=== PATIENT | female | born 1960 | race Caucasian/White ===

== ENCOUNTER → 2017-10-30 14:03 | Outpatient (CLI) | payer OTHER, SELFPAY | DX: K43.9 Ventral hernia without obstruction or gangrene (principal); K76.0 Fatty (change of) liver, not elsewhere classified | CPT/HCPCS: 74177; Q9967 ==

== ENCOUNTER → 2017-11-07 08:02 | Outpatient (CLI) | payer OTHER, SELFPAY | DX: Z12.31 Encounter for screening mammogram for malignant neoplasm of breast (principal) | CPT/HCPCS: 77063; 77067 ==

== ENCOUNTER → 2017-11-13 08:45 | Outpatient (CLI) | payer OTHER, SELFPAY | PROVIDERS: Visit Provider Orthopaedic Surgery | DX: M79.642 Pain in left hand (principal) | CPT/HCPCS: 73130 ==

== ENCOUNTER → 2017-12-12 10:09 | Outpatient (CLI) | payer OTHER, SELFPAY ==
[2017-12-13 13:10] LABS: HSV 2 IgG < 0.91 index (0.00-0.90)
[2017-12-17 13:16] LABS: HPV APTIMA, High Risk Negative (Negative)
== END ==
PROVIDERS: Referring Provider Nurse Practitioner Women's Health; Visit Provider Nurse Practitioner Women's Health
DX: Z86.19 Personal history of other infectious and parasitic diseases (principal); Z12.4 Encounter for screening for malignant neoplasm of cervix
CPT/HCPCS: 36415; 86695; 86696; 88175; G0145

== ENCOUNTER 2018-07-23 08:28 | Day surgery (SDC) | payer OTHER, SELFPAY ==
[2018-06-26 15:31] VITALS: BMI 25.5
--- NOTE | 2018-07-01 06:31 | HP_ITS ---
Intake Vital Signs 06/27/18 Body Mass Index (BMI) 25.5 06/27/18 Height 5 ft 1 in 06/27/18 Weight: 140 lb 06/27/18 Body Mass Index (BMI) 26.4 06/27/18 Blood Pressure 103/63 06/27/18 Blood Pressure Location Rt brachial 06/27/18 Blood Pressure Position Sitting 06/27/18 Respiratory Rate 14 06/27/18 Pulse Rate 67 06/27/18 Pulse Source Monitor 06/27/18 Temperature 98.3 F 06/27/18 Temperature Source Oral 06/27/18 Pulse Ox 97 06/27/18 Oxygen Delivery Method room air Intake Visit Reasons: DISCUSS HERNIA SURGERY LAST OV 11/19/17 Chief Complaint: NEW annual Non Destructive Testing Supervisor Required: No Is patient in pain?: No Allergies codeine Allergy (Verified 06/27/18 14:38) nausea Medications atorvastatin 20 mg tablet 20 mg PO DAILY 11/13/17 [History Confirmed 06/27/18] cholecalciferol (vitamin D3) 1,000 unit capsule 1,000 unit PO DAILY 11/13/17 [History Confirmed 06/27/18] sertraline 100 mg tablet 100 mg PO DAILY 11/13/17 [History Confirmed 06/27/18] estradiol 0.01% (0.1 mg/gram) vaginal cream See Rx Instructions VAGINAL .COMPLEX #42.5 g 12/12/17 [Rx Confirmed 06/27/18] PFSH Medical History Depression (Acute) High cholesterol (Acute) Surgical History History of D&C (Acute) History of tonsillectomy (Acute) right breast lump removed (Acute) Family History Mother Heart disease Hypertension Kidney disease Thyroid disorder Social History Smoking Status: Former smoker quit date: 03/12/87 pack-years: 6 second hand exposure: No alcohol intake: current alcohol intake frequency: a few times a month substance use type: does not use caffeine: Yes what type of physical activity do you participate in: walking frequency: 3-4 times per week seatbelt use: always do you feel safe at home: Yes 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 Patient has noticed a bulge above her umbilicus for many years. It really has not changed it has been persistent and goes away when she lies down. She has never sought out a surgical opinion on this. She has had no change in her bowel or bladder habits. A CAT scan of the abdomen and pelvis was completed it was [facility] [place], [place]. This did show a small ventral hernia above her umbilicus. It appeared to have some preperitoneal fat in it but no bowel. ROS General General: No weight change, appetite, fatigue, colon cancer, breast cancer or weakness HEENT HEENT: No difficulty swallowing, eye injury, eye surgery, swollen glands or hoarseness Endo Endocrine: No thyroid disease, diabetes mellitus, thyroid cancer, Hair loss, heat intolerance or cold intolerance Skin Skin: No rash or changing moles Musc Musculoskeletal: Yes back problems; no arthritis, rheumatoid arthritis, gout or joint pain Cardio Cardiovascular: No murmur, pacemaker, heart disease, atrial fibrillation, high blood pressure, heart attack, heart stent, palpitations, shortness of breat with exertion or chest pain Psych Psychiatric: Yes depression; no anxiety or hearing voices Resp Respiratory: No shortness of breath, No sleep apnea, No cough, No COPD, No asthma, No emphysema, No wheezing Gastro Gastrointestinal: No abdominal pain, No nausea or vomiting, No diarrhea, No constipation, No blood in stool, No acid reflux, Yes hemorrhoids, No ulcers, No gallbladder problem, No black,tarry stools Xiang Hematologic: No blood thinners, No blood disorders, No bleeding, No anemia, No blood clots Neuro Neurologic: No weakness Exam Const General: no acute distress, well developed, well hydrated Orientation: oriented to person, oriented to place, oriented to time [facility] Head: normocephalic, atraumatic Ears: external ears normal Mouth: moist mucous membranes Eyes Sclera: sclerae normal Pupils: normal by confrontation Neck Neck: no lymphadenopathy noted Neck mass: No Thyroid: thyroid normal, symmetrical Chest Chest palpation & inspection: normal inspection of the chest Resp Effort & Inspection: normal respiratory effort Auscultation: clear to auscultation bilaterally Percussion: percussion normal Cardio Rate: regular rate Rhythm: regular rhythm Heart Sounds: no murmurs GI Palpation: soft, no hepatosplenomegaly, no masses, tender Rectal Exam: other Other: A small reducible ventral hernias palpated just above the umbilicus and slightly to the right. It protrudes when she is standing and reduces quite easily when she is lying down. Rectal exam deferred. Extrem General: normal to inspection, no clubbing, cyanosis or edema Assessment & Plan Problems 1. Ventral hernia without obstruction or gangrene K43.9 Plan My plan is to perform an ventral hernia repair with mesh. The planned surgical procedure was discussed extensively with the patient. The risks, benefits, anticipated outcomes and possible complication were mentioned. The patient understands that all hernia repair surgery has a chance of recurrence and/or chronic post-operative pain. My staff has also explained the procedure in understandable terms and the patient was given the option to take printed material concerning the planned procedure. The patient had the opportunity to ask questions concerning the planned procedure. The patient freely consents to the planned procedure. Coding Level of Care Code Off vis,est,level 3 Diagnoses Ventral hernia without obstruction or gangrene K43.9
--- NOTE | 2018-07-23 08:36 | EKG12_ITS ---
Test Reason : AC Blood Pressure : / mmHG Vent. Rate : 065 BPM Atrial Rate : 065 BPM P-R Int : 162 ms QRS Dur : 090 ms QT Int : 412 ms P-R-T Axes : 053 021 014 degrees QTc Int : 428 ms Normal sinus rhythm Normal ECG Confirmed by JERI SHERIFF, RICO ([id number]), editorial cartoonist SOHEILA CADENA ([id number]) on 07/24/2018 2:16:46 PM Referred By: Naveen Panda Confirmed By:RICO WILCOX MD
[2018-07-23 09:30] VITALS: BP 119/72; PULSE 62; RESP 16; TEMP 36.8; O2SAT 92; BMI 25.7
[2018-07-23] MEDS: Cefazolin 2 GM in 0.9% Normal Saline 100 ML IV (10:30)
--- NOTE | 2018-07-23 10:39 | PCM.HP.BLA ---
History and Physical Date of Admission: 07/23/18 [facility] Medical Records Department [address] [place] [address] History and Physical 07/02/18 0631 MR#: [id number] Acct: [id number] Name: CELI FARMER Rep #: [id number] : 1960 58 From: Naveen Panda MD PCP: OUT OF TOWN DOCTOR Status: PRE SDC Location: SDC Intake Vital Signs 06/27/18 Body Mass Index (BMI) 25.5 06/27/18 Height 5 ft 1 in 06/27/18 Weight: 140 lb 06/27/18 Body Mass Index (BMI) 26.4 06/27/18 Blood Pressure 103/63 06/27/18 Blood Pressure Location Rt brachial 06/27/18 Blood Pressure Position Sitting 06/27/18 Respiratory Rate 14 06/27/18 Pulse Rate 67 06/27/18 Pulse Source Monitor 06/27/18 Temperature 98.3 F 06/27/18 Temperature Source Oral 06/27/18 Pulse Ox 97 06/27/18 Oxygen Delivery Method room air Intake Visit Reasons: DISCUSS HERNIA SURGERY LAST OV 11/19/17 Chief Complaint: NEW annual Contemporary Or Modern Dancer Required: No Is patient in pain?: No Allergies codeine Allergy (Verified 06/27/18 14:38) nausea Medications atorvastatin 20 mg tablet 20 mg PO DAILY 11/13/17 [History Confirmed 06/27/18] cholecalciferol (vitamin D3) 1,000 unit capsule 1,000 unit PO DAILY 11/13/17 [History Confirmed 06/27/18] sertraline 100 mg tablet 100 mg PO DAILY 11/13/17 [History Confirmed 06/27/18] estradiol 0.01% (0.1 mg/gram) vaginal cream See Rx Instructions VAGINAL .COMPLEX #42.5 g 12/12/17 [Rx Confirmed 06/27/18] [facility] Medical History Depression (Acute) High cholesterol (Acute) Surgical History History of D&C (Acute) History of tonsillectomy (Acute) right breast lump removed (Acute) Family History Mother Heart disease Hypertension Kidney disease Thyroid disorder Social History Smoking Status: Former smoker quit date: 03/12/87 pack-years: 6 second hand exposure: No alcohol intake: current alcohol intake frequency: a few times a month substance use type: does not use caffeine: Yes what type of physical activity do you participate in: walking frequency: 3-4 times per week seatbelt use: always do you feel safe at home: Yes 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 Patient has noticed a bulge above her umbilicus for many years. It really has not changed it has been persistent and goes away when she lies down. She has never sought out a surgical opinion on this. She has had no change in her bowel or bladder habits. A CAT scan of the abdomen and pelvis was completed it was [facility]. This did show a small ventral hernia above her umbilicus. It appeared to have some preperitoneal fat in it but no bowel. ROS General General: No weight change, appetite, fatigue, colon cancer, breast cancer or weakness HEENT HEENT: No difficulty swallowing, eye injury, eye surgery, swollen glands or hoarseness Endo Endocrine: No thyroid disease, diabetes mellitus, thyroid cancer, Hair loss, heat intolerance or cold intolerance Skin Skin: No rash or changing moles Musc Musculoskeletal: Yes back problems; no arthritis, rheumatoid arthritis, gout or joint pain Cardio Cardiovascular: No murmur, pacemaker, heart disease, atrial fibrillation, high blood pressure, heart attack, heart stent, palpitations, shortness of breat with exertion or chest pain Psych Psychiatric: Yes depression; no anxiety or hearing voices Resp Respiratory: No shortness of breath, No sleep apnea, No cough, No COPD, No asthma, No emphysema, No wheezing Gastro Gastrointestinal: No abdominal pain, No nausea or vomiting, No diarrhea, No constipation, No blood in stool, No acid reflux, Yes hemorrhoids, No ulcers, No gallbladder problem, No black,tarry stools Xiang Hematologic: No blood thinners, No blood disorders, No bleeding, No anemia, No blood clots Neuro Neurologic: No weakness Exam Const General: no acute distress, well developed, well hydrated Orientation: oriented to person, oriented to place, oriented to time [facility] Head: normocephalic, atraumatic Ears: external ears normal Mouth: moist mucous membranes Eyes Sclera: sclerae normal Pupils: normal by confrontation Neck Neck: no lymphadenopathy noted Neck mass: No Thyroid: thyroid normal, symmetrical Chest Chest palpation & inspection: normal inspection of the chest Resp Effort & Inspection: normal respiratory effort Auscultation: clear to auscultation bilaterally Percussion: percussion normal Cardio Rate: regular rate Rhythm: regular rhythm Heart Sounds: no murmurs GI Palpation: soft, no hepatosplenomegaly, no masses, tender Rectal Exam: other Other: A small reducible ventral hernias palpated just above the umbilicus and slightly to the right. It protrudes when she is standing and reduces quite easily when she is lying down. Rectal exam deferred. Extrem General: normal to inspection, no clubbing, cyanosis or edema Assessment & Plan Problems 1. Ventral hernia without obstruction or gangrene K43.9 Plan My plan is to perform an ventral hernia repair with mesh. The planned surgical procedure was discussed extensively with the patient. The risks, benefits, anticipated outcomes and possible complication were mentioned. The patient understands that all hernia repair surgery has a chance of recurrence and/or chronic post-operative pain. My staff has also explained the procedure in understandable terms and the patient was given the option to take printed material concerning the planned procedure. The patient had the opportunity to ask questions concerning the planned procedure. The patient freely consents to the planned procedure. Coding Level of Care Code Off vis,est,level 3 Diagnoses Ventral hernia without obstruction or gangrene K43.9 07/03/18 0801 <Electronically signed by Naveen Panda MD> Date: Time: Naveen Panda MD CC: Naveen Panda MD; TREY BERNAL; OUT OF TOWN DOCTOR ~ Date Dictated: 07/02/18 0631 Date Transcribed: 07/02/18 1353 Search Engine Optimization Strategist: Signed ____ I have re-examined the patient. There are no clinical changes since date of exam. ____ See Progress Notes for Changes ____ Dictated on Admission Date: Time: Signature: I have re-examined the patient. There are no clinical changes since date of exam.
--- NOTE | 2018-07-23 11:01 | PCM.OPRPT ---
Problem List (1) Ventral hernia without obstruction or gangrene Status: Acute Report of Operation Date of Procedure: 07/23/18 Pre-Operative Diagnosis: Ventral hernia without obstruction or gangrene Post-Operative Diagnosis: Same Surgery/Procedure Performed:: ventral hernia repair with mesh Type of Anesthesia:: General Anesthesiologist: Fazal Caballero Estimated Blood Loss (mL): < 25 cc Fluids Replaced: 700 cc lr Description of Procedure: Patient was brought into the operating room. Placed in the supine position. Under excellent general anesthesia the abdomen was sterilely prepped and draped in the usual fashion. Local was injected. A transverse incision was made directly over the hernia. I dissected down identified the hernia was able to place it back into its preperitoneal space it was roughly the size of a nickel. I created a preperitoneal space so that I was going to be able to place my ventral X hernia patch. I injected Exparel rel all into the subcutaneous tissues as well as into the musculature. I placed a medium sized ventral hernia patch into the preperitoneal space I sutured it circumferentially around the fascia with #1 Nurolon's. Had excellent hemostasis. I injected more local. Subcu was brought together with 2-0 Vicryl deep dermals with 3-0 Vicryl in a running 4-0 Monocryl on the skin. Steri-Strips were applied sterile dressings were applied and the patient tolerated the procedure well. - Admit VTE Documentation VTE Present on Admission: No VTE Mechan Device Prophylaxis: SCD's VTE Pharm Prophylaxis ordered?: No Reason prophylaxis not ordered:: Treatment Not Indicated
[2018-07-23] MEDS: BUPIVACAINE LIPOSOME/PF 20 ML VIAL OPERA.SITE (11:06)
[2018-07-23 11:19] VITALS: BP 119/72; BP 94/51; PULSE 64; RESP 14; TEMP 36.4; O2SAT 96
[2018-07-23 11:30] VITALS: BP 119/72; BP 93/59; PULSE 64; RESP 16; O2SAT 94
[2018-07-23 11:45] VITALS: BP 103/60; BP 119/72; RESP 14; O2SAT 93
--- NOTE | 2018-07-23 11:58 | DCINST_ITS ---
Discharge Diet: Light diet - advance as tolerated Discharge Activity: Return to Normal Activity, May Drive - when you are no longer taking narcotic pain medications., May Shower - with the bandage in place 1-2 days after surgery. Lifting Restrictions: 20 pounds for 8 weeks. Additional Activity Instructions:: Climbing stairs is fine, walking is encouraged. Sitting in bed may be uncomfortable. Sitting up using your lateral muscles (sitting up sideways) is usually more comfortable. Do not drive, work heavy equipment of sign legal documents for 24 hours. If your hernia repair was an ingunial repair, you may have scrotal swelling, an ice pack and/or athletic support can provide more comfort. Pain medications may cause nausea, you should typically eat light foods as you take your pain medications. Pain medications may also cause constipation. If you have difficulty with this, discuss with your doctor. Call your doctor if your incision/area has: Continuous Slow Oozing, Sudden Increased Bleeding, Increased Pain/ Swelling, Increased Redness, Foul Smelling Discharge Call your doctor if you observe: Fever of 101 or Higher Suture Line Care: Avoid Pulling/Pushing, Avoid Pinching/Bending Additional Dressing/Incision Instructions:: Leave the operative bandage on for 2-3 days. When you remove the bandage, leave the steri-strips on place until your follow up appointment or they fall off. Allergies/Adverse Reactions: Allergies codeine Allergy (Verified 06/27/18 14:38) nausea Medications to take at Discharge atorvastatin 20 mg tablet 20 mg PO DAILY 11/13/17 cholecalciferol (vitamin D3) 1,000 unit capsule 1,000 unit PO DAILY 11/13/17 sertraline 100 mg tablet 100 mg PO DAILY 11/13/17 Oxycodone HCl/Acetaminophen [Percocet 5/325] 1 - 2 tab PO Q4H PRN PRN 6 Days #30 tab 07/23/18 The following prescriptions were given: Oxycodone HCl/Acetaminophen [Percocet 5/325] 1 - 2 tab PO Q4H PRN PRN 6 Days #30 tab PRN Reason: Pain Primary Care Physician: [facility] Doctor,Out of [Primary Care Provider] - Test Results: Test results from this visit will be discussed in further detail at your follow- up appointment, if applicable. Please Follow Up With: Naveen Panda MD - [phone] When: Plan to have a follow up appointment in 7 days. Call to schedule.
[2018-07-23 12:00] VITALS: BP 101/64; BP 119/72; PULSE 63; RESP 16; TEMP 36.1; O2SAT 95
[2018-07-23 13:42] VITALS: BP 119/65; BP 119/72; PULSE 64; RESP 18; TEMP 36.5; O2SAT 96
== END 2018-07-23 13:44 | disposition home or self-care (01) ==
LOC: SDC 08:29 → AC 08:30
PROVIDERS: Referring Provider Surgery; Visit Provider Surgery
PROC: (CPT 49560; principal; 2018-07-23 10:15)
DX: K43.9 Ventral hernia without obstruction or gangrene (principal); E78.00 Pure hypercholesterolemia, unspecified; F32.9 Major depressive disorder, single episode, unspecified; Z87.891 Personal history of nicotine dependence; Z79.899 Other long term (current) drug therapy
CPT/HCPCS: 49560; 49568; 93005; C1781; J7120; J2405

== ENCOUNTER → 2019-02-13 08:26 | Outpatient (CLI) | payer OTHER, SELFPAY ==
--- NOTE | 2019-02-13 08:32 | BI_ITS ---
MAMMOGRAPHY - BILATERAL SCREENING REASON FOR EXAM: Female, 58 years old. Routine annual screening examination. PERTINENT HISTORY: Grandmother with breast cancer. Remote right excisional breast biopsy. TECHNIQUE: Digital bilateral breast bailey (3D mammographic acquisition) in the CC and MLO projections. 2-D mediolateral oblique (MLO) and craniocaudad (CC) views of both breasts were obtained. CAD: Full Field Digital Mammography with Computer Added Detection was performed. COMPARISON: Comparison is made with prior examination dated November 07, 2017 and August 25, 2016. FINDINGS: Breast Composition: The breasts are heterogeneously dense, which may obscure small masses. There are no dominant masses or suspicious calcifications. Stable benign-appearing small bilateral axillary lymph nodes. No other significant abnormalities are identified. There has been no significant change since the prior study. BI/SCREEN MAMM (CAD) W/BAILEY BILAT IMPRESSION: Stable bilateral screening mammogram. Yearly follow-up mammogram recommended. (A) ASSESSMENT CATEGORY: BIRADS Category 2: Benign. A letter regarding these results will be sent to the patient by the facility within 30 days. Approximately 10% of breast cancers are not detected by mammography. A normal mammogram should not delay biopsy of a clinically suspicious abnormality. [id number] Electronically Signed: Rashel Rosario, at 9:57 EST , Service support ,
== END ==
DX: Z12.31 Encounter for screening mammogram for malignant neoplasm of breast (principal)
CPT/HCPCS: 77063; 77067

== ENCOUNTER → 2019-12-25 10:57 | Outpatient (CLI) | payer OTHER, SELFPAY ==
[2019-10-30 10:30] VITALS: BMI 25.7
[2019-12-22 14:02] VITALS: BMI 25.7
--- NOTE | 2019-12-25 11:01 | BD_ITS ---
STUDY: DUAL ENERGY X-RAY ABSORPTIOMETRY / DXA REASON FOR EXAM: Female, 59 years old. Age of peter 48. Pat is 137.33 and 61 and quot; a loss of .5 and quot; per pat. Past hx of smoking for 10 yrs. Does a little exercising. TECHNIQUE: Bone Mineral Density (BMD) measurements of lumbar spine and bilateral hips were obtained. COMPARISON: Comparison is made with prior examination dated 11/15/2016. FINDINGS: Lumbar Spine (L1-L4): g/cm2 (1.020) / T-score (-1.2) / Z-score (0.1) Findings are suggestive of osteopenia with a low fracture risk. Left Femur Total: g/cm2 (0.856) / T-score (-1.2) / Z-score (-0.2) Left Femoral Neck: g/cm2 (0.808) / T-score (-1.7) / Z-score (0.3) Right Femur Total: g/cm2 (0.828) / T-score (-1.4) / Z-score (0.4) Right Femoral Neck: g/cm2 (0.768) / T-score (-1.9) / Z-score (-0.6) The T-Scores on the most recent prior examination were: Lumbar Spine (L1-L4): There has been improvement of bone density since the previous examination. Left Femur Total: which represents a worsening of 0.6%. Right Femur Total: which represents a worsening of 1.8%. BD/Dexa Bone Density Study IMPRESSION: The patient is considered osteopenic as outlined below according to World Sanjiv Organization (WHO) criteria with a moderate fracture risk. There has been worsening of bone density since the previous examination. Reference Information: The T-score is the number of standard deviations above or below the standard which is normal for young adults at their peak bone mineral density. The World Health Organization (WHO) interprets the T-scores as follows: Above -1 Normal bone density Between -1 and -2.5 Osteopenia Equal to / or below -2.5 Osteoporosis As a practical clinical guideline, osteopenia may be graded as follows: Mild -1 through -1.5 Moderate -1.6 through -2.0 Severe -2.1 through -2.4 The Z-score is the number of standard deviations above or below age-matched controls. A Z-score of less than -1.5 would be considered abnormal. References: 1. NIH Osteoporosis and Related Bone Diseases www osteo.org 2. International Society for Clinical Densitometry www iscd.org 3. National Osteoporosis Foundation www nof.org Electronically Signed: Rashel Rosario, at 12:29 EDT , Service support ,
== END ==
PROVIDERS: PCP Family Medicine; Referring Provider Family Medicine; Visit Provider Family Medicine
DX: M81.0 Age-related osteoporosis without current pathological fracture (principal)
CPT/HCPCS: 77080

== ENCOUNTER 2019-12-30 05:37 | Day surgery (SDC) | payer OTHER, SELFPAY ==
[2019-04-03 08:13] VITALS: BMI 25.7
[2019-12-22 14:02] VITALS: BMI 25.7
[2019-12-23 10:06] LABS: Magnesium 2.2 mg/dL (1.6-2.6)
--- NOTE | 2019-12-27 17:59 | HP.PCM_ITS ---
- Problem List (1) Incomplete uterovaginal prolapse Status: Acute Comment: grade III uterine prolapse. plan combo case TVHBSO with Brandin. Sukhi. History and Physical Date of Admission: 12/30/19 ADDENDUM Addendum entered and electronically signed by Laura Hernandez MD 12/25/19 09:01: grade III uterine prolapse. Assessment & Plan Problems 1. Incomplete uterovaginal prolapse N81.2 grade III uterine prolapse. plan combo case TVHBSO with Brandin. Sukhi. Plan - Dr. Laura Hernandez MD After discussing the patient's diagnosis and treatment plan options, patient wishes to proceed with surgical management. I have discussed with the patient the risks, benefits, and alternatives of the procedure which include but are not limited to risks of anesthesia, bleeding, infection, possible damage to bowel, bladder, or surrounding vasculature which could lead to additional surgery to evaluate any complications. Patient agrees to procedure and wishes to proceed. ACOG/uptodate references given for additional information regarding procedure. 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 Is patient in pain?: No Allergies codeine Allergy (Verified 12/22/19 14:01) nausea Medications atorvastatin 20 mg tablet 20 mg PO DAILY 11/13/17 [History Confirmed 12/22/19] cholecalciferol (vitamin D3) 25 mcg (1,000 unit) capsule 5,000 unit PO DAILY 11/13/17 [History Confirmed 12/22/19] sertraline 100 mg tablet 100 mg PO DAILY 11/13/17 [History Confirmed 12/22/19] estradiol 1 g VAGINAL 2XW 10/30/19 [History Confirmed 12/22/19] Is last menstrual period known: No Post menopausal: Yes Patient : No : No PFSH Medical History Depression (Acute) High cholesterol (Acute) Surgical History H/O ventral hernia repair (Acute) History of D&C (Acute) History of tonsillectomy (Acute) right breast lump removed (Acute) Family History Mother Heart disease Hypertension Kidney disease Thyroid disorder Dementia Social History (Updated 12/22/19 @ 14:[address] 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 Date Name GA/Weeks Outcome Route Bth Weight Infant Gen Labor Lgth Anesthesia Del [facility] Provider FOLayla Unknown 1988 Silas Unknown [address] [facility] Const Constitutional: Denies fatigue, fever(s), headache(s), increased appetite, poor appetite, weight gain or weight loss Cardio Card: Denies chest pain Resp Resp: Denies cough or dyspnea GI GI: Reports as per HPI; denies abdominal pain, constipation, nausea or vomiting : Reports as per HPI; denies difficulty urinating, painful urination, nipple discharge, urinary frequency, urinary incontinence, urinary hesitancy, urinary urgency, vaginal discharge, vaginal dryness, vaginal odor or vaginal itching Skin Skin/Breast: Denies nipple discharge Exam Const General: cooperative, healthy appearing, comfortable, no acute distress, well developed Nutritional Appearance: average body habitus Orientation: alert HENMT Head: normal to inspection, normocephalic Neck Neck: normal visual inspection, trachea midline Thyroid: thyroid normal Resp Effort & Inspection: normal respiratory effort GI Inspection: normal to inspection, non-distended Palpation: soft, no hepatosplenomegaly General: bladder normal to palpation External Female Exam: normal external appearance, normal appearance of the urethra Urethra: normal appearance of the urethra Speculum Exam - Vagina: normal appearance of the vagina, normal vaginal discharge Speculum Exam - Cervix: normal appearance of the cervix, nontender Bimanual Exam- Vagina & Uterus: bladder normal to palpation, No cervical tenderness Bimanual Exam- Adnexa, other: normal adnexae, adnexae mobile, no adnexal masses, rectocele, cystocele, vaginal apex descent Pelvic Support: cystocele, rectocele, vaginal apex descent Skin General: no rashes or lesions noted Assessment & Plan Problems 1. Incomplete uterovaginal prolapse N81.2 plan combo case TVHBSO with Brandin. Sukhi. Plan After discussing the patient's diagnosis and treatment plan options, patient wishes to proceed with surgical management. I have discussed with the patient the risks, benefits, and alternatives of the procedure which include but are not limited to risks of anesthesia, bleeding, infection, possible damage to bowel, bladder, or surrounding vasculature which could lead to additional surgery to evaluate any complications. Patient agrees to procedure and wishes to proceed. ACOG/uptodate references given for additional information regarding procedure. Coding Level of Care Code No Charge Diagnoses Incomplete uterovaginal prolapse N81.2
[2019-12-30] VITALS (14 sets, daily range): BP systolic 88–143; BP diastolic 47–70; PULSE 52–76; RESP 16; TEMP 36.2–37; O2SAT 94–100; BMI 26.6
[2019-12-30] MEDS: Gabapentin 600 MG Tablet PO (06:17)
[2019-12-30] MEDS: Celecoxib 200 MG Capsule 400 MG PO (06:18)
[2019-12-30] MEDS: Phenazopyridine 95 MG Tablet 190 MG PO (06:18)
[2019-12-30] MEDS: Acetaminophen 500 MG Tablet 1000 MG PO ×3 (06:18→18:12)
[2019-12-30] MEDS: Scopolamine 1mg/72hr Patch 1 PATCH TRANSDERM. (06:19)
[2019-12-30] MEDS: Enoxaparin 40 MG/0.4 ML Syringe SC (06:20)
[2019-12-30] MEDS: Lactated Ringers 1,000 ML 40 ML IV (06:20)
[2019-12-30] MEDS: dexAMETHasone 10 MG/ML Vial 8 MG IV (06:20)
[2019-12-30 06:51] LABS: Bedside Glucose 72 mg/dL (70-110)
[2019-12-30] MEDS: Cefazolin 2 GM in 0.9% Normal Saline 100 ML IV (07:26)
[2019-12-30] MEDS: Vasopressin 20 UNITS/ML Vial ×2 (07:29→08:10)
--- NOTE | 2019-12-30 07:30 | HYST_PTH ---
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 Kristel Ghotra MD : [id number] BED: DIS: 12/31/2019 SPEC #: [id number] RECD: 12/30/19 11:35 STATUS: GUEVARA REVicki #: [id number] ALBIN: 12/30/19 07:[address]: Kristel Ghotra DEPT: SURGICAL PATHOLOGY RECD BY: Aneesh De Paz ENTERED: 12/30/19 13:24 SP TYPE: HYSTERECT OTHR DR: DO Dr. Laura Hernandez MD Tissues: Uterus, NOS Procedures: Surgery Specimen Level V HEADER OPERATION: Vaginal hysterectomy, BSO PRE-OP DIAGNOSIS: Incomplete uterovaginal prolapse TISSUE SUBMITTED: Uterus, bilateral fallopian tubes and ovaries MICROSCOPIC DIAGNOSIS Uterus, hysterectomy: Cervix - nabothian cysts, squamous metaplasia and mild chronic inflammation. Endometrium - weakly proliferative and inactive endometrium. Myometrium - focal superficial adenomyosis. Right and left ovaries - corpora albicantia. Right and left fallopian tubes - no pathologic change. AM:dane 12/31/19 MICROSCOPIC DESCRIPTION Slides are reviewed. GROSS DESCRIPTION Received in fixative is one container labeled with the patient's name and designated uterus, bilateral fallopian tubes and ovaries. The specimen consists of a hysterectomy specimen consisting of uterus with cervix and detached bilateral fallopian tubes and ovaries. The uterus with cervix weighs 50 gm and measures 8 x 4 x 3 cm. The serosal surface is russ, glistening. The ectocervical mucosa is unremarkable. The external os is oval in contour. The endocervical canal measures 2.5 cm in length and the endocervical mucosa is russ, glistening and unremarkable. The triangular endometrial cavity measures 4?cm in length and up to 2 cm in width. The endometrium is russ, glistening without any mass lesion and measures 0.1 cm in thickness. Sections of the uterine wall do not reveal any mass lesion and measures 1.5 cm in thickness. The fallopian tubes and ovaries are not identified as right or left. One of the fallopian tubes measures 3 cm in length and 0.5 cm in diameter. The fimbrial end identified. Sections reveal unremarkable cut surfaces. The adjacent ovary measures 2 x 1 x 0.7 cm. Sections reveal unremarkable cut surfaces. The second fallopian tube is similar to first one and measures 2.5 cm in length and 0.5 cm in diameter. The second adjacent ovary measures 2 x 1.5 x 1 cm. Sections reveal unremarkable cut surfaces. Scrap Charger sections are submitted in eight cassettes as follows: 1 - anterior cervix, 2??posterior cervix, 3 & 4 - anterior uterine wall, 5 & 6 - posterior uterine wall, 7 & 8 - bilateral fallopian tubes and ovaries, each cassette containing one fallopian tube and adjacent ovary. / LUCY:dane 12/30/19 TC:5 CPT: 50423
--- NOTE | 2019-12-30 08:53 | OP.PCM_ITS ---
Problem List (1) Incomplete uterovaginal prolapse Status: Acute Comment: grade III uterine prolapse. plan combo case TVHBSO with Brandin. Sukhi. 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 Preoperative antibiotics and SCDs and Rodriguez catheter was placed inside the bladder. Weighted speculum was placed in the vagina and the anterior and posterior lip of the cervix was grasped with 2 Mayte clamps and circumferentially injected with dilute vasopressin. A circumferential incision was made with a scalpel and the posterior cul-de-sac was entered into sharply and a longneck speculum was placed. The anterior cul-de-sac was also dissected down and entered into sharply and the uterosacral ligaments were clamped cut and suture ligated bilaterally followed by the cardinal ligaments which were Clamped cut and suture ligated bilaterally with 0 Monocryl. The uterus serially descended and progressive bites were taken bilaterally up to the level of the utero-ovarian ligament bilaterally which was clamped transected and double ligated with 0 Monocryl suture and 0 Vicryl free tie. Bilateral fallopian tubes and ovaries were well visualized and noted be within normal limits and the b ilateral fallopian tubes and ovaries were then clamped, transected across the base of the IP ligament with a Queenie clamp and removed and double ligated with 0 monocryl suture and an 0 vicryl free tie. Excellent hemostasis was noted. Posterior peritoneum and the vagina were closed with [id number] 0 Vicryl pop offs including the posterior and anterior peritoneum in the reapproximation. Excellent hemostasis was noted. All instruments removed from the vagina clear urine was noted at the end of the procedure and counts were correct. next dr olmos proceeded with her portion of the procedure. Grafts/Implants Used: see brandin's note - Complications none - Admit VTE Documentation VTE Present on Admission: No Multi Select Codes - Urinary/Genital Urinary/Genital CPT Codes: 81703 TVH+BS/O <250gr uterus
--- NOTE | 2019-12-30 08:56 | PCM.DC.VHY ---
<Laura Hernandez - Last Filed: 12/30/19 08:56> Discharge Diet: No Restrictions Discharge Activity: Return to Normal Activity, May Not Drive, May Shower May resume sexual activity in: 6-8 weeks Call your doctor if your incision/area has: Continuous Slow Oozing, Sudden Increased Bleeding, Increased Pain/ Swelling, Increased Redness, Foul Smelling Discharge Call your doctor if you observe: Fever of 101 or Higher, Inability to urinate, Inability to have a bowel movement, Using more than one pad per hour Allergies/Adverse Reactions: Allergies codeine Allergy (Verified 12/30/19 06:10) nausea Medications to take at Discharge atorvastatin 20 mg tablet 20 mg PO DAILY 11/13/17 cholecalciferol (vitamin D3) 25 mcg (1,000 unit) capsule 5,000 unit PO DAILY 11/13/17 sertraline 100 mg tablet 100 mg PO DAILY 11/13/17 estradiol 1 g VAGINAL 2XW 10/30/19 Naproxen [Naprosyn] 250 - 500 mg PO Q8H PRN PRN #30 tab 12/30/19 Oxycodone HCl/Acetaminophen [Percocet 5-325] 1 - 2 tab PO Q6H PRN PRN 7 Days #15 tab 12/30/19 The following prescriptions were given: Naproxen [Naprosyn] 250 - 500 mg PO Q8H PRN PRN #30 tab PRN Reason: MILD PAIN Transmission Status: Received by [facility] Oxycodone HCl/Acetaminophen [Percocet 5-325] 1 - 2 tab PO Q6H PRN PRN 7 Days #15 tab PRN Reason: Pain Transmission Status: Received by [facility] Primary Care Physician: Coleen Baptiste DO [Primary Care Provider] - Test Results: Test results from this visit will be discussed in further detail at your follow-up appointment, if applicable. Please Follow Up With: Laura Hernandez MD - [phone] <Monua Flores NP - Last Filed: 12/31/19 07:10> Test Results: Test results from this visit will be discussed in further detail at your follow-up appointment, if applicable.
[2019-12-30] MEDS: Ondansetron 4 MG/2 ML Vial IV (09:36)
[2019-12-30] MEDS: Estrogens,Conj. 1 Tube 1 DOSE (09:38)
--- NOTE | 2019-12-30 09:46 | OP.PCM_ITS ---
Problem List (1) JIMMY (stress urinary incontinence, female) Status: Acute (2) Incomplete uterovaginal prolapse Status: Acute Comment: grade III uterine prolapse. plan combo case TVHBSO with Brandin. Sukhi. Report of Operation Date of Procedure: 12/30/19 Pre-Operative Diagnosis: Incomplete uterovaginal prolapse, stress urinary incontinence Post-Operative Diagnosis: Same Surgery/Procedure Performed:: Posterior repair with bilateral sacrospinous ligament fixation with dermis, anterior repair, mid urethral sling, cystoscopy with bilateral ureteral catheterization Type of Anesthesia:: General Estimated Blood Loss (mL): 25 cc Description of Procedure: The patient is a 59-year-old female with pelvic organ prolapse. She underwent evaluation with cystoscopy and urodynamics in the office. Informed consent was obtained and she now presents for definitive surgical intervention. The patient was taken to the operating room and placed on the operating room table. Anesthesia monitor the head, neck, airway, IV access and vital signs throughout the case. Once anesthesia was apparently administered the patient was placed into exaggerated dorsal lithotomy in Trendelenburg position. A 16 Citizen [place] Troncoso catheter was inserted under direct visualization. At this time Dr. Hernandez performed her portion of the procedure and closed the vaginal cuff. On examination, it was determined that the posterior vault had greater length, and I decided to proceed with sacrospinous ligament fixation posteriorly. The submucosa posteriorly was injected with vasopressin for hydrostatic dissection and hemostatic control. An incision full-thickness into the vaginal mucosa was then made. Sharp and blunt dissection was performed until the sacrospinous ligaments were identified and freed from surrounding tissues bilaterally. Dissection continued in a cephalad position until the apex of the vault was determined freed from peritoneum. Using the Capio device, Monodek sutures were passed through the sacrospinous ligament on either side. The sutures were then brought through the trimmed dermis and through the vaginal vault in full- thickness fashion. A full-thickness suture was taken in the midline with 2-0 Vicryl. The mesh was then attached using interrupted sutures to the white line bilaterally and just above the perineal body distally. The mucosa was then closed using running interlocking 2-0 Vicryl suture. The Monodek sutures were tied into position and the prolapse was reduced. Anteriorly, the submucosa was once again injected with vasopressin and a midline incision was made. Sharp and blunt dissection was performed bilaterally into the pubocervical fascia was identified. It was brought together in 2 layer closure with interrupted 2-0 Vicryl suture. The mucosa was then closed over using running interlocking 2-0 Vicryl. The mid urethra was injected with vasopressin and a midline vertical incision was made and sharp and blunt dissection was performed on either side of the urethra with care being taken to wait entrance into the urethra or the vaginal mucosa. The Altis urethral sling was then inserted using the trochars into the obturator complexes bilaterally without difficulty. The sling was flat against the urethra without tension. The tensioning suture was cut. The midline incision was closed using running interlocking 2-0 Vicryl. At this time the Troncoso catheter was removed. The cystoscope was inserted through the urethra under direct visualization into the urinary bladder. There were no foreign objects within the urinary bladder. There were no areas of break in the mucosa and no bleeding. Bilateral ureteral orifices were observed. There was a good ureteral jet from the patient's left side. A 5 Citizen [place] whistle-tip catheter was easily inserted and each ureteral orifice and passed to 20 cm without difficult y. There is no blood and no evidence of obstruction identified. At this time the cystoscope was removed and the Troncoso catheter was replaced. Patient's vagina was packed with estrogen cream and vaginal packing. The patient was then awakened and taken to the recovery room in good condition. There were no complications during this procedure. Grafts/Implants Used: Dermis, Altis mid urethral sling - Complications None - Admit VTE Documentation VTE Present on Admission: Yes VTE Mechan Device Prophylaxis: SCD's VTE Pharm Prophylaxis ordered?: Yes
--- NOTE | 2019-12-30 09:54 | DCINST_ITS ---
Discharge Diet: No Restrictions Discharge Activity: Return to Normal Activity, May Not Drive, May Shower, - - no tub bathing, no hot tubs, no swimming. No intercourse, nothing per vagina except estrogen cream which is to be continued. No exercise, no lifting over 5 pounds. No strenuous activity May resume sexual activity in: 8 weeks Call your doctor if your incision/area has: Continuous Slow Oozing, Sudden Increased Bleeding, Increased Pain/ Swelling, Increased Redness, Foul Smelling Discharge Call your doctor if you observe: Fever of 101 or Higher, Inability to urinate, Inability to have a bowel movement, Using more than one pad per hour Allergies/Adverse Reactions: Allergies codeine Allergy (Verified 12/30/19 06:10) nausea Medications to take at Discharge atorvastatin 20 mg tablet 20 mg PO DAILY 11/13/17 cholecalciferol (vitamin D3) 25 mcg (1,000 unit) capsule 5,000 unit PO DAILY 11/13/17 sertraline 100 mg tablet 100 mg PO DAILY 11/13/17 estradiol 1 g VAGINAL 2XW 10/30/19 Naproxen [Naprosyn] 250 - 500 mg PO Q8H PRN PRN #30 tab 12/30/19 Oxycodone HCl/Acetaminophen [Percocet 5-325] 1 - 2 tab PO Q6H PRN PRN 7 Days #15 tab 12/30/19 The following prescriptions were given: Naproxen [Naprosyn] 250 - 500 mg PO Q8H PRN PRN #30 tab PRN Reason: MILD PAIN Transmission Status: Received by [facility] Oxycodone HCl/Acetaminophen [Percocet 5-325] 1 - 2 tab PO Q6H PRN PRN 7 Days #15 tab PRN Reason: Pain Transmission Status: Received by [facility] Primary Care Physician: Coleen Baptiste DO [Primary Care Provider] - Test Results: Test results from this visit will be discussed in further detail at your follow- up appointment, if applicable. Please Follow Up With: Kristel Ghotra MD When: call office for appt
[2019-12-30] MEDS: Lactated Ringers 1,000 ML 70 ML IV ×4 (10:00→22:32)
[2019-12-30] MEDS: 0.9% Saline Lock 10 ML Syringe IV ×2 (12:44→18:12)
[2019-12-30] MEDS: Cephalexin 500 MG Capsule PO ×2 (12:45→20:24)
[2019-12-30] MEDS: Ketorolac 30 MG/ML Syringe IV ×2 (12:45→18:11)
[2019-12-30] MEDS: Atorvastatin Calcium 20 MG Tablet PO (20:23)
[2019-12-30] MEDS: Docusate Sodium 100 MG Capsule PO (20:24)
[2019-12-31 00:09] VITALS: BP 122/55; PULSE 72; RESP 18; TEMP 36.9; O2SAT 94
[2019-12-31 05:43] LABS: Hematocrit 36.2 % (37-47); Hemoglobin 11.7 g/dL (12.0-15.0); Mean Corp Hgb Conc 32.3 g/dL (32-36); Mean Corpuscular Hgb 30.2 pg (27.0-32.0); Mean Corpuscular Volume 93.5 fL (81-99); Mean Platelet Vol. 9.7 fl (6.2-12.0); Platelet Count 244 K/mm3 (150-450); RBC Distribution Width CV 13.3 % (11.6-14.6); RBC Distribution Width SD 45.5 fl (35.1-43.9); Red Blood Count 3.87 M/mm3 (4.2-5.4); White Blood Count 14.8 K/mm3 (4.4-11.0)
[2019-12-31] MEDS: Ketorolac 30 MG/ML Syringe IV ×3 (05:58→12:09)
[2019-12-31 07:33] VITALS: O2SAT 94
[2019-12-31] MEDS: Sertraline 100 MG Tablet PO (07:58)
[2019-12-31] MEDS: Cephalexin 500 MG Capsule PO (07:58)
[2019-12-31] MEDS: Docusate Sodium 100 MG Capsule PO (07:59)
[2019-12-31] MEDS: Enoxaparin 40 MG/0.4 ML Syringe SC (07:59)
--- NOTE | 2019-12-31 08:07 | PCM.PN.OB ---
Patient Problems: Active and Suspected Problems (Last Reviewed 12/22/19 @ 14:02 by Carisa Jordan) JIMMY (stress urinary incontinence, female) (Acute) Incomplete uterovaginal prolapse (Acute) grade III uterine prolapse. plan combo case TVHBSO with Brandin. Sukhi. Subjective: Pain controlled, denies CP, SOB. Taking po well. Up to bedside. Denies concerns. - Physical Exam Vitals/I&O's: Vital Signs Temp Pulse Resp BP Pulse Ox 98.5 F 72 18 122/55 H 94 12/31/19 00:09 12/31/19 00:09 12/31/19 00:09 12/31/19 00:09 12/31/19 07:33 Oxygen Flow Rate (L/min) 6 Oxygen Delivery Method Room Air Weight: 141 lb 5.061 oz Body Mass Index (BMI) 26.6 Intake and Output for Last 24 Hours 12/29/19 12/30/19 12/31/19 23:59 23:59 23:59 Intake Total 3019.67 / 3619.67 600 / 600 Output Total 1785 / 3185 2150 / 2150 Balance 1234.67 / 434.67 -1550 / -1550 General: Alert, Oriented x3 Abdomen: Soft, Non-Distended, - - appropriately tender Laboratory Results 12/31/19 05:18: WBC 14.8 H, RBC 3.87 L, Hgb 11.7 L, Hct 36.2 L, MCV 93.5, MCH 30.2, MCHC 32.3, RDW Std Deviation 45.5 H, RDW Coeff of Wendy 13.3, Plt Count 244, MPV 9.7 Current Medications Acetaminophen (Acetaminophen 500 Mg Tablet) 1,000 mg PO Q6 [facility] Last Admin: 12/31/19 06:00 Dose: Not Given Documented by: Atorvastatin Calcium (Atorvastatin Calcium 20 Mg Tablet) 20 mg PO QHS [facility] Last Admin: 12/30/19 20:23 Dose: 20 mg Documented by: Cephalexin (Cephalexin 500 Mg Capsule) 500 mg PO Q12 [facility] Last Admin: 12/31/19 07:58 Dose: 500 mg Documented by: Docusate Sodium (Docusate Sodium 100 Mg Capsule) 100 mg PO BID [facility] Last Admin: 12/31/19 07:59 Dose: 100 mg Documented by: Enoxaparin Sodium (Enoxaparin 40 Mg/0.4 Ml Syringe) 40 mg SC DAILY [facility] Last Admin: 12/31/19 07:59 Dose: 40 mg Documented by: Estradiol (Estradiol 42.5 Gm Cream.Appl) 1 gm VAGINAL TuFr [facility] Last Admin: 12/30/19 12:38 Dose: Not Given Documented by: Lactated Ringer's () 1,000 mls @ 70 mls/hr IV .[id number] [facility] Stop: 12/31/19 12:05 Last Admin: 12/30/19 22:32 Dose: 70 mls/hr Documented by: Sodium Chloride () 250 mls @ 15 mls/hr IV .[id number] PRN PRN Reason: Saline Flush Sodium Chloride () 250 mls @ 15 mls/hr IV .[id number] PRN PRN Reason: Additional IVPB Infusion Ketorolac Tromethamine (Ketorolac 30 Mg/Ml Syringe) 30 mg IV Q6 [facility] Stop: 12/31/19 18:01 Last Admin: 12/31/19 05:58 Dose: 30 mg Documented by: Magnesium Chloride (Magnesium Chloride 64 Mg Delay Rel.Tablet) 128 mg PO DAILY PRN PRN PRN Reason: Constipation Nutritional Formula (Lactose Free) (Ensure Enlive 120 Ml Liquid) 120 ml PO TIDCM [facility] Last Admin: 12/31/19 08:01 Dose: 120 ml Documented by: Ondansetron HCl (Ondansetron Odt 4 Mg Tablet) 4 mg PO Q6H PRN PRN PRN Reason: NAUSEA Oxycodone HCl (Oxycodone 5 Mg Tablet) 5 - 10 mg PO Q4H PRN PRN PRN Reason: Pain Score 4-10 Sertraline HCl (Sertraline 100 Mg Tablet) 100 mg PO DAILY [facility] Last Admin: 12/31/19 07:58 Dose: 100 mg Documented by: Sodium Chloride (0.9% Saline Lock 10 Ml Syringe) 10 - 40 ml IV UD PRN PRN Reason: SALINE FLUSH Last Admin: 12/30/19 18:12 Dose: 10 ml Documented by: Medical Necessity - Tobacco Use Smoking Status: Never smoker Tobacco Use: Non-smoker Assessment/Plan All Active Problems (Last Reviewed 12/22/19 @ 14:02 by Carisa M Jordan) JIMMY (stress urinary incontinence, female) (Acute) Incomplete uterovaginal prolapse (Acute) Acute sinusitis, unspecified (Resolved) URI (upper respiratory infection) (Resolved) Ventral hernia without obstruction or gangrene (Resolved) TVH BSO postop day #1: routine care, reg diet. See Dr Ghotra note for further care and discharge.
[2019-12-31 08:11] VITALS: BP 132/45; PULSE 70; RESP 16; TEMP 37.1; O2SAT 96
[2019-12-31] MEDS: Acetaminophen 500 MG Tablet 1000 MG PO ×2 (12:08)
[2019-12-31] MEDS: 0.9% Saline Lock 10 ML Syringe IV (12:11)
--- NOTE | 2019-12-31 12:23 | PCM.PROGNOTE ---
Patient Problems: Active and Suspected Problems (Last Reviewed 12/22/19 @ 14:02 by Carisa Jordan) JIMMY (stress urinary incontinence, female) (Acute) Incomplete uterovaginal prolapse (Acute) grade III uterine prolapse. plan combo case [id number] with Brandin. Sukhi. Subjective: Sitting up in bed. Eating. Sore but pain controlled. No issues overnight. Is voiding without the catheter in. Ready to go home. - Physical Exam Vitals/I&O's: Vital Signs Temp Pulse Resp BP Pulse Ox 98.7 F 70 16 132/45 H 96 12/31/19 08:11 12/31/19 08:11 12/31/19 08:11 12/31/19 08:11 12/31/19 08:11 Oxygen Flow Rate (L/min) 6 Oxygen Delivery Method Room Air Weight: 64.1 kg Body Mass Index (BMI) 26.6 Intake and Output for Last 24 Hours 12/29/19 12/30/19 12/31/19 23:59 23:59 23:59 Intake Total 3019.67 / 3619.67 1649.5 / 1649.5 Output Total 1785 / 3185 3250 / 3250 Balance 1234.67 / 434.67 -1600.5 / -1600.5 General: Alert, Oriented x3, Cooperative, No apparent distress HEENT: Normocephalic Oral: Moist Mucosa Neck: Supple Lungs: Normal air movement Cardiovascular: Regular rate Abdomen: Soft Musculoskeletal: No Muscle Wasting Neurological: Cranial nerves II-XII grossly intact Psych/Mental Status: Normal Affect Laboratory Results 12/31/19 05:18: WBC 14.8 H, RBC 3.87 L, Hgb 11.7 L, Hct 36.2 L, MCV 93.5, MCH 30.2, MCHC 32.3, RDW Std Deviation 45.5 H, RDW Coeff of Wendy 13.3, Plt Count 244, MPV 9.7 Current Medications Acetaminophen (Acetaminophen 500 Mg Tablet) 1,000 mg PO Q6 [facility] Last Admin: 12/31/19 12:08 Dose: 1,000 mg Documented by: Atorvastatin Calcium (Atorvastatin Calcium 20 Mg Tablet) 20 mg PO QHS [facility] Last Admin: 12/30/19 20:23 Dose: 20 mg Documented by: Cephalexin (Cephalexin 500 Mg Capsule) 500 mg PO Q12 [facility] Last Admin: 12/31/19 07:58 Dose: 500 mg Documented by: Docusate Sodium (Docusate Sodium 100 Mg Capsule) 100 mg PO BID [facility] Last Admin: 12/31/19 07:59 Dose: 100 mg Documented by: Enoxaparin Sodium (Enoxaparin 40 Mg/0.4 Ml Syringe) 40 mg SC DAILY [facility] Last Admin: 12/31/19 07:59 Dose: 40 mg Documented by: Estradiol (Estradiol 42.5 Gm Cream.Appl) 1 gm VAGINAL TuFr [facility] Last Admin: 12/30/19 12:38 Dose: Not Given Documented by: Sodium Chloride () 250 mls @ 15 mls/hr IV .[id number] PRN PRN Reason: Saline Flush Sodium Chloride () 250 mls @ 15 mls/hr IV .[id number] PRN PRN Reason: Additional IVPB Infusion Ketorolac Tromethamine (Ketorolac 30 Mg/Ml Syringe) 30 mg IV Q6 [facility] Stop: 12/31/19 18:01 Last Admin: 12/31/19 12:09 Dose: 30 mg Documented by: Magnesium Chloride (Magnesium Chloride 64 Mg Delay Rel.Tablet) 128 mg PO DAILY PRN PRN PRN Reason: Constipation Nutritional Formula (Lactose Free) (Ensure Enlive 120 Ml Liquid) 120 ml PO TIDCM [facility] Last Admin: 12/31/19 12:07 Dose: 120 ml Documented by: Ondansetron HCl (Ondansetron Odt 4 Mg Tablet) 4 mg PO Q6H PRN PRN PRN Reason: NAUSEA Oxycodone HCl (Oxycodone 5 Mg Tablet) 5 - 10 mg PO Q4H PRN PRN PRN Reason: Pain Score 4-10 Sertraline HCl (Sertraline 100 Mg Tablet) 100 mg PO DAILY [facility] Last Admin: 12/31/19 07:58 Dose: 100 mg Documented by: Sodium Chloride (0.9% Saline Lock 10 Ml Syringe) 10 - 40 ml IV UD PRN PRN Reason: SALINE FLUSH Last Admin: 12/31/19 12:11 Dose: 10 ml Documented by: Medical Necessity - Tobacco Use Smoking Status: Never smoker Tobacco Use: Non-smoker Assessment/Plan All Active Problems (Last Reviewed 12/22/19 @ 14:02 by Carisa M Jordan) JIMMY (stress urinary incontinence, female) (Acute) Incomplete uterovaginal prolapse (Acute) Acute sinusitis, unspecified (Resolved) URI (upper respiratory infection) (Resolved) Ventral hernia without obstruction or gangrene (Resolved) PVR is good Home today All up in the office in 2 weeks Continue restrictions per instructions
[2019-12-31 12:39] VITALS: BP 123/55; PULSE 66; RESP 16; TEMP 37.1; O2SAT 96
== END 2019-12-31 13:30 | disposition home or self-care (01) ==
LOC: SDC 05:37 → AC 05:37 → MS3 09:26
PROVIDERS: Anesthesiology; Obstetrics & Gynecology; PCP Family Medicine; Referring Provider Urology; Visit Provider Urology
PROC: (CPT 58260; principal; 2019-12-30 07:10)
PROC: (CPT 57260; 2019-12-30 07:10)
DX: N81.2 Incomplete uterovaginal prolapse (principal); Z20.828 Contact with and (suspected) exposure to other viral communicable diseases; F41.9 Anxiety disorder, unspecified; E78.00 Pure hypercholesterolemia, unspecified; Z79.899 Other long term (current) drug therapy; F32.9 Major depressive disorder, single episode, unspecified; Z87.891 Personal history of nicotine dependence
CPT/HCPCS: 00940; 57260; 57288; 58262; 36415; 82962; 83735; 85027; 86850; 86900; 86901; 87635; 88307; 99251; J7120; A4216; C1758; G0463; J2405; J3475; U0003

== ENCOUNTER → 2020-03-03 15:57 | Outpatient (CLI) | payer OTHER, SELFPAY ==
[2019-10-30 10:30] VITALS: BMI 25.7
[2020-02-03 15:55] VITALS: BMI 26.0
--- NOTE | 2020-03-03 15:59 | BI_ITS ---
MAMMOGRAPHY - BILATERAL SCREENING REASON FOR EXAM: Female, 59 years old. Routine annual screening examination. PERTINENT HISTORY: Grandmother with breast cancer. Remote right excisional breast biopsy. TECHNIQUE: Digital bilateral breast bailey (3D mammographic acquisition) in the CC and MLO projections. 2-D mediolateral oblique (MLO) and craniocaudad (CC) views of both breasts were obtained. CAD: Full Field Digital Mammography with Computer Added Detection was performed. COMPARISON: Comparison is made with prior study dated 02/13/2019 and 11/07/2017. FINDINGS: Breast Composition: The breasts are heterogeneously dense, which may obscure small masses. There are no dominant masses or suspicious calcifications. Stable benign-appearing bilateral axillary lymph nodes. No other significant abnormalities are identified. There has been no significant change since the prior study. BI/SCREEN MAMM (CAD) W/BAILEY BILAT IMPRESSION: Stable bilateral screening mammogram. Yearly follow-up mammogram recommended. (A) ASSESSMENT CATEGORY: BIRADS Category 2: Benign. A letter regarding these results will be sent to the patient by the facility within 30 days. Approximately 10% of breast cancers are not detected by mammography. A normal mammogram should not delay biopsy of a clinically suspicious abnormality. [id number] Electronically Signed: Rashel Rosario, at 8:17 EST , Service support ,
== END ==
PROVIDERS: PCP Family Medicine; Referring Provider Family Medicine; Visit Provider Family Medicine
DX: Z12.31 Encounter for screening mammogram for malignant neoplasm of breast (principal)
CPT/HCPCS: 77063; 77067

== ENCOUNTER → 2020-11-12 10:16 | Outpatient (CLI) | payer OTHER, SELFPAY ==
[2020-11-12 11:20] LABS: Color, Urine Yellow (Yellow); Glucose, Dipstick Normal (Normal); Ketone-Dipstick Negative (Negative); Leukocyte Esterase-Dipstick Negative /ul (Negative); Nitrite-Dipstick Negative (Negative); Occult Blood-Urine Negative /ul (Negative); Protein-Dipstick Negative (Negative); Urine Bilirubin Dipstick Negative (Negative); Urine Clarity Sl. Cloudy (Clear); Urine Urobilinogen Normal (Normal)
[2020-11-12 11:27] LABS: Absolute Lymphocyte Count 1.51 X10^3/uL (0.83-4.51); Absolute Neutrophil Count 3.4 X10^3/uL (2.0-7.7); Basophil# 0.03 X10^3/uL; Basophil% 0.5 % (0-1); Eosinophil# 0.11 X10^3/uL; Hematocrit 42.3 % (37-47); Hemoglobin 14.1 g/dL (12.0-15.0); Lymphocyte # 1.51 X10^3/ul (0.83-4.51); Lymphocyte % 27.1 % (19-41); Mean Corp Hgb Conc 33.3 g/dL (32-36); Mean Corpuscular Hgb 30.5 pg (27.0-32.0); Mean Corpuscular Volume 91.4 fL (81-99); Mean Platelet Vol. 9.5 fl (6.2-12.0); Monocyte# 0.51 X10^3/uL; Monocyte% 9.1 % (0-10); NRBC Flagged by Analyzer 0 % (0-5); Neutrophil # 3.38 X10^3/uL (2.7-7.7); Neutrophil % 60.6 % (47-70); Platelet Count 285 K/mm3 (150-450); RBC Distribution Width CV 13.5 % (11.6-14.6); RBC Distribution Width SD 45.4 fl (35.1-43.9); Red Blood Count 4.63 M/mm3 (4.2-5.4); White Blood Count 5.6 K/mm3 (4.4-11.0)
[2020-11-12 12:04] LABS: AST(SGOT) 19 U/L (15-37); Alanine Aminotransfer ALT/SGPT 33 U/L (13-56); Albumin, Serum 3.8 g/dL (3.2-5.0); Alkaline Phosphatase 51 U/L (45-117); Anion Gap 5 (5-15); BUN 18 mg/dL (7-18); BUN/Creat Ratio 24.7 RATIO (10-20); Bilirubin, Direct 0.14 mg/dL (0.00-0.30); Calcium,Total 8.9 mg/dL (8.5-10.1); Chloride 105 mmol/L (98-107); Cholesterol 216 mg/dL (200); Creatinine, Serum 0.73 mg/dL (0.55-1.02); EST Glomerular Filtration Rate 86 mL/min (>60); Est Glom Filt Rate - Afr Amer 104 mL/min (>60); Globulin 3.4 g/dL (2.2-4.2); Glucose 89 mg/dL (74-106); High Density Lipoprotein 80 mg/dL; Potassium 4.3 mmol/L (3.5-5.1); Protein, Total 7.2 g/dL (6.4-8.2); Sodium Level 137 mmol/L (136-145); Thyroid Stim Hormone (TSH) 1.02 uIU/mL (0.358-3.74); Triglycerides 94 mg/dL; Very Low Density Lipoprotein 19 mg/dL (5-40)
== END ==
PROVIDERS: PCP Family Medicine; Visit Provider Family Medicine
DX: Z00.01 Encounter for general adult medical examination with abnormal findings (principal); E78.5 Hyperlipidemia, unspecified; E55.9 Vitamin D deficiency, unspecified
CPT/HCPCS: 36415; 80048; 80061; 80076; 81002; 82652; 84443; 85025

== ENCOUNTER 2020-11-18 09:00 | Outpatient (RCR) | payer OTHER, SELFPAY ==
[2020-02-03 15:55] VITALS: BMI 26.0
--- NOTE | 2020-10-05 10:58 | HP.PTEVAL_ITS ---
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 Coleen Baptiste DO with a diagnosis of Cervical radiculitis. Date of Evaluation: 09/28/20 Physical Therapist: Evelio Saini DPT - Visit Plan Frequency: 1x/Week Duration: 4 Weeks Plan: Start with SNAGs into ext, progress rotation if tolerating. Add in supine retraction with extension progression. Initial add in manual cervical distraction then progress to stability exercises. - Subjective Pt. is here today for her initial evaluation with diagnosis of cervical radiculitis. Pt. has been having B hand numbness that has been worsening for the past two months. Pt. is also having some pain in BUEs, but not radiating to hands. Pt. has been dropping some objects, but is also having trigger finger like symptoms which she thinks is contributing. Increases pain: looking up, cervical retraction, neck rotation, driving. Decreases symptoms: nothing really.' Pt. has trouble sleeping as well. She has not tried chiro, but has done some light retraction at home. Pt. is also having difficulty with lifting objects, especially heavier, ie gallon of milk. Pt. is hopeful to reduce symptoms in order to get back to all work and all recreational activities without limitations. - Pain neck Pain Intensity (Out of 10): 2 Pain Intensity Range: 1, 6 BUes Pain Intensity (Out of 10): 2 Pain Intensity Range: 2, 6 Comment: mostly tingling in both arms - Objective POSTURE: Pt. has general flexed posture, increased CT junction curve noted. PALPATION: Pt. has increased tenderness at C/T junction and with spring testing to C3-T1. Tenderness also noted at bilateral UT region. NEURO: Pt. has normal sensation and normal DTR of BUEs. ROM: CERVICAL SPINE: flexion min loss increase NW, ext mod loss increase NW, retraction min loss increase NW, protraction nil loss NE, SB min loss NE, rotation mod loss bilat increase NW. Stiffness noted with thoracic extension as well. Normal shoulder ROM bilat NE. MMT: Pt. has no myotomal weakness noted in BUEs, Pt. has 4+/5 strength throughout BUEs. - Special Tests C/S Radiculapathy - Left Spurlings: Negative C/S Radiculapathy - Right Spurlings: Negative C/S Radiculapathy - Left Cervical distraction: Negative C/S Radiculapathy - Right Cervical distraction: Negative C/S Radiculapathy - Left Relief test: Negative C/S Radiculapathy - Right Relief test: Negative Cervical Sitting: Protrusion - Mechanical Response: No effect Cervical Sitting: Protrusion - Symptoms During Testing: No effect Cervical Sitting: Protrusion - Symptoms After Testing: No effect Cervical Sitting: Retraction - Symptoms During Testing: Decreases Cervical Sitting: Retraction - Symptoms After Testing: No better Cervical Sitting: Retraction-Extension - Mechanical Response: No effect Cerv Sitting: Retraction-Extension - Symptoms During Testing: Decreases Cerv Sitting: Retraction-Extension - Symptoms After Testing: No better Cervical Sitting: Sidebend Right - Mechanical Response: No effect Cervical Sitting: Sidebend Right - Symptoms During Testing: No effect Cervical Sitting: Sidebend Right - Symptoms After Testing: No effect Cervical Sitting: Sidebend Left - Mechanical Response: No effect Cervical Sitting: Sidebend Left - Symptoms During Testing: No effect Cervical Sitting: Sidebend Left - Symptoms After Testing: No effect Cervical Sitting: Rotation Right - Mechanical Response: No effect Cervical Sitting: Rotation Right - Symptoms During Testing: No effect Cervical Sitting: Rotation Left - Mechanical Response: No effect Cervical Sitting: Rotation Left - Symptoms During Testing: No effect Cervical Sitting: Rotation Left - Symptoms After Testing: No effect Cervical Sitting: Flexion - Mechanical Response: No effect Cervical Sitting: Flexion - Symptoms During Testing: No effect Cervical Sitting: Flexion - Symptoms After Testing: No effect - Balance/Special Test Scores Oswestry Neck Score: 20 - Goals Goal 1:: LTG: Pt. to be I with HEP. Goal Time Frame: 4-6 Weeks Goal 2:: STG: Pt. to have increased cervical ROM by 25% in all direction with 0- 2/10 pain. Goal Time Frame: 2 Weeks Goal 3:: STG: Pt. to sleep throughout the night with 0-2/10 pain. 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 Goal Time Frame: 2-4 Weeks Goal 5:: LTG: pt. to demonstrate improved posture throughout therapy session indicating increased stability and postural awareness. Goal Time Frame: 2-4 Weeks - Rehabilitation Potential Physical Therapy Diagnosis: Pt. has signs and symptoms consistent with radiating cervical spine symptoms. Pt. did have some exacerbation of symptoms with cervical retraction and extension, but negative spurlings testing. Pt. would benefit from PT to increase her cervical and thoracic ROM and increase scapular and cervical stability. Rehabilitation Potential: Good - Anticipated Interventions Patient/Client Instruction: Educate patient on: Condition, Plan of Care, Risk Factors, Benefits of Fitness Program For the Purpose of:: To improve decision making, To facilitate caregiver kn owledge, To improve self management, To prevent re-injury, To improve ability to perform tasks related to life management Therapeutic Exercise to Include: Strength training, Power training, Body mechanics, Postural training, Flexibilty training, Passive ROM, Active ROM, Shoaib Exercises, Scapular Strength/Stabilization For the Purpose of:: To decrease pain, To decrease swelling/inflammation, To increase ROM, To improve nutrient delivery to tissue, To increase oxygenation perfusion, To improve muscle performance and motor function, To improve ability to perform ADL's, To increase tolerance to activity/condition/position, To improve health of tissue, To decrease soft tissue restriction Manual Therapy Techniques to Include: Mobilization, Passive ROM, Soft tissue mobilization For the Purpose of:: To decrease pain, To decrease swelling/inflammation, To increase ROM, To improve nutrient delivery to tissue, To increase oxygenation perfusion Ultrasound (thermal/non thermal): Yes For the Purpose of:: To decrease pain, To decrease swelling/inflammation, To increase ROM Thank you for the opportunity to evaluate your patient. For Medicare and Medicare HMO plans, please review the plan of care and approve it. It will need to be FAXED BACK to us at [phone] for Medicare purposes. For Medicare only, by signing this I certify the plan of care. Please let me know if there are questions or concerns regarding this plan of care. Physician Signature: Date:
--- NOTE | 2021-02-08 14:34 | HP.PTDCSUM ---
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 Coleen Baptiste DO, with the diagnosis of Cervical radiculitis for a total of 15 visit(s). Discharge Date: 11/18/20 Please see the following information for a summary of their discharge status. Subjective: Pt. reports overall doing well. She is still having some tingling in her fingers. Pt. reports being 80% better overall. She reports being HEP compliant. neck Pain Intensity (Out of 10): 0 BUes Pain Intensity (Out of 10): 0 fingers Pain Intensity (Out of 10): 0 R sided scapular region Pain Intensity (Out of 10): 1 % Improvement: 85 Objective/Function: pt. has close to full cervical ROM. Pt. has no increase in tingling in her fingers with cervical ROM. Pt. has good strength and normal DTR of BUEs. Pt. has a good HEP. Pt. has 5/5 strength throughout cervical musculature and B shoulders. Pt. seems to have plateaued a bit with radicular symptoms reduction. She is to continue with her exercises for end range of cervical motion and scapular strengthening. Pt. consents to this plan. Goal 1:: LTG: Pt. to be I with HEP. Goal Progress: Goal Met Goal 2:: STG: Pt. to have increased cervical ROM by 25% in all direction with 0-2/10 pain. Goal Progress: Goal Met Goal 3:: STG: Pt. to sleep throughout the night with 0-2/10 pain. 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 Goal Progress: Goal Met Goal 5:: LTG: pt. to demonstrate improved posture throughout therapy session indicating increased stability and postural awareness. Goal Progress: Goal Met Plan: Pt. to be DC to HEP with scapular strengthening and end range stretching of cervical spine. Pt. consents. Discharge Comments: Pt. is overall doing well. She was seen for her cervical radiculopathy. She was treated with cervical ROM, and extension progress. He progressed to scapular strengthening. She is independent with her HEP and will be DC to HEP at this point in time. If there are questions or concerns regarding this patient's physical therapy, please feel free to call me at [phone]. Thank you for the referral of this patient. Sincerely, Evelio Saini, ELISAT Balance/Gait/Functional tests - Balance/Special Test Scores Oswestry Neck Score: 5
== END 2020-11-18 19:00 | disposition home or self-care (01) ==
LOC: PT 09:00
PROVIDERS: PCP Family Medicine; Referring Provider Family Medicine; Visit Provider Family Medicine
DX: M54.12 Radiculopathy, cervical region (principal)
CPT/HCPCS: 97110; 97140; 97161; 97164

== ENCOUNTER 2020-12-17 09:15 | Outpatient (RCR) | payer OTHER, SELFPAY ==
[2020-02-03 15:55] VITALS: BMI 26.0
--- NOTE | 2020-10-13 14:57 | MASS.EVAL_ITS ---
Massage Therapy Evaluation: Initial Evaluation Date: 10/13/2020 SUBJECTIVE: Nataliya is a 60 year old female who was referred to the [facility] facility for a massotherapy evaluation by Dr. Baptiste with the diagnosis of cervical radiculitis. She presents today with the symptoms of pain, stiffness and tension in the neck, head, arms and trigger finger bilaterally. Nataliya reports having a problems with this pain for years but continues to get worse. She reports having minimal improvement with exercise and stretching over the last few months. She has started physical therapy this week for the same conditions. OBJECTIVE: Upon observation Nataliya has poor posture with her head and shoulders forward from the neutral position in sitting and standing. After examination and palpation, I found Nataliya to have high muscle tension with tenderness and myofascial restrictions in her sub occipitals, levator scapulae, trapezius, rhomboids, scalenes, and thoracic paraspinals. Patient has a large knot within her right rhomboid muscle that would spasm while palpating and treating. The first treatment consisted of a one hour massage to her upper body with myofascial release, muscle stripping, trigger point compression techniques, and cervical manual traction. ASSESSMENT: I feel that Nataliya is a good candidate for massotherapy at this time. She had a favorable response to the first treatment with reduction in her muscle aches, pain, and tension. She also had improvement in her cervical flexibility and low back flexibility. PLAN: The plan of care was reviewed with the patient. The patient is to be seen on an as needed basis for a total of ten sessions with the recommendation of once every month for a one hour treatment.
--- NOTE | 2021-02-22 13:19 | DS.PCM_ITS ---
Massage Therapy Discharge Summary: Discharge 02/22/21 Nataliya was seen for a massotherapy evaluation on 10/13/20 with the diagnosis of cervical radiculitis. She was treated with two session of massage therapy. The patient was unable to schedule more visits for the year of 2020. At this time I am discharging the patient from out care at [facility] facility.
== END 2020-12-17 19:00 | disposition home or self-care (01) ==
LOC: MASS 09:15
PROVIDERS: PCP Family Medicine; Referring Provider Family Medicine; Visit Provider Family Medicine
DX: M54.12 Radiculopathy, cervical region (principal)
CPT/HCPCS: 97124

== ENCOUNTER → 2021-03-08 07:58 | Outpatient (CLI) | payer OTHER, SELFPAY ==
--- NOTE | 2021-03-08 08:00 | BI_ITS ---
MAMMOGRAPHY - BILATERAL SCREENING 3-D TOMOSYNTHESIS REASON FOR EXAM: Female, 60 years old. SCREENING PERTINENT HISTORY: No significant family history. TECHNIQUE: 2-D mammograms and 3-D Tomosynthesis of the breast (s) were performed. CAD was performed. COMPARISON: 03/03/2020 FINDINGS: The breast composition is heterogeneously dense that can obscure small breast masses. Scattered benign calcifications are seen. No dense spiculated masses or suspicious microcalcifications are identified. No architectural distortion is identified. There is no skin thickening or retraction. There has been no significant change since the prior study. BI/SCRN MAMM (CAD)W/BAILEY BILAT IMPRESSION: No mammographic signs of malignancy. Routine yearly mammograms recommended. ASSESSMENT CATEGORY: BIRADS Category 1: Negative. A letter regarding these results will be sent to the patient by the facility within 30 days. FOLLOW UP RECOMMENDATION: Yearly follow up mammogram recommended. (A) Approximately 10% of breast cancers are not detected by mammography. A normal mammogram should not delay biopsy of a clinically suspicious abnormality. Electronically Signed: Dylan Rios MD at 9:16 EST Tel , Service support ,
== END ==
PROVIDERS: PCP Family Medicine; Visit Provider Family Medicine
DX: Z12.31 Encounter for screening mammogram for malignant neoplasm of breast (principal)
CPT/HCPCS: 77063; 77067

== ENCOUNTER 2021-06-09 09:28 | Outpatient (CLI) | payer OTHER, SELFPAY ==
[2021-06-09 11:28] LABS: AST(SGOT) 21 U/L (15-37); Alanine Aminotransfer ALT/SGPT 34 U/L (13-56); Albumin, Serum 3.8 g/dL (3.2-5.0); Alkaline Phosphatase 54 U/L (45-117); Bilirubin, Direct 0.14 mg/dL (0.00-0.30); Cholesterol 204 mg/dL (200); Globulin 3.8 g/dL (2.2-4.2); High Density Lipoprotein 83 mg/dL; Protein, Total 7.6 g/dL (6.4-8.2); Thyroid Stim Hormone (TSH) 0.96 uIU/mL (0.358-3.74); Triglycerides 83 mg/dL; Very Low Density Lipoprotein 17 mg/dL (5-40)
== END 2021-06-09 23:59 | disposition home or self-care (01) ==
LOC: LAB 09:30
PROVIDERS: PCP Family Medicine; Referring Provider Family Medicine; Visit Provider Family Medicine
DX: E78.5 Hyperlipidemia, unspecified (principal)
CPT/HCPCS: 36415; 80061; 80076; 84443

== ENCOUNTER → 2021-12-20 | Outpatient (CLI) | payer OTHER, SELFPAY ==
[2021-12-20 10:15] LABS: Absolute Lymphocyte Count 1.25 X10^3/uL (0.83-4.51); Absolute Neutrophil Count 3.9 X10^3/uL (2.0-7.7); Basophil# 0.04 X10^3/uL; Basophil% 0.7 % (0-1); Eosinophil# 0.14 X10^3/uL; Eosinophils% 2.3 % (0-5); Hematocrit 43.5 % (37-47); Hemoglobin 14.8 g/dL (12.0-15.0); Lymphocyte # 1.25 X10^3/ul (0.83-4.51); Lymphocyte % 20.7 % (19-41); Mean Corpuscular Hgb 31.5 pg (27.0-32.0); Mean Corpuscular Volume 92.6 fL (81-99); Mean Platelet Vol. 9.6 fl (6.2-12.0); Monocyte# 0.67 X10^3/uL; Monocyte% 11.1 % (0-10); NRBC Flagged by Analyzer 0 % (0-5); Neutrophil % 64.7 % (47-70); Platelet Count 271 K/mm3 (150-450); RBC Distribution Width CV 13.1 % (11.6-14.6); RBC Distribution Width SD 44.9 fl (35.1-43.9)
[2021-12-20 10:16] LABS: Color, Urine Yellow (Yellow); Glucose, Dipstick Normal (Normal); Ketone-Dipstick Negative (Negative); Leukocyte Esterase-Dipstick 25 /ul (Negative); Nitrite-Dipstick Negative (Negative); Occult Blood-Urine 10 /ul (Negative); Protein-Dipstick Negative (Negative); Urine Bilirubin Dipstick Negative (Negative); Urine Clarity Clear (Clear); Urine Urobilinogen Normal (Normal)
[2021-12-20 11:14] LABS: AST(SGOT) 18 U/L (15-37); Alanine Aminotransfer ALT/SGPT 32 U/L (13-56); Albumin, Serum 3.6 g/dL (3.2-5.0); Alkaline Phosphatase 48 U/L (45-117); Anion Gap 6 (5-15); BUN 21 mg/dL (7-18); BUN/Creat Ratio 27.3 RATIO (10-20); Bilirubin, Direct 0.12 mg/dL (0.00-0.30); Calcium,Total 9.1 mg/dL (8.5-10.1); Chloride 108 mmol/L (98-107); Cholesterol 218 mg/dL (200); Creatinine, Serum 0.77 mg/dL (0.55-1.02); EST Glomerular Filtration Rate 81 mL/min (>60); Est Glom Filt Rate - Afr Amer 97 mL/min (>60); Globulin 3.5 g/dL (2.2-4.2); Glucose 93 mg/dL (74-106); High Density Lipoprotein 79 mg/dL; Potassium 4.1 mmol/L (3.5-5.1); Protein, Total 7.1 g/dL (6.4-8.2); Sodium Level 141 mmol/L (136-145); Thyroid Stim Hormone (TSH) 1.23 uIU/mL (0.358-3.74); Triglycerides 96 mg/dL; Very Low Density Lipoprotein 19 mg/dL (5-40)
[2021-12-22 17:32] LABS: Vitamin D 1,25-Dihydroxy 59.3 pg/mL (24.8-81.5)
== END | disposition home or self-care (01) ==
PROVIDERS: PCP Family Medicine; Referring Provider Family Medicine; Visit Provider Family Medicine
DX: E78.5 Hyperlipidemia, unspecified (principal); M81.0 Age-related osteoporosis without current pathological fracture; F32.9 Major depressive disorder, single episode, unspecified; E55.9 Vitamin D deficiency, unspecified
CPT/HCPCS: 36415; 80048; 80061; 80076; 81002; 82652; 84443; 85025

== ENCOUNTER → 2022-03-09 | Outpatient (CLI) | payer OTHER, SELFPAY ==
--- NOTE | 2022-03-09 14:10 | BI_ITS ---
MAMMOGRAPHY - BILATERAL SCREENING REASON FOR EXAM: Female, 61 years old. Routine annual screening examination. PERTINENT HISTORY: Grandmother with breast cancer. TECHNIQUE: Digital bilateral breast bailey (3D mammographic acquisition) in the CC and MLO projections. 2-D mediolateral oblique (MLO) and craniocaudad (CC) views of both breasts were obtained. CAD: Full Field Digital Mammography with Computer Added Detection was performed. COMPARISON: 03/08/2021, 03/03/2020. FINDINGS: Breast Composition: The breasts are heterogeneously dense, which may obscure small masses. There are no dominant masses or suspicious calcifications. No other significant abnormalities are identified. There has been no significant change since the prior study. BI/SCRN MAMM (CAD)W/BAILEY BILAT IMPRESSION: Stable bilateral screening mammogram. Yearly follow-up mammogram recommended. (A) ASSESSMENT CATEGORY: BIRADS Category 1: Negative. A letter regarding these results will be sent to the patient by the facility within 30 days. Approximately 10% of breast cancers are not detected by mammography. A normal mammogram should not delay biopsy of a clinically suspicious abnormality. Electronically Signed: Kevin Fortune, at 10:47 EST ,
== END | disposition home or self-care (01) ==
LOC: OPBI 14:06
PROVIDERS: PCP Family Medicine; Visit Provider Family Medicine
DX: Z12.31 Encounter for screening mammogram for malignant neoplasm of breast (principal); Z80.3 Family history of malignant neoplasm of breast
CPT/HCPCS: 77063; 77067

== ENCOUNTER → 2022-06-20 | Outpatient (CLI) | payer MEDICARE, SELFPAY ==
[2022-06-20 09:48] LABS: Absolute Lymphocyte Count 0.92 X10^3/uL (0.83-4.51); Absolute Neutrophil Count 3.6 X10^3/uL (2.0-7.7); Basophil# 0.03 X10^3/uL; Basophil% 0.6 % (0-1); Eosinophils% 1.9 % (0-5); Hematocrit 42.3 % (37-47); Hemoglobin 14.4 g/dL (12.0-15.0); Lymphocyte # 0.92 X10^3/ul (0.83-4.51); Lymphocyte % 17.3 % (19-41); Mean Corpuscular Hgb 31.2 pg (27.0-32.0); Mean Corpuscular Volume 91.6 fL (81-99); Mean Platelet Vol. 9.4 fl (6.2-12.0); Monocyte# 0.61 X10^3/uL; Monocyte% 11.5 % (0-10); NRBC Flagged by Analyzer 0 % (0-5); Neutrophil # 3.59 X10^3/uL (2.7-7.7); Neutrophil % 67.6 % (47-70); Platelet Count 268 K/mm3 (150-450); RBC Distribution Width CV 13.5 % (11.6-14.6); RBC Distribution Width SD 45.2 fl (35.1-43.9); Red Blood Count 4.62 M/mm3 (4.2-5.4); White Blood Count 5.3 K/mm3 (4.4-11.0)
[2022-06-20 10:17] LABS: AST(SGOT) 22 U/L (15-37); Alanine Aminotransfer ALT/SGPT 34 U/L (13-56); Albumin, Serum 3.7 g/dL (3.2-5.0); Alkaline Phosphatase 53 U/L (45-117); Anion Gap 7 (5-15); BUN 14 mg/dL (7-18); BUN/Creat Ratio 16.8 RATIO (10-20); Bilirubin, Direct 0.14 mg/dL (0.00-0.30); Calcium,Total 9.1 mg/dL (8.5-10.1); Chloride 107 mmol/L (98-107); Cholesterol 191 mg/dL (200); Creatinine, Serum 0.83 mg/dL (0.55-1.02); EST Glomerular Filtration Rate 73 mL/min (>60); Est Glom Filt Rate - Afr Amer 89 mL/min (>60); Globulin 3.4 g/dL (2.2-4.2); Glucose 100 mg/dL (74-106); High Density Lipoprotein 70 mg/dL; Potassium 4.1 mmol/L (3.5-5.1); Protein, Total 7.1 g/dL (6.4-8.2); Sodium Level 139 mmol/L (136-145); Thyroid Stim Hormone (TSH) 0.99 uIU/mL (0.358-3.74); Triglycerides 90 mg/dL; Very Low Density Lipoprotein 18 mg/dL (5-40)
[2022-06-22 18:54] LABS: Vitamin D 1,25-Dihydroxy 47.2 pg/mL (24.8-81.5)
== END | disposition home or self-care (01) ==
LOC: LAB 09:06
PROVIDERS: PCP Family Medicine; Referring Provider Family Medicine; Visit Provider Family Medicine
DX: E78.5 Hyperlipidemia, unspecified (principal); E55.9 Vitamin D deficiency, unspecified
CPT/HCPCS: 36415; 80048; 80061; 80076; 82652; 84443; 85025

== ENCOUNTER → 2022-12-21 | Outpatient (CLI) | payer MEDICARE, SELFPAY ==
[2022-12-21 09:24] LABS: Mucous, Urine 0 SEEN /hpf (<or=2+); Red Blood Cells-Urine 0 SEEN /hpf (0-5); White Blood Cells 0 SEEN /hpf (0-5)
[2022-12-21 09:56] LABS: Color, Urine Yellow (Yellow); Glucose, Dipstick Normal (Normal); Ketone-Dipstick Negative (Negative); Leukocyte Esterase-Dipstick Negative /ul (Negative); Nitrite-Dipstick Negative (Negative); Occult Blood-Urine Negative /ul (Negative); Protein-Dipstick Negative (Negative); Urine Bilirubin Dipstick Negative (Negative); Urine Clarity Clear (Clear); Urine Urobilinogen Normal (Normal)
[2022-12-21 10:00] LABS: Absolute Lymphocyte Count 0.83 X10^3/uL (0.83-4.51); Absolute Neutrophil Count 3.7 X10^3/uL (2.0-7.7); Basophil# 0.03 X10^3/uL; Basophil% 0.6 % (0-1); Eosinophil# 0.12 X10^3/uL; Eosinophils% 2.3 % (0-5); Hematocrit 44.8 % (37-47); Lymphocyte # 0.83 X10^3/ul (0.83-4.51); Lymphocyte % 15.9 % (19-41); Mean Corp Hgb Conc 33.5 g/dL (32-36); Mean Corpuscular Hgb 30.9 pg (27.0-32.0); Mean Corpuscular Volume 92.4 fL (81-99); Mean Platelet Vol. 9.4 fl (6.2-12.0); Monocyte# 0.55 X10^3/uL; Monocyte% 10.5 % (0-10); NRBC Flagged by Analyzer 0 % (0-5); Neutrophil # 3.67 X10^3/uL (2.7-7.7); Neutrophil % 70.1 % (47-70); Platelet Count 282 K/mm3 (150-450); RBC Distribution Width CV 13.5 % (11.6-14.6); RBC Distribution Width SD 46.2 fl (35.1-43.9); Red Blood Count 4.85 M/mm3 (4.2-5.4); White Blood Count 5.2 K/mm3 (4.4-11.0)
[2022-12-21 10:16] LABS: Vitamin D,25 Hydroxy 59.4 ng/mL
[2022-12-21 10:32] LABS: Bacteria 1+ /hpf (None Seen); Squamous Epithelial Cells - UA 10-25 SEEN /hpf (5-10)
[2022-12-21 10:37] LABS: AST(SGOT) 19 U/L (15-37); Alanine Aminotransfer ALT/SGPT 33 U/L (13-56); Albumin, Serum 3.7 g/dL (3.2-5.0); Alkaline Phosphatase 52 U/L (45-117); Anion Gap 4 (5-15); BUN 18 mg/dL (7-18); BUN/Creat Ratio 20.4 RATIO (10-20); Bilirubin, Direct 0.16 mg/dL (0.00-0.30); Calcium,Total 9.2 mg/dL (8.5-10.1); Chloride 107 mmol/L (98-107); Cholesterol 210 mg/dL (200); Creatinine, Serum 0.88 mg/dL (0.55-1.02); EST Glomerular Filtration Rate 68 mL/min (>60); Est Glom Filt Rate - Afr Amer 83 mL/min (>60); Globulin 3.8 g/dL (2.2-4.2); Glucose 99 mg/dL (74-106); High Density Lipoprotein 78 mg/dL; Potassium 4.2 mmol/L (3.5-5.1); Protein, Total 7.5 g/dL (6.4-8.2); Sodium Level 139 mmol/L (136-145); Thyroid Stim Hormone (TSH) 1.02 uIU/mL (0.358-3.74); Triglycerides 154 mg/dL; Very Low Density Lipoprotein 31 mg/dL (5-40)
== END | disposition home or self-care (01) ==
LOC: LAB 09:20
PROVIDERS: PCP Family Medicine; Referring Provider Family Medicine; Visit Provider Family Medicine
DX: E78.5 Hyperlipidemia, unspecified (principal); E55.9 Vitamin D deficiency, unspecified; M81.0 Age-related osteoporosis without current pathological fracture
CPT/HCPCS: 36415; 80048; 80061; 80076; 81001; 82306; 84443; 85025

== ENCOUNTER 2023-02-12 10:00 | Outpatient (RCR) | payer MEDICARE, SELFPAY ==
--- NOTE | 2023-01-17 10:14 | HP.PTEVAL ---
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 Date of Evaluation: 01/17/23 Physical Therapist: Fazal Jaimes, DPT, OCS, CSCS Visit Plan Frequency: 2x /Week Duration: 4-6 Weeks Plan: 2x/week for 4 weeks for 1. ROM to R knee to full, acctivity modification to avoid aggravating activities 2. strength R LE to HEP 3. Progress to general home strength as pain improves to HEP Consider ice and TENS if painful at rest Subjective Subjective: Alesha* R anterior knee hard to straighten and some pain for last 6 months. Insidious onset of not being able to straighten knee. Was on vacation hiking 2 months ago and walked up incline and hurt on the back fit model knee and hurt for 3 weeks. Got x ray at [facility] and showed degeneration lateral meniscus tear and calcinosis. Sent for PT, gave cortisone shot a week ago which helped almost 100%. Took a walk two days ago and it started hurting again posterior R knee and anterior. Not improving since then and now limping again. Comfortable at rest, worse walking and standing. Sleep is not interrupted. retired. Spends day gardening and yard work adn leaves on riding mower. Putz around at home. Avoids walking for fitness when desired. No regular exercises, does some stretching on occasions. Feels weak on r but not locking or giving out, just unstable Pain R knee: Pain Intensity (Out of 10): 4 Pain Intensity Range: 0 and 8 Objective Objective: R antalgia in gait with heel strike trying to avoid full extension slightly. trasnfers I chair and bed. steps recirpocally but pain R posterior knee. Tender to touch medial and lateral joint line r knee, not in patella. B patella slightly limited in motion. AROM R knee 0-130 with pain at end ranges, L knee is 0-140, no pain. + R bounce home and disco, - anterior drawer and post sag, - pivot shift. reflexes 2/3 patella and achilles B Sensation WNL to gross light touch B LE. strength in ankles is 4/5 and knee ext R 4- with pain and 4/5 L, HS 4- R and 4 L, hip is 4- abd and ext and flexion, no pain B. Balance/Special Test Scores Lower Extremity Functional Score: 39 Goals Goal 1:: Full aROM R knee without pain Goal Time Frame: 2-4 Weeks Goal 2:: Walks and step without antalgia or pain Goal Time Frame: 2-4 Weeks Goal 3:: Pt feel 100% back to normal activity Goal Time Frame: 2-4 Weeks Goal 4:: LEFS score 60 Goal Time Frame: 2-4 Weeks Rehabilitation Potential Physical Therapy Diagnosis: lack of motion and strength due to pain R knee limiting function and comfort Rehabilitation Potential: Fair Anticipated Interventions Patient/Client Instruction: Educate patient on: Condition and Plan of Care For the Purpose of:: To decrease pain, To increase ROM, To improve nutrient delivery to tissue, To improve muscle performance and motor function, To increase tolerance to activity/condition/position, To improve ability of physical actions for home/community/work/leisure and To improve gait and locomotor functions Therapeutic Exercise to Include: Strength training, Flexibilty training, Passive ROM and Active ROM For the Purpose of:: To decrease pain, To increase ROM, To improve nutrient delivery to tissue, To improve muscle performance and motor function, To increase tolerance to activity/condition/position, To improve ability of physical actions for home/community/work/leisure and To improve gait and locomotor functions TENS: Yes Cryotherapy (ice pack, ice massage): Yes For the Purpose of:: To decrease pain, To increase tolerance to activity/condition/position, To improve ability of physical actions for home/community/work/leisure and To improve gait and locomotor functions Text: Thank you for the opportunity to evaluate your patient. For Medicare and Medicare HMO plans, please review the plan of care and approve it. It will need to be FAXED BACK to us at [phone] for Medicare purposes. For Medicare only, by signing this I certify the plan of care. Please let me know if there are questions or concerns regarding this plan of care. Physician Signature: Date:
--- NOTE | 2023-02-12 11:57 | HP.PTDCSUM ---
Discharge Summary D/C summary: It has been my pleasure to treat CELI FARMER referred by ALEE MICHAEL, with the diagnosis of lateral meniscus degenerative tear. for a total of 8 visit(s). Discharge Date: 02/12/23 Please see the following information for a summary of their discharge status. Subjective Subjective: Better then when she hurt it. Most pain is posterior and u to 6/10 with possibly exccessive being on feet. Other pain is constant 2/10. Better than a month ago. Doing ex at home. No f/u with doctor at [facility]. Still avoids walking outside up to a mile. Basic aDLs are getting done. Retired. Avoids running and squatting . Getting up off floor exercises Pain R knee: Pain Intensity (Out of 10): 2 Overall Improvement % Improvement: 88 Objective Objective/Function: 0-120 R AROM with pain end ranges. 0-130 L. Wallks without antalgia and steps slowly but reciprocally without rail Overall feeling better but still activity avidance and constant pain and limtied ROM. Goals Goal 1:: Full aROM R knee without pain Goal Progress: Not Progressing Goal 2:: Walks and step without antalgia or pain Goal Progress: Progressing Goal 3:: Pt feel 100% back to normal activity Goal Progress: 88% Goal 4:: LEFS score 60 Goal Progress: Not Progressing Plan Plan: back to doctor for next medical step(MRI?) d/c D/C Information Discharge Comments: Pt to continue with HEP and contact doctor regarding next medical step. d/c sentence: If there are questions or concerns regarding this patient's physical therapy, please feel free to call me at [phone]. Thank you for the referral of this patient. Sincerely, Fazal Jaimes, DPT, OCS, CSCS Balance/Gait/Functional tests Balance/Special Test Scores Lower Extremity Functional Score: 37 Improvement % Improvement: 88
== END 2023-02-12 19:00 | disposition home or self-care (01) ==
LOC: PT 10:00
PROVIDERS: PCP Family Medicine
DX: M11.261 Other chondrocalcinosis, right knee (principal); M23.300 Other meniscus derangements, unspecified lateral meniscus, right knee
CPT/HCPCS: 97110; 97161; 97164

== ENCOUNTER → 2023-03-13 | Outpatient (CLI) | payer MEDICARE, SELFPAY ==
--- NOTE | 2023-03-13 09:38 | BI_ITS ---
MAMMOGRAPHY - BILATERAL SCREENING 3-D TOMOSYNTHESIS REASON FOR EXAM: Female, 62 years old. Annual routine screening mammogram. PERTINENT HISTORY: Grandmother with breast cancer, age not identified. TECHNIQUE: 2-D mammograms and 3-D Tomosynthesis of the breast (s) were performed. CAD was performed. COMPARISON: January 07, 2022, March 08, 2021 FINDINGS: The breast composition is heterogeneously dense that can obscure small breast masses. Stable normal lymph nodes and scattered benign calcifications. No dominant masses, suspicious microcalcifications, asymmetries, skin thickening or nipple retraction. BI/SCRN MAMM (CAD)W/BAILEY BILAT IMPRESSION: No interval change and no mammographic signs of malignancy. Routine yearly mammogram recommended. ASSESSMENT CATEGORY: BIRADS Category 2: Benign. A letter regarding these results will be sent to the patient by the facility within 30 days. FOLLOW UP RECOMMENDATION: Yearly follow up mammogram recommended. (A) Approximately 10% of breast cancers are not detected by mammography. A normal mammogram should not delay biopsy of a clinically suspicious abnormality. Electronically Signed: Rustam Mendez MD at 10:53 EST ,
== END | disposition home or self-care (01) ==
PROVIDERS: PCP Family Medicine
DX: Z12.31 Encounter for screening mammogram for malignant neoplasm of breast (principal)
CPT/HCPCS: 77063; 77067

== ENCOUNTER → 2023-07-09 | Outpatient (CLI) | payer MEDICARE, SELFPAY ==
[2023-07-09 10:57] LABS: AST(SGOT) 25 U/L (15-37); Alanine Aminotransfer ALT/SGPT 34 U/L (13-56); Alkaline Phosphatase 60 U/L (45-117); Bilirubin, Direct 0.19 mg/dL (0.00-0.30); Cholesterol 199 mg/dL (200); Globulin 3.5 g/dL (2.2-4.2); High Density Lipoprotein 77 mg/dL; Protein, Total 7.5 g/dL (6.4-8.2); Triglycerides 90 mg/dL; Very Low Density Lipoprotein 18 mg/dL (5-40)
== END | disposition home or self-care (01) ==
LOC: LAB 08:33
PROVIDERS: PCP Family Medicine; Referring Provider Family Medicine; Visit Provider Family Medicine
DX: E78.5 Hyperlipidemia, unspecified (principal)
CPT/HCPCS: 36415; 80061; 80076

== ENCOUNTER → 2023-12-21 | Outpatient (CLI) | payer MEDICARE, SELFPAY ==
[2023-12-21 09:33] LABS: Absolute Lymphocyte Count 0.94 X10^3/uL (0.83-4.51); Absolute Neutrophil Count 4.3 X10^3/uL (2.0-7.7); Basophil# 0.04 X10^3/uL; Basophil% 0.7 % (0-1); Color, Urine Yellow (Yellow); Eosinophil# 0.13 X10^3/uL; Eosinophils% 2.2 % (0-5); Glucose, Dipstick Normal (Normal); Hematocrit 45.4 % (37-47); Hemoglobin 15.2 g/dL (12.0-15.0); Ketone-Dipstick Negative (Negative); Leukocyte Esterase-Dipstick Negative /ul (Negative); Lymphocyte # 0.94 X10^3/ul (0.83-4.51); Lymphocyte % 15.7 % (19-41); Mean Corp Hgb Conc 33.5 g/dL (32-36); Mean Corpuscular Hgb 30.2 pg (27.0-32.0); Mean Corpuscular Volume 90.1 fL (81-99); Mean Platelet Vol. 9.5 fl (6.2-12.0); Monocyte# 0.54 X10^3/uL; NRBC Flagged by Analyzer 0 % (0-5); Neutrophil # 4.31 X10^3/uL (2.7-7.7); Neutrophil % 72.1 % (47-70); Nitrite-Dipstick Negative (Negative); Occult Blood-Urine Negative /ul (Negative); Platelet Count 306 K/mm3 (150-450); Protein-Dipstick Negative (Negative); RBC Distribution Width CV 13.4 % (11.6-14.6); RBC Distribution Width SD 44.2 fl (35.1-43.9); Red Blood Count 5.04 M/mm3 (4.2-5.4); Urine Bilirubin Dipstick Negative (Negative); Urine Clarity Sl. Cloudy (Clear); Urine Urobilinogen Normal (Normal)
[2023-12-21 10:06] LABS: Vitamin D,25 Hydroxy 77.4 ng/mL
[2023-12-21 10:12] LABS: AST(SGOT) 20 U/L (15-37); Alanine Aminotransfer ALT/SGPT 32 U/L (13-56); Albumin, Serum 3.9 g/dL (3.2-5.0); Alkaline Phosphatase 61 U/L (45-117); Anion Gap 7 (5-15); BUN 16 mg/dL (7-18); BUN/Creat Ratio 17.3 RATIO (10-20); Bilirubin, Direct 0.14 mg/dL (0.00-0.30); Calcium,Total 9.7 mg/dL (8.5-10.1); Chloride 108 mmol/L (98-107); Cholesterol 218 mg/dL (200); Creatinine, Serum 0.92 mg/dL (0.55-1.02); EST Glomerular Filtration Rate 65 mL/min (>60); Est Glom Filt Rate - Afr Amer 78 mL/min (>60); Globulin 3.8 g/dL (2.2-4.2); Glucose 99 mg/dL (74-106); High Density Lipoprotein 96 mg/dL; Protein, Total 7.7 g/dL (6.4-8.2); Sodium Level 139 mmol/L (136-145); Triglycerides 110 mg/dL; Very Low Density Lipoprotein 22 mg/dL (5-40)
== END | disposition home or self-care (01) ==
PROVIDERS: PCP Family Medicine; Referring Provider Family Medicine; Visit Provider Family Medicine
DX: E78.5 Hyperlipidemia, unspecified (principal); E55.9 Vitamin D deficiency, unspecified
CPT/HCPCS: 36415; 80048; 80061; 80076; 81002; 82306; 84443; 85025

== ENCOUNTER → 2024-03-14 | Outpatient (CLI) | payer MEDICARE, SELFPAY ==
--- NOTE | 2024-03-14 13:40 | BI_ITS ---
MAMMOGRAPHY - BILATERAL SCREENING 3-D TOMOSYNTHESIS REASON FOR EXAM: Female, 63 years old. Routine screening PERTINENT HISTORY: Grandmother with breast cancer.. TECHNIQUE: 2-D mammograms and 3-D Tomosynthesis of the breast (s) were performed. CAD was performed. COMPARISON: 03/09/2022 FINDINGS: The breast composition is heterogeneously dense that can obscure small breast masses. Stable scattered benign vascular calcifications are seen. No dense spiculated masses or suspicious microcalcifications are identified. No architectural distortion is identified. There is no skin thickening or retraction. There has been no significant change since the prior study. BI/SCRN MAMM (CAD)W/BAILEY BILAT IMPRESSION: No mammographic signs of malignancy. Routine yearly mammograms recommended. ASSESSMENT CATEGORY: BIRADS Category 2: Benign. A letter regarding these results will be sent to the patient by the facility within 30 days. FOLLOW UP RECOMMENDATION: Yearly follow up mammogram recommended. (A) Approximately 10% of breast cancers are not detected by mammography. A normal mammogram should not delay biopsy of a clinically suspicious abnormality. Electronically Signed: Celso Le MD at 14:53 EST ,
== END | disposition home or self-care (01) ==
LOC: OPBI 13:38
PROVIDERS: PCP Family Medicine; Referring Provider Family Medicine; Visit Provider Family Medicine
DX: Z12.31 Encounter for screening mammogram for malignant neoplasm of breast (principal)
CPT/HCPCS: 77063; 77067

== ENCOUNTER → 2024-07-07 | Outpatient (CLI) | payer MEDICARE, OTHER, SELFPAY ==
[2024-07-07 10:13] LABS: AST(SGOT) 28 U/L (<=31); Alanine Aminotransfer ALT/SGPT 22 U/L (<=34); Albumin, Serum 4.1 g/dL (3.4-4.8); Alkaline Phosphatase 66 U/L (35-104); Bilirubin, Direct 0.16 mg/dL (0.00-0.30); Cholesterol 179 mg/dL (<=200); Globulin 3.2 g/dL (2.2-4.2); High Density Lipoprotein 59 mg/dL; Low Density Lipoprotein Calc. 103 mg/dL; Protein, Total 7.3 g/dL (5.9-8.4); Total Bilirubin 0.36 mg/dL (0.00-1.30); Triglycerides 85 mg/dL; Very Low Density Lipoprotein 17 mg/dL (5-40); Vitamin D,25 Hydroxy 51.8 ng/mL (30-100); cholesterol:hdl ratio screen 3.05
== END | disposition home or self-care (01) ==
PROVIDERS: PCP Family Medicine; Referring Provider Family Medicine; Visit Provider Family Medicine
DX: E78.5 Hyperlipidemia, unspecified (principal); E55.9 Vitamin D deficiency, unspecified
CPT/HCPCS: 36415; 80061; 80076; 82306

== ENCOUNTER → 2024-12-31 | Outpatient (CLI) | payer MEDICARE, OTHER, SELFPAY ==
--- OUTSIDE RECORDS SUMMARY | 2024-12-31 11:06 | XMS RPT_ITS | CCD ---
Author Organization [facility] Care Team Providers Care Route Supervisor Name Role Phone Trey Bernal DO Primary Care Provider 1( [phone] TREY BERNAL Referring Unavailable TREY BERNAL Attending Unavailable TREY BERNAL Primary Care Unavailable Unavailable Primary Care Provider Unavailabl e Coleen Bernal Attending Unavailable Emile, Coleen Elam Referring Unavailable Emile, Coleen Moravian Primary Care Unavailable Emile, Coleen Elam Attending Unavailable Coleen Bernal Referring Unavailable Coleen Bernal Moravian Primary Care Unavailable Coleen Bernal Attending Unavailable Coleen Bernal Moravian Referring Unavailable Coleen Bernal Moravian Primary Care Unavailable Trey Benral MD Primary Care Provider Josefa Garza MD Unavailable JOSEFA GARZA Attending Unavailable JOSEFA GARZA Referring Unavailable EMILE, TREY SHEPPARDIAN Primary Care Unavailable JOSEFA GARZA Referring Unavailable EMILE, TREY ELAM Primary Care Unavailable JOSEFA GARZA Referring Unavailable EMILE, TREY TENRIISM Primary Care Unavailable CHAPARRITA GARZAZABETH Admitting Unavailable JOSEFA GARZA Attending Unavailable JOSEFA GARZA Referring Unavailable EMILE, TREY TENRIISM Primary Care Unavailable JOSEFA GARZA Attending Unavailable COOK, TREY TENRIISM Primary Care Unavailable JOSEFA GARZA Attending Unavailable TREY BERNAL TENRIISM Primary Care Unavailable JOSEFA GARZA Attending Unavailable EMILE, TREY TENRIISM Primary Care Unavailable Allergies Allergy Classification Reported Allergen(s) Allergy Type Date of Onset Reaction(s) Facility (20 sources) Codeine; Translations: [CODEINE] Drug Allergy 02-03-2020 GI Upset [facility] (1 source) Codeine Drug Allergy 02-03-2020 [facility] Repository Medications Current Medications Medication Drug Class(es) Dates Sig (Normalized) Sig (Original) atorvastatin 20 mg oral tablet (19 sources) HMG-CoA Reductase Inhibitor Start: 09-04-2 018 take 20 mg by mouth once daily Atorvastatin Active 20 MG PO DAILY November 13, 2017 12:00am cholecalciferol 0.025 mg oral capsule (6 sources) Vitamin D Start: take 5000 [IU] by mouth once daily Cholecalciferol (Vitamin D3) Active 5000 UNIT PO DAILY November 13, 2017 12:00am cholecalciferol, vitamin D3, (VITAMIN D3 ORAL) (13 sources) cholecalciferol, vitamin D3, (VITAMIN D3 ORAL) Take by mouth. 5000 IU Active estradiol 0.1 mg/ml vaginal cream (6 sources) Estrogen Start: Estradiol Active 1 GM VAGINAL TWICE A WEEK October 30, 2019 12:00am Estradiol / Estriol (13 sources) Estrogen estradiol 0.01% estriol 0.01% cream (CPD) For vaginal, surrounding external vaginal tissue, and topical use only. Active Magnesium glycinate (5 sources) MAGNESIUM GLYCIN ATE PO Take by mouth. Active methylsulfonylmethane 1000 mg oral tablet (5 sources) Methylsulfonylme silverio (MSM) 1,000 mg tab Take by mouth. Active metroNIDAZOLE 500 mg oral tablet (7 sources) Nitroimidazole Antimicrobial Start: take 2 tablets by mouth once daily metroNIDAZOLE (FLAGYL) 500 mg tablet Indications: Diverticulitis of large intestine with perforation and abscess without bleeding Take two tabs by mouth at 1pm, 3pm, and 11pm the day prior to surgery. 6 tablet 08/14/2024 Active neomycin sulfate 500 mg oral tablet (7 sources) Aminoglycoside Antibacterial Start: take 2 tablets by mouth once daily neomycin 500 mg tablet Indications: Diverticulitis of large intestine with perforation and abscess without bleeding Take two tabs by mouth at 1pm, 3pm, and 11pm the day prior to the surgery. 6 tablet 08/14/2024 Active promethazine hydrochloride 25 mg oral tablet (17 sources) Phenothiazine Start: take 1 tablet by mouth every four hours as needed for nausea promethazine (PHENERGAN) 25 mg tablet Take 1 tab by mouth every 4 hours as needed for nausea. 5 tablet 10/01/2024 Active Start: 08-14-2024 End: 08-14-2024 take 1 tablet by mouth every four hours as needed for nausea promethazine (PHENERGAN) 25 mg tablet Take 1 tab by mouth every 4 hours as needed for nausea. 5 tablet 10/01/2024 Active sertraline 100 mg oral tablet (19 sources) Serotonin Reuptake Inhibitor Start: 11-13-2017 take 1 tablet by mouth once daily Sertraline (Zoloft) 100 mg tablet Active 100 MG PO DAILY November 13, 2017 12:00am traMADol hydrochloride 50 mg oral tablet (1 source) Opioid Agonist Start: 10-10-2024 End: 10-13-2024 take 1 tablet by mouth every six hours as needed for pain traMADol (ULTRAM) 50 mg tablet Indications: Diverticulitis Take 1 tablet by mouth every 6 hours as needed for pain for up to 3 days. 8 tablet 10/10/2024 12:07 PM EDT 10/10/2024 10/13/2024 Active Completed/Discontinued Medications Medication Drug Class(es) Dates Sig (Normalized) Sig (Original) acetaminophen 325 mg / oxyCODONE hydrochloride 5 mg oral tablet (12 sources) Opioid Agonist Start: 12-30-2019 End: 01-06-2020 take 1 tablet by mouth every six hours as needed Oxycodone-Acetamino phen Discontinued 1 - 2 TABLET PO EVERY 6 HOURS NEEDED 15 December 30, 2019 January 06, 2020 12:03am Start: 07-23-2018 End: 07-29-2018 take 1 tablet by mouth every four hours as needed Oxycodone-Acetaminophen Discontinued 1 - 2 TABLET PO EVERY 4 HOURS NEEDED 30 July 23, 2018 12:00am July 29, 2018 12:08am amoxicillin 500 mg oral capsule (6 sources) Penicillin-class Antibacterial Start: 04-03-2019 End: 04-13-2019 take 1000 mg by mouth twice daily Amoxicillin Discontinued 1000 MG PO TWICE A DAY 40 April 03, 2019 1:00am April 13, 2019 1:08am methylPREDNISolone acetate 40 mg/ml injectable suspension (3 sources) Corticosteroid Start: 04-02-2020 End: 04-02-2020 Depo-Medrol (methylprednisol one acetate) 40 mg/mL suspension for injection Discontinued 40 MG INTRAARTIC ONCE April 02, 2020 10:10am April 02, 2020 10:26am Start: 12-17-2019 End: 12-17-2019 Depo-Medrol (methylprednisol one acetate) 40 mg/mL suspension for injection Discontinued 20 MG INTRAARTIC ONCE 0.5 December 17, 2019 9:43am December 17, 2019 10:25am Start: 06-26-2018 End: 06-26-2018 Depo-Medrol (methylprednisol one acetate) 40 mg/mL suspension for injection Discontinued 20 MG TENDON ONCE 0.5 June 26, 2018 3:13pm June 26, 2018 3:54pm naproxen 250 mg oral tablet (6 sources) Nonsteroidal Anti-inflammatory Drug Start: 12-30-2019 End: 02-03-2020 take 250-500 mg by mouth every eight hours as needed Naproxen Discontinued 250 - 500 MG PO EVERY 8 HOURS NEEDED December 30, 2019 12:00am February 03, 2020 4:56pm triamcinolone acetonide 40 mg/ml injectable suspension (1 source) Corticosteroid Start: 11-13-2017 End: 11-13-2017 Kenalog (triamcinolone acetonide) 10 mg/mL suspension for injection Discontinued 20 MG TENDON ONCE 2 November 13, 2017 8:16am November 13, 2017 9:05am Problems Active Problems Problem Classification Problem Date Documented Date Episodic/Chronic Abdominal hernia (6 sources) Hernia of anterior abdominal wall; Translations: [Ventral hernia without obstruction or gangrene] 12-27-2019 Episodic Acute bronchitis (5 sources) Acute infective bronchitis; Translations: [Acute bronchitis due to other specified organisms] Onset: 09-10-2023 09-10-2023 Episodic Administrative/social admission (2 sources) Patient encounter status; Translations: [Other specified counseling] Onset: 10-01-2024 10-01-2024 Episodic Disorders of lipid metabolism (10 sources) Hyperlipidemia, unspecified; Translations: [Hyperlipidemia] Onset: 07-10-2024 09-30-2024 Chronic Diverticulosis and diverticulitis (18 sources) Diverticulitis of large intestine; Translations: [Diverticulitis of large intestine with perforation and abscess without bleeding] Onset: 08-01-2024 07-10-2024 Chronic Genitourinary symptoms and ill-defined conditions (6 sources) Female stress incontinence; Translations: [Stress incontinence (female) (male)] 12-30-2019 Chronic Other upper respiratory infections (12 sources) Acute sinusitis; Translations: [Acute sinusitis, unspecified] 12-27-2019 Episodic Prolapse of female genital organs (6 sources) Incomplete uterovaginal prolapse; Translations: [Incomplete uterovaginal prolapse] 02-03-2020 Chronic Past or Other Problems Problem Classification Problem Date Documented Da te Episodic/Chronic Other screening for suspected conditions (not mental disorders or infectious disease) (1 source) Encounter for screening mammogram for malignant neoplasm of breast; Translations: [Encounter for screening mammogram for malignant neoplasm of breast] Onset: 04-07-2024 Episodic Unclassified (5 sources) bilateral sacrospinous ligament fixation 09-30-2021 Unclassified (5 sources) mid urethral sling 09-30-2021 Results Test Name Value Interpretation Reference Range Facility [facility] 11-03-2024 CNPN Telephone ([facility]) -------- CELI FARMER ([id number]) 1960 F Date Time Provider Department 11/03/24 LISBET CARRIZALES During your visit today, we recorded the following information about you: Lisbet Carrizales RN 11/03/2024 2:45 PM Signed RUST VIDEO GAME SCRIPT WRITER ONE MONTH FOLLOW UP PHONE CALL PHONE CALL DATE: 11/03/2024 PHONE CALL TIME: 2:44 PM DATE OF SURGERY: 10/08/2024 PROCEDURE: Lap robotic LAR FOLLOW UP QUESTIONS: Is your appetite gradually improving? Yes Is your incision healing well? Yes Are you having regular bowel movements? Yes Did you have a good experience with your recent hospital stay? Yes Have you completed your follow up visit with your surgeon? Yes Patient states she's feeling well. She has no concerns at this time. Encouraged to call MD for questions/concerns. 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 - Methylsulfonylmethane (MSM) 1,000 mg tab Take by mouth. - MAGNESIUM GLYCINATE PO Take by mouth. - promethazine (PHENERGAN) 25 mg tablet Take 1 tab by mouth every 4 hours as needed for nausea. - atorvastatin (LIPITOR) 20 mg tablet 1 tab(s) orally once a day (at bedtime) for 90 days - sertraline (ZOLOFT) 100 mg tablet 1 tab(s) orally once a day for 90 days - cholecalciferol, vitamin D3, (VITAMIN D3 ORAL) Take by mouth. 5000 IU - estradiol 0.01% estriol 0.01% cream (CPD) For vaginal, surrounding external vaginal tissue, and topical use only. Problem List As Of Date 11/03/2024 Noted Resolved Pre-op examination [Z01.818] 09/30/2024 Diverticulitis [K57.92] 09/30/2024 HLD (hyperlipidemia) [E78.5] 09/30/2024 Encounter Status:Closed by LISBET CARRIZALES on 11/03/24 [facility] CNOVon 10-24-2024 CNOV Office Visit ([facility] 3) -------- CELI FARMER ([id number]) 1960 F Date Time Provider Department 10/24/24 11:00 AM JOSEFA GARZA3 During your visit today, we recorded the following information about you: Pulse Blood pressure 60/minute 137/75 Josefa Garza MD 10/24/2024 11:10 AM Signed Josefa Garza M.D. Colon AND Rectal Surgery [address] [facility], [address] [place] [phone] CC: Postop, status post low anterior resection HPI: Celi Farmer is a 64 year old White female who has a history of complicated diverticulitis. She was previously admitted to a hospital in [place] with a pelvic abscess secondary to diverticulitis. She underwent percutaneous drainage with resolution. She then underwent a robot-assisted low anterior resection on 10/08/2024. She did well postop. Final pathology returned with diverticulitis. She presents today for her first follow-up. She is doing well. Denies any significant pain. She states that overall her bowel movements have been regular however over the last 2 days she does report some increased constipation. She is started taking Colace and prunes. She has good appetite and denies any nausea or vomiting. No fevers or chills. Review of Systems: For pertinent positives and negatives, please see HPI PAST MEDICAL HISTORY Diagnosis Date Depression Diverticulitis HLD (hyperlipidemia) PAST SURGICAL HISTORY Procedure Laterality Date COLONOSCOPY SCREENING 2018 COLONOSCOPY SCREENING 08/01/2024 PAST SURGICAL HISTORY OF rectecile repair PAST SURGICAL HISTORY OF Right miniscus repair REPAIR EPIGASTRIC HERNIA,REDUC SLING OPER STRES INCONTINENCE 12/2019 VAGINAL HYSTERECTOMY 2019 SOCIAL HISTORY[1] FAMILY HISTORY Problem Relation Age of Onset Heart disease Mother Dementia Mother COPD Father Breast Cancer Paternal Grandmother The ROS, medical, surgical, family, and social history were reviewed by Josefa Garza MD ALLERGIES Allergen Reactions Codeine GI Upset Current Outpatient Medications Medication Sig promethazine (PHENERGAN) 25 mg tablet Take 1 tab by mouth every 4 hours as needed for nausea. Methylsulfonylmethane (MSM) 1,000 mg tab Take by mouth. MAGNESIUM GLYCINATE PO Take by mouth. promethazine (PHENERGAN) 25 mg tablet Take 1 tab by mouth every 4 hours as needed for nausea. atorvastatin (LIPITOR) 20 mg tablet 1 tab(s) orally once a day (at bedtime) for 90 days sertraline (ZOLOFT) 100 mg tablet 1 tab(s) orally once a day for 90 days cholecalciferol, vitamin D3, (VITAMIN D3 ORAL) Take by mouth. 5000 IU estradiol 0.01% estriol 0.01% cream (CPD) For vaginal, surrounding external vaginal tissue, and topical use only. No current facility-administered medications for this visit. Vitals: There were no vitals taken for this visit. No weight on file for this encounter. Physical Exam Constitutional: General: She is not in acute distress. Appearance: Normal appearance. She is not ill-appearing. Cardiovascular: Rate and Rhythm: Normal rate and regular rhythm. Heart sounds: Normal heart sounds. No murmur heard. No friction rub. No gallop. Pulmonary: Effort: Pulmonary effort is normal. No respiratory distress. Breath sounds: Normal breath sounds. No wheezing or rales. Abdominal: General: There is no distension. Palpations: Abdomen is soft. There is no mass. Tenderness: There is no abdominal tenderness. There is no guarding or rebound. Comments: Well-healed surgical incisions across her abdomen without evidence of incisional hernia Musculoskeletal: General: No deformity. Normal range of motion. Cervical back: Normal range of motion and neck supple. Lymphadenopathy: Cervical: No cervical adenopathy. Skin: General: Skin is warm and dry. Findings: No rash. Neurological: Mental Status: She is alert and oriented to person, place, and time. Gait: Gait is intact. Psychiatric: Mood and Affect: Mood and affect normal. Judgment: Judgment normal. Labs: Hemoglobin (g/dL) Date Value 10/10/2024 12.9 Hematocrit (%) Date Value 10/10/2024 40.9 WBC (k/uL) Date Value 10/10/2024 7.17 Platelet Count (k/uL) Date Value 10/10/2024 221 Creatinine Date Value Ref Range Status 10/10/2024 0.81 0.58 - 0.96 mg/dL Final No results found for: AST No results found for: ALT WBC (k/uL) Date Value 10/10/2024 7.17 RBC (m/uL) Date Value 10/10/2024 4.37 %DIG,%DBS Pathology: 10/08/24 FINAL DIAGNOSIS A. Sigmoid colon, robotic laparoscopic sigmoid colectomy: -- Diverticular disease with small focus of active serosal inflammation. -- One benign lymph node. -- No evidence of malignancy. Assessment/Plan: 1. Diverticulitis of large intestine with perforation and abscess without bleeding (Primary) Status post robot-assisted low anterior resection for compli (more content not included)... Normal [id number] -------- CELI FARMER ([id number]) 1960 F Date Time Provider Department 10/16/24 LISBET CARRIZALES3 During your visit today, we recorded the following information about you: Allergies As of Date: 10/16/2024 Noted Allergy Reaction CODEINE 07/10/2024 8 - GI Upset Date Reviewed: 10/08/2024 Reviewed by: Yazmin Brandt RN - Fully Assessed Reason for Visit: Hospital Follow Up [177] Prescriptions as of 10/16/2024 - promethazine (PHENERGAN) 25 mg tablet Take 1 tab by mouth every 4 hours as needed for nausea. - Methylsulfonylmethane (MSM) 1,000 mg tab Take by mouth. - MAGNESIUM GLYCINATE PO Take by mouth. - promethazine (PHENERGAN) 25 mg tablet Take 1 tab by mouth every 4 hours as needed for nausea. - atorvastatin (LIPITOR) 20 mg tablet 1 tab(s) orally once a day (at bedtime) for 90 days - sertraline (ZOLOFT) 100 mg tablet 1 tab(s) orally once a day for 90 days - cholecalciferol, vitamin D3, (VITAMIN D3 ORAL) Take by mouth. 5000 IU - estradiol 0.01% estriol 0.01% cream (CPD) For vaginal, surrounding external vaginal tissue, and topical use only. Problem List As Of Date 10/16/2024 Noted Resolved Pre-op examination [Z01.818] 09/30/2024 Diverticulitis [K57.92] 09/30/2024 HLD (hyperlipidemia) [E78.5] 09/30/2024 Encounter Status:Closed by LISBET CARRIZALES on 10/16/24 [facility] 10-13-2024 CNPN Telephone ([id number]) -------- CELI FARMER ([id number]) 1960 F Date Time Provider Department 10/13/24 LISBET CARRIZALES AGGENS3 During your visit today, we recorded the following information about you: Lisbet Carrizales RN 10/13/2024 2:07 PM Signed GENERAL SURGERY/ERAS VIDEO GAME SCRIPT WRITER DISCHARGE FOLLOW UP PHONE CALL Phone Call Date: 10/13/2024 Phone Call Time: 2:06 PM Date of Surgery: 10/08/2024 Procedure: Lap robotic LAR FOLLOW-UP QUESTIONS: Did you receive adequate written instructions upon discharge? Yes Do you have your follow-up appointment scheduled? YES Is your pain controlled with current medication regimen? YES Current Pain level out of 10: 2 Are you tolerating your diet? YES Nausea/vomiting? NO Are you experiencing fever or chills? NO Are you having any redness at your incision site? No Are you having bowel function? YES Patient states she's feeling well. She has no concerns at this time. Encouraged to call MD for questions/concerns. SIGNATURE: Lisbet Carrizales RN PATIENT NAME: Celi Farmer DATE: October 13, 2024 TIME: 2:06 PM PAGER/CONTACT #: [phone] Allergies As of Date: 10/13/2024 Noted Allergy Reaction CODEINE 07/10/2024 8 - GI Upset Date Reviewed: 10/08/2024 Reviewed by: Yazmin Brandt RN - Fully Assessed Reason for Visit: Hospital Follow Up [177] Prescriptions as of 10/13/2024 - traMADol (ULTRAM) 50 mg tablet Take 1 tablet by mouth every 6 hours as needed for pain for up to 3 days. - promethazine (PHENERGAN) 25 mg tablet Take 1 tab by mouth every 4 hours as needed for nausea. - Methylsulfonylmethane (MSM) 1,000 mg tab Take by mouth. - MAGNESIUM GLYCINATE PO Take by mouth. - promethazine (PHENERGAN) 25 mg tablet Take 1 tab by mouth every 4 hours as needed for nausea. - atorvastatin (LIPITOR) 20 mg tablet 1 tab(s) orally once a day (at bedtime) for 90 days - sertraline (ZOLOFT) 100 mg tablet 1 tab(s) orally once a day for 90 days - cholecalciferol, vitamin D3, (VITAMIN D3 ORAL) Take by mouth. 5000 IU - estradiol 0.01% estriol 0.01% cream (CPD) For vaginal, surrounding external vaginal tissue, and topical use only. Problem List As Of Date 10/13/2024 Noted Resolved Pre-op examination [Z01.818] 09/30/2024 Diverticulitis [K57.92] 09/30/2024 HLD (hyperlipidemia) [E78.5] 09/30/2024 Encounter Status:Closed by LISBET CARRIZALES on 10/13/24 [facility] ALLIED HEALTHon 10-10-2024 ALLIED [facility]ALTH HNO ID: [id number] Author: LISBET CARRIZALES RN Service: General Surgery Author Type: Registered Nurse Type: Allied Health Filed: 10/10/2024 08:19 Note Text: GENERAL SURGERY/ERAS VIDEO GAME SCRIPT WRITER NOTE SERVICE DATE: 10/10/2024 SERVICE TIME: 8:16 AM ERAS discharge instructions given to patient with good understanding. Written instructions given to patient. Encouraged to call MD for questions/concerns. DISCHARGE PLAN: Home - Alone DISCHARGE NEEDS: No Services Indicated EDUCATION: Postoperative diet, Activity restrictions, Incision care, Pain medication regimen, and Signs/symptoms to report to physician OUTPATIENT APPOINTMENTS: Scheduled with Dr. Garza SIGNATURE: Lisbet Carrizales RN PATIENT NAME: Celi Farmer DATE: October 10, 2024 TIME: 8:16 AM PAGER/CONTACT #: [phone] Normal [facility] Basic metabolic 2000 panelon 10-10-2024 Anion gap [Moles/Vol] 9 mmol/L Normal 8-15 [facility] Comment on above: Order Comment: Speci men Type: BLOOD SPECIMENOrdering Facility: [facility] Address: [address] [place] [address] Performed By: #### 2 4321-2 ####[facility] LABORATORYCLIA [id number] [place] [address] [place] Calcium [Mass/Vol] 8.7 mg/dL Normal 8.5-10.2 [facility] Comment on above: Order Comment: Speci men Type: BLOOD SPECIMENOrdering Facility: [facility] Address: [address] [place] [address] Performed By: #### 2 4321-2 ####[facility] LABORATORYCLIA [id number] [place] [address] [place] Chloride [Moles/Vol] 106 mmol/L Normal 98-107 [facility] Comment on above: Order Comment: Speci men Type: BLOOD SPECIMENOrdering Facility: [facility] Address: [address] [place] [address] Performed By: #### 2 4321-2 ####[facility] LABORATORYCLIA [id number] [place] [address] [place] CO2 [Moles/Vol] 26 mmol/L Normal 22-30 [facility] Comment on above: Order Comment: Speci men Type: BLOOD SPECIMENOrdering Facility: [facility] Address: [address] [place] [address] Performed By: #### 2 4321-2 ####[facility] LABORATORYCLIA [id number] [place] [address] [place] Creatinine [Mass/Vol] 0.81 mg/dL Normal 0.58-0.96 [facility] Comment on above: Order Comment: Speci men Type: BLOOD SPECIMENOrdering Facility: [facility] Address: [address] [place] [address] Performed By: #### 2 4321-2 ####[facility] LABORATORYCLIA [id number] [place] [address] [place] eGFRcr SerPlBld CKD-EPI 2020 80 mL/min/1.73m??? Normal >=60 [facility] Comment on above: Order Comment: Speci men Type: BLOOD SPECIMENOrdering Facility: [facility] Address: [address] [place] [address] Result Comment: Molly mated Glomerular Filtration Rate (eGFR) is calculated using the 2020 CKD-EPI creatinine equation. This equation utilizes serum creatinine, sex, and age as parameters. The creatinine assay has traceable calibration to isotope dilution-mass spectrometry. Refer to KDIGO guidelines for clinical interpretation. In patients with unstable renal function, e.g. those with acute kidney injury, the eGFR may not accurately reflect actual GFR. Performed By: #### 2 4321-2 ####[facility] LABORATORYCLIA [id number] [place] [address] [place] Glucose [Mass/Vol] 93 mg/dL Normal 74-99 [facility] Comment on above: Order Comment: Speci men Type: BLOOD SPECIMENOrdering Facility: [facility] Address: [address] [place] [address] Result Comment: The [place] [employer] (ADA) provides guidance for cutoff values for fasting glucose and random glucose. The ADA defines fasting as no caloric intake for at least 8 hours. Fasting plasma glucose results between 100 to 125 mg/dL indicate increased risk for diabetes (prediabetes). Fasting plasma glucose results greater than or equal to 126 mg/dL meet the criteria for diagnosis of diabetes. In the absence of unequivocal hyperglycemia, results should be confirmed by repeat testing. In a patient with classic symptoms of hyperglycemia or hyperglycemic crisis, random plasma glucose results greater than or equal to 200 mg/dL meet the criteria for diagnosis of diabetes. Reference: Standards of Medical Care in Diabetes 2016, [place] [employer] Association. Diabetes Care. 2016.39(Suppl 1). Performed By: #### 2 4321-2 ####[facility] LABORATORYCLIA [id number] [place] [address] [place] Potassium [Moles/Vol] 4.3 mmol/L Normal 3.7-5.1 [facility] Comment on above: Order Comment: Speci men Type: BLOOD SPECIMENOrdering Facility: [facility] Address: [address] [id number] Performed By: #### 2 4321-2 ####[facility] LABORATORYCLIA [id number] [place] [id number] [place] Sodium [Moles/Vol] 141 mmol/L Normal 136-144 [facility] Comment on above: Order Comment: Speci men Type: BLOOD SPECIMENOrdering Facility: [facility] Address: [address] [place] [address] Performed By: #### 2 4321-2 ####[facility] LABORATORYCLIA [id number] [address] Urea nitrogen [Mass/Vol] 9 mg/dL Normal 7-21 [facility] Comment on above: Order Comment: Speci men Type: BLOOD SPECIMENOrdering Facility: [facility] Address: [address] [place] [address] Performed By: #### 2 4321-2 ####[facility] LABORATORYCLIA [id number] [address] CBC panel Auto (Bld)on 10-10 Erythrocyte distribution width (RBC) [Ratio] 13.9 % Normal 11.5-15.0 [facility] Comment on above: Order Comment: Speci men Type: BLOOD SPECIMENOrdering Facility: [facility] Address: [address] [place] [address] Performed By: #### 5 8410-2 ####[facility] LABORATORYCLIA [id number] [address] Hematocrit (Bld) [Volume fraction] 40.9 % Normal 36.0-46.0 [facility] Comment on above: Order Comment: Speci men Type: BLOOD SPECIMENOrdering Facility: [facility] Address: [address] [place] [address] Performed By: #### 5 8410-2 ####[facility] LABORATORYCLIA [id number] [address] Hemoglobin (Bld) [Mass/Vol] 12.9 g/dL Normal 11.5-15.5 [facility] Comment on above: Order Comment: Speci men Type: BLOOD SPECIMENOrdering Facility: [facility] Address: [address] [place] [address] Performed By: #### 5 8410-2 ####[facility] LABORATORYCLIA [id number] [address] MCH (RBC) [Entitic mass] 29.5 pg Normal 26.0-34.0 [facility] Comment on above: Order Comment: Speci men Type: BLOOD SPECIMENOrdering Facility: [facility] Address: [address] [place] [address] Performed By: #### 5 8410-2 ####[facility] LABORATORYCLIA [id number] [address] [place] MCHC (RBC) [Mass/Vol] 31.5 g/dL Normal 30.5-36.0 [facility] Comment on above: Order Comment: Speci men Type: BLOOD SPECIMENOrdering Facility: [facility] Address: [address] [place] [address] Performed By: #### 5 8410-2 ####[facility] LABORATORYCLIA [id number] [address] MCV (RBC) [Entitic vol] 93.6 fL Normal 80.0-100.0 [facility] Comment on above: Order Comment: Speci men Type: BLOOD SPECIMENOrdering Facility: [facility] Address: [address] [place] [address] Performed By: #### 5 8410-2 ####[facility] LABORATORYCLIA [id number] [address] Nucleated RBC (Bld) [#/Vol] 10*3/uL Normal <0.01 [facility] Comment on above: Order Comment: Speci men Type: BLOOD SPECIMENOrdering Facility: [facility] Address: [address] [place] [address] Performed By: #### 5 8410-2 ####[facility] LABORATORYCLIA [id number] [address] Platelet mean volume (Bld) [Entitic vol] 9.5 fL Normal 9.0-12.7 [facility] Comment on above: Order Comment: Speci men Type: BLOOD SPECIMENOrdering Facility: [facility] Address: [address] [place] [address] Performed By: #### 5 8410-2 ####[facility] LABORATORYCLIA [id number] [address] Platelets (Bld) [#/Vol] 221 10*3/uL Normal 150-400 [facility] Comment on above: Order Comment: Speci men Type: BLOOD SPECIMENOrdering Facility: [facility] Address: [address] [place] [address] Performed By: #### 5 8410-2 ####[facility] LABORATORYCLIA [id number] [address] RBC (Bld) [#/Vol] 4.37 10*6/uL Normal 3.90-5.20 [facility] Comment on above: Order Comment: Speci men Type: BLOOD SPECIMENOrdering Facility: [facility] Address: [address] [place] [address] Performed By: #### 5 8410-2 ####[facility] LABORATORYCLIA [id number] [address] WBC (Bld) [#/Vol] 7.17 10*3/uL Normal 3.70-11.00 [facility] Comment on above: Order Comment: Speci men Type: BLOOD SPECIMENOrdering Facility: [facility] Address: [address] [place] [address] Performed By: #### 5 8410-2 ####[facility] LABORATORYCLIA [id number] [address] CNDSon 10-10-2024 CNDS HNO ID: [id number] Author: JOSEFA GARZA MD Service: General Surgery Author Type: Resident Type: Discharge Summary Filed: 10/10/2024 13:58 Note Text: -------- Attestation signed by Josefa Garza MD at 10/10/2024 1:58 PM Attending Note I evaluated the patient and personally participated in the higgins components. I agree with the resident's findings and plan as documented and have discussed the case and management of the patient's care with the resident. Stable for d/c home, will arrange outpatient follow up. Signature: Josefa Gazra MD Date: 10/10/2024 Time: 1:58 PM -------- DISCHARGE SUMMARY PATIENT NAME: Celi Farmer ADMISSION DATE: 10/08/2024 DISCHARGE DATE: 10/10/2024 ATTENDING PHYSICIAN: Josefa Garza MD Code Status: Not on file Highest Readmission Risk Score: 10 The 30 day readmissions risk score is derived from an internally validated risk model which evaluates patient level characteristics, utilization history, medication orders and lab results up until the day of discharge. Patients with a score of 39 or above are considered highest risk for readmission. Specific patient level drivers will be listed at the bottom of the summary. CONSULTING TEAMS DURING HOSPITALIZATION: None Treatment Team: Attending Provider: Josefa Garza MD REASON FOR HOSPITALIZATION: elective robotic LAR FINAL DIAGNOSIS: Active Hospital Problems Diagnosis POA Diverticulitis Yes Resolved Hospital Problems No resolved problems to display. OPERATIONS DURING HOSPITALIZATION: robotic LAR PROCEDURES DURING HOSPITALIZATION: No procedures performed HOSPITAL COURSE: Patient underwent a robotic low anterior resection with Dr. Garza on 10/08. Patient was placed on the ERAS pathway and had no immediate post operative complications. Patient is tolerating her G soft diet, ambulating with minimal pain, and feels comfortable going home. Patient is stable and can be discharged. Patient will follow up in clinic in 2 weeks. Transitions of Care Critical Issues: GIS diet, path pending from surgery LABS AND PROCEDURES PENDING AT DISCHARGE: Test Results Not Yet Available from This Hospitalization: Please Review at Your Follow Up Appointment Order Current Status SURGICAL PATHOLOGY In process PATIENT CONDITION AT DISCHARGE: Stable DISCHARGE DISPOSITION: Home with Self Care INFORMATION PROVIDED TO PATIENT: WOUND/SURGICAL SITE CARE: Wound/Surgical Site Care Keep your dressing clean and dry Wash your hands frequently, especially before touching your incision, after using restroom and before eating DIET: Soft Foods ACTIVITY: Lifting is restricted to: no > 15 lbs x 2 weeks ALLERGIES Allergen Reactions Codeine GI Upset DISCHARGE MEDICATION: Medication List START taking these medications traMADol 50 mg tablet Commonly known as: ULTRAM Take 1 tablet by mouth every 6 hours as needed for pain for up to 3 days. CONTINUE taking these medications atorvastatin 20 mg tablet Commonly known as: LIPITOR estradiol 0.01% estriol 0.01% cream (CPD) MAGNESIUM GLYCINATE PO MSM 1,000 mg Tab Generic drug: Methylsulfonylmethane * promethazine 25 mg tablet Commonly known as: PHENERGAN Take 1 tab by mouth every 4 hours as needed for nausea. * promethazine 25 mg tablet Commonly known as: PHENERGAN Take 1 tab by mouth every 4 hours as needed for nausea. sertraline 100 mg tablet Commonly known as: ZOLOFT VITAMIN D3 PO * This list has 2 medication(s) that are the same as other medications prescribed for you. Read the directions carefully, and ask your doctor or other care provider to review them with you. STOP taking these medications metroNIDAZOLE 500 mg tablet Commonly known as: FlagyL neomycin 500 mg tablet Where to Get Your Medications These medications were sent to [facility] [address] [place] [address] Hours: Sunday-Sunday, 8am-7pm, Sunday 9am-1pm traMADol 50 mg tablet FUTURE APPOINTMENTS: Follow Up with PCP: Trey Bernal DO, MD The patient's risk for 30-day readmission is determined using the following contributing factors: Predictive Model Details 8% (Low) Factor Value Calculated 10/10/2024 05:20 -24% diagnosis count 3 [facility] READMISSION RISK Model 8% Admission Provider Speciality GENERAL SURGERY -8% Charline Willingham 4 -8% ED visits (365d) 0 -6% Admissions (365d) 1 -5% Sodium (Avg) 139 -5% Length of Stay (d) 2 -5% ED Encounter 0 -5% procedure count 2 -5% Observations (365d) 0 Plan of care discussed with Provider, RN, Patient SIGNATURE: Roshni Mcrae DO DATE: October 10, 2024 TIME: 7:35 AM Normal [facility] Basic metabolic 2000 panelon 10-09-2024 Anion gap [Moles/Vol] 8 mmol/L Normal 8-15 [facility] Comment on above: Order Comment: Speci men Type: BLOOD SPECIMENOrdering Facility: [facility] Address: [address] [place] [address] Performed By: #### 2 4321-2 ####[facility] LABORATORYCLIA [id number] [place] [address] [place] Calcium [Mass/Vol] 8.8 mg/dL Normal 8.5-10.2 [facility] Comment on above: Order Comment: Speci men Type: BLOOD SPECIMENOrdering Facility: [facility] Address: [address] [place] [address] Performed By: #### 2 4321-2 ####[facility] LABORATORYCLIA [id number] [place] [address] [place] Chloride [Moles/Vol] 105 mmol/L Normal 98-107 [facility] Comment on above: Order Comment: Speci men Type: BLOOD SPECIMENOrdering Facility: [facility] Address: [address] [place] [address] Performed By: #### 2 4321-2 ####[facility] LABORATORYCLIA [id number] [place] [address] [place] CO2 [Moles/Vol] 24 mmol/L Normal 22-30 [facility] Comment on above: Order Comment: Speci men Type: BLOOD SPECIMENOrdering Facility: [facility] Address: [address] [place] [address] Performed By: #### 2 4321-2 ####[facility] LABORATORYCLIA [id number] [place] [address] [place] Creatinine [Mass/Vol] 0.78 mg/dL Normal 0.58-0.96 [facility] Comment on above: Order Comment: Speci men Type: BLOOD SPECIMENOrdering Facility: [facility] Address: [address] [place] [address] Performed By: #### 2 4321-2 ####[facility] H[facility]PITALCLIA [id number] [address] [place] [id number] [facility] eGFRcr SerPlBld CKD-EPI 2020 84 mL/min/1.73m??? Normal >=60 [facility] Comment on above: Order Comment: Min jacob Type: BLOOD SPECIMENOrdering Facility: [facility] Address: [address] [place] [address] Result Comment: Molly mated Glomerular Filtration Rate (eGFR) is calculated using the 2020 CKD-EPI creatinine equation. This equation utilizes serum creatinine, sex, and age as parameters. The creatinine assay has traceable calibration to isotope dilution-mass spectrometry. Refer to KDIGO guidelines for clinical interpretation. In patients with unstable renal function, e.g. those with acute kidney injury, the eGFR may not accurately reflect actual GFR. Performed By: #### 2 4321-2 ####[facility] HEALTH SERVICESIA [id number] [address] [place] Glucose [Mass/Vol] 126 mg/dL High 74-99 [facility] Comment on above: Order Comment: Min jacob Type: BLOOD SPECIMENOrdering Facility: [facility] Address: [address] [place] [address] Result Comment: The [place] Diabetes Association (ADA) provides guidance for cutoff values for fasting glucose and random glucose. The ADA defines fasting as no caloric intake for at least 8 hours. Fasting plasma glucose results between 100 to 125 mg/dL indicate increased risk for diabetes (prediabetes). Fasting plasma glucose results greater than or equal to 126 mg/dL meet the criteria for diagnosis of diabetes. In the absence of unequivocal hyperglycemia, results should be confirmed by repeat testing. In a patient with classic symptoms of hyperglycemia or hyperglycemic crisis, random plasma glucose results greater than or equal to 200 mg/dL meet the criteria for diagnosis of diabetes. Reference: Standards of Medical Care in Diabetes 2016, [place] [employer] Association. Diabetes Care. 2016.39(Suppl 1). Performed By: #### 2 4321-2 ####[facility] HEALTH SERVICESIA [id number] [address] [place] [id number] [place] Potassium [Moles/Vol] 4.6 mmol/L Normal 3.7-5.1 [facility] Comment on above: Order Comment: Speci men Type: BLOOD SPECIMENOrdering Facility: [facility] Address: [address] [place] [address] Performed By: #### 2 4321-2 ####[facility] LABORATORYCLIA [id number] [address] [place] Sodium [Moles/Vol] 137 mmol/L Normal 136-144 [facility] Comment on above: Order Comment: Speci men Type: BLOOD SPECIMENOrdering Facility: [facility] Address: [address] [place] [address] Performed By: #### 2 4321-2 ####[facility] LABORATORYCLIA [id number] [address] STATES [facility] Urea nitrogen [Mass/Vol] 10 mg/dL Normal 7-21 [facility] Comment on above: Order Comment: Speci men Type: BLOOD SPECIMENOrdering Facility: [facility] Address: [address] [place] [address] Performed By: #### 2 4321-2 ####[facility] LABORATORYCLIA [id number] [address] CBC panel Auto (Bld)on 10-09 Erythrocyte distribution width (RBC) [Ratio] 14.2 % Normal 11.5-15.0 [facility] Comment on above: Order Comment: Speci men Type: BLOOD SPECIMENOrdering Facility: [facility] Address: [address] [place] [address] Performed By: #### 5 8410-2 ####[facility] LABORATORYCLIA [id number] [address] Hematocrit (Bld) [Volume fraction] 41.8 % Normal 36.0-46.0 [facility] Comment on above: Order Comment: Speci men Type: BLOOD SPECIMENOrdering Facility: [facility] Address: [address] [place] [address] Performed By: #### 5 8410-2 ####[facility] LABORATORYCLIA [id number] [address] OF [facility] Hemoglobin (Bld) [Mass/Vol] 14.0 g/dL Normal 11.5-15.5 [facility] Comment on above: Order Comment: Speci men Type: BLOOD SPECIMENOrdering Facility: [facility] Address: [address] [place] [address] Performed By: #### 5 8410-2 ####[facility] LABORATORYCLIA [id number] [address] MCH (RBC) [Entitic mass] 30.4 pg Normal 26.0-34.0 [facility] Comment on above: Order Comment: Speci men Type: BLOOD SPECIMENOrdering Facility: [facility] Address: [address] [place] [address] Performed By: #### 5 8410-2 ####[facility] LABORATORYCLIA [id number] [address] MCHC (RBC) [Mass/Vol] 33.5 g/dL Normal 30.5-36.0 [facility] Comment on above: Order Comment: Speci men Type: BLOOD SPECIMENOrdering Facility: [facility] Address: [address] [place] [address] Performed By: #### 5 8410-2 ####[facility] LABORATORYCLIA [id number] [address] MCV (RBC) [Entitic vol] 90.9 fL Normal 80.0-100.0 [facility] Comment on above: Order Comment: Speci men Type: BLOOD SPECIMENOrdering Facility: [facility] Address: [address] [place] [address] Performed By: #### 5 8410-2 ####[facility] LABORATORYCLIA [id number] [address] Nucleated RBC (Bld) [#/Vol] 10*3/uL Normal <0.01 [facility] Comment on above: Order Comment: Speci men Type: BLOOD SPECIMENOrdering Facility: [facility] Address: [address] [place] [address] Performed By: #### 5 8410-2 ####[facility] LABORATORYCLIA [id number] [address] [place] Platelet mean volume (Bld) [Entitic vol] 9.4 fL Normal 9.0-12.7 [facility] Comment on above: Order Comment: Speci men Type: BLOOD SPECIMENOrdering Facility: [facility] Address: [address] [place] [address] Performed By: #### 5 8410-2 ####[facility] LABORATORYCLIA [id number] [address] [place] Platelets (Bld) [#/Vol] 232 10*3/uL Normal 150-400 [facility] Comment on above: Order Comment: Speci men Type: BLOOD SPECIMENOrdering Facility: [facility] Address: [address] [place] [address] Performed By: #### 5 8410-2 ####[facility] LABORATORYCLIA [id number] [place] [address] [place] RBC (Bld) [#/Vol] 4.60 10*6/uL Normal 3.90-5.20 [facility] Comment on above: Order Comment: Speci men Type: BLOOD SPECIMENOrdering Facility: [facility] Address: [address] [place] [address] Performed By: #### 5 8410-2 ####[facility] LABORATORYCLIA [id number] [address] [place] WBC (Bld) [#/Vol] 12.47 10*3/uL High 3.70-11.00 [facility] Comment on above: Order Comment: Speci men Type: BLOOD SPECIMENOrdering Facility: [facility] Address: [address] [place] [address] Performed By: #### 5 8410-2 ####[facility] LABORATORYCLIA [id number] [place] [address] [place] ANES POSTPROC EVALon 025 ANES POSTPROC EVAL HNO ID: [id number] Author: SILAS HENDERSON DO Service: Anesthesiology Author Type: Anesthesiologist Type: Anesthesia Postprocedure Evaluation Filed: 10/08/2024 20:15 Note Text: POST ANESTHESIA EVALUATION NOTE : 1960 Procedure Summary Date: 10/08/24 [place] / [place] Anesthesia Start: 1434 Anesthesia Stop: 183 Procedure: ROBOTIC LAPAROSCOPIC SIGMOID COLECTOMY WITH COLOSTOMY/ BLOCK/ ERAS / PREP/ ANTIBIOTICS/ STOMA (Abdomen) Diagnosis: Diverticulitis (Diverticulitis [K57.92]) Surgeons: Josefa Garza MD Responsible Provider: Silas Henderson DO Anesthesia Type: general ASA Status: 3 Anesthesia Type: general Airway Type: ETT Last Vitals Vitals Value Taken Time BP 144/74 10/08/241999 Temp 36.1 ?C (97 ?F) 10/08/24 1930 Pulse 77 10/08/242014 Resp 14 10/08/242014 SpO2 94 % 10/08/242014 Vitals shown include unfiled device data. Post Anesthesia Patient Status Patient Evaluation: bedside. Anticipated Disposition: inpatient floor planned admission. Neurological Status: aware and responsive. Pulmonary Status: breathing comfortably on room air Airway Control: returned to baseline unsupported. Cardiovascular Status: stable. Pain Management: clinically adequate Postoperative Hydration: acceptable. Intraoperative Events: no significant anesthesia events Post Operative Nausea/Vomiting Status: no significant post operative nausea or vomiting Recommendation: further care per PACU/ICU/floor team. Anesthesia Observations No Documentation SIGNATURE: Silas Henderson DO PATIENT NAME: Celi Farmer DATE: October 08, 2024 TIME: 8:15 PM CSN: [id number] Normal [facility] ANES PRE-OPon 10-08-2024 ANES PRE-OP HNO ID: [id number] Author: PHILIP HAND MD Service: Anesthesiology Author Type: Physician Type: Anesthesia Preprocedure Evaluation Filed: 10/08/2024 13:27 Note Text: ANESTHESIOLOGY DAY OF SURGERY NOTE : 1960 Procedure Information Date/Time: 10/08/24 1245 Procedure: ROBOTIC LAPAROSCOPIC SIGMOID COLECTOMY WITH COLOSTOMY/ BLOCK/ ERAS / PREP/ ANTIBIOTICS/ STOMA (Abdomen) [place]: [place] 03 [place] Surgeons: Josefa Garza MD Estimated body mass index is 25.32 kg/m? as calculated from the following: Height as of 10/01/24: 154.9 cm (5' 1). Weight as of 10/01/24: 60.8 kg (134 lb). Most recent hematocrit and potassium results: No results found for this basename: HCT,HEMATOCRIT,K,POTASSI UM Relevant Problems No relevant active problems I - PHYSICAL EVALUATION AIRWAY Patient intubated: No. Tracheostomy tube not present Mallampati: II. TM distance: >3 FB. Neck ROM: full ROM without neurological symptoms. Mouth opening: adequate. Short neck: no. Thick neck: no Additional exam findings: no II - ANESTHESIA PLAN ASA Score: 3 Anesthetic Plan: general Airway type: ETT NPO Status: adequate Beta Fam Monitoring Plan Monitoring plan: standard ASA. Post Procedure Analgesic Plan Postoperative analgesic plan: parenteral or oral opioids, multimodal analgesia and peripheral nerve block. Informed Consent Anesthetic risks, benefits, alternatives, personnel and consent discussed: yes. Patient / Responsible Republican agrees to proceed: yes Patient / Surrogate agrees to blood products: Yes Significant changes in the patient condition since the History and Physical, not otherwise documented in primary service progress note: no. Vitals Value Taken Time BP 134/76 10/08/24 1158 Pulse Resp Temp SpO2 97 % 10/08/24 1158 Vitals shown include unfiled device data. Facility-Administered Medications as of 10/08/2024 Medication Dose Route Frequency lidocaine (PF) 10 mg/mL (1 %) 1-2 mg injection (XYLOCAINE) 0.1-0.2 mL INTRADERMAL PRN lactated ringers iv infusion 5-30 mL/hr INTRAVENOUS CONTINUOUS NaCl 0.9% iv flush bag 20 mL INTRAVENOUS PRN cefTRIAXone iv piggyback 2 g in dextrose (iso-osmotic) 50 mL (ROCEPHIN) 2 g INTRAVENOUS Pre-Op Once metroNIDAZOLE iv piggyback 500 mg in NaCl (iso-osmotic) 100 mL (FLAGYL) 500 mg INTRAVENOUS Pre-Op Once [COMPLETED] alvimopan 12 mg cap(s) (ENTEREG) 12 mg ORAL Pre-Op Once [COMPLETED] celecoxib 200 mg cap(s) (CeleBREX) 200 mg ORAL Pre-Op Once [COMPLETED] gabapentin 300 mg cap(s) (NEURONTIN) 300 mg ORAL Pre-Op Once [COMPLETED] acetaminophen 975 mg tab(s) (TYLENOL) 975 mg ORAL Pre-Op Once Outpatient Medications as of 10/08/2024 Medication Sig metroNIDAZOLE (FLAGYL) 500 mg tablet Take two tabs by mouth at 1pm, 3pm, and 11pm the day prior to surgery. neomycin 500 mg tablet Take two tabs by mouth at 1pm, 3pm, and 11pm the day prior to the surgery. promethazine (PHENERGAN) 25 mg tablet Take 1 tab by mouth every 4 hours as needed for nausea. atorvastatin (LIPITOR) 20 mg tablet 1 tab(s) orally once a day (at bedtime) for 90 days sertraline (ZOLOFT) 100 mg tablet 1 tab(s) orally once a day for 90 days cholecalciferol, vitamin D3, (VITAMIN D3 ORAL) Take by mouth. 5000 IU estradiol 0.01% estriol 0.01% cream (CPD) For vaginal, surrounding external vaginal tissue, and topical use only. I have interviewed and examined the patient. I have reviewed the medical record and/or the pre-anesthesia evaluation, pertinent labs, and test results. This contains updated information obtained within 48 hours of Surgery/Procedure. SIGNATURE: Philip Hand MD PATIENT NAME: Celi Farmer DATE: October 08, 2024 TIME: 12:08 PM CSN: [id number] [facility] BRIEF OP NOTon 10-08-2024 BRIEF OP NOT HNO ID: [id number] Author: JOSEFA GARZA MD Service: General Surgery Author Type: Resident Type: Brief Op Note Filed: 10/09/2024 09:40 Note Text: -------- Attestation signed by Josefa Garza MD at 10/09/2024 9:40 AM Attending Note I evaluated the patient and personally participated in the higgins components. I agree with the resident's findings and plan as documented and have discussed the case and management of the patient's care with the resident. Signature: Josefa Garza MD Date: 10/09/2024 Time: 9:40 AM -------- BRIEF OPERATIVE / PROCEDURE NOTE LOG ID: [id number] SURGERY/PROCEDURE DATE: 10/08/2024 INCISION/PROCEDURE START TIME: 3:19 PM INCISION CLOSE/PROCEDURE END TIME: 6:16 PM SURGEON(S)/PROCEDURALIST (S) AND PROPERTY INSURANCE AGENT(S): Surgeons and Role: * Josefa Garza MD - Primary * Roshni Mcrae DO - Resident - Assisting Pattern Grader Supervisor: Rm Bah SA Pattern Grader Supervisor (Relief): Fransisca Mar SA SURGERY/PROCEDURE(S): laparoscopic robotic low anterior resection ANESTHESIA: General FINDINGS: Robotic LAR with EEA anastomosis ESTIMATED BLOOD LOSS: 100 mls SPECIMENS: ID Type Source Tests Collected by Time Destination A : Sigmoid colon Tissue Colon, Sigmoid, Resection SURGICAL PATHOLOGY Josefa Garza MD 10/08/2024 5:38 PM COMPLICATIONS: None CLOSURE TECHNIQUE: Primary PRE-OP/PRE-PROCEDURE DIAGNOSIS: diverticulitis POST-OP/POST-PROCEDURE DIAGNOSIS: Same as Preop Patient was accompanied to the next level of care by a licensed practitioner from the surgical team pending completion of this brief op note (or operative note) SIGNATURE: Roshni Mcrae DO PATIENT NAME: Celi Farmer DATE: October 09, 2024 TIME: 6:10 AM [facility] OPERATIVE NOon 10-08-2024 OPERATIVE NO HNO ID: [id number] Author: JOSEFA GARZA MD Service: General Surgery Author Type: Physician Type: Operative Report Filed: 10/09/2024 10:14 Note Text: OPERATIVE REPORT Log ID: [id number] Surgery Date: 10/08/2024 Incision/Procedure Start Time: 3:19 PM Incision Close/Procedure End Time: 6:16 PM Surgeon(s) and Log Sorting Supervisor(s): Surgeons and Role: * Josefa Garza MD - Primary * Roshni Mcrae DO - Resident - Assisting Preoperative Diagnosis: Diverticulitis [K57.92] Postoperative Diagnosis: Complicated diverticulitis PROCEDURE AND ANESTHESIA TYPE: Robot-assisted low anterior resection, flexible sigmoidoscopy OPERATIVE INDICATIONS: This is a 64-year-old female who was previously admitted with a pelvic abscess due to complicated diverticulitis. She underwent percutaneous drainage with resolution of her abscess. She presents today for a robot-assisted low anterior resection for complicated diverticulitis. She had a colonoscopy in July which was unremarkable except for diverticulosis as well as acute angulation in her rectosigmoid OPERATIVE FINDINGS: Acutely angulated rectosigmoid, a significant amount of adhesions in the pelvis from patient's previous hysterectomy as well as from diverticular abscess, 29 EEA colorectal anastomosis at 7 cm from the anal verge, no leak noted on flexible sigmoidoscopy EBL: 20 cc SPECIMENS: Sigmoid colon and partial rectum CONDITION: Stable DISPOSITION: PACU DESCRIPTION OF PROCEDURE: After informed consent was obtained a preoperative huddle was performed, the patient was brought to the operating room and placed in the supine position. General anesthesia was induced. A Rodriguez catheter was placed. The patient was then repositioned in modified lithotomy with all pressure points appropriately padded. The abdomen and perineum were prepped and draped in the usual sterile fashion. A timeout was performed. The appropriate preoperative antibiotics were administered. Entry into the abdomen was obtained using a 5 mm Optiview trocar in the left upper quadrant. Upon insufflation, there were minimal omental adhesions to the anterior abdominal wall from the patient's previous epigastric hernia repair. Additional robotic ports were placed across the patient's abdomen that would allow us to perform a sigmoid resection with possible low anterior resection. A 12 mm robotic port was placed in the right lower quadrant. I initially placed a 5 mm port was upsized to an 8 mm trocar. A 5 mm assist port was placed in the right upper quadrant. The omental adhesions were taken down using laparoscopic scissors. The patient was then placed in steep Trendelenburg. There is a significant amount of small bowel that was tethered down into the pelvis. There were flimsy adhesions that were taken down using a combination of sharp and blunt dissection. The small bowel was then swept out of the pelvis revealing a redundant sigmoid colon. The patient was tilted slightly to the right. The robot was then docked. The peritoneum over the sacral promontory was incised and the mesentery of the sigmoid colon was mobilized in a medial to lateral fashion. The patient had a very redundant sigmoid colon had a long mesentery. The sigmoid was tethered to the lateral pelvic sidewall. The patient had a previous transvaginal hysterectomy and there were moderate adhesions between the rectosigmoid and the vaginal cuff. These were taken down using electrocautery. It appeared that the patient's rectosigmoid was tethered to the anterior pelvis creating acute angulation. There was thickening within the mesentery in this area which correlated to the patient's previous abscess. Returning to mobilization of the's colon mesentery, we entered the mesorectal plane posteriorly and carried this down to healthy rectum below the area of colonic thickening. An EEA sizer was placed within the rectum to ensure that we were off of the posterior vagina anteriorly. We then medialized the sigmoid colon and took down the attachments from the lateral pelvic sidewall. We quickly reached our medial dissection plane. The left ureter was identified and kept within the retroperitoneum. Once the rectum was circumferentially dissected, the mesorectum was divided using the vessel sealer. We then turned our attention to selecting our proximal transection site. The descending colon was mobilized off of the lateral wall using cautery to ensure that we would have adequate length for tension-free anastomosis. The CHRISTIAN pedicle was identified and the superior hemorrhoidal artery was divided at its takeoff. We then continued to divide the mesentery up toward our chosen transection site of the distal descending colon. Indocyanine green was injected to confirm perfusion of the rectal stump as well as our proximal colon. The rectum was then divided using a blue load of the sure form 60 stapler. The staple line was grasped using a (more content not included)... Normal [facility] Pathology biopsy report Maksim (Tiss)on 10-08-2024 AP DISCLAIMER Normal [facility] Comment on above: Order Comment: Speci men Type: TISSUE SPECIMENOrdering Facility: [facility] Address: [address] [place] [address] Result Comment: Carl العراقي Test (LDT) Disclaimer: Performance characteristics of immunohistochemical, immunofluorescent, and chromogenic in-situ hybridization tests have been determined by the performing laboratory within [facility] Pathology and Laboratory Medicine Department ([facility], [facility], [facility], [facility], [facility], [facility], or [facility]) in a manner consistent with CLIA requirements. One or more of these tests may not have been cleared or approved by the FDA. [facility] is regulated under CLIA as qualified to perform high-complexity testing. These tests are used for clinical purposes. These should not be regarded as investigational or for research. Positive and negative controls stain appropriately. Performed By: #### 6 6121-5 ####[facility] HE[facility] SERVICESIA [id number] [address] CASE REPORT Normal [facility] Comment on above: Order Comment: Specjones jacob Type: TISSUE SPECIMENOrdering Facility: [facility] Address: [address] [place] [address] Result Comment: Surg [facility] Pathology Report Case: [id number] Authorizing Provider: Josefa Garza MD Collected: 10/08/2024 05:38 PM Ordering Location: [facility] Received: 10/09/2024 08:25 AM Pathologist: Sushma Irby MD Specimen: Colon, Sigmoid, Resection, Sigmoid colon Performed By: #### 6 6121-5 ####[facility] LABORATORYCLIA [id number] [address] OF [place] CLINICAL HISTORY Normal [facility] Comment on above: Order Comment: Speci cecil Type: TISSUE SPECIMENOrdering Facility: [facility] Address: [address] [place] [address] Result Comment: Pre- op diagnosis: Diverticulitis [K57.92] Performed By: #### 6 6121-5 ####[facility] LABORATORYCLIA [id number] [address] FINAL DIAGNOSIS Normal [facility] Comment on above: Order Comment: Speci men Type: TISSUE SPECIMENOrdering Facility: [facility] Address: [address] [place] [address] Result Comment: A. S igmoid colon, robotic laparoscopic sigmoid colectomy: -- Diverticular disease with small focus of active serosal inflammation. -- One benign lymph node. -- No evidence of malignancy. at 1533 EDT Performed By: #### 6 6121-5 ####[facility] LABORATORYCLIA [id number] [address] FINAL PERFORMING LAB Normal [facility] Comment on above: Order Comment: Speci men Type: TISSUE SPECIMENOrdering Facility: [facility] Address: [address] [place] [address] Result Comment: Diag nostic interpretation performed at: [facility], [address] [place] [address] CLIA# [id number] Marketing Analytics Specialist: Fazal Olivarez MD Performed By: #### 6 6121-5 ####[facility] LABORATORYCLIA [id number] [address] GROSS DESCRIPTION Normal [facility] Comment on above: Order Comment: Min jacob Type: TISSUE SPECIMENOrdering Facility: [facility] Address: [address] [place] [address] Result Comment: Jason castañeda, Sigmoid, Resection Received in formalin labeled sigmoid colon is a unoriented segment of sigmoid colon measuring 10 cm in length and 5 cm in internal circumference. The serosal surface is pink smooth and glistening. A moderate amount of adipose tissue is attached. The mucosal ends are arbitrarily inked blue and orange. Upon opening, the mucosal surface demonstrates usual colonic folds with diffuse diverticula. The diverticula are devoid of contents. Upon sectioning. No possible perforations or abscess cavities are grossly appreciated. 2 possible lymph nodes identified ranging in size from 0.6 to 0.8 cm. Copy Cutter sections are submitted as follows: A1: Both mucosal margins, perpendicular A2-A3: Diverticula A4: 2 possible lymph nodes, intact Gross examination performed at [facility], [address] [place] [address] CLIA#[id number] OLS October 09, 2024 12:23 PM Performed By: #### 6 6121-5 ####[facility] LABORATORYCLIA [id number] [place] [id number] [facility] CNOVon 10-01-2024 CNOV Office Visit (AKWO) -------- CELI FARMER ([id number]) 1960 F Date Time Provider Department 10/01/24 10:45 AM OSTOMY NURSE NUZHAT During your visit today, we recorded the following information about you: Kristyn Jackson RN 10/01/2024 11:25 AM Signed OSTOMY CARE CONSULT NOTE SERVICE DATE: 10/01/2024 SERVICE TIME: 10:40 AM REASON FOR CONSULT: Stoma marking. TIME SPENT (minutes): 30 Pre-Op Education Patient can state a basic understanding of the disease and plan of surgery resulting in an ostomy. Ostomy type: possible ileostomy, possible colostomy A description and explanation of the following was provided to the patient: Stoma apperance and function Purpose of the pouching system Postoperative ostomy care per ET/WO Nurse Postoperative self ostomy care instruction The following post operative concerns were addressed: Clothing Adjustment Printed Literature specific to ostomy type was provided to the patient: yes The patient or accompanying person can verbalize understanding of the information given in the preoperative instructions: yes Stoma Marking The stoma marking purpose and procedure was explained: yes. The patient verbalized understanding and agrees to the marking: yes. Rectus Muscle borders are located: yes. Abdominal contour evaluation was performed in the sitting position and standing position. The stoma marking was made in the RUQ and the LUQ avoiding creases, scars, and midline. Patient is able to see site in the following positions: sitting position and standing position Felix was made with surgical marker and covered with tegaderm. Patient given extra tegaderm to reinforce as needed. Comments: Only able to felix patient right and left upper quadrants, she has a short waist and if marked lower quadrants would not be able to see stoma/appliance and appliance would not hang well on the abdomen. Thank you for including me in the care of this patient. Ostomy care to follow after surgery when consulted. SIGNATURE: ENE Bermeo,RN,CWON PATIENT NAME: Celi Farmer DATE: October 01, 2024 TIME: 11:20 AM CONTACT#: [id number] Referring Provider: JOSEFA GARZA [[id number]] Allergies As of Date: 10/01/2024 Noted Allergy Reaction CODEINE 07/10/2024 8 - GI Upset Date Reviewed: 08/14/2024 Reviewed by: Stella Cunningham MA - Fully Assessed Reason for Visit: Stoma Markings [377] Primary Visit Diagnosis:Other specified counseling [Z71.89] Prescriptions as of 10/01/2024 - promethazine (PHENERGAN) 25 mg tablet Take 1 tab by mouth every 4 hours as needed for nausea. - metroNIDAZOLE (FLAGYL) 500 mg tablet Take two tabs by mouth at 1pm, 3pm, and 11pm the day prior to surgery. - neomycin 500 mg tablet Take two tabs by mouth at 1pm, 3pm, and 11pm the day prior to the surgery. - promethazine (PHENERGAN) 25 mg tablet Take 1 tab by mouth every 4 hours as needed for nausea. - atorvastatin (LIPITOR) 20 mg tablet 1 tab(s) orally once a day (at bedtime) for 90 days - sertraline (ZOLOFT) 100 mg tablet 1 tab(s) orally once a day for 90 days - cholecalciferol, vitamin D3, (VITAMIN D3 ORAL) Take by mouth. 5000 IU - estradiol 0.01% estriol 0.01% cream (CPD) For vaginal, surrounding external vaginal tissue, and topical use only. Problem List As Of Date 10/01/2024 Noted Resolved Pre-op examination [Z01.818] 09/30/2024 Diverticulitis [K57.92] 09/30/2024 HLD (hyperlipidemia) [E78.5] 09/30/2024 Letter Text Encounter Status:Closed by KRISTYN JACKSON on 10/01/24 Normal [facility] HISTORY PHYSICALon HISTORY PHYSICAL HNO ID: [id number] Author: MAYKEL GORDON APRN.CNP Service: ? Author Type: Nurse Practitioner Type: H&P Filed: 10/01/2024 11:57 Note Text: [facility] HISTORY AND PHYSICAL EXAMINATION SERVICE DATE: 10/01/2024 SERVICE TIME: 11:20 AM PRIMARY CARE PHYSICIAN: Trey Bernal DO, MD Assessment Patient has the following medical conditions which may affect naomie-operative course: Pre-op examination Medical conditions which may affect the perioperative course were address in today's visit. Diverticulitis Surgery scheduled 10/08/24 HLD (hyperlipidemia) Stable on statin - take asprescribed ANESTHESIA FINDINGS: Intubation History: No history of difficult intubation. No abnormal airway history Significant Anesthesia Considerations: none Airway History: No history of difficult airway No abnormal airway history [place]rington Activity Status Index: METS: Participate in strenuous sport, such as swimming, singles tennis, football, basketball, or skiing (7.50 METs) DASI Score: 7.5 Patient denies any chest pain or undue shortness of breath with the above physical activity. Clinical Frailty Scale: 3. Well, with treated comorbid disease ARISCAT Score: Age: 51-80 Preoperative SpO2: >=96% Respiratory infection in the last month: No Preoperative anemia: No Surgical incision: peripheral Duration of surgery: >3 hrs Emergency procedure: No ARISCAT Score: 26 I - PHYSICAL EVALUATION AIRWAY Patient intubated: No. DENTAL Dental findings: teeth intact. II - ANESTHESIA PLAN Anesthetic Plan: general Beta Fam Monitoring Plan Post Procedure Analgesic Plan Prepared for Surgery: CONSULTS: Patient does not require consults for optimization at this time Planned Anesthetic: general The Following Tests/Procedures Have Been Initiated: Orders Placed This Encounter Methylsulfonylmethane (MSM) 1,000 mg tab Sig: Take by mouth. MAGNESIUM GLYCINATE PO Sig: Take by mouth. REASON FOR VISIT: Celi Farmer is a 64 year old female who is scheduled for Procedure(s): ROBOTIC LAPAROSCOPIC SIGMOID COLECTOMY WITH COLOSTOMY/ BLOCK/ ERAS / PREP/ ANTIBIOTICS/ STOMA (N/A) at the request of Dr. Josefa Garza for routine HANDP. My final recommendation will be communicated back to the requesting physician by way of shared medical record or letter. Subjective The patient has the following: COVID-19 Immunization Status This patient has no relevant Health Maintenance data. CHIEF COMPLAINT: The reason for this visit is to perform a comprehensive review of the patient's past medical history, assess their current health status and obtain any additional testing required based on anesthesia guidelines. We will also identify any potential anesthesia problems or contraindications to the planned procedure. HPI: Celi Farmer is a 64 year old female who presents to [facility] for the above procedure. Patient reports abdominal pain 06/2024 with hospital admission in [place]. A CT scan demonstrated - sigmoid diverticulitis with a contained abscess. Colonoscopy on 08/01/24 with diverticulosis, acute angulation in rectosigmoid. Patient denies pain today. After discussing with surgeon, patient agrees to surgical intervention. Risk and benefits discussed by surgeon. Patient denies any other problems or concerns at this time. REVIEW OF SYSTEMS: General: Negative for: fever. Neurological: Negative for: delirium, dementia, seizures, TIA and strokes. Respiratory: Negative for: asthma, COPD, pneumonia within 6 weeks, URI < 2 weeks and obstructive sleep apnea. Cardiovascular: Positive for: hyperlipidemia Negative for: atrial fibrillation, CAD, chest pain, DVT/PE and recent CA. GI: Positive for: diverticulitis Negative for: abdominal pain, dysphagia, hepatitis, nausea, vomiting and ETOH >2 drinks/day. : Negative for: dysuria, hematuria, urinary incontinence and renal failure. CUSTOMER ACCOUNT TECHNICIAN: Negative for abnormal vaginal bleeding, abnormal vaginal discharge. Endocrine: No history of diabetes. Has not taken steroids within the past 30 days. No history of endocrinological symptoms or problems. Negative for: diabetes mellitus and hypothyroidism. Hematology: Negative for: anemia, factor V Leiden, hemophilia and von Willebrand disease. Oncology: No history of CA metastasis, chemo within 30 days, or radiotherapy within 90 days. No history of oncological symptoms or problems. Psych: Positive for: depression. Musculoskeletal: Negative for joint pain or swelling, back pain or muscle pain. Skin: Negative for lesions, rash and itching. Implanted Devices: Has implanted device Implants: abdominal mesh. PAST MEDICAL HISTORY Diagnosis Date Depression Diverticulitis HLD (hyperlipidemia) PAST SURGICAL HISTORY Procedure Laterality Date COLONOSCOPY SCREENING 2018 COLONOSCOPY SCREENING 08/01/2024 PAST SURGICAL HISTORY O (more content not included)... [facility] CNPNon 08-19-2024 CNPN Telephone (AGGENS3) -------- CELI FARMER ([id number]) 1960 F Date Time Provider Department 08/19/24 JOSEFA GARZA3 During your visit today, we recorded the following information about you: Allergies As of Date: 08/19/2024 Noted Allergy Reaction CODEINE 07/10/2024 8 - GI Upset Date Reviewed: 08/14/2024 Reviewed by: Stella Cunningham MA - Fully Assessed Reason for Visit: Patient Update [1234] Patient Question [6347] Prescriptions as of 08/19/2024 - metroNIDAZOLE (FLAGYL) 500 mg tablet Take two tabs by mouth at 1pm, 3pm, and 11pm the day prior to surgery. - neomycin 500 mg tablet Take two tabs by mouth at 1pm, 3pm, and 11pm the day prior to the surgery. - promethazine (PHENERGAN) 25 mg tablet Take 1 tab by mouth every 4 hours as needed for nausea. - atorvastatin (LIPITOR) 20 mg tablet 1 tab(s) orally once a day (at bedtime) for 90 days - sertraline (ZOLOFT) 100 mg tablet 1 tab(s) orally once a day for 90 days - cholecalciferol, vitamin D3, (VITAMIN D3 ORAL) Take by mouth. 5000 IU - estradiol 0.01% estriol 0.01% cream (CPD) For vaginal, surrounding external vaginal tissue, and topical use only. Problem List As Of Date: 08/19/2024 (None) Encounter Status:Closed by STELLA CUNNINGHAM on 08/19/24 [facility] CNOVon 08-14-2024 CNOV Office Visit (AGGENS U) -------- CELI FARMER ([id number]) 1960 F Date Time Provider Department 08/14/24 10:30 AM JOSEFA GARZA During your visit today, we recorded the following information about you: Pulse Blood pressure Weight 62/minute 125/74 59.4 kg Josefa Garza MD 08/14/2024 11:33 AM Signed Josefa Garza M.D. Colon AND Rectal Surgery [address] [facility], [address] [place] [address] CC: complicated diverticulitis HPI: Celi Farmer is a 64 year old White female who was initially admitted to an outside hospital in [place] from June 08 to June 11, 2024, for abdominal pain. A CT scan during this admission demonstrated sigmoid diverticulitis with a contained abscess. She was started on IV antibiotics and underwent percutaneous drainage, which produced purulent output. She reports that the drain was removed on July 04, 2024 when an abscessogram reportedly showed no evidence of a fistula. Patient states that she was having passage of air into her drain at the time. Since the removal of the drain, patient reports feeling well and denies any significant discomfort. She notes normal bowel movements, occurring a couple of times a day, with formed stools and no diarrhea. She does report an increase in gas and occasional sharp pains that are brief and not associated with bowel movements. She denies any pain during defecation. Patient has been following a low-residue diet with minimal fiber intake since her hospitalization and has unintentionally lost approximately 10 pounds due to reduced food intake. Colonoscopy on 08/01/24 with diverticulosis, acute angulation in rectosigmoid but was able to complete scope. No polyps seen. She also has a significant surgical history, including a bladder sling, hysterectomy in 2020, and open ventral hernia repair. Review of Systems: For pertinent positives and negatives, please see HPI History reviewed. No pertinent past medical history. PAST SURGICAL HISTORY Procedure Laterality Date COLONOSCOPY SCREENING 2018 SLING OPER STRES INCONTINENCE 12/2019 VAGINAL HYSTERECTOMY 2019 Social History Tobacco Use Smoking status: Former Types: Cigarettes Start date: 1988 Quit date: 1979 Years since quittin.4 Passive exposure: Past Smokeless tobacco: Never Substance Use Topics Alcohol use: Yes Comment: occ Drug use: Never History reviewed. No pertinent family history. The ROS, medical, surgical, family, and social history were reviewed by Josefa Garza MD ALLERGIES Allergen Reactions Codeine GI Upset Current Outpatient Medications Medication Sig atorvastatin (LIPITOR) 20 mg tablet 1 tab(s) orally once a day (at bedtime) for 90 days sertraline (ZOLOFT) 100 mg tablet 1 tab(s) orally once a day for 90 days cholecalciferol, vitamin D3, (VITAMIN D3 ORAL) Take by mouth. 5000 IU estradiol 0.01% estriol 0.01% cream (CPD) For vaginal, surrounding external vaginal tissue, and topical use only. No current facility-administered medications for this visit. Vitals: BP 125/74 (BP Site: Right Arm, BP Position: Sitting, BP Cuff Size: Regular Adult) Pulse 62 Wt 59.4 kg (131 lb) BMI 24.75 kg/m? BMI 24.75 kg/(m2) Physical Exam Constitutional: General: She is not in acute distress. Appearance: Normal appearance. She is not ill-appearing. Cardiovascular: Rate and Rhythm: Normal rate and regular rhythm. Heart sounds: Normal heart sounds. No murmur heard. No friction rub. No gallop. Pulmonary: Effort: Pulmonary effort is normal. No respiratory distress. Breath sounds: Normal breath sounds. No wheezing or rales. Abdominal: General: There is no distension. Palpations: Abdomen is soft. There is no mass. Tenderness: There is no abdominal tenderness. There is no guarding or rebound. Musculoskeletal: General: No deformity. Normal range of motion. Cervical back: Normal range of motion and neck supple. Lymphadenopathy: Cervical: No cervical adenopathy. Skin: General: Skin is warm and dry. Findings: No rash. Neurological: Mental Status: She is alert and oriented to person, place, and time. Gait: Gait is intact. Psychiatric: Mood and Affect: Mood and affect normal. Judgment: Judgment normal. Labs: No results found for: HB, HCT, WBC, PLT No results found for: CREAT No results found for: AST No results found for: ALT No results found for: BLSP, BLCUL, TBILI, CBILI, ABORHD, ABSCREEN, WBC, RBC, BILIT%DIG,%DBS Imaging: Personally reviewed imaging from outside hospital from 06/08/2024 and 06/26/2024. Multiloculated large pelvic abscess associated with rectosigmoid on initial imaging. Patient underwent percutaneous drainage and on most recent CT, abscess was resolved. The abscess appeared to be abutting the anterior peritoneal reflection. Assess (more content not included)... Normal [facility] ANES POSTPROC EVALon 025 ANES POSTPROC EVAL HNO ID: [id number] Author: PHILIP HAND MD Service: Anesthesiology Author Type: Physician Type: Anesthesia Postprocedure Evaluation Filed: 08/01/2024 14:31 Note Text: POST ANESTHESIA EVALUATION NOTE : 1960 Procedure Summary Date: 08/01/24 Room / Location: [facility] Anesthesia Start: 1343 Anesthesia Stop: 1413 Procedure: COLONOSCOPY DIAGNOSTIC Diagnosis: Diverticulitis of large intestine with perforation and abscess without bleeding (Follow-up of diverticulitis) Scheduled Providers: Josefa Garza MD Responsible Provider: Philip Hand MD Anesthesia Type: MAC ASA Status: 2 Anesthesia Type: MAC Last Vitals Vitals Value Taken Time BP 111/91 08/01/24 1430 Temp 36.5 ?C (97.7 ?F) 08/01/24 1412 Pulse 75 08/01/24 1429 Resp 20 08/01/24 1425 SpO2 96 % 08/01/24 1429 Vitals shown include unfiled device data. Post Anesthesia Patient Status Anticipated Disposition: phase 2 then home. Neurological Status: aware and responsive. Pulmonary Status: breathing comfortably on room air Airway Control: returned to baseline unsupported. Cardiovascular Status: stable. Pain Management: clinically adequate Postoperative Hydration: acceptable. Intraoperative Events: no significant anesthesia events Post Operative Nausea/Vomiting Status: no significant post operative nausea or vomiting Recommendation: further care per PACU/ICU/floor team. Anesthesia Observations No Documentation SIGNATURE: Philip Hand MD PATIENT NAME: Celi Farmer DATE: August 01, 2024 TIME: 2:30 PM CSN: [id number] Normal [facility] ANES PRE-OPon 08-01-2024 ANES PRE-OP HNO ID: [id number] Author: PHILIP HAND MD Service: Anesthesiology Author Type: Physician Type: Anesthesia Preprocedure Evaluation Filed: 08/01/2024 13:37 Note Text: ANESTHESIOLOGY DAY OF SURGERY NOTE : 1960 Procedure Information Date/Time: 08/01/24 1330 Scheduled providers: Josefa Garza MD Procedure: COLONOSCOPY DIAGNOSTIC Location: [facility] Estimated body mass index is 25.32 kg/m? as calculated from the following: Height as of 07/10/24: 154.9 cm (5' 1). Weight as of 07/10/24: 60.8 kg (134 lb). Most recent hematocrit and potassium results: No results found for this basename: HCT,HEMATOCRIT,K,POTASSI UM Relevant Problems No relevant active problems I - PHYSICAL EVALUATION AIRWAY Patient intubated: No. Tracheostomy tube not present Mallampati: II. TM distance: >3 FB. Neck ROM: full ROM without neurological symptoms. Mouth opening: adequate. Short neck: no. Thick neck: no DENTAL Dental findings: teeth intact and chipped. Additional exam findings: no II - ANESTHESIA PLAN ASA Score: 2 Anesthetic Plan: MAC NPO Status: adequate Beta Fam Monitoring Plan Monitoring plan: standard ASA. Post Procedure Analgesic Plan Postoperative analgesic plan: parenteral or oral opioids and multimodal analgesia. Informed Consent Anesthetic risks, benefits, alternatives, personnel and consent discussed: yes. Patient / Responsible Republican agrees to proceed: yes Patient / Surrogate agrees to blood products: Yes Significant changes in the patient condition since the History and Physical, not otherwise documented in primary service progress note: no. Vitals Value Taken Time BP 129/82 08/01/24 1245 Pulse 89 08/01/24 1245 Resp 18 08/01/24 1245 Temp 36.2 ?C (97.2 ?F) 08/01/24 1245 SpO2 95 % 08/01/24 1245 Outpatient Medications as of 08/01/2024 Medication Sig atorvastatin (LIPITOR) 20 mg tablet 1 tab(s) orally once a day (at bedtime) for 90 days sertraline (ZOLOFT) 100 mg tablet 1 tab(s) orally once a day for 90 days cholecalciferol, vitamin D3, (VITAMIN D3 ORAL) Take by mouth. 5000 IU estradiol 0.01% estriol 0.01% cream (CPD) For vaginal, surrounding external vaginal tissue, and topical use only. No current facility-administered medications on file as of 08/01/2024. I have interviewed and examined the patient. I have reviewed the medical record and/or the pre-anesthesia evaluation, pertinent labs, and test results. This contains updated information obtained within 48 hours of Surgery/Procedure. SIGNATURE: Philip Hand MD PATIENT NAME: Celi Farmer DATE: August 01, 2024 TIME: 1:31 PM CSN: [id number] Normal [facility] Colonoscopyon 08-01-[address] [facility] Gastrointestinal Endoscopy Patient Name: Celi Farmer Procedure Date: 08/01/2024 1:34 PM Date of : 1960 Admit Type: Outpatient Room: [place] [address] Gender: Female Note Status: Finalized Attending MD: Josefa Garza , , Procedure: Colonoscopy Indications: Follow-up of diverticulitis Providers: Josefa Garza Patient Profile: Refer to note in patient chart for documentation of history and physical. Perforated diverticulitis requiring percutaneous drain Referring Physician: Josefa Garza (Referring MD) Medicines: Monitored Anesthesia Care Complications: No immediate complications. Procedure: Pre-Anesthesia Assessment: - Prior to the procedure, a History and Physical was performed, and patient medications and allergies were reviewed. The patient is competent. The risks and benefits of the procedure and the sedation options and risks were discussed with the patient. All questions were answered and informed consent was obtained. Patient identification and proposed procedure were verified by the physician, the nurse and the epic prelude analyst in the procedure room. Mental Status Examination: alert and oriented. Airway Examination: normal oropharyngeal airway and neck mobility. Respiratory Examination: clear to auscultation. CV Examination: normal. ASA Grade Assessment: II - A patient with mild systemic disease. After reviewing the risks and benefits, the patient was deemed in satisfactory condition to undergo the procedure. The anesthesia plan was to use monitored anesthesia care (MAC). Immediately prior to administration of medications, the patient was re-assessed for adequacy to receive sedatives. The heart rate, respiratory rate, oxygen saturations, blood pressure, adequacy of pulmonary ventilation, and response to care were monitored throughout the procedure. The physical status of the patient was re-assessed after the procedure. After I obtained informed consent, the scope was passed under direct vision. Throughout the procedure, the patient's blood pressure, pulse, and oxygen saturations were monitored continuously. The Colonoscope was introduced through the anus and advanced to the cecum, identified by appendiceal orifice and ileocecal valve. I was present and participated during the entire procedure, including non-higgins portions, and during the administration and monitoring of Moderate Sedation. The colonoscopy was performed without difficulty. The patient tolerated the procedure well. The quality of the bowel preparation was good. The ileocecal valve, appendiceal orifice, and rectum were photographed. Scope Withdrawal Time: 0 hours 6 minutes 8 seconds Moderate Sedation: Exam was performed under monitored anesthesia care (MAC) Findings: Multiple medium-mouthed diverticula were found in the sigmoid colon. The perianal and digital rectal examinations were normal. Estimated Blood Loss: Estimated blood loss: none. Impression: - Diverticulosis in the sigmoid colon. - No specimens collected. Recommendation: - Patient has a contact number available for emergencies. The signs and symptoms of potential delayed complications were discussed with the patient. Return to normal activities tomorrow. Written discharge instructions were provided to the patient. - Resume previous diet. - Continue present medications. - Repeat colonoscopy in 10 years for surveillance. - Return to my office at appointment to be scheduled. - The patient is not currently taking anticoagulant or antiplatelet agents. Procedure Code(s): --- Professional --- 25894, Colonoscopy, flexible; diagnostic, including collection of specimen(s) by brushing or washing, when performed (separate procedure) --- Technical --- 98885, Colonoscopy, flexible; diagnostic, including collection of specimen(s) by brushing or washing, when performed (separate procedure) CPT copyright 2020 [employer]. All rights reserved. The codes documented in this report are preliminary and upon charter school executive director review may be revised to meet current compliance requirements. Attending Participation: I personally performed the entire procedure. Scope In: 1:53:41 PM Scope Out: 2:09:24 PM JOSEFA GARZA M.D. Josefa Garza, 08/01/2024 2:25:58 PM This report has been signed electronically by Josefa Garza Number of Addenda: 0 Note Initiated On: 08/01/2024 1:34 PM [facility] CNPNon 07-14-2024 CNPN Telephone (AVELINO3) -------- DARIANCELI ([id number]) 1960 F Date Time Provider Department 07/14/24 JOSEFA GARZA During your visit today, we recorded the following information about you: Brionna Vyas MA 07/14/2024 9:36 AM Signed Patient called in says she didn't want to wait 3 months for surgery and wanted to discuss moving thing up Brionna Vyas MA Allergies As of Date: 07/14/2024 Noted Allergy Reaction CODEINE 07/10/2024 8 - GI Upset Date Reviewed: 07/10/2024 Reviewed by: Stella Cunningham MA - Fully Assessed Reason for Visit: Patient Question [7987] Prescriptions as of 07/16/2024 - atorvastatin (LIPITOR) 20 mg tablet 1 tab(s) orally once a day (at bedtime) for 90 days - sertraline (ZOLOFT) 100 mg tablet 1 tab(s) orally once a day for 90 days - cholecalciferol, vitamin D3, (VITAMIN D3 ORAL) Take by mouth. 5000 IU - estradiol 0.01% estriol 0.01% cream (CPD) For vaginal, surrounding external vaginal tissue, and topical use only. Problem List As Of Date: 07/14/2024 (None) Encounter Status:Closed by BRIONNA VYAS on 07/16/24 [facility] CNOVon 07-10-2024 CNOV Office Visit (AVELINO U) -------- CELI FARMER ([id number]) 1960 F Date Time Provider Department 07/10/24 10:00 AM JOSEFA GARZA During your visit today, we recorded the following information about you: Pulse Blood pressure Weight Height 71/minute 124/66 60.8 kg 1.549 m Josefa Garza MD 07/10/2024 10:52 AM Signed Josefa Garza M.D. Colon AND Rectal Surgery 1 [facility], [facility] [address] [place] [address] Recording using [employer] software for draft documentation of the visit was discussed with the patient/authorized pharmaceutical sales representative; all questions welcomed and answered. Patient/authorized pharmaceutical sales representative agreed to proceed CC: complicated diverticulitis HPI: Celi Farmer is a 64 year old White female presenting for follow-up after a recent hospitalization for sigmoid diverticulitis with a contained abscess. Patient was initially admitted to an outside hospital in [place] from June 08 to June 11, 2024, for abdominal pain. A CT scan during this admission demonstrated sigmoid diverticulitis with a contained abscess. She was started on IV antibiotics and underwent percutaneous drainage, which produced purulent output. She reports that the drain was removed on July 04, 2024 when an abscessogram reportedly showed no evidence of a fistula. Patient states that she was having passage of air into her drain at the time. Since the removal of the drain, patient reports feeling well and denies any significant discomfort. She notes normal bowel movements, occurring a couple of times a day, with formed stools and no diarrhea. She does report an increase in gas and occasional sharp pains that are brief and not associated with bowel movements. She denies any pain during defecation. Patient has been following a low-residue diet with minimal fiber intake since her hospitalization and has unintentionally lost approximately 10 pounds due to reduced food intake. Patient has a history of two colonoscopies, the most recent being in 2019, which revealed a few diverticula but no polyps. She also has a significant surgical history, including a bladder sling, hysterectomy in 2019, and ventral hernia repair. Review of Systems: For pertinent positives and negatives, please see HPI History reviewed. No pertinent past medical history. PAST SURGICAL HISTORY Procedure Laterality Date COLONOSCOPY SCREENING 2018 SLING OPER STRES INCONTINENCE 12/2019 VAGINAL HYSTERECTOMY 2019 Social History Tobacco Use Smoking status: Former Types: Cigarettes Start date: 1988 Quit date: 1979 Years since quittin.3 Passive exposure: Past Smokeless tobacco: Never Substance Use Topics Alcohol use: Yes Comment: occ Drug use: Never History reviewed. No pertinent family history. The ROS, medical, surgical, family, and social history were reviewed by Josefa Garza MD ALLERGIES Allergen Reactions Codeine GI Upset Current Outpatient Medications Medication Sig atorvastatin (LIPITOR) 20 mg tablet 1 tab(s) orally once a day (at bedtime) for 90 days sertraline (ZOLOFT) 100 mg tablet 1 tab(s) orally once a day for 90 days cholecalciferol, vitamin D3, (VITAMIN D3 ORAL) Take by mouth. 5000 IU estradiol 0.01% estriol 0.01% cream (CPD) For vaginal, surrounding external vaginal tissue, and topical use only. No current facility-administered medications for this visit. Vitals: BP 124/66 (BP Site: Right Arm, BP Position: Sitting, BP Cuff Size: Regular Adult) Pulse 71 Ht 154.9 cm (5' 1) Wt 60.8 kg (134 lb) BMI 25.32 kg/m? BMI 25.32 kg/(m2) Physical Exam Constitutional: General: She is not in acute distress. Appearance: Normal appearance. She is not ill-appearing. Cardiovascular: Rate and Rhythm: Normal rate and regular rhythm. Heart sounds: Normal heart sounds. No murmur heard. No friction rub. No gallop. Pulmonary: Effort: Pulmonary effort is normal. No respiratory distress. Breath sounds: Normal breath sounds. No wheezing or rales. Abdominal: General: There is no distension. Palpations: Abdomen is soft. There is no mass. Tenderness: There is no abdominal tenderness. There is no guarding or rebound. Musculoskeletal: General: No deformity. Normal range of motion. Cervical back: Normal range of motion and neck supple. Lymphadenopathy: Cervical: No cervical adenopathy. Skin: General: Skin is warm and dry. Findings: No rash. Neurological: Mental Status: She is alert and oriented to person, place, and time. Gait: Gait is intact. Psychiatric: Mood and Affect: Mood and affect normal. Judgment: Judgment normal. Assessment/Plan: 1. Diverticulitis of large intestine with perforation and abscess without bleeding - Reviewed CT scans and medical records from hospitalization, will upload discs to our system - Recommended continuation of a low- (more content not included)... Normal [facility] Lipid Profileon 07-07-2024 CHOL:HDL 3.05 Normal [facility] Comment on above: Performed By: #### L 506.1001, L500.4100, L500.3400 #### [facility] [address] [place], [address] Cholesterol [Mass/Vol] 179 mg/dL Normal <=200 [facility] Comment on above: Result Comment: Chol esterol level, Desirable <200 mg/dL Borderline high cholesterol 200-239 mg/dL High cholesterol >=240 mg/dL Recommendations of the NCEP Adult Treatment Panel for the following risk-cutoff thresholds for the [place] population. Performed By: #### L 506.1001, L500.4100, L500.3400 #### [facility] [address] [place], [address] Cholesterol in HDL [Mass/Vol] 59 mg/dL Normal [facility] Comment on above: Result Comment: Brianne onal Cholesterol Education Program (NCEP) guidelines: <40 mg/dL: Low HDL-cholesterol (major risk factor for CHD) >= 60 mg/dL: High HDL-cholesterol (negative risk factor for CHD) HDL-cholesterol is affected by a number of factors, e.g. smoking, exercise, hormones, sex and age. Performed By: #### L 506.1001, L500.4100, L500.3400 #### [facility] [address] [place], [address] Cholesterol in LDL [Mass/Vol] 103 mg/dL Normal [facility] Comment on above: Result Comment: Bord tqxqsi=834-628 mg/dL Higher Luiv=442 mg/dL or greater Performed By: #### L 506.1001, L500.4100, L500.3400 #### [facility] [address] [place], [address] Cholesterol in VLDL [Mass/Vol] 17 mg/dL Normal 5-40 [facility] Comment on above: Performed By: #### L 506.1001, L500.4100, L500.3400 #### [facility] [address] [place], [address] Triglyceride [Mass/Vol] 85 mg/dL Normal [facility] Comment on above: Result Comment: The drugs N-Acetylcysteine and Metamizole may falsely depress this assay. Normal range: <150 mg/dL Borderline High: 150-199 mg/dL High: 200-499 mg/dL Very High: >500 mg/dL Performed By: #### L 506.1001, L500.4100, L500.3400 #### [facility] [address] [place], [address] Liver Profileon 07-07-2024 Albumin [Mass/Vol] 4.1 g/dL Normal 3.4-4.8 [facility] Comment on above: Performed By: #### L 506.1001, L500.4100, L500.3400 #### [facility] [address] [place], [address] ALK PHOS 66 U/L Normal 35-104 [facility] Comment on above: Performed By: #### L 506.1001, L500.4100, L500.3400 #### [facility] [address] [place], [address] ALT [Catalytic activity/Vol] 22 U/L Normal <=34 [facility] Comment on above: Performed By: #### L 506.1001, L500.4100, L500.3400 #### [facility] [address] [place], [address] AST [Catalytic activity/Vol] 28 U/L Normal <=31 [facility] Comment on above: Performed By: #### L 506.1001, L500.4100, L500.3400 #### [facility] [address] [place], [address] Bilirubin [Mass/Vol] 0.36 mg/dL Normal 0.00-1.30 [facility] Comment on above: Performed By: #### L 506.1001, L500.4100, L500.3400 #### [facility] [address] [place], [address] Bilirubin.direct [Mass/Vol] 0.16 mg/dL Normal 0.00-0.30 [facility] Comment on above: Performed By: #### L 506.1001, L500.4100, L500.3400 #### [facility] [address] [place], [address] Globulin (S) [Mass/Vol] 3.2 g/dL Normal 2.2-4.2 [facility] Comment on above: Performed By: #### L 506.1001, L500.4100, L500.3400 #### [facility] [address] [place], [address] T PROT 7.3 g/dL Normal 5.9-8.4 [facility] Comment on above: Performed By: #### L 506.1001, L500.4100, L500.3400 #### [facility] [address] [place], [address] Vitamin D,25 Hydroxyon 07-07 Vitamin D 25-OH 51.8 ng/mL Normal 30-100 [facility] Comment on above: Result Comment: Joselyn min D Status Deficiency: <20 ng/mL (50nmol/L) Insufficiency: 20-30 ng/mL (50-75 nmol/L) Sufficiency: 30-100 ng/mL (75-250 nmol/L) Toxicity: >100 ng/mL (>250 nmol/L) Performed By: #### L 500.3400, L501.9520, L506.1000, L400.2011, L500.2500, L100.0100, L500.4100 #### [facility] [address] [place], [address] [facility] 07-03-[address] [facility] Telephone (AGGENS3) -------- CELI FARMER ([id number]) 1960 F Date Time Provider Department 07/03/24 ANDER RODRIGUES3 During your visit today, we recorded the following information about you: Stella Cunningahm MA 07/03/2024 10:47 AM Signed [place] and is scheduled for fistula gram scheduled for 07/04. Patient would like to know if she should proceed with this testing. Patient is scheduled for 07/[address] Garza. Please advise. Stella Cunningham MA Allergies As of Date: 07/03/2024 (Not on File) Date Reviewed: Never Reviewed Reason for Visit: Patient Question [0802] Patient Update [1474] Prescriptions as of 07/25/2024 - atorvastatin (LIPITOR) 20 mg tablet 1 tab(s) orally once a day (at bedtime) for 90 days - sertraline (ZOLOFT) 100 mg tablet 1 tab(s) orally once a day for 90 days - cholecalciferol, vitamin D3, (VITAMIN D3 ORAL) Take by mouth. 5000 IU - estradiol 0.01% estriol 0.01% cream (CPD) For vaginal, surrounding external vaginal tissue, and topical use only. Problem List As Of Date: 07/03/2024 (None) Encounter Status:Closed by STELLA CUNNINGHAM on 07/25/24 [facility]20[facility] (AGGENS3[facility] -------- CELI FARMER ([id number]) 1960 F Date Time Provider Department 06/16/24 ANDER RODRIGUES AGGENS3 During your visit today, we recorded the following information about you: Katlyn Junior 06/16/2024 9:49 AM Signed Called the patient and left a voice message asking the patient to call the office back.The patient has been referred for Diverticulitis. Katlyn Junior Allergies As of Date: 06/16/2024 (Not on File) Date Reviewed: Never Reviewed Reason for Visit: Consult [502] Problem List As Of Date: 06/16/2024 (None) Encounter Status:Closed by KATLYN JUNIOR on 06/16/24 [facility] SCRN MAMM (CAD)W/BAILEY BILATo n 03-14-2024 SCRN MAMM (CAD)W/BAILEY BILAT [facility] Imaging Services [address] [place] [id number] SCRN MAMM (CAD)W/BAILEY BILAT MR#: [id number] Acct: [id number] Name: CELI FARMER CONNIE Rep #: [id number] : 1960 F 63 From: Huber Le MD PCP: Dr. Coleen Bernal DO Status: REG CLI Study: SCRN MAMM (CAD)W/BAILEY BILAT Date of Exam: 06/03 Exam# [id number] Ordering Dr: Coleen Bernal DO [id number] MAMMOGRAPHY - BILATERAL SCREENING 3-D TOMOSYNTHESIS REASON FOR EXAM: Female, 63 years old. Routine screening PERTINENT HISTORY: Grandmother with breast cancer.. TECHNIQUE: 2-D mammograms and 3-D Tomosynthesis of the breast (s) were performed. CAD was performed. COMPARISON: 03/09/2022 FINDINGS: The breast composition is heterogeneously dense that can obscure small breast masses. Stable scattered benign vascular calcifications are seen. No dense spiculated masses or suspicious microcalcifications are identified. No architectural distortion is identified. There is no skin thickening or retraction. There has been no significant change since the prior study. BI/SCRN MAMM (CAD)W/BAILEY BILAT IMPRESSION: No mammographic signs of malignancy. Routine yearly mammograms recommended. ASSESSMENT CATEGORY: BIRADS Category 2: Benign. A letter regarding these results will be sent to the patient by the facility within 30 days. FOLLOW UP RECOMMENDATION: Yearly follow up mammogram recommended. (A) Approximately 10% of breast cancers are not detected by mammography. A normal mammogram should not delay biopsy of a clinically suspicious abnormality. Electronically Signed: Celso Le MD at 14:53 EST , CC: Dr. Coleen Bernal, Watch Inspector: Signed Normal [facility] Basic Metabolic Profile (BMP )on 12-21-2023 BUN/CRE 17.3 RATIO Normal - [facility] Comment on above: Performed By: #### L 500.3400, L501.9520, L506.1000, L400.2010, L500.2500, L100.0100, L500.4100 #### [facility] [address] [place], [place], [address] CA,Total 9.7 mg/dL Normal 8.5-10.1 [facility] Comment on above: Performed By: #### L 500.3400, L501.9520, L506.1000, L400.2011, L500.2500, L100.0100, L500.4100 #### [facility] [address] [place], [address] Chloride [Moles/Vol] 108 mmol/L High 98-107 [facility] Comment on above: Performed By: #### L 500.3400, L501.9520, L506.1000, L400.2010, L500.2500, L100.0100, L500.4100 #### [facility] [address] [place], [address] CO2 [Moles/Vol] 24.0 mmol/L Normal 21.0-32.0 [facility] Comment on above: Performed By: #### L 500.3400, L501.9520, L506.1000, L400.2010, L500.2500, L100.0100, L500.4100 #### [facility] [address] [place], [address] Creatinine [Mass/Vol] 0.92 mg/dL Normal 0.55-1.02 [facility] Comment on above: Result Comment: The validity of the calculated GFR GFRAA in patients over 70 years has not been determined. Clinical correlation is essential. Performed By: #### L 500.3400, L501.9520, L506.1000, L400.2010, L500.2500, L100.0100, L500.4100 #### [facility] [address] [place], [address] EST GFR - AA 78 mL/min Normal >60 [facility] Comment on above: Result Comment: Afri can Nigerian GFR Calc Performed By: #### L 500.3400, L501.9520, L506.1000, L400.2010, L500.2500, L100.0100, L500.4100 #### [facility] [address] [place], [address] GAP 7 Normal 5-15 [facility] Comment on above: Performed By: #### L 500.3400, L501.9520, L506.1000, L400.2010, L500.2500, L100.0100, L500.4100 #### [facility] [address] [place], [address] GFR/1.73 sq M.predicted among non-blacks MDRD (S/P/Bld) [Vol rate/Area] 65 mL/min/{1.73_m2} Normal >60 [facility] Comment on above: Result Comment: Non- GFR Calc Performed By: #### L 500.3400, L501.9520, L506.1000, L400.2010, L500.2500, L100.0100, L500.4100 #### [facility] [address] [place], [address] Glucose [Mass/Vol] 99 mg/dL Normal 74-106 [facility] Comment on above: Performed By: #### L 500.3400, L501.9520, L506.1000, L400.2010, L500.2500, L100.0100, L500.4100 #### [facility] [address] [place], [address] Potassium [Moles/Vol] 4.0 mmol/L Normal 3.5-5.1 [facility] Comment on above: Performed By: #### L 500.3400, L501.9520, L506.1000, L400.2010, L500.2500, L100.0100, L500.4100 #### [facility] [address] [place], [address] Sodium [Moles/Vol] 139 mmol/L Normal 136-145 [facility] Comment on above: Performed By: #### L 500.3400, L501.9520, L506.1000, L400.2010, L500.2500, L100.0100, L500.4100 #### [facility] [address] [place], [address] Urea nitrogen [Mass/Vol] 16 mg/dL Normal 7-18 [facility] Comment on above: Performed By: #### L 500.3400, L501.9520, L506.1000, L400.2011, L500.2500, L100.0100, L500.4100 #### [facility] [address] [place], [address] CBC W/Diff, Automatedon 10 Absolute Lymph 0.94 X10 3/uL Normal 0.83-4.51 [facility] Comment on above: Performed By: #### L 500.3400, L501.9520, L506.1000, L400.2011, L500.2500, L100.0100, L500.4100 #### [facility] [address] [place], [address] Absolute Neut 4.3 X10 3/uL Normal 2.0-7.7 [facility] Comment on above: Performed By: #### L 500.3400, L501.9520, L506.1000, L400.2010, L500.2500, L100.0100, L500.4100 #### [facility] [address] [place], [address] Basophils/100 WBC (Bld) 0.7 % Normal 0-1 [facility] Comment on above: Performed By: #### L 500.3400, L501.9520, L506.1000, L400.2010, L500.2500, L100.0100, L500.4100 #### [facility] [address] [place], [address] Eosinophils/100 WBC (Bld) 2.2 % Normal 0-5 [facility] Comment on above: Performed By: #### L 500.3400, L501.9520, L506.1000, L400.2010, L500.2500, L100.0100, L500.4100 #### [facility] [address] [place], [address] Erythrocyte distribution width (RBC) [Ratio] 13.4 % Normal 11.6-14.6 [facility] Comment on above: Performed By: #### L 500.3400, L501.9520, L506.1000, L400.2010, L500.2500, L100.0100, L500.4100 #### [facility] [address] [place], [address] Hematocrit (Bld) [Volume fraction] 45.4 % Normal 37-47 [facility] Comment on above: Performed By: #### L 500.3400, L501.9520, L506.1000, L400.2010, L500.2500, L100.0100, L500.4100 #### [facility] [address] [place], [address] Hemoglobin (Bld) [Mass/Vol] 15.2 g/dL High 12.0-15.0 [facility] Comment on above: Performed By: #### L 500.3400, L501.9520, L506.1000, L400.2010, L500.2500, L100.0100, L500.4100 #### [facility] [address] [place], [address] IG% 0.300 Normal 0.0-0.9 [facility] Comment on above: Result Comment: IG% - Immature Granulocytes (promyelocytes, myelocytes and metamyelocytes) > 1% indicates that a LEFT SHIFT is Present. Performed By: #### L 500.3400, L501.9520, L506.1000, L400.2010, L500.2500, L100.0100, L500.4100 #### [facility] [address] [place], [address] Lymphocytes/100 WBC (Bld) 15.7 % Low 19-41 [facility] Comment on above: Performed By: #### L 500.3400, L501.9520, L506.1000, L400.2010, L500.2500, L100.0100, L500.4100 #### [facility] [address] [place], [address] MCH (RBC) [Entitic mass] 30.2 pg Normal 27.0-32.0 [facility] Comment on above: Performed By: #### L 500.3400, L501.9520, L506.1000, L400.2011, L500.2500, L100.0100, L500.4100 #### [facility] [address] [place], [address] MCHC (RBC) [Mass/Vol] 33.5 g/dL Normal 32-36 [facility] Comment on above: Performed By: #### L 500.3400, L501.9520, L506.1000, L400.2010, L500.2500, L100.0100, L500.4100 #### [facility] [address] [place], [address] MCV (RBC) [Entitic vol] 90.1 fL Normal 81-99 [facility] Comment on above: Performed By: #### L 500.3400, L501.9520, L506.1000, L400.2010, L500.2500, L100.0100, L500.4100 #### [facility] [address] [place], [address] Monocytes/100 WBC (Bld) 9.0 % Normal 0-10 [facility] Comment on above: Performed By: #### L 500.3400, L501.9520, L506.1000, L400.2010, L500.2500, L100.0100, L500.4100 #### [facility] [address] [place], [address] Neutrophils/100 WBC (Bld) 72.1 % High 47-70 [facility] Comment on above: Performed By: #### L 500.3400, L501.9520, L506.1000, L400.2010, L500.2500, L100.0100, L500.4100 #### [facility] [address] [place], [address] Nucleated RBC (Bld) [#/Vol] 0 10*3/uL Normal 0-5 [facility] Comment on above: Performed By: #### L 500.3400, L501.9520, L506.1000, L400.2011, L500.2500, L100.0100, L500.4100 #### [facility] [address] [place], [address] Platelet mean volume (Bld) [Entitic vol] 9.5 fL Normal 6.2-12.0 [facility] Comment on above: Performed By: #### L 500.3400, L501.9520, L506.1000, L400.2010, L500.2500, L100.0100, L500.4100 #### [facility] [address] [place], [address] Platelets (Bld) [#/Vol] 306 10*3/uL Normal 150-450 [facility] Comment on above: Performed By: #### L 500.3400, L501.9520, L506.1000, L400.2010, L500.2500, L100.0100, L500.4100 #### [facility] [address] [place], [address] RBC (Bld) [#/Vol] 5.04 10*6/uL Normal 4.2-5.4 [facility] Comment on above: Performed By: #### L 500.3400, L501.9520, L506.1000, L400.2011, L500.2500, L100.0100, L500.4100 #### [facility] [address] [place], [address] RDW SD 44.2 fl High 35.1-43.9 [facility] Comment on above: Performed By: #### L 500.3400, L501.9520, L506.1000, L400.2010, L500.2500, L100.0100, L500.4100 #### [facility] [address] [place], [address] WBC (Bld) [#/Vol] 6.0 10*3/uL Normal 4.4-11.0 [facility] Comment on above: Performed By: #### L 500.3400, L501.9520, L506.1000, L400.2010, L500.2500, L100.0100, L500.4100 #### [facility] [address] [place], [address] Lipid Profileon 12-21-2023 Cholesterol [Mass/Vol] 218 mg/dL High 200 [facility] Comment on above: Result Comment: <200 mg/dL Desirable 200-240 mg/dL Borderline >240 mg/dL High Risk Performed By: #### L 500.3400, L501.9520, L506.1000, L400.2010, L500.2500, L100.0100, L500.4100 #### [facility] [address] [place], [address] Cholesterol in HDL [Mass/Vol] 96 mg/dL Normal [facility] Comment on above: Result Comment: The drugs N-Acetylcysteine and Metamizole may falsely depress this assay. Reference Range HDL <40 mg/dL Low HDL Cholesterol HDL >or= 60 mg/dL High HDL Cholesterol Performed By: #### L 500.3400, L501.9520, L506.1000, L400.2010, L500.2500, L100.0100, L500.4100 #### [facility] [address] [place], [address] Cholesterol in LDL [Mass/Vol] 100 mg/dL Normal 0-130 [facility] Comment on above: Performed By: #### L 500.3400, L501.9520, L506.1000, L400.2010, L500.2500, L100.0100, L500.4100 #### [facility] [address] [place], [address] Cholesterol in VLDL [Mass/Vol] 22 mg/dL Normal 5-40 [facility] Comment on above: Performed By: #### L 500.3400, L501.9520, L506.1000, L400.2010, L500.2500, L100.0100, L500.4100 #### [facility] [address] [place], [address] Triglyceride [Mass/Vol] 110 mg/dL Normal [facility] Comment on above: Result Comment: The drugs N-Acetylcysteine and Metamizole may falsely depress this assay. Serum Triglycerides Reference Interval Normal <150 mg/dL Borderline high 150 - 199 mg/dL High 200 - 499 mg/dL Very High > or = 500 mg/dL Performed By: #### L 500.3400, L501.9520, L506.1000, L400.2010, L500.2500, L100.0100, L500.4100 #### [facility] [address] [place], [address] Liver Profileon 12-21-2023 Albumin [Mass/Vol] 3.9 g/dL Normal 3.2-5.0 [facility] Comment on above: Performed By: #### L 500.3400, L501.9520, L506.1000, L400.2010, L500.2500, L100.0100, L500.4100 #### [facility] [address] [place], [address] ALK P 61 U/L Normal 45-117 [facility] Comment on above: Performed By: #### L 500.3400, L501.9520, L506.1000, L400.2010, L500.2500, L100.0100, L500.4100 #### [facility] [address] [place], [address] ALT [Catalytic activity/Vol] 32 U/L Normal 13-56 [facility] Comment on above: Performed By: #### L 500.3400, L501.9520, L506.1000, L400.2010, L500.2500, L100.0100, L500.4100 #### [facility] [address] [place], [address] AST [Catalytic activity/Vol] 20 U/L Normal 15-37 [facility] Comment on above: Performed By: #### L 500.3400, L501.9520, L506.1000, L400.2010, L500.2500, L100.0100, L500.4100 #### [facility] [address] [place], [address] Bilirubin [Mass/Vol] 0.60 mg/dL Normal 0.20-1.00 [facility] Comment on above: Result Comment: For patients on eltrombopag therapy, use of Dimension [place] TBIL is not recommended. Performed By: #### L 500.3400, L501.9520, L506.1000, L400.2010, L500.2500, L100.0100, L500.4100 #### [facility] [address] [place], [address] Bilirubin.direct [Mass/Vol] 0.14 mg/dL Normal 0.00-0.30 [facility] Comment on above: Performed By: #### L 500.3400, L501.9520, L506.1000, L400.2010, L500.2500, L100.0100, L500.4100 #### [facility] [address] [place], [address] Globulin (S) [Mass/Vol] 3.8 g/dL Normal 2.2-4.2 [facility] Comment on above: Performed By: #### L 500.3400, L501.9520, L506.1000, L400.2010, L500.2500, L100.0100, L500.4100 #### [facility] [address] [place], [address] T PROT 7.7 g/dL Normal 6.4-8.2 [facility] Comment on above: Performed By: #### L 500.3400, L501.9520, L506.1000, L400.2011, L500.2500, L100.0100, L500.4100 #### [facility] [address] [place], [address] Thyroid Stim Hormone (TSH)on 12-21-2023 TSH 1.150 uIU/mL Normal 0.358-3.740 [facility] Comment on above: Performed By: #### L 500.3400, L501.9520, L506.1000, L400.2011, L500.2500, L100.0100, L500.4100 #### [facility] [address] [place], [address] Urinalysis, Routine (Dipstic k)on 12-21-2023 BILIRUBIN URINE Negative Normal Negative [facility] Comment on above: Order Comment: Urine , Random Performed By: #### L 500.3400, L501.9520, L506.1000, L400.2011, L500.2500, L100.0100, L500.4100 #### [facility] [address] [place], [address] Clarity (U) Sl. Cloudy Normal Clear [facility] Comment on above: Order Comment: Urine , Random Performed By: #### L 500.3400, L501.9520, L506.1000, L400.2011, L500.2500, L100.0100, L500.4100 #### [facility] [address] [place], [address] Color (U) Yellow Normal Yellow [facility] Comment on above: Order Comment: Urine , Random Performed By: #### L 500.3400, L501.9520, L506.1000, L400.2011, L500.2500, L100.0100, L500.4100 #### [facility] [address] [place], [address] GLUCOSE, UR Normal Normal Normal [facility] Comment on above: Order Comment: Urine , Random Performed By: #### L 500.3400, L501.9520, L506.1000, L400.2011, L500.2500, L100.0100, L500.4100 #### [facility] [address] [place], [address] KETONE UR Negative Normal Negative [facility] Comment on above: Order Comment: Urine , Random Performed By: #### L 500.3400, L501.9520, L506.1000, L400.2011, L500.2500, L100.0100, L500.4100 #### [facility] [address] [place], [address] LEUK ESTERASE Negative Normal Negative [facility] Comment on above: Order Comment: Urine , Random Performed By: #### L 500.3400, L501.9520, L506.1000, L400.2011, L500.2500, L100.0100, L500.4100 #### [facility] [address] [place], [address] Nitrite Ql (U) Negative Normal Negative [facility] Comment on above: Order Comment: Urine , Random Performed By: #### L 500.3400, L501.9520, L506.1000, L400.2011, L500.2500, L100.0100, L500.4100 #### [facility] [address] [place], [address] OCCULT BLOOD-UR Negative Normal Negative [facility] Comment on above: Order Comment: Urine , Random Performed By: #### L 500.3400, L501.9520, L506.1000, L400.2011, L500.2500, L100.0100, L500.4100 #### [facility] [address] [place], [address] pH UR 5.0 Normal 5.0 - 8.0 [facility] Comment on above: Order Comment: Urine , Random Performed By: #### L 500.3400, L501.9520, L506.1000, L400.2010, L500.2500, L100.0100, L500.4100 #### [facility] [address] [place], [address] PROT DIPSTX Negative Normal Negative [facility] Comment on above: Order Comment: Urine , Random Performed By: #### L 500.3400, L501.9520, L506.1000, L400.2010, L500.2500, L100.0100, L500.4100 #### [facility] [address] [place], [address] SP.GR. DIPSTX 1.020 Normal 1.002-1.030 [facility] Comment on above: Order Comment: Urine , Random Performed By: #### L 500.3400, L501.9520, L506.1000, L400.2010, L500.2500, L100.0100, L500.4100 #### [facility] [address] [place], [address] UROBILI Normal Normal Normal [facility] Comment on above: Order Comment: Urine , Random Performed By: #### L 500.3400, L501.9520, L506.1000, L400.2010, L500.2500, L100.0100, L500.4100 #### [facility] [address] [place], [address] Vitamin D,25 Hydroxyon 12-20 Vitamin D 25-OH 77.4 ng/mL Normal [facility] Comment on above: Result Comment: Joselyn min D 25(OH) Status Range Deficiency <20 ng/mL (50nmol/L) Insufficiency 20 - 30 ng/mL (50 - 75 nmol/L) Sufficiency 30 - 100 ng/mL (75 - 250 nmol/L) Toxicity >100 ng/mL (>250 nmol/L) Performed By: #### L 500.3400, L501.9520, L506.1000, L400.2011, L500.2500, L100.0100, L500.4100 #### [facility] [address] [place], [address] XR Chest 2 Viewson 4 No acute cardiopulmonary process. Report Dictated on Electronically Signed By: Fran Parada MD Electronically Signed Date/Time: 09/11/2023 9:19 AM EDT [facility] [employer] Patient Name: CELI MACKENZIE : 1960 Exam Date/Time: 09/10/2023 13:39 Procedure: XR CHEST 2 VIEWS Ordering Provider: BERNAL JOHN Reason For Exam: acute bronchitis due to other specifiec organisms CHEST X-RAY PA and lateral CLINICAL INDICATION: Bronchitis PA and lateral radiographs of the chest were obtained. COMPARISON: None FINDINGS: The cardiac silhouette is within normal limits. No focal consolidation is seen within the lungs. No pleural effusion or pneumothorax is identified. Degenerative changes of the thoracic spine are present including dextroscoliosis. [facility] Fran Parada MD - 09/11/2023 Patient Name: CELI FARMER : 1960 Exam Date/Time: 09/10/2023 13:39 Procedure: XR CHEST 2 VIEWS Ordering Provider: BERNAL JOHN Reason For Exam: acute bronchitis due to other specifiec organisms CHEST X-RAY PA and lateral CLINICAL INDICATION: Bronchitis PA and lateral radiographs of the chest were obtained. COMPARISON: None FINDINGS: The cardiac silhouette is within normal limits. No focal consolidation is seen within the lungs. No pleural effusion or pneumothorax is identified. Degenerative changes of the thoracic spine are present including dextroscoliosis. IMPRESSION: No acute cardiopulmonary process. Report Dictated on Electronically Signed By: Fran Parada MD Electronically Signed Date/Time: 09/11/2023 9:19 AM EDT [facility] XR Chest 2 ViewsOrdered By: Fran Parada on 09-11-2023 [facility] Work Phone: XR Chest 2 [facility] Radiology Study observation (narrative) [facility] Basophil percentageOrdered B y: Coleen Bernal on 07-09-2023 Bilirubin [Mass/Vol] 0.80 mg/dL 0.20-1.00 [facility] Comment on above: For patients on eltr ombopag therapy, use of Dimension [place] TBIL is not recommended. Cholesterol [Mass/Vol] 199 mg/dL <200 [facility] Comment on above: <200 mg/dL Desirable 200-240 mg/dL Borderline >240 mg/dL High Risk Protein [Mass/Vol] 7.5 g/dL 6.4-8.2 [facility] Triglyceride [Mass/Vol] 90 mg/dL <199 [facility] Comment on above: The drugs N-Acetylcy steine and Metamizole may falsely depress this assay.Serum Triglycerides Reference Interval Normal <150 mg/dL Borderline high 150 - 199 mg/dL High 200 - 499 mg/dL Very High > or = 500 mg/dL Direct bilirubinOrdered By: Coleen Bernal on 07-09-2023 Bilirubin.direct [Mass/Vol] 0.19 mg/dL 0.00-0.30 [facility] - Chemistry and C hemistry - challengeOrdered By: Coleen Bernal on 07-09-2023 ALP [Catalytic activity/Vol] 60 U/L 45-117 [facility] ALT [Catalytic activity/Vol] 34 U/L 13-56 [facility] Cholesterol in HDL [Mass/Vol] 77 mg/dL >40 [facility] Comment on above: The drugs N-Acetylcy steine and Metamizole may falsely depress this assay. Reference Range HDL <40 mg/dL Low HDL Cholesterol HDL >or= 60 mg/dL High HDL Cholesterol Cholesterol in LDL [Mass/Vol] 104 mg/dL 0-130 [facility] Globulin (S) [Mass/Vol] 3.5 g/dL 2.2-4.2 [facility] No Panel InformationOrdered By: Coleen Bernal on 07-09-2023 VLDL Cholesterol 18 mg/dL 5-40 [facility] Thin prep Papanicolaou smear with manual screeningOrdered By: Coleen Bernal on 07-09-2023 Thin prep Papanicolaou smear with manual screening 4.0 g/dL 3.2-5.0 [facility] Thin prep Papanicolaou smear with manual screening 25 U/L 15-37 [facility] Absolute lymphocyte countOrd ered By: Coleen Bernal on 12-21-2022 Lymphocytes Auto (Unsp spec) [#/Vol] 0.83 10*3/uL 0.83-4.51 [facility] Basophil percentageOrdered B y: Coleen Bernal on 12-21-2022 Basophil percentage 0 SEEN /hpf 0-5 [facility] Basophils/100 WBC (Bld) 0.6 % 0-1 [facility] Bilirubin [Mass/Vol] 0.50 mg/dL 0.20-1.00 [facility] Comment on above: For patients on eltr ombopag therapy, use of Dimension [place] TBIL is not recommended. Chloride [Moles/Vol] 107 mmol/L 98-107 [facility] Cholesterol [Mass/Vol] 210 mg/dL <200 [facility] Comment on above: <200 mg/dL Desirable 200-240 mg/dL Borderline >240 mg/dL High Risk Eosinophils/100 WBC (Bld) 2.3 % 0-5 [facility] Glucose [Mass/Vol] 99 mg/dL 74-106 [facility] Neutrophils (Bld) [#/Vol] 3.7 10*3/uL 2.0-7.7 [facility] Neutrophils/100 WBC (Bld) 70.1 % 47-70 [facility] Potassium [Moles/Vol] 4.2 mmol/L 3.5-5.1 [facility] Protein [Mass/Vol] 7.5 g/dL 6.4-8.2 [facility] Sodium [Moles/Vol] 139 mmol/L 136-145 [facility] Triglyceride [Mass/Vol] 154 mg/dL <199 [facility] Comment on above: The drugs N-Acetylcy steine and Metamizole may falsely depress this assay.Serum Triglycerides Reference Interval Normal <150 mg/dL Borderline high 150 - 199 mg/dL High 200 - 499 mg/dL Very High > or = 500 mg/dL WBC (Bld) [#/Vol] 5.2 10*3/uL 4.4-11.0 [facility] Bilirubin Test strip Ql (U)O rdered By: Coleen Bernal on 12-21-2022 Bilirubin Ql (U) Negative Negative [facility] Blood erythrocytes count (nu mber/volume)Ordered By: Coleen Bernal on 12-21-2022 RBC (Bld) [#/Vol] 4.85 10*6/uL 4.2-5.4 [facility] Blood hemoglobin measurement (mass/volume)Ordered By: Coleen Bernal on 12-21-2022 Hemoglobin (Bld) [Mass/Vol] 15.0 g/dL 12.0-15.0 [facility] Blood lymphocytes/100 leukoc ytesOrdered By: Coleen Bernal on 12-21-2022 Lymphocytes/100 WBC (Bld) 15.9 % 19-41 [facility] Blood monocytes/100 leukocyt esOrdered By: Coleen Bernal on 12-21-2022 Monocytes/100 WBC (Bld) 10.5 % 0-10 [facility] Blood platelet mean volumeOr dered By: Coleen Bernal on 12-21-2022 Platelet mean volume (Bld) [Entitic vol] 9.4 fL 6.2-12.0 [facility] Determination of erythrocyte mean corpuscular volume (MCV)Ordered By: Coleen Bernal on 12-21-2022 MCV (RBC) [Entitic vol] 92.4 fL 81-99 [facility] Direct bilirubinOrdered By: Coleen Bernal on 12-21-2022 Bilirubin.direct [Mass/Vol] 0.16 mg/dL 0.00-0.30 [facility] Hematocrit Auto (Bld) [Volum e fraction]Ordered By: Coleen Bernal on 12-21-2022 Hematocrit (Bld) [Volume fraction] 44.8 % 37-47 [facility] Ketones Test strip Ql (U)Ord ered By: Coleen Bernal on 12-21-2022 Ketones Ql (U) Negative Negative [facility] - Chemistry and C hemistry - challengeOrdered By: Coleen Bernal on 12-21-2022 ALP [Catalytic activity/Vol] 52 U/L 45-117 [facility] ALT [Catalytic activity/Vol] 33 U/L 13-56 [facility] CO2 [Moles/Vol] 28.0 mmol/L 21.0-32.0 [facility] Globulin (S) [Mass/Vol] 3.8 g/dL 2.2-4.2 [facility] Urea nitrogen/Creatinine [Mass ratio] 20.4 mg/mg 10-20 [facility] - Hematology and Cell countsOrdered By: Coleen Bernal on 12-21-2022 Erythrocyte distribution width (RBC) [Entitic vol] 46.2 fL 35.1-43.9 [facility] Erythrocyte distribution width (RBC) [Ratio] 13.5 % 11.6-14.6 [facility] Immature granulocytes/100 WBC (Bld) 0.600 % 0.0-0.9 [facility] Comment on above: IG% - Immature Granu locytes (promyelocytes, myelocytes and metamyelocytes) > 1% indicates that a LEFT SHIFT is Present. MCH (RBC) [Entitic mass] 30.9 pg 27.0-32.0 [facility] Nucleated RBC/100 WBC (Bld) [Ratio] 0 % 0-5 [facility] MCHC Auto (RBC) [Mass/Vol]Or dered By: Coleen Bernal on 12-21-2022 MCHC (RBC) [Mass/Vol] 33.5 g/dL 32-36 [facility] Mucus LM Ql (Urine sed)Order ed By: Coleen Bernal on 12-21-2022 Mucus Ql (Urine sed) 0 SEEN /hpf [facility] Nitrite Test strip Ql (U)Ord ered By: Coleen Bernal on 12-21-2022 Nitrite Ql (U) Negative Negative [facility] No Panel InformationOrdered By: Coleen Bernal on 12-21-2022 Estimated GFR (MDRD) Amer 83 mL/min >60 [facility] Comment on above: GFR Calc Estimated GFR (MDRD) Non-Af Amer 68 mL/min >60 [facility] Comment on above: Non- GFR Calc Thyroid Stimulating Hormone (TSH) 1.02 uIU/mL 0.358-3.74 [facility] Vitamin D 25-Hydroxy 59.4 ng/mL [facility] Comment on above: Vitamin D 25(OH) Sta tus Range Deficiency <20 ng/mL (50nmol/L) Insufficiency 20 - 30 ng/mL (50 - 75 nmol/L) Sufficiency 30 - 100 ng/mL (75 - 250 nmol/L) Toxicity >100 ng/mL (>250 nmol/L) Platelets bldOrdered By: Coleen morrissey on 12-21-2022 Platelets (Bld) [#/Vol] 282 10*3/uL 150-450 [facility] Protein Test strip Ql (U)Ord ered By: Coleen Bernal on 12-21-2022 Protein Ql (U) Negative Negative [facility] Serum or plasma albumin negro urement (mass/volume)Ordered By: Coleen Bernal on 12-21-2022 Albumin [Mass/Vol] 3.7 g/dL 3.2-5.0 [facility] Serum or plasma calcium negro urement (mass/volume)Ordered By: Coleen Bernal on 12-21-2022 Calcium [Mass/Vol] 9.2 mg/dL 8.5-10.1 [facility] Serum or plasma cholesterol in HDL measurement (mass/volume)Ordered By: Coleen Bernal on 12-21-2022 Cholesterol in HDL [Mass/Vol] 78 mg/dL >40 [facility] Comment on above: The drugs N-Acetylcy steine and Metamizole may falsely depress this assay. Reference Range HDL <40 mg/dL Low HDL Cholesterol HDL >or= 60 mg/dL High HDL Cholesterol Serum or plasma cholesterol in VLDL measurement (mass/volume)Ordered By: Coleen Bernal on 12-21-2022 Cholesterol in VLDL [Mass/Vol] 31 mg/dL 5-40 [facility] Serum or plasma creatinine m easurement (mass/volume)Ordered By: Coleen Bernal on 12-21-2022 Creatinine [Mass/Vol] 0.88 mg/dL 0.55-1.02 [facility] Comment on above: The validity of the calculated GFR & GFRAA in patients over 70 years has not been determined. Clinical correlation is essential. Serum or plasma low density lipoprotein (LDL) cholesterol measurement (mass/volume)Ordered By: Coleen Bernal on 12-21-2022 Cholesterol in LDL [Mass/Vol] 101 mg/dL 0-130 [facility] Serum or plasma urea nitroge n measurement (mass/volume)Ordered By: Coleen Bernal on 12-21-2022 Urea nitrogen [Mass/Vol] 18 mg/dL 7-18 [facility] Squamous epithelial cells de tection in urine sediment by light microscopyOrdered By: Coleen Bernal on 12-21-2022 Epithelial cells.squamous LM Ql (Urine sed) 10-25 SEEN /hpf 5-10 [facility] Thin prep Papanicolaou smear with manual screeningOrdered By: Coleen Bernal on 12-21-2022 Thin prep Papanicolaou smear with manual screening 19 U/L 15-37 [facility] Thin prep Papanicolaou smear with manual screening 4 5-15 [facility] Urine blood detectionOrdered By: Coleen Bernal on 12-21-2022 RBC Ql (U) Negative Negative [facility] RBC Ql (U) 0 SEEN /hpf 0-5 [facility] Urine clarityOrdered By: Coleen morrissey on 12-21-2022 Clarity (U) Clear Clear [facility] Urine color determinationOrd ered By: Coleen Bernal on 12-21-2022 Color (U) Yellow Yellow [facility] Urine glucose detectionOrder ed By: Coleen Bernal on 12-21-2022 Glucose Ql (U) Normal mg/dl Normal [facility] Urine leukocyte esterase det ection by dipstickOrdered By: Coleen Bernal on 12-21-2022 Leukocyte esterase Test strip Ql (U) Negative Negative [facility] Urine pHOrdered By: Coleen Bernal o n 12-21-2022 pH (U) 6.0 [pH] 5.0 - 8.0 [facility] Urine sediment bacteria coun t by microscopy (number/high power field)Ordered By: Coleen Bernal on 12-21-2022 Bacteria LM.HPF (Urine sed) [#/Area] 1 /[HPF] None Seen [facility] Urine specific gravity measu rementOrdered By: Coleen Bernal on 12-21-2022 Specific gravity (U) [Rel density] 1.020 1.002-1.030 [facility] Urobilinogen Auto test strip Ql (U)Ordered By: Coleen Bernal on 12-21-2022 Urobilinogen Ql (U) Normal mg/dl Normal [facility] Absolute lymphocyte counton 12-20-2021 Lymphocytes Auto (Unsp spec) [#/Vol] 1.25 10*3/uL 0.83-4.51 [facility] Work Phone: Basophil percentageon 2021 Basophils/100 WBC (Bld) 0.7 % 0-1 [facility] Work Phone: Bilirubin [Mass/Vol] 0.40 mg/dL 0.20-1.00 [facility] Work Phone: Comment on above: For patients on eltr ombopag therapy, use of Dimension [place] TBIL is not recommended. Chloride [Moles/Vol] 108 mmol/L 98-107 [facility] Work Phone: Cholesterol [Mass/Vol] 218 mg/dL <200 [facility] Work Phone: Comment on above: <200 mg/dL Desirable 200-240 mg/dL Borderline >240 mg/dL High Risk Eosinophils/100 WBC (Bld) 2.3 % 0-5 [facility] Work Phone: Glucose [Mass/Vol] 93 mg/dL 74-106 [facility] Work Phone: Neutrophils (Bld) [#/Vol] 3.9 10*3/uL 2.0-7.7 [facility] Work Phone: Neutrophils/100 WBC (Bld) 64.7 % 47-70 [facility] Work Phone: Potassium [Moles/Vol] 4.1 mmol/L 3.5-5.1 [facility] Work Phone: Protein [Mass/Vol] 7.1 g/dL 6.4-8.2 [facility] Work Phone: Sodium [Moles/Vol] 141 mmol/L 136-145 [facility] Work Phone: Triglyceride [Mass/Vol] 96 mg/dL <199 [facility] Work Phone: Comment on above: The drugs N-Acetylcy steine and Metamizole may falsely depress this assay.Serum Triglycerides Reference Interval Normal <150 mg/dL Borderline high 150 - 199 mg/dL High 200 - 499 mg/dL Very High > or = 500 mg/dL WBC (Bld) [#/Vol] 6.0 10*3/uL 4.4-11.0 [facility] Work Phone: [phone] Bilirubin Test strip Ql (U)o n 12-20-2021 Bilirubin Ql (U) Negative Negative [facility] Work Phone: Blood erythrocytes count (nu mber/volume)on 12-20-2021 RBC (Bld) [#/Vol] 4.70 10*6/uL 4.2-5.4 [facility] Work Phone: [phone] Blood hemoglobin measurement (mass/volume)on 12-20-2021 Hemoglobin (Bld) [Mass/Vol] 14.8 g/dL 12.0-15.0 [facility] Work Phone: Blood lymphocytes/100 leukoc yteson 12-20-2021 Lymphocytes/100 WBC (Bld) 20.7 % 19-41 [facility] Work Phone: [phone] Blood monocytes/100 leukocyt eson 12-20-2021 Monocytes/100 WBC (Bld) 11.1 % 0-10 [facility] Work Phone: [phone] Blood platelet mean volumeon 12-20-2021 Platelet mean volume (Bld) [Entitic vol] 9.6 fL 6.2-12.0 [facility] Work Phone: Determination of erythrocyte mean corpuscular volume (MCV)on 12-20-2021 MCV (RBC) [Entitic vol] 92.6 fL 81-99 [facility] Work Phone: Direct bilirubinon Bilirubin.direct [Mass/Vol] 0.12 mg/dL 0.00-0.30 [facility] Work Phone: [phone] Hematocrit Auto (Bld) [Volum e fraction]on 12-20-2021 Hematocrit (Bld) [Volume fraction] 43.5 % 37-47 [facility] Work Phone: [phone] Ketones Test strip Ql (U)on 12-20-2021 Ketones Ql (U) Negative Negative [facility] Work Phone: [phone] Laboratory - Chemistry and C hemistry - challengeon 12-20-2021 ALP [Catalytic activity/Vol] 48 U/L 45-117 [facility] Work Phone: [phone] ALT [Catalytic activity/Vol] 32 U/L 13-56 [facility] Work Phone: [phone] CO2 [Moles/Vol] 27.0 mmol/L 21.0-32.0 [facility] Work Phone: [phone] Globulin (S) [Mass/Vol] 3.5 g/dL 2.2-4.2 [facility] Work Phone: [phone] Urea nitrogen/Creatinine [Mass ratio] 27.3 mg/mg 10-20 [facility] Work Phone: [phone] Laboratory - Hematology and Cell countson 12-20-2021 Erythrocyte distribution width (RBC) [Entitic vol] 44.9 fL 35.1-43.9 [facility] Work Phone: [phone] Erythrocyte distribution width (RBC) [Ratio] 13.1 % 11.6-14.6 [facility] Work Phone: [phone] Immature granulocytes/100 WBC (Bld) 0.500 % 0.0-0.9 [facility] Work Phone: [phone] Comment on above: IG% - Immature Granu locytes (promyelocytes, myelocytes and metamyelocytes) > 1% indicates that a LEFT SHIFT is Present. MCH (RBC) [Entitic mass] 31.5 pg 27.0-32.0 [facility] Work Phone: Nucleated RBC/100 WBC (Bld) [Ratio] 0 % 0-5 [facility] Work Phone: [phone] MCHC Auto (RBC) [Mass/Vol]on 12-20-2021 MCHC (RBC) [Mass/Vol] 34.0 g/dL 32-36 [facility]: Nitrite Test strip Ql (U)on 12-20-2021 Nitrite Ql (U) Negative Negative [facility] Work Phone: No Panel Informationon 12-20 Estimated GFR (MDRD) Amer 97 mL/min >60 [facility] Work Phone: Comment on above: GFR Calc Estimated GFR (MDRD) Non-Af Amer 81 mL/min >60 [facility] Work Phone: Comment on above: Non- GFR Calc Thyroid Stimulating Hormone (TSH) 1.23 uIU/mL 0.358-3.74 [facility] Work Phone: Platelets bldon 12-20-2021 Platelets (Bld) [#/Vol] 271 10*3/uL 150-450 [facility] Work Phone: Protein Test strip Ql (U)on 12-20-2021 Protein Ql (U) Negative Negative [facility] Work Phone: Serum or plasma albumin negro urement (mass/volume)on 12-20-2021 Albumin [Mass/Vol] 3.6 g/dL 3.2-5.0 [facility] Work Phone: Serum or plasma calcitriol m easurement (mass/volume)on 12-20-2021 1,25-dihydroxyvitamin D3 [Mass/Vol] 59.3 pg/mL 24.8-81.5 [facility] Work Phone: Comment on above: Please note refere nce interval changePerformed at: - Lab[address] [id number] Director: Guera Galvan MD, Phone: [phone] Serum or plasma calcium ngero urement (mass/volume)on 12-20-2021 Calcium [Mass/Vol] 9.1 mg/dL 8.5-10.1 [facility] Work Phone: Serum or plasma cholesterol in HDL measurement (mass/volume)on 12-20-2021 Cholesterol in HDL [Mass/Vol] 79 mg/dL >40 [facility] Work Phone: Comment on above: The drugs N-Acetylcy steine and Metamizole may falsely depress this assay. Reference Range HDL <40 mg/dL Low HDL Cholesterol HDL >or= 60 mg/dL High HDL Cholesterol Serum or plasma cholesterol in VLDL measurement (mass/volume)on 12-20-2021 Cholesterol in VLDL [Mass/Vol] 19 mg/dL 5-40 [facility] Work Phone: Serum or plasma creatinine m easurement (mass/volume)on 12-20-2021 Creatinine [Mass/Vol] 0.77 mg/dL 0.55-1.02 [facility] Work Phone: Comment on above: The validity of the calculated GFR & GFRAA in patients over 70 years has not been determined. Clinical correlation is essential. Serum or plasma low density lipoprotein (LDL) cholesterol measurement (mass/volume)on 12-20-2021 Cholesterol in LDL [Mass/Vol] 120 mg/dL 0-130 [facility] Work Phone: Serum or plasma urea nitroge n measurement (mass/volume)on 12-20-2021 Urea nitrogen [Mass/Vol] 21 mg/dL 7-18 [facility] Work Phone: Thin prep Papanicolaou smear with manual screeningon 12-20-2021 Thin prep Papanicolaou smear with manual screening 18 U/L 15-37 [facility] Work Phone: Thin prep Papanicolaou smear with manual screening 6 5-15 [facility] Work Phone: [phone] Urine blood detectionon 12-10 RBC Ql (U) 10 /ul Negative [facility] Work Phone: [phone] Urine clarityon 12-20-2021 Clarity (U) Clear Clear [facility] Work Phone: Urine color determinationon 12-20-2021 Color (U) Yellow Yellow [facility] Work Phone: Urine glucose detectionon Glucose Ql (U) Normal mg/dl Normal [facility] Work Phone: [phone] Urine leukocyte esterase det ection by dipstickon 12-20-2021 Leukocyte esterase Test strip Ql (U) 25 /ul Negative [facility] Work Phone: [phone] Urine pHon 12-20-2021 pH (U) 5.0 [pH] 5.0 - 8.0 [facility] Work Phone: [phone] Urine specific gravity measu rementon 12-20-2021 Specific gravity (U) [Rel density] 1.020 1.002-1.030 [facility] Work Phone: [phone] Urobilinogen Auto test strip Ql (U)on 12-20-2021 Urobilinogen Ql (U) Normal mg/dl Normal [facility] Work Phone: Basophil percentageon 2021 Bilirubin [Mass/Vol] 0.50 mg/dL 0.20-1.00 [facility] Work Phone: [phone] Comment on above: For patients on eltr ombopag therapy, use of Dimension [place] TBIL is not recommended. Cholesterol [Mass/Vol] 204 mg/dL <200 [facility] Work Phone: [phone] Comment on above: <200 mg/dL Desirable 200-240 mg/dL Borderline >240 mg/dL High Risk Protein [Mass/Vol] 7.6 g/dL 6.4-8.2 [facility] Work Phone: [phone] Triglyceride [Mass/Vol] 83 mg/dL [facility] Work Phone: [phone] Comment on above: The drugs N-Acetylcy steine and Metamizole may falsely depress this assay.Serum Triglycerides Reference Interval Normal <150 mg/dL Borderline high 150 - 199 mg/dL High 200 - 499 mg/dL Very High > or = 500 mg/dL Direct bilirubinon Bilirubin.direct [Mass/Vol] 0.14 mg/dL 0.00-0.30 [facility] Work Phone: Laboratory - Chemistry and C hemistry - challengeon 06-09-2021 ALP [Catalytic activity/Vol] 54 U/L 45-117 [facility] Work Phone: [phone] ALT [Catalytic activity/Vol] 34 U/L 13-56 [facility] Work Phone: Globulin (S) [Mass/Vol] 3.8 g/dL 2.2-4.2 [facility] Work Phone: [phone] No Panel Informationon 06-09 Thyroid Stimulating Hormone (TSH) 0.96 uIU/mL 0.358-3.74 [facility] Work Phone: Serum or plasma albumin negro urement (mass/volume)on 06-09-2021 Albumin [Mass/Vol] 3.8 g/dL 3.2-5.0 [facility] Work Phone: [phone] Serum or plasma cholesterol in HDL measurement (mass/volume)on 06-09-2021 Cholesterol in HDL [Mass/Vol] 83 mg/dL [facility] Work Phone: Comment on above: The drugs N-Acetylcy steine and Metamizole may falsely depress this assay. Reference Range HDL <40 mg/dL Low HDL Cholesterol HDL >or= 60 mg/dL High HDL Cholesterol Serum or plasma cholesterol in VLDL measurement (mass/volume)on 06-09-2021 Cholesterol in VLDL [Mass/Vol] 17 mg/dL 5-40 [facility] Work Phone: [phone] Serum or plasma low density lipoprotein (LDL) cholesterol measurement (mass/volume)on 06-09-2021 Cholesterol in LDL [Mass/Vol] 104 mg/dL 0-130 [facility] Work Phone: [phone] Thin prep Papanicolaou smear with manual screeningon 06-09-2021 Thin prep Papanicolaou smear with manual screening 21 U/L 15-37 [facility] Work Phone: Vital Signs Date Time Vital Sign Value Performing Clinician Odell rodrigues 10-24-2024 10:57-0400 Diastolic blood pressure 75 mm[Hg] Josefa Garza MD Work Phone: [facility] 10-24-2024 10:57-0400 Heart rate 60 /min Josefa Garza MD Work Phone: [facility] 10-24-2024 10:57-0400 Systolic blood pressure 137 mm[Hg] Josefa Garza MD Work Phone: [facility] 10-01-2024 11:47-0400 Body height 154.9 cm Pst 1 [facility] 10-01-2024 11:47-0400 Body mass index (BMI) [Ratio] 25.32 kg/m2 Pst 1 [facility] 10-01-2024 11:47-0400 Body temperature 97.5 [degF] Pst 1 [facility] 10-01-2024 11:47-0400 Body weight 60.78 kg Pst 1 [facility] 10-01-2024 11:47-0400 Diastolic blood pressure 75 mm[Hg] Pst 1 [facility] 10-01-2024 11:47-0400 Heart rate 58 /min Pst 1 [facility] 10-01-2024 11:47-0400 Respiratory rate 14 /min Pst 1 [facility] 10-01-2024 11:47-0400 SaO2% (BldA) [Mass fraction] 99 % Pst 1 [facility] 10-01-2024 11:47-0400 Systolic blood pressure 130 mm[Hg] Pst 1 [facility] 08-14-2024 10:32-0400 Body mass index (BMI) [Ratio] 24.75 kg/m2 Josefa Garza MD Work Phone: [facility] 08-14-2024 10:32-0400 Body weight 59.42 kg Josefa Garza MD Work Phone: [facility] 08-14-2024 10:32-0400 Diastolic blood pressure 74 mm[Hg] Josefa Garza MD Work Phone: [facility] 08-14-2024 10:32-0400 Heart rate 62 /min Josefa Garza MD Work Phone: [facility] 08-14-2024 10:32-0400 Systolic blood pressure 125 mm[Hg] Josefa Garza MD Work Phone: [facility] 07-10-2024 10:01-0400 Body height 154.9 cm Josefa Garza MD Work Phone: [facility] 07-10-2024 10:01-0400 Body mass index (BMI) [Ratio] 25.32 kg/m2 Josefa Garza MD Work Phone: [facility] 07-10-2024 10:01-0400 Body weight 60.78 kg Josefa Garza MD Work Phone: [facility] 07-10-2024 10:01-0400 Diastolic blood pressure 66 mm[Hg] Josefa Garza MD Work Phone: [facility] 07-10-2024 10:01-0400 Heart rate 71 /min Josefa Garza MD Work Phone: [facility] 07-10-2024 10:01-0400 Systolic blood pressure 124 mm[Hg] Josefa Garza MD Work Phone: [facility] Encounters Encounter Date Encounter Type Care Provider Facility Start: 11-03-2024 End: 11-03-2024 Telephone encounter Lisbet Carrizales RN [facility] Comment on above: [facility] - H ospital Follow Up Start: 10-24-2024 End: 10-24-2024 Postop follow up visit related to original px Josefa Garza MD Work Phone: [facility] Comment on above: Diverticulitis of la rge intestine with perforation and abscess without bleeding (Primary Dx) Start: 10-24-2024 End: 10-24-2024 ambulatory JOSEFA CAYUCOS Facility:[facility] Start: 10-13-2024 End: 10-13-2024 Telephone encounter Lisbet Carrizales RN [facility] Comment on above: Hospital Follow Up Start: 10-08-2024 End: 10-10-2024 Evaluation and management of inpatient JOSEFA CAYUCOS Facility:[facility] Start: 10-01-2024 End: 10-01-2024 Preprocedural examination done Pst 1 [facility] Work Phone: Start: 10-01-2024 End: 10-01-2024 Orders Only Lisbet Carrizales RN [facility] Comment on above: Other specified coun seling (Primary Dx) Pre-op examination ( Primary Dx); Diverticulitis; Hyperlipidemia, unspecified hyperlipidemia type Patient Education Start: 09-30-2024 Preprocedural examin ation done Lisbet Carrizales RN [facility] Work Phone: Start: 09-30-2024 Encounter for other preprocedural examination JOSEFA GARZA [facility] Start: 08-19-2024 End: 08-19-2024 Orders Only Josefa Garza MD Work Phone: [facility] Comment on above: Diverticulitis (Prim kristin Dx) Patient Update; Yenny ent Question Start: 08-14-2024 End: 08-14-2024 Office outpatient new 45 minutes Josefa Garza MD Work Phone: [facility] Comment on above: Diverticulitis of la rge intestine with perforation and abscess without bleeding (Primary Dx) Start: 08-14-2024 End: 08-14-2024 ambulatory JOSEFA GARAZ Facility:[facility] Start: 08-01-2024 ambulatory JOSEFA CAYUCOS Facility :[facility] Start: 07-25-2024 End: 07-25-2024 Orders Only Josefa Garza MD Work Phone: [facility] Comment on above: Diverticulitis of la rge intestine with perforation and abscess without bleeding (Primary Dx); Diverticulitis Start: 07-14-2024 End: 07-16-2024 Telephone encounter Josefa Garza MD Work Phone: [facility] Comment on above: Patient Question Start: 07-10-2024 End: 07-10-2024 Office outpatient new 45 minutes Josefa Garza MD Work Phone: [facility] Comment on above: Diverticulitis of la rge intestine with perforation and abscess without bleeding Start: 07-10-2024 End: 07-10-2024 ambulatory JOSEFA CAYUCOS Facility:[facility] Start: 07-07-2024 End: 07-07-2024 ambulatory Coleen Elam [place] Facility:[facility] Start: 07-03-2024 End: 07-25-2024 Telephone encounter Ander Rodrigues MD Work Phone: [facility] Comment on above: Patient Question; Pa tient Update Start: 06-16-2024 End: 06-16-2024 Telephone encounter Ander Rodrigues MD Work Phone: [facility] Comment on above: Consult Start: 03-14-2024 End: 03-14-2024 ambulatory Moravian [place] Facility:[facility] Start: 12-21-2023 End: 12-21-2023 ambulatory Coleen Elam [place] Facility:[facility] Start: 09-10-2023 End: 09-10-2023 ambulatory [facility] Start: 09-10-2023 End: 12-10-2023 Subsequent hospital visit by physician Trey Bernal DO Work Phone: [facility] Comment on above: Acute bronchitis due to other specified organisms Acute bronchitis due to other specified organisms (Primary Dx) Start: 07-09-2023 End: 07-09-2023 ambulatory [facility] Work Phone: Start: 07-09-2023 End: 07-09-2023 Patient encounter procedure [facility] Work Phone: Start: 03-13-2023 End: 03-13-2023 ambulatory [facility] Work Phone: Start: 03-13-2023 End: 03-13-2023 Patient encounter procedure [facility] Work Phone: Start: 02-12-2023 End: 02-12-2023 Discharged Recurring [facility] Work Phone: Start: 12-21-2022 End: 12-21-2022 ambulatory [facility] Work Phone: Start: 12-21-2022 End: 12-21-2022 Patient encounter procedure [facility] Work Phone: Start: 03-09-2022 End: 03-09-2022 ambulatory [facility] Work Phone: Start: 03-09-2022 End: 03-09-2022 Patient encounter procedure [facility] Start: 12-20-2021 End: 12-20-2021 ambulatory [facility] Work Phone: Start: 12-20-2021 End: 12-20-2021 Patient encounter procedure [facility] Start: 06-09-2021 End: 06-09-2021 Patient encounter procedure [facility] Start: 03-08-2021 Patient encounter procedure [facility] Procedures Date Procedure Procedure Detail Performing Clinician Start: 08-01-2024 Colonoscopy Josefa Graza MD Work Phone: Start: 09-10-2023 Radiologic exam ches t 2 views Trey Bernal DO Work Phone: Start: 03-13-2023 End: 03-13-2023 Screening mammography Start: 03-09-2022 Screening mammography Start: 03-08-2021 Screening mammography Start: 01-17-2019 Colonoscopy Josefa Garza MD Work Phone: Plan of Treatment Date Care Activity Detail Author Start: 2033 RSV Vaccine (1 - 1-d ose 75+ series) RSV Vaccine (1 - 1-dose 75+ series) [facility] Start: 10-11-2027 Diabetes Screening Diabetes Screenin g [facility] Start: 08-01-2025 DTaP/Tdap/Td Vaccine s (2 - Td or Tdap) DTaP/Tdap/Td Vaccines (2 - Td or Tdap) [facility] Start: 08-01-2025 Screening for malign ant neoplasm of colon [facility] Start: 11-10-2024 Influenza vaccination Influenza Vacc ine (#1) [facility] Start: 10-24-2024 End: 10-24-2024 Patient encounter procedure 10/24/2024 11:00 AM EDT [facility] HOSPITAL SURGERY DEPARTMENT [address] [facility] [address] [place], [place] [id number] Josefa Garza MD 1 [place], [place] [phone] (Fax) post op [facility] SURGERY DEPARTMENT Comment on above: post op Start: 10-10-2024 End: 10-10-2024 Patient encounter procedure 10/10/2024 10:00 AM EDT Office Visit [facility] SURGERY DEPARTMENT [address] [facility] [address] [place], [place] [phone] Josefa Garza MD 1 [place], [place] [phone] (Fax) 3 month follow up [facility] SURGERY DEPARTMENT Comment on above: 3 month follow up Start: 10-08-2024 End: 10-08-2024 Admission to same day surgery center 10/08/2024 12:45 PM EDT - 10/08/2024 6:00 PM EDT Surgery [address] [address] Josefa Garza MD 1 [place], [place] [phone] (Fax) ROBOTIC LAPAROSCOPIC SIGMOID COLECTOMY WITH COLOSTOMY/ BLOCK/ ERAS / PREP/ ANTIBIOTICS/ STOMA [facility] Comment on above: ROBOTIC LAPAROSCOPIC SIGMOID COLECTOMY WITH COLOSTOMY/ BLOCK/ ERAS / PREP/ ANTIBIOTICS/ STOMA Start: 10-08-2024 End: 10-08-2024 Laps proctectomy abdominoperineal w/colostomy ROBOTIC LAPAROSCOPIC SIGMOID COLECTOMY WITH COLOSTOMY Diverticulitis 10/08/2024 12:45 PM EDT [place] Start: 10-08-2024 Subsequent hospital visit by physician [facility] Comment on above: Diverticulitis [K57. 92] Start: 08-01-2024 End: 08-01-2024 Patient encounter procedure 08/01/2024 1:30 PM EDT Appointment [place] [facility] [address] [place] [address] Josefa Garza MD 1 [place], [place] [phone] [place] [facility] Start: 07-30-2024 End: 07-30-2024 Patient encounter procedure 07/30/2024 1:30 PM EDT Office Visit [facility] DEPARTMENT 1 [facility] [address], [place] [phone] Ander Rodrigues MD 1 [facility] [place] [address] [place], [place] [phone] Diverticulitis [facility] DEPARTMENT Comment on above: Diverticulitis Start: 06-24-2024 Covid-19 Vaccine ( season) Covid-19 Vaccine ( season) [facility] Start: 03-13-2024 Screening for malign ant neoplasm of breast Mammogram [facility] Start: 03-12-2024 Advance Directive Discussion Advance Directive Discussion [facility] Start: 11-11-2023 Covid-19 Vaccine ( season) Covid-19 Vaccine ( season) [facility] Start: 11-11-2023 COVID-19 Vaccine ( season) COVID-19 Vaccine ( season) [facility] Start: 11-11-2023 Influenza vaccination Influenza Vacc ine (#1) [facility] Start: 2023 Pneumococcal Vaccine : 65+ Years (1 of 1 - PCV) Pneumococcal Vaccine: 65+ Years (1 of 1 - PCV) [facility] Start: 2023 Screening for osteoporosis Bone Dens ity Screening [facility] Start: 11-10-2022 COVID-19 Vaccine ( season) COVID-19 Vaccine ( season) [facility] Start: 06-10-2022 Medicare Annual Well ness Visit Medicare Annual Wellness Visit [facility] Start: 01-18-2020 Screening for malign ant neoplasm of colon [facility] Start: 2018 RSV Immunization age d 60 or older (1 - 1-dose 60+ series) RSV Immunization aged 60 or older (1 - 1-dose 60+ series) [facility] Start: 2018 RSV Vaccine (1 - Ris k 60-74 years 1-dose series) RSV Vaccine (1 - Risk 60-74 years 1-dose series) [facility] Start: 12-10-2015 Screening for malign ant neoplasm of breast Mammogram Screening [facility] Start: 02-10-2009 MMR Vaccines (1 of 1 - Standard series) MMR Vaccines (1 of 1 - Standard series) [facility] Start: 2008 Pneumococcal Vaccine : 50+ (1 of 1 - PCV) Pneumococcal Vaccine: 50+ (1 of 1 - PCV) [facility] Start: 2008 Shingrix Vaccine (1 of 2) Stoner grix Vaccine (1 of 2) [facility] Start: 2008 Zoster Vaccines (1 of 2) Zoste r Vaccines (1 of 2) [facility] Start: 2003 Diabetes Screening Diabetes Screenin g [facility] Start: 2003 Lipid panel Lipid Screening [facility] Start: 2003 Screening for malign ant neoplasm of colon [facility] Start: 1998 Screening for malign ant neoplasm of breast Mammogram Screening [facility] Start: 1988 Screening for malign ant neoplasm of cervix [facility] Start: 1979 Screening for malign ant neoplasm of cervix Pap Smear [facility] Start: 1977 Urine microalbumin profile DTa P,Tdap,Td Vaccine (1 - Tdap) [facility] Start: 1976 Anxiety Screening Anxiety Screening [facility] Start: 1976 Depression Screening Depression Scre ening [facility] Start: 1976 Hepatitis C screening Hepatitis C Sc reening [facility] Start: 1970 Depression Screening Depression Scre ening [facility] Start: 1958 Annual wellness visit Medicare Initial Physical (IPPE) [facility] Start: 1958 Medicare Annual Well ness (AWV) Medicare Annual Wellness (AWV) [facility] Start: 1958 Screening for malign ant neoplasm of colon [facility] Start: 1958 Screening for osteoporosis Bone Dens ity Scan [facility] End: 07-25-2025 Flexible sigmoidoscopy study COLONOSCOPY DIAGNOSTIC Endoscopy Routine Diverticulitis of large intestine with perforation and abscess without bleeding 1 Occurrences starting 07/25/2024 until 07/25/2025 [facility] Comment on above: 1 Occurrences starti ng 07/25/2024 until 07/25/2025 H&P for surgery H&P FOR SURGERY Procedures Routine Diverticulitis Diverticulitis of large intestine with perforation and abscess without bleeding Ordered: 07/25/2024 [facility] Work Phone: Comment on above: Ordered: 07/25/2024 H&P for surgery H&P FOR SURGERY Procedures Routine Diverticulitis Ordered: 08/19/2024 [facility] Work Phone: Comment on above: Ordered: 08/19/2024 Laps proctectomy abdominoperineal w/colostomy ROBOTIC LAPAROSCOPIC SIGMOID COLECTOMY WITH COLOSTOMY Diverticulitis [place] OR OUTSIDE PROCEDURE SCAN OUTSIDE P ROCEDURE SCAN Procedures Ordered: 09/10/2023 [facility] Comment on above: Ordered: 09/10/2023 Immunizations Immunization Date Immunization Notes Care Provider Lashawn trujillo 12-25-2023 influenza virus vaccine, unspecified formulation Lisbet Carrizales RN [facility] 12-25-2021 influenza virus vaccine, unspecified formulation Trey Bernal DO Work Phone: [facility] 04-12-2020 Covid (Moderna) [facility] 03-15-2020 Covid (Moderna) [facility] 12-07-2019 influenza, injectabl e, quadrivalent, preservative free [facility] 12-07-2019 influenza, seasonal, injectable [facility] Work Phone: 12-29-2018 influenza, injectabl e, quadrivalent, preservative free [facility] 12-29-2018 influenza, seasonal, injectable [facility] Work Phone: 12-24-2017 influenza, injectabl e, quadrivalent, preservative free [facility] 12-24-2017 influenza, seasonal, injectable [facility] Work Phone: 12-07-2016 influenza, injectabl e, quadrivalent, preservative free [facility] 12-07-2016 influenza, seasonal, injectable [facility] Work Phone: 12-27-2015 influenza, injectabl e, quadrivalent, preservative free [facility] 12-27-2015 influenza, seasonal, injectable [facility] Work Phone: 08-02-2015 tetanus toxoid, redu josi diphtheria toxoid, and acellular pertussis vaccine, adsorbed [facility] Payers Date Payer Category Payer Self-pay [id number] 2023 Private Health Insurance [id number] 2023 Private Health Insurance CLI [id number] 2022 Medicare [id number] 2022 Medicare [id number] Unknown [id number] Unknown [id number] Unknown [id number] Social History Date Type Detail Facility Start: 04-02-2020 End: 04-02-2020 Tobacco smoking status NHIS Unknown if ever smoked [facility] Start: 12-22-2019 Non-smoker [facility] Start: 1960 Sex Assigned At Female W [facility] Start: 1960 Sex assigned at Not on file [facility] Start: 07-10-2024 End: 08-14-2024 Gender identity Not on file [facility] Work Phone: Start: 07-10-2024 Tobacco smoking stat us NHIS Ex-smoker [facility] Start: 03-12-1988 End: 03-12-1978 History of tobacco use Current smoker [facility] Start: 03-12-1988 End: 03-12-1978 History of tobacco use Cigarette Smoker [facility] History of tobacco use Passive smoker [facility] Start: 07-10-2024 Tobacco use and exposure Smokeless tobacco non-user [facility] Start: 07-10-2024 End: 10-08-2024 Alcoholic beverage intake Current drinker of alcohol (finding) [facility] Start: 07-10-2024 End: 08-14-2024 History of Social function [facility] Work Phone: Start: 02-11-2012 National Score (1-10 0), lower number is lower risk 56 [facility] Start: 07-10-2024 Alcohol Comment occ [facility] Has the [employer], or [employer] company threatened to shut off services in your home in past 12Mo No [facility] Work Phone: (I/We) worried logan er (my/our) food would run out before (I/we) got money to buy more. Never true [facility] Medical Equipment Procedure Code Equipment Code Equipment Origin al Text Equipment Identifier Dates Vaginal hysterectomy MESH, AXIS DERMIS FDA Start: 12-30-2019 Vaginal hysterectomy MESH, AXIS DERMIS FDA Start: 12-30-2019 Vaginal hysterectomy MESH, AXIS DERMIS FDA Start: 12-30-2019 Vaginal hysterectomy MESH, AXIS DERMIS FDA Start: 12-30-2019 Vaginal hysterectomy MESH, AXIS DERMIS FDA Start: 12-30-2019 Vaginal hysterectomy MESH, AXIS DERMIS FDA Start: 12-30-2019 Repair, hernia, ventral, with mesh insertion MESH,VENTLEX ST MED 6.4CM FDA Start: 07-23-2018 Repair, hernia, ventral, with mesh insertion MESH,VENTLEX ST MED 6.4CM FDA Start: 07-23-2018 Repair, hernia, ventral, with mesh insertion MESH,VENTLEX ST MED 6.4CM FDA Start: 07-23-2018 Repair, hernia, ventral, with mesh insertion MESH,VENTLEX ST MED 6.4CM FDA Start: 07-23-2018 Repair, hernia, ventral, with mesh insertion MESH,VENTLEX ST MED 6.4CM FDA Start: 07-23-2018 Repair, hernia, ventral, with mesh insertion MESH,VENTLEX ST MED 6.4CM FDA Start: 07-23-2018 SLING, ALTIS VAGINAL FDA Start: 12-30-2019 SLING, ALTIS VAGINAL FDA Start: 12-30-2019 SLING, ALTIS VAGINAL FDA Start: 12-30-2019 SLING, ALTIS VAGINAL FDA Start: 12-30-2019 SLING, ALTIS VAGINAL FDA Start: 12-30-2019 SLING, ALTIS VAGINAL FDA Start: 12-30-2019 Functional Status Date Assessment Result Facility 10-10-2024 Are you deaf, or do you have serious difficulty hearing No 10/10/2024 12:06 PM Lisbet Victoria RN No [facility] 10-10-2024 Are you blind, or do you have serious difficulty seeing, even when wearing glasses No 10/10/2024 12:06 PM Lisbet Victoria RN No [facility] 10-10-2024 Do you have serious difficulty walking or climbing stairs No 10/10/2024 12:06 PM Lisbet Victoria RN No [facility] 10-10-2024 Do you have difficul ty dressing or bathing No 10/10/2024 12:06 PM Lisbet Victoria RN [facility] 10-10-2024 Because of a physica l, mental, or emotional condition, do you have difficulty doing errands alone such as visiting a physician's office or shopping No 10/10/2024 12:06 PM Lisbet Victoria RN No [facility] Mental Status Date Assessment Result Facility 10-10-2024 Because of a physica l, mental, or emotional condition, do you have serious difficulty concentrating, remembering, or making decisions No 10/10/2024 12:06 PM Lisbet Victoria RN No [facility] Clinical Notes 06-16-2024 to 11-03-2024 Telephone Encounter - Lisbet Carrizales RN - 11/03/2024 2:44 PM EDTTelephone Encounter - Lisbet Carrizales RN - 11/03/2024 2:44 PM Josefa Ortiz MD - 10/24/2024 10:57 AM EDTPatient Instructions Note Date & Type Note Facility 11-03-2024 Telephone encounter Note [employer] WR[employer] ONE MONTH FOLLOW UP PHONE CALL PHONE CALL DATE: 11/03/2024 PHONE CALL TIME: 2:44 PM DATE OF SURGERY: 10/08/2024 PROCEDURE: Lap robotic LAR FOLLOW UP QUESTIONS: Is your appetite gradually improving? Yes Is your incision healing well? Yes Are you having regular bowel movements? Yes Did you have a good experience with your recent hospital stay? Yes Have you completed your follow up visit with your surgeon? Yes Patient states she's feeling well. She has no concerns at this time. Encouraged to call MD for questions/concerns. SIGNATURE: Lisbet Carrizales RN DATE: 11/03/2024 TIME: 2:44 PM CONTACT #:[phone] [facility] 11-03-2024 Miscellaneous Notes [employer] WRITER ONE MONTH FOLLOW UP PHONE CALL PHONE CALL DATE: 11/03/2024 PHONE CALL TIME: 2:44 PM DATE OF SURGERY: 10/08/2024 PROCEDURE: Lap robotic LAR FOLLOW UP QUESTIONS: Is your appetite gradually improving? Yes Is your incision healing well? Yes Are you having regular bowel movements? Yes Did you have a good experience with your recent hospital stay? Yes Have you completed your follow up visit with your surgeon? Yes Patient states she's feeling well. She has no concerns at this time. Encouraged to call MD for questions/concerns. SIGNATURE: Lisbet Carrizales RN DATE: 11/03/2024 TIME: 2:44 PM CONTACT #:[phone] documented in this encounter [facility] 10-24-2024 Note HNO ID: [id number] Author: JOSEFA GARZA MD Service: ? Author Type: Physician Type: Progress Notes Filed: 10/24/2024 11:10 Note Text: Josefa Garza M.D. Colon AND Rectal Surgery 1 [facility], [address] [place] [phone] CC: Postop, status post low anterior resection HPI: Celi Farmer is a 64 year old White female who has a history of complicated diverticulitis. She was previously admitted to a hospital in [place] with a pelvic abscess secondary to diverticulitis. She underwent percutaneous drainage with resolution. She then underwent a robot-assisted low anterior resection on 10/08/2024. She did well postop. Final pathology returned with diverticulitis. She presents today for her first follow-up. She is doing well. Denies any significant pain. She states that overall her bowel movements have been regular however over the last 2 days she does report some increased constipation. She is started taking Colace and prunes. She has good appetite and denies any nausea or vomiting. No fevers or chills. Review of Systems: For pertinent positives and negatives, please see HPI PAST MEDICAL HISTORY Diagnosis Date Depression Diverticulitis HLD (hyperlipidemia) PAST SURGICAL HISTORY Procedure Laterality Date COLONOSCOPY SCREENING 2018 COLONOSCOPY SCREENING 08/01/2024 PAST SURGICAL HISTORY OF rectecile repair PAST SURGICAL HISTORY OF Right miniscus repair REPAIR EPIGASTRIC HERNIA,REDUC SLING OPER STRES INCONTINENCE 12/2019 VAGINAL HYSTERECTOMY 2019 SOCIAL HISTORY[1] FAMILY HISTORY Problem Relation Age of Onset Heart disease Mother Dementia Mother COPD Father Breast Cancer Paternal Grandmother The ROS, medical, surgical, family, and social history were reviewed by Josefa Garza MD ALLERGIES Allergen Reactions Codeine GI Upset Current Outpatient Medications Medication Sig promethazine (PHENERGAN) 25 mg tablet Take 1 tab by mouth every 4 hours as needed for nausea. Methylsulfonylmethane (MSM) 1,000 mg tab Take by mouth. MAGNESIUM GLYCINATE PO Take by mouth. promethazine (PHENERGAN) 25 mg tablet Take 1 tab by mouth every 4 hours as needed for nausea. atorvastatin (LIPITOR) 20 mg tablet 1 tab(s) orally once a day (at bedtime) for 90 days sertraline (ZOLOFT) 100 mg tablet 1 tab(s) orally once a day for 90 days cholecalciferol, vitamin D3, (VITAMIN D3 ORAL) Take by mouth. 5000 IU estradiol 0.01% estriol 0.01% cream (CPD) For vaginal, surrounding external vaginal tissue, and topical use only. No current facility-administered medications for this visit. Vitals: There were no vitals taken for this visit. No weight on file for this encounter. Physical Exam Constitutional: General: She is not in acute distress. Appearance: Normal appearance. She is not ill-appearing. Cardiovascular: Rate and Rhythm: Normal rate and regular rhythm. Heart sounds: Normal heart sounds. No murmur heard. No friction rub. No gallop. Pulmonary: Effort: Pulmonary effort is normal. No respiratory distress. Breath sounds: Normal breath sounds. No wheezing or rales. Abdominal: General: There is no distension. Palpations: Abdomen is soft. There is no mass. Tenderness: There is no abdominal tenderness. There is no guarding or rebound. Comments: Well-healed surgical incisions across her abdomen without evidence of incisional hernia Musculoskeletal: General: No deformity. Normal range of motion. Cervical back: Normal range of motion and neck supple. Lymphadenopathy: Cervical: No cervical adenopathy. Skin: General: Skin is warm and dry. Findings: No rash. Neurological: Mental Status: She is alert and oriented to person, place, and time. Gait: Gait is intact. Psychiatric: Mood and Affect: Mood and affect normal. Judgment: Judgment normal. Labs: Hemoglobin (g/dL) Date Value 10/10/2024 12.9 Hematocrit (%) Date Value 10/10/2024 40.9 WBC (k/uL) Date Value 10/10/2024 7.17 Platelet Count (k/uL) Date Value 10/10/2024 221 Creatinine Date Value Ref Range Status 10/10/2024 0.81 0.58 - 0.96 mg/dL Final No results found for: AST No results found for: ALT WBC (k/uL) Date Value 10/10/2024 7.17 RBC (m/uL) Date Value 10/10/2024 4.37 %DIG,%DBS Pathology: 10/08/24 FINAL DIAGNOSIS A. Sigmoid colon, robotic laparoscopic sigmoid colectomy: -- Diverticular disease with small focus of active serosal inflammation. -- One benign lymph node. -- No evidence of malignancy. Assessment/Plan: 1. Diverticulitis of large intestine with perforation and abscess without bleeding (Primary) Status post robot-assisted low anterior resection for complicated diverticulitis. Patient has recovered well. Discussed that she can liberalize her diet and add fiber back in. Continued lifting restrictions, nothing over 10 pounds for the next 2 weeks. Her skin incisions have fully healed, okay to (more content not included)... [facility] 10-24-2024 History of Present illness Narrative Images from the original note were not included. Josefa Garza M.D. Colon & Rectal Surgery 1 [facility], [address] [place] [address] CC: Postop, status post low anterior resection HPI: Celi Farmer is a 64 year old White female who has a history of complicated diverticulitis. She was previously admitted to a hospital in [place] with a pelvic abscess secondary to diverticulitis. She underwent percutaneous drainage with resolution. She then underwent a robot-assisted low anterior resection on 10/08/2024. She did well postop. Final pathology returned with diverticulitis. She presents today for her first follow-up. She is doing well. Denies any significant pain. She states that overall her bowel movements have been regular however over the last 2 days she does report some increased constipation. She is started taking Colace and prunes. She has good appetite and denies any nausea or vomiting. No fevers or chills. Review of Systems: For pertinent positives and negatives, please see HPI PAST MEDICAL HISTORY Diagnosis Date Depression Diverticulitis HLD (hyperlipidemia) PAST SURGICAL HISTORY Procedure Laterality Date COLONOSCOPY SCREENING 2018 COLONOSCOPY SCREENING 08/01/2024 PAST SURGICAL HISTORY OF rectecile repair PAST SURGICAL HISTORY OF Right miniscus repair REPAIR EPIGASTRIC HERNIA,REDUC SLING OPER STRES INCONTINENCE 12/2019 VAGINAL HYSTERECTOMY 2019 SOCIAL HISTORY[1] FAMILY HISTORY Problem Relation Age of Onset Heart disease Mother Dementia Mother COPD Father Breast Cancer Paternal Grandmother The ROS, medical, surgical, family, and social history were reviewed by Josefa Garza MD ALLERGIES Allergen Reactions Codeine GI Upset Current Outpatient Medications Medication Sig promethazine (PHENERGAN) 25 mg tablet Take 1 tab by mouth every 4 hours as needed for nausea. Methylsulfonylmethane (MSM) 1,000 mg tab Take by mouth. MAGNESIUM GLYCINATE PO Take by mouth. promethazine (PHENERGAN) 25 mg tablet Take 1 tab by mouth every 4 hours as needed for nausea. atorvastatin (LIPITOR) 20 mg tablet 1 tab(s) orally once a day (at bedtime) for 90 days sertraline (ZOLOFT) 100 mg tablet 1 tab(s) orally once a day for 90 days cholecalciferol, vitamin D3, (VITAMIN D3 ORAL) Take by mouth. 5000 IU estradiol 0.01% estriol 0.01% cream (CPD) For vaginal, surrounding external vaginal tissue, and topical use only. No current facility-administered medications for this visit. Vitals: There were no vitals taken for this visit. No weight on file for this encounter. Physical Exam Constitutional: General: She is not in acute distress. Appearance: Normal appearance. She is not ill-appearing. Cardiovascular: Rate and Rhythm: Normal rate and regular rhythm. Heart sounds: Normal heart sounds. No murmur heard. No friction rub. No gallop. Pulmonary: Effort: Pulmonary effort is normal. No respiratory distress. Breath sounds: Normal breath sounds. No wheezing or rales. Abdominal: General: There is no distension. Palpations: Abdomen is soft. There is no mass. Tenderness: There is no abdominal tenderness. There is no guarding or rebound. Comments: Well-healed surgical incisions across her abdomen without evidence of incisional hernia Musculoskeletal: General: No deformity. Normal range of motion. Cervical back: Normal range of motion and neck supple. Lymphadenopathy: Cervical: No cervical adenopathy. Skin: General: Skin is warm and dry. Findings: No rash. Neurological: Mental Status: She is alert and oriented to person, place, and time. Gait: Gait is intact. Psychiatric: Mood and Affect: Mood and affect normal. Judgment: Judgment normal. Labs: Hemoglobin (g/dL) Date Value 10/10/2024 12.9 Hematocrit (%) Date Value 10/10/2024 40.9 WBC (k/uL) Date Value 10/10/2024 7.17 Platelet Count (k/uL) Date Value 10/10/2024 221 Creatinine Date Value Ref Range Status 10/10/2024 0.81 0.58 - 0.96 mg/dL Final No results found for: AST No results found for: ALT WBC (k/uL) Date Value 10/10/2024 7.17 RBC (m/uL) Date Value 10/10/2024 4.37 %DIG,%DBS Pathology: 10/08/24 FINAL DIAGNOSIS A. Sigmoid colon, robotic laparoscopic sigmoid colectomy: -- Diverticular disease with small focus of active serosal inflammation. -- One benign lymph node. -- No evidence of malignancy. Assessment/Plan: 1. Diverticulitis of large intestine with perforation and abscess without bleeding (Primary) Status post robot-assisted low anterior resection for complicated diverticulitis. Patient has recovered well. Discussed that she can liberalize her diet and add fiber back in. Continued lifting restrictions, nothing over 10 pounds for the next 2 weeks. Her skin incisions have fully healed, okay to submerge in a swimming pool. Return to clinic as needed. Josefa Garza M.D. Please Note: This office note has been created using [employer], a speech recognition software program, and may contain errors including punctuation, grammar, spelling, gender, and inappropriate words or phrases that pertain to the sytem. 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 Yes Do you have your follow-up appointment scheduled? YES Is your pain controlled with current medication regimen? YES Current Pain level out of 10: 2 Are you tolerating your diet? YES Nausea/vomiting? NO Are you experiencing fever or chills? NO Are you having any redness at your incision site? No Are you having bowel function? YES Patient states she's feeling well. She has no concerns at this time. Encouraged to call MD for questions/concerns. SIGNATURE: Lisbet Carrizales RN PATIENT NAME: Celi Farmer DATE: October 13, 2024 TIME: 2:06 PM PAGER/CONTACT #: [phone] [facility] 10-13-2024 Miscellaneous Notes GENERAL SURGERY/ERAS VIDEO GAME SCRIPT WRITER DISCHARGE FOLLOW UP PHONE CALL Phone Call Date: 10/13/2024 Phone Call Time: 2:06 PM Date of Surgery: 10/08/2024 Procedure: Lap robotic LAR FOLLOW-UP QUESTIONS: Did you receive adequate written instructions upon discharge? Yes Do you have your follow-up appointment scheduled? YES Is your pain controlled with current medication regimen? YES Current Pain level out of 10: 2 Are you tolerating your diet? YES Nausea/vomiting? NO Are you experiencing fever or chills? NO Are you having any redness at your incision site? No Are you having bowel function? YES Patient states she's feeling well. She has no concerns at this time. Encouraged to call MD for questions/concerns. SIGNATURE: Lisbet Carrizales RN PATIENT NAME: Celi Farmer DATE: October 13, 2024 TIME: 2:06 PM PAGER/CONTACT #: [phone] documented in this encounter [facility] 10-10-2024 Note HNO ID: [id number] Author: SARITA FARNSWORTH CPhT Service: Pharmacy Author Type: Information Technology Specialist Type: Plan of Care Filed: 10/10/2024 12:09 Note Text: PHARMACY BEDSIDE DELIVERY SERVICE Patient Name: Celi Farmer The marked outpatient medications were Filled at: [place] and delivered to the patient's bedside to patient. Medication List START taking these medications traMADol 50 mg tablet Commonly known as: ULTRAM Take 1 tablet by mouth every 6 hours as needed for pain for up to 3 days. CONTINUE taking these medications atorvastatin 20 mg tablet Commonly known as: LIPITOR estradiol 0.01% estriol 0.01% cream (CPD) MAGNESIUM GLYCINATE PO MSM 1,000 mg Tab Generic drug: Methylsulfonylmethane * promethazine 25 mg tablet Commonly known as: PHENERGAN Take 1 tab by mouth every 4 hours as needed for nausea. * promethazine 25 mg tablet Commonly known as: PHENERGAN Take 1 tab by mouth every 4 hours as needed for nausea. sertraline 100 mg tablet Commonly known as: ZOLOFT VITAMIN D3 PO * This list has 2 medication(s) that are the same as other medications prescribed for you. Read the directions carefully, and ask your doctor or other care provider to review them with you. You might also be taking other medications not listed above. If you have questions about any of your other medications, talk to the person who prescribed them or your Primary Care Provider. STOP taking these medications metroNIDAZOLE 500 mg tablet Commonly known as: FlagyL neomycin 500 mg tablet Sarita Farnsworth [facility] PAGER: Sarita Farnsworth ([facility]) [phone] October 10, 2024 12:07 PM [facility] 10-10-2024 Note HNO ID: [id number] Author: JUDY VILLANUEVA RN Service: Care Management Author Type: Registered Nurse Type: Care Mgt Progress Note Filed: 10/10/2024 08:01 Note Text: CARE MANAGEMENT PROGRESS NOTE SERVICE DATE: 10/10/2024 SERVICE TIME: 8:01 AM LOS: 2 days IMM Follow Up Copy Given: Yes Copy given to:: Patient Method: In Person Patient discharging home via car with her family. She does not have any skilled needs at this time. SIGNATURE: Judy Villanueva RN PATIENT NAME: Celi Farmer DATE: October 10, 2024 TIME: 8:01 AM [facility] 10-10-2024 Note HNO ID: [id number] Author: JOSEFA GARZA MD Service: General Surgery Author Type: Resident Type: Progress Notes Filed: 10/10/2024 13:58 Note Text: Attestation signed by Josefa Garza MD at 10/10/2024 1:58 PM Attending Note I evaluated the patient and personally participated in the higgins components. I agree with the resident's findings and plan as documented and have discussed the case and management of the patient's care with the resident. Signature: Josefa Garza MD Date: 10/10/2024 Time: 1:58 PM Resident Supervision of Medical Student I personally saw and examined the patient. I reviewed the medical student's note. I agree with the medical student's assessment and plan unless otherwise noted below. - evaluated this AM, pain controlled, took tramadol once overnight, no N or E, tolerating diet - cont GIS, N and jennifer meds PRN - LVX for chemo ppx, home meds reconciled - cont OOB and ambulating the halls, use IS - home meds reconciled - dispo Dc PM Signature: Renetta Vital DO Date: 10/10/2024 Time: 7:27 AM MEDICAL STUDENT Elective General Surgery (Green Surgery) Progress Note This note was generated by a medical student working under the supervision of a resident and attending physician. When co-signed, the physical exam findings, assessment, and plan as written below are are considered accurate. SERVICE DATE: 10/10/2024 Elective General Surgery (Green Surgery) Service Pager: For questions or concerns Mon-Fri 6a-5p please page [phone]. After 5pm and on Weekends and Holidays, please page [phone] if in ICU or [phone] if on RNF. SUBJECTIVE: Pt is doing well this AM, Pain is controlled. Had multiple watery, mildly bloody stools overnight. Tolerating diet. No nausea, no vomiting. Ambulating routinely. OBJECTIVE: Vitals: Temp (24hrs), Av.7 ?C (98.1 ?F), Min:36 ?C (96.8 ?F), Max:37 ?C (98.6 ?F) BP 135/58 Pulse 62 Temp 36.8 ?C (98.3 ?F) (Oral) Resp 16 Ht 154.9 cm (5' 1) Wt 67 kg (147 lb 11.3 oz) SpO2 95% BMI 27.91 kg/m? O2 Therapy: Room Air IANDO: Date 10/09/24 07 - 10/10/24 0659 10/10/24 07 - 10/11/24 0659 Shift 2296-2529 7935-0233 3681-4231 24 Hour Total 3486-3568 9425-7796 7364-5531 24 Hour Total INTAKE PO 480 120 600 PO 480 120 600 Shift Total 480 120 600 OUTPUT Urine 1150 177 602 6593 Void (ml) 850 736 936 9152 Urine Not Saved. 1 x 1 x Output ([REMOVED] Indwelling Urinary Catheter 10/08/24 [facility] 16 Fr 10/09/24 0814) 300 300 # of BMs Number of BMs 2 x 3 x 5 x Shift Total 1150 650 638 8238 Weight (kg) 67 67 67 67 67 67 67 67 MEDICATIONS Current Facility-Administered Medications Medication Dose Route Frequency atorvastatin 20 mg tab(s) (LIPITOR) 20 mg ORAL AT BEDTIME sertraline 100 mg tab(s) (ZOLOFT) 100 mg ORAL DAILY lactated ringers iv infusion 40 mL/hr INTRAVENOUS CONTINUOUS lactated ringers iv infusion 75 mL/hr INTRAVENOUS CONTINUOUS pantoprazole DR 40 mg tab(s) (PROTONIX) 40 mg ORAL DAILY (6 AM) magnesium oxide 400 mg tab(s) (MAG-OX) 400 mg ORAL DAILY ondansetron (PF) 4 mg injection (ZOFRAN) 4 mg INTRAVENOUS q 4 H PRN acetaminophen 975 mg tab(s) (TYLENOL) 975 mg ORAL q 6 H traMADol 50-100 mg tab(s) (ULTRAM) 50-100 mg ORAL q 6 H PRN enoxaparin 40 mg injection (LOVENOX) 40 mg SUBCUTANEOUS DAILY Labs: Recent Labs 10/10/24 0304 10/09/24 0251 NA 141 137 K 4.3 4.6 CHLOR 106 105 CO2 26 24 BUN 9 10 CREAT 0.81 0.78 GLUC 93 126* ANION 9 8 CA 8.7 8.8 WBC 7.17 12.47* HB 12.9 14.0 HCT 40.9 41.8 PLT 221 232 Exam: GENERAL: resting comfortably, in no acute distress HEENT: normocephalic, atraumatic, EOMI NECK: trachea midline, no JVD LUNGS: Unlabored breathing, equal chest rise bilaterally CARDIAC: Regular rate and rhythm as above ABDOMEN: Soft, appropriate abdominal tenderness post-surgery, non-distended, no masses EXTREMITIES: [place], No deformities, No edema SKIN: Skin color, texture, turgor normal, No rashes or lesions ASSESSMENT AND PLAN: Active Hospital Problems Diagnosis Date Noted Diverticulitis 09/30/2024 Assessment: 64 yo F s/p LAR w/ EEA with PMI of perforated diverticulitis s/p IR drain and removal (06/2024) ready for discharge Plan: -Transition to GI diet this AM -D/C this AM - D/C with tramadol AND acetaminophen for pain relief - Discussed with resident: Dr. Roshni Mcrae SIGNATURE: Sukhwinder Justin PATIENT NAME: Celi Farmer DATE: October 10, 2024 TIME: 5:37 AM Pager: see below Elective General Surgery (Green Surgery) Service Pager: For questions or concerns Mon-Fri 6a-5p please page [phone]. After 5pm and on Weekends and Holidays, please page [phone]. [facility] 10-09-2024 Note HNO ID: [id number] Author: JUDY VILLANUEVA RN Service: Care Management Author Type: Registered Nurse Type: Care Mgt Initial Assessment Filed: 10/09/2024 11:49 Note Text: CARE MANAGEMENT: ASSESSMENT AND DISCHARGE PLAN SERVICE DATE: October 09, 2024 SERVICE TIME: 11:48 AM PCP: Trey Bernal DO, MD Primary Contact: Extended Emergency Contact Information Primary Emergency Contact: Dionte Farmer Address: [address] [place] [address] [place] [address] [facility] Mobile Relation: Spouse Secondary Emergency Contact: Silas Farmer Mobile Relation: Son Admission Status: Inpatient Insurance Provider: MEDICARE A AND B Discharge Planning requested by: Per Department Practice Potential Transition Plans Home Advance Directives Current Advance Directive: Health Care Power of Improvement Rn In Chart: Yes Up To Date and Valid: Yes Current Living Arrangements and Support Lives with: Spouse/significant other Type of Residence: Private Residence (House) Support: Spouse/significant other How do you manage to accomplish the following: Independent: Ambulation, Bathe/Shower, Dress, Meals/Meal Prep, Going to the bathroom, Medication Management, Transportation to appointments/community Current Services/Equipment Current Post-Acute Service(s): None Discharge Planning Patient Goal(s): Less pain, General wellness, Be able to go home [place] of Choice Explained: [place] Given: No Reason Not Given: No placements necessary Are you interested in bedside delivery of your medications? Yes Discharge Planning Participant(s): Patient, Spouse/significant other Patient/Family Comments: Caregiver Assessment: Caregiver is ready, willing and able to meet the patient's needs as recommended by the inter-professional team: No Caregiver needed Transport at Discharge: Transportation Arrangements: Car Destination: home Needs Prior to Discharge: Needs Prior to Discharge: To Be Determined Post-Acute Discharge Plan: Patient is a 64 year old female s/p LAR sigmoid colectomy with PMH of perforated diverticulitis s/p IR drain and removal (06/2024), HLD, epigastric hernia repair, bladder sling and vaginal hysterectomy. Patient lives with her and is independent with ADLs. She does not use DME and her PCP is up to date in chart. At this time she does not have any skilled needs and her can transport her home at co. CM will continue to follow. SIGNATURE: Judy Villanueva RN PATIENT NAME: Celi Farmer DATE: October 09, 2024 TIME: 11:48 AM [facility] 10-09-2024 Note HNO ID: [id number] Author: JOSEFA GARZA MD Service: General Surgery Author Type: Resident Type: Progress Notes Filed: 10/09/2024 09:36 Note Text: Attestation signed by Josefa Garza MD at 10/09/2024 9:36 AM Attending Note I evaluated the patient and personally participated in the higgins components. I agree with the resident's findings and plan as documented and have discussed the case and management of the patient's care with the resident. POD1 LAR. Had 2 liquid bowel movements since surgery. Voided since rodriguez was removed. No nausea/vomiting. Pain controlled. Labs and vitals stable. Will advance to GI soft diet for dinner. Encourage OOB and ambulation. Signature: Josefa Garza MD Date: 10/09/2024 Time: 9:35 AM Resident Supervision of Medical Student I personally saw and examined the patient. I reviewed the medical student's note. I agree with the medical student's assessment and plan unless otherwise noted below. HPI: Doing well. Pain controlled. + BM that was watery and mildly bloody. No nausea or vomiting. Tolerating clears. Assessment/Plan: - ERAS - advance to FLD for breakfast and lunch, if doing well advance to transitional diet at dinner - dc entereg - dc rodriguez, void trial - OOB, IS - LVX Discussed with Dr. Garza. Signature: Roshni Mcrae DO Date: 10/09/2024 Time: 7:41 AM MEDICAL STUDENT Elective General Surgery (Green Surgery) Progress Note This note was generated by a medical student working under the supervision of a resident and attending physician. When co-signed, the physical exam findings, assessment, and plan as written below are are considered accurate. SERVICE DATE: 10/09/2024 Elective General Surgery (Green Surgery) Service Pager: For questions or concerns Mon-Fri 6a-5p please page [phone]. After 5pm and on Weekends and Holidays, please page [phone] if in ICU or [phone] if on RNF. SUBJECTIVE: Pt is a 64 yo F s/p LAR with past history of perforated diverticulitis s/p IR drain and removal (06/2024) had no acute events over night, pt is having appropriate post-surgery abdominal tenderness and is taking PRN oral tylenol. Pt states that she has no nausea or vomiting with liquid diet. Pt states having flatus and bowel movement. Not ambulating yet due to rodriguez catheter. OBJECTIVE: Vitals: Temp (24hrs), Av.5 ?C (97.7 ?F), Min:36.1 ?C (97 ?F), Max:36.9 ?C (98.5 ?F) BP 126/76 Pulse 72 Temp 36.9 ?C (98.4 ?F) (Oral) Resp 16 Ht 154.9 cm (5' 1) Wt 67 kg (147 lb 11.3 oz) SpO2 92% BMI 27.91 kg/m? O2 Therapy: Room Air IANDO: Date 10/08/24699 - 10/09/24 0659 10/09/24 07 - 10/10/24 0659 Shift 1698-9270 2277-8548 7912-5205 24 Hour Total 6532-7727 8882-0676 0198-6947 24 Hour Total INTAKE PO 120 120 PO 120 120 IV 2250 2250 IV Volume (ml) 600 600 Volume (mL) (BUPivacaine liposome (PF) 20 mL, bupivacaine (PF) 0.25 % (2.5 mg/mL) 30 mL) 50 50 Volume (mL) (lactated ringers iv infusion) 800 800 Volume (mL) (lactated ringers iv infusion) 800 800 Shift Total 2370 2370 OUTPUT Urine 425 1050 1475 OR Urine Output 225 225 Output ( Indwelling Urinary Catheter 10/08/24 [facility] 16 Fr) 200 1050 1250 Blood 100 100 Estimated Blood loss 100 100 Shift Total 525 1050 1575 Weight (kg) 67 67 67 67 67 67 67 MEDICATIONS Current Facility-Administered Medications Medication Dose Route Frequency atorvastatin 20 mg tab(s) (LIPITOR) 20 mg ORAL AT BEDTIME sertraline 100 mg tab(s) (ZOLOFT) 100 mg ORAL DAILY lactated ringers iv infusion 40 mL/hr INTRAVENOUS CONTINUOUS lactated ringers iv infusion 75 mL/hr INTRAVENOUS CONTINUOUS alvimopan 12 mg cap(s) (ENTEREG) 12 mg ORAL BID pantoprazole DR 40 mg tab(s) (PROTONIX) 40 mg ORAL DAILY (6 AM) magnesium oxide 400 mg tab(s) (MAG-OX) 400 mg ORAL DAILY ondansetron (PF) 4 mg injection (ZOFRAN) 4 mg INTRAVENOUS q 4 H PRN acetaminophen 975 mg tab(s) (TYLENOL) 975 mg ORAL q 6 H traMADol 50-100 mg tab(s) (ULTRAM) 50-100 mg ORAL q 6 H PRN enoxaparin 40 mg injection (LOVENOX) 40 mg SUBCUTANEOUS DAILY Labs: Recent Labs 10/09/24 0251 NA 137 K 4.6 CHLOR 105 CO2 24 BUN 10 CREAT 0.78 GLUC 126* ANION 8 CA 8.8 WBC 12.47* HB 14.0 HCT 41.8 PLT 232 Exam: GENERAL: resting comfortably, in no acute distress HEENT: normocephalic, atraumatic, EOMI NECK: trachea midline, no JVD LUNGS: Unlabored breathing, equal chest rise bilaterally CARDIAC: Regular rate and rhythm as above ABDOMEN: Soft, appropriate abdominal tenderness, non-distended, no masses or organomegaly EXTREMITIES: [place], No deformities, No edema SKIN: Skin color, texture, turgor normal, No rashes or lesions, no obvious infection or fluid collections felt ASSESSMENT AND PLAN: Active Hospital Problems Diagnosis (more content not included)... 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 Reason for block: post-op pain management/at surgeon's request Staffing Anesthesiologist: Philip Hand MD Performed by: anesthesiologist Preparation Sterility Preparation: hand hygiene performed prior to procedure, sterile gloves, drapes, and procedure tray, surgical cap used, mask used, skin prep agent completely dried prior to procedure Site Prep: Chloraprep Procedure Details Patient Position: supine Monitoring: Pulse OX, EKG and NIBP Block Type Trunk: rectus sheath block and TAP block Laterality: bilateral Injection Technique: single-shot Ultrasound Guided: Yes Image in Chart: No Needle Needle Type: blunt and echogenic Needle Gauge: 21 G Needle Length: 100 mm Needle Localization: anatomical landmarks and ultrasound Assessment Injection assessment: negative aspiration, no paresthesia on injection, incremental injection and local visualized surrounding nerve on ultrasound SIGNATURE: Philip Hand MD PATIENT NAME: Celi Farmer DATE: October 08, 2024 TIME: 3:13 PM CSN: [id number] [facility] 10-08-2024 Note HNO ID: [id number] Author: SEAN WOOTEN APRN.CRNA Service: Anesthesiology Author Type: Nurse Pile Trimmer Type: Anesthesia Procedure Notes Filed: 10/08/2024 15:38 Note Text: ANESTHESIOLOGY PROCEDURE NOTE Airway General Information Procedure Start Time/Medication Administration: 10/08/2024 2:44 PM Procedure End Time: 10/08/2024 2:44 PM Patient location during procedure: OR Timeout Performed Pre-procedure: timeout performed Consent Obtained: Yes Patient identity confirmed: arm band Staffing FACTORY PROCESS WORKERS: Sean Wooten APRN.FACTORY PROCESS WORKERS Performed by: CLARITZA Indications and Patient Condition Indications for airway management: anesthesia and airway protection Preoxygenated: yes anesthesia circuit Patient position: sniffing Method: asleep Cricoid Pressure: No Manual In-Line Stabilization: No Difficult Mask: No Final Airway Details Final airway type: endotracheal airway Final Endotracheal Airway: ETT Cuffed: yes Successful intubation technique: direct laryngoscopy Endotracheal tube insertion site: oral Blade: Bruce Blade size: #3 ETT size (mm): 7.0 Measured from: teeth Measurement (cm): 21 Placement verified by: chest auscultation and capnometry Cormack-Lehane Classification: grade I - full view of glottis Number of attempts at approach: 1 Comments Lips and teeth intact post intubation. Performed by Avril Sandoval FACTORY PROCESS WORKERS /entirety of case performed and managed by Anisha Sandoval. She is unable to sign into [facility] at this point and I am signed in as a resource and [facility] support person. SIGNATURE: Sean Wooten APRN.CRNA PATIENT NAME: Celi Farmer DATE: October 08, 2024 TIME: 2:59 PM CSN: [id number] [facility] 10-01-2024 History and physical note Images from the original note were not included. [facility] HISTORY AND PHYSICAL EXAMINATION SERVICE DATE: 10/01/2024 SERVICE TIME: 11:20 AM PRIMARY CARE PHYSICIAN: Trey Bernal DO, MD Assessment Patient has the following medical conditions which may affect naomie-operative course: Pre-op examination Medical conditions which may affect the perioperative course were address in today's visit. Diverticulitis Surgery scheduled 10/08/24 HLD (hyperlipidemia) Stable on statin - take asprescribed ANESTHESIA FINDINGS: Intubation History: No history of difficult intubation. No abnormal airway history Significant Anesthesia Considerations: none Airway History: No history of difficult airway No abnormal airway history [place] Activity Status Index: METS: Participate in strenuous sport, such as swimming, singles tennis, football, basketball, or skiing (7.50 METs) DASI Score: 7.5 Patient denies any chest pain or undue shortness of breath with the above physical activity. Clinical Frailty Scale: 3. Well, with treated comorbid disease ARISCAT Score: Age: 51-80 Preoperative SpO2: >=96% Respiratory infection in the last month: No Preoperative anemia: No Surgical incision: peripheral Duration of surgery: >3 hrs Emergency procedure: No ARISCAT Score: 26 I - PHYSICAL EVALUATION AIRWAY Patient intubated: No. DENTAL Dental findings: teeth intact. II - ANESTHESIA PLAN Anesthetic Plan: general Beta Fam Monitoring Plan Post Procedure Analgesic Plan Prepared for Surgery: CONSULTS: Patient does not require consults for optimization at this time Planned Anesthetic: general The Following Tests/Procedures Have Been Initiated: Orders Placed This Encounter Methylsulfonylmethane (MSM) 1,000 mg tab Sig: Take by mouth. MAGNESIUM GLYCINATE PO Sig: Take by mouth. REASON FOR VISIT: Celi Farmer is a 64 year old female who is scheduled for Procedure(s): ROBOTIC LAPAROSCOPIC SIGMOID COLECTOMY WITH COLOSTOMY/ BLOCK/ ERAS / PREP/ ANTIBIOTICS/ STOMA (N/A) at the request of Dr. Josefa Garza for routine H&P. My final recommendation will be communicated back to the requesting physician by way of shared medical record or letter. Subjective The patient has the following: COVID-19 Immunization Status This patient has no relevant Health Maintenance data. CHIEF COMPLAINT: The reason for this visit is to perform a comprehensive review of the patient's past medical history, assess their current health status and obtain any additional testing required based on anesthesia guidelines. We will also identify any potential anesthesia problems or contraindications to the planned procedure. HPI: Celi Farmer is a 64 year old female who presents to [facility] for the above procedure. Patient reports abdominal pain 06/2024 with hospital admission in [place]. A CT scan demonstrated - sigmoid diverticulitis with a contained abscess. Colonoscopy on 08/01/24 with diverticulosis, acute angulation in rectosigmoid. Patient denies pain today. After discussing with surgeon, patient agrees to surgical intervention. Risk and benefits discussed by surgeon. Patient denies any other problems or concerns at this time. REVIEW OF SYSTEMS: General: Negative for: fever. Neurological: Negative for: delirium, dementia, seizures, TIA and strokes. Respiratory: Negative for: asthma, COPD, pneumonia within 6 weeks, URI < 2 weeks and obstructive sleep apnea. Cardiovascular: Positive for: hyperlipidemia Negative for: atrial fibrillation, CAD, chest pain, DVT/PE and recent CA. GI: Positive for: diverticulitis Negative for: abdominal pain, dysphagia, hepatitis, nausea, vomiting and ETOH >2 drinks/day. : Negative for: dysuria, hematuria, urinary incontinence and renal failure. CUSTOMER ACCOUNT TECHNICIAN: Negative for abnormal vaginal bleeding, abnormal vaginal discharge. Endocrine: No history of diabetes. Has not taken steroids within the past 30 days. No history of endocrinological symptoms or problems. Negative for: diabetes mellitus and hypothyroidism. Hematology: Negative for: anemia, factor V Leiden, hemophilia and von Willebrand disease. Oncology: No history of CA metastasis, chemo within 30 days, or radiotherapy within 90 days. No history of oncological symptoms or problems. Psych: Positive for: depression. Musculoskeletal: Negative for joint pain or swelling, back pain or muscle pain. Skin: Negative for lesions, rash and itching. Implanted Devices: Has implanted device Implants: abdominal mesh. PAST MEDICAL HISTORY Diagnosis Date Depression Diverticulitis HLD (hyperlipidemia) PAST SURGICAL HISTORY Procedure Laterality Date COLONOSCOPY SCREENING 2018 COLONOSCOPY SCREENING 08/01/2024 PAST SURGICAL HISTORY OF rectecile repair PAST SURGICAL HISTORY OF Right miniscus repair REPAIR EPIGASTRIC HERNIA,REDUC SLING OPER STRES INCONTINENCE 12/2019 VAGINAL HYSTERECTOMY 2019 FAMILY HISTORY Problem Relation Age of Onset Heart disease Mother Dementia Mother COPD Father Breast Cancer Paternal Grandmother Social History Tobacco Use Smoking status: Former Types: Cigarettes Start date: 1988 Quit date: 1978 Years since quittin.5 Passive exposure: Past Smokeless tobacco: Never Vaping Use Vaping status: Never Used Substance Use Topics Alcohol use: Yes Comment: occ Drug use: Never Prior to Admission medications as of 10/01/24 1135 Medication Sig Last Dose Taking Methylsulfonylmethane (MSM) 1,000 mg tab Take by mouth. Yes MAGNESIUM GLYCINATE PO Take by mouth. Yes metroNIDAZOLE (FLAGYL) 500 mg tablet Take two tabs by mouth at 1pm, 3pm, and 11pm the day prior to surgery. Yes neomycin 500 mg tablet Take two tabs by mouth at 1pm, 3pm, and 11pm the day prior to the surgery. Yes promethazine (PHENERGAN) 25 mg tablet Take 1 tab by mouth every 4 hours as needed for nausea. Yes atorvastatin (LIPITOR) 20 mg tablet 1 tab(s) orally once a day (at bedtime) for 90 days Yes sertraline (ZOLOFT) 100 mg tablet 1 tab(s) orally once a day for 90 days Yes cholecalciferol, vitamin D3, (VITAMIN D3 ORAL) Take by mouth. 5000 IU Yes estradiol 0.01% estriol 0.01% cream (CPD) For vaginal, surrounding external vaginal tissue, and topical use only. Yes promethazine (PHENERGAN) 25 mg tablet Take 1 tab by mouth every 4 hours as needed for nausea. No medication comments found. ALLERGIES Allergen Reactions Codeine GI Upset Objective PHYSICAL EXAM: General: alert and oriented and healthy appearance. Pertinent negatives noted - not distressed. Skin: normal color, no rash or lesions. HEENT: No additional findings for patient's neck. Cardiovascular: regular rate and rhythm, normal S1 and S2, no rub, murmurs, or gallop. Respiratory: normal breath sounds, no wheezes or crackles. No chest wall deformity or tenderness. Abdomen: bowel sounds present and soft. Pertinent negatives noted - not tender. Extremities: no deformity, no edema or tenderness, no joint swelling or clubbing. Neurological: normal cognition and motor skills. Gait normal. No weakness or sensory deficit. PAIN ASSESSMENT: VITALS: BP 130/75 Pulse 58 Temp 97.5 Resp 14 Ht 5' 1 (1.55m) Wt 134 lb (60.8kg) SpO2 99% BMI 25.33 kg/(m^2). Diagnostic tests reviewed for today's visit: Lab Value Units Date High Low HB No results within date range. HCT No results within date range. WBC No results within date range. PLT No results within date range. NA No results within date range. K No results within date range. GLUC No results within date range. BUN No results within date range. CREAT No results within date range. PTSEC No results within date range. INR No results within date range. APTT No results within date range. ALT No results within date range. AST No results within date range. TBILI No results within date range. TSH No results within date range. Lab Value Units Date High Low HCGQT No results within date range. UHCG No results within date range. HCG, BODY* No results within date range. Lab Value Units Date High Low ABORHD No results within date range. ABSCREEN No results within date range. No results found for: HBA1C No results found for this or any previous visit (from the past 8760 hours). No results found for this or any previous visit (from the past 01636 hours). Patient denies Blood thinners The Following Tests/Procedures Have Been Initiated: No orders per surgeon in [facility] Assessment/Plan Diagnosis: Diverticulitis [K57.92] PLAN Planned Procedure: Procedure(s): ROBOTIC LAPAROSCOPIC SIGMOID COLECTOMY WITH COLOSTOMY/ BLOCK/ ERAS / PREP/ ANTIBIOTICS/ STOMA (N/A) Instructions Given to Patient: Instructions located in the after visit summary. Patient given verbal and written preop instructions and voices comprehension and compliance. I spent a total of 40 minutes on the date of the service which included preparing to see the patient, [id number] patient care, completing clinical documentation, obtaining and/or reviewing separately obtained history, performing a medically appropriate examination, and counseling and educating the patient/family/caregiver. SIGNATURE: Maykel Gordon APRN.CNP PATIENT NAME: Celi Farmer DATE: October 01, 2024 TIME: 11:20 AM PAGER/CONTACT #: T [facility] 10-01-2024 History and physical note Images from the original note were not included. [facility] HISTORY AND PHYSICAL EXAMINATION SERVICE DATE: 10/01/2024 SERVICE TIME: 11:20 AM PRIMARY CARE PHYSICIAN: Trey Bernal DO, MD Assessment Patient has the following medical conditions which may affect naomie-operative course: Pre-op examination Medical conditions which may affect the perioperative course were address in today's visit. Diverticulitis Surgery scheduled 10/08/24 HLD (hyperlipidemia) Stable on statin - take asprescribed ANESTHESIA FINDINGS: Intubation History: No history of difficult intubation. No abnormal airway history Significant Anesthesia Considerations: none Airway History: No history of difficult airway No abnormal airway history [place] Activity Status Index: METS: Participate in strenuous sport, such as swimming, singles tennis, football, basketball, or skiing (7.50 METs) DASI Score: 7.5 Patient denies any chest pain or undue shortness of breath with the above physical activity. Clinical Frailty Scale: 3. Well, with treated comorbid disease ARISCAT Score: Age: 51-80 Preoperative SpO2: >=96% Respiratory infection in the last month: No Preoperative anemia: No Surgical incision: peripheral Duration of surgery: >3 hrs Emergency procedure: No ARISCAT Score: 26 I - PHYSICAL EVALUATION AIRWAY Patient intubated: No. DENTAL Dental findings: teeth intact. II - ANESTHESIA PLAN Anesthetic Plan: general Beta Fam Monitoring Plan Post Procedure Analgesic Plan Prepared for Surgery: CONSULTS: Patient does not require consults for optimization at this time Planned Anesthetic: general The Following Tests/Procedures Have Been Initiated: Orders Placed This Encounter Methylsulfonylmethane (MSM) 1,000 mg tab Sig: Take by mouth. MAGNESIUM GLYCINATE PO Sig: Take by mouth. REASON FOR VISIT: Celi Farmer is a 64 year old female who is scheduled for Procedure(s): ROBOTIC LAPAROSCOPIC SIGMOID COLECTOMY WITH COLOSTOMY/ BLOCK/ ERAS / PREP/ ANTIBIOTICS/ STOMA (N/A) at the request of Dr. Josefa Garza for routine H&P. My final recommendation will be communicated back to the requesting physician by way of shared medical record or letter. Subjective The patient has the following: COVID-19 Immunization Status This patient has no relevant Health Maintenance data. CHIEF COMPLAINT: The reason for this visit is to perform a comprehensive review of the patient's past medical history, assess their current health status and obtain any additional testing required based on anesthesia guidelines. We will also identify any potential anesthesia problems or contraindications to the planned procedure. HPI: Celi Farmer is a 64 year old female who presents to [facility] for the above procedure. Patient reports abdominal pain 06/2024 with hospital admission in [place]. A CT scan demonstrated - sigmoid diverticulitis with a contained abscess. Colonoscopy on 08/01/24 with diverticulosis, acute angulation in rectosigmoid. Patient denies pain today. After discussing with surgeon, patient agrees to surgical intervention. Risk and benefits discussed by surgeon. Patient denies any other problems or concerns at this time. REVIEW OF SYSTEMS: General: Negative for: fever. Neurological: Negative for: delirium, dementia, seizures, TIA and strokes. Respiratory: Negative for: asthma, COPD, pneumonia within 6 weeks, URI < 2 weeks and obstructive sleep apnea. Cardiovascular: Positive for: hyperlipidemia Negative for: atrial fibrillation, CAD, chest pain, DVT/PE and recent CA. GI: Positive for: diverticulitis Negative for: abdominal pain, dysphagia, hepatitis, nausea, vomiting and ETOH >2 drinks/day. : Negative for: dysuria, hematuria, urinary incontinence and renal failure. CUSTOMER ACCOUNT TECHNICIAN: Negative for abnormal vaginal bleeding, abnormal vaginal discharge. Endocrine: No history of diabetes. Has not taken steroids within the past 30 days. No history of endocrinological symptoms or problems. Negative for: diabetes mellitus and hypothyroidism. Hematology: Negative for: anemia, factor V Leiden, hemophilia and von Willebrand disease. Oncology: No history of CA metastasis, chemo within 30 days, or radiotherapy within 90 days. No history of oncological symptoms or problems. Psych: Positive for: depression. Musculoskeletal: Negative for joint pain or swelling, back pain or muscle pain. Skin: Negative for lesions, rash and itching. Implanted Devices: Has implanted device Implants: abdominal mesh. PAST MEDICAL HISTORY Diagnosis Date Depression Diverticulitis HLD (hyperlipidemia) PAST SURGICAL HISTORY Procedure Laterality Date COLONOSCOPY SCREENING 2018 COLONOSCOPY SCREENING 08/01/2024 PAST SURGICAL HISTORY OF rectecile repair PAST SURGICAL HISTORY OF Right miniscus repair REPAIR EPIGASTRIC HERNIA,REDUC SLING OPER STRES INCONTINENCE 12/2019 VAGINAL HYSTERECTOMY 2019 FAMILY HISTORY Problem Relation Age of Onset Heart disease Mother Dementia Mother COPD Father Breast Cancer Paternal Grandmother Social History Tobacco Use Smoking status: Former Types: Cigarettes Start date: 1988 Quit date: 1979 Years since quittin.5 Passive exposure: Past Smokeless tobacco: Never Vaping Use Vaping status: Never Used Substance Use Topics Alcohol use: Yes Comment: occ Drug use: Never Prior to Admission medications as of 10/01/24 1135 Medication Sig Last Dose Taking Methylsulfonylmethane (MSM) 1,000 mg tab Take by mouth. Yes MAGNESIUM GLYCINATE PO Take by mouth. Yes metroNIDAZOLE (FLAGYL) 500 mg tablet Take two tabs by mouth at 1pm, 3pm, and 11pm the day prior to surgery. Yes neomycin 500 mg tablet Take two tabs by mouth at 1pm, 3pm, and 11pm the day prior to the surgery. Yes promethazine (PHENERGAN) 25 mg tablet Take 1 tab by mouth every 4 hours as needed for nausea. Yes atorvastatin (LIPITOR) 20 mg tablet 1 tab(s) orally once a day (at bedtime) for 90 days Yes sertraline (ZOLOFT) 100 mg tablet 1 tab(s) orally once a day for 90 days Yes cholecalciferol, vitamin D3, (VITAMIN D3 ORAL) Take by mouth. 5000 IU Yes estradiol 0.01% estriol 0.01% cream (CPD) For vaginal, surrounding external vaginal tissue, and topical use only. Yes promethazine (PHENERGAN) 25 mg tablet Take 1 tab by mouth every 4 hours as needed for nausea. No medication comments found. ALLERGIES Allergen Reactions Codeine GI Upset Objective PHYSICAL EXAM: General: alert and oriented and healthy appearance. Pertinent negatives noted - not distressed. Skin: normal color, no rash or lesions. HEENT: No additional findings for patient's neck. Cardiovascular: regular rate and rhythm, normal S1 and S2, no rub, murmurs, or gallop. Respiratory: normal breath sounds, no wheezes or crackles. No chest wall deformity or tenderness. Abdomen: bowel sounds present and soft. Pertinent negatives noted - not tender. Extremities: no deformity, no edema or tenderness, no joint swelling or clubbing. Neurological: normal cognition and motor skills. Gait normal. No weakness or sensory deficit. PAIN ASSESSMENT: VITALS: BP 130/75 Pulse 58 Temp 97.5 Resp 14 Ht 5' 1 (1.55m) Wt 134 lb (60.8kg) SpO2 99% BMI 25.33 kg/(m^2). Diagnostic tests reviewed for today's visit: Lab Value Units Date High Low HB No results within date range. HCT No results within date range. WBC No results within date range. PLT No results within date range. NA No results within date range. K No results within date range. GLUC No results within date range. BUN No results within date range. CREAT No results within date range. PTSEC No results within date range. INR No results within date range. APTT No results within date range. ALT No results within date range. AST No results within date range. TBILI No results within date range. TSH No results within date range. Lab Value Units Date High Low HCGQT No results within date range. UHCG No results within date range. HCG, BODY* No results within date range. Lab Value Units Date High Low ABORHD No results within date range. ABSCREEN No results within date range. No results found for: HBA1C No results found for this or any previous visit (from the past 8760 hours). No results found for this or any previous visit (from the past 00708 hours). Patient denies Blood thinners The Following Tests/Procedures Have Been Initiated: No orders per surgeon in [facility] Assessment/Plan Diagnosis: Diverticulitis [K57.92] PLAN Planned Procedure: Procedure(s): ROBOTIC LAPAROSCOPIC SIGMOID COLECTOMY WITH COLOSTOMY/ BLOCK/ ERAS / PREP/ ANTIBIOTICS/ STOMA (N/A) Instructions Given to Patient: Instructions located in the after visit summary. Patient given verbal and written preop instructions and voices comprehension and compliance. I spent a total of 40 minutes on the date of the service which included preparing to see the patient, [id number] patient care, completing clinical documentation, obtaining and/or reviewing separately obtained history, performing a medically appropriate examination, and counseling and educating the patient/family/caregiver. SIGNATURE: Maykel Gordon APRN.CNP PATIENT NAME: Celi Farmer DATE: October 01, 2024 TIME: 11:20 AM PAGER/CONTACT #: documented in this encounter [facility] 10-01-2024 History of Present illness Narrative Summary: Stoma marking OSTOMY CARE CONSULT NOTE SERVICE DATE: 10/01/2024 SERVICE TIME: 10:40 AM REASON FOR CONSULT: Stoma marking. TIME SPENT (minutes): 30 Pre-Op Education Patient can state a basic understanding of the disease and plan of surgery resulting in an ostomy. Ostomy type: possible ileostomy, possible colostomy A description and explanation of the following was provided to the patient: Stoma apperance and function Purpose of the pouching system Postoperative ostomy care per ET/WOC Nurse Postoperative self ostomy care instruction The following post operative concerns were addressed: Clothing Adjustment Printed Literature specific to ostomy type was provided to the patient: yes The patient or accompanying person can verbalize understanding of the information given in the preoperative instructions: yes Stoma Marking The stoma marking purpose and procedure was explained: yes. The patient verbalized understanding and agrees to the marking: yes. Rectus Muscle borders are located: yes. Abdominal contour evaluation was performed in the sitting position and standing position. The stoma marking was made in the RUQ and the LUQ avoiding creases, scars, and midline. Patient is able to see site in the following positions: sitting position and standing position Felix was made with surgical marker and covered with tegaderm. Patient given extra tegaderm to reinforce as needed. Comments: Only able to felix patient right and left upper quadrants, she has a short waist and if marked lower quadrants would not be able to see stoma/appliance and appliance would not hang well on the abdomen. Thank you for including me in the care of this patient. Ostomy care to follow after surgery when consulted. SIGNATURE: ENE Bermeo,RN,ON PATIENT NAME: Celi Farmer DATE: October 01, 2024 TIME: 11:20 AM CONTACT#: [id number] documented in this encounter [facility] 10-01-2024 Note HNO ID: [id number] Author: KRISTYN JACKSON RN Service: ? Author Type: Registered Nurse Type: Progress Notes Filed: 10/01/2024 11:25 Note Text: Summary: Stoma marking OSTOMY CARE CONSULT NOTE SERVICE DATE: 10/01/2024 SERVICE TIME: 10:40 AM REASON FOR CONSULT: Stoma marking. TIME SPENT (minutes): 30 Pre-Op Education Patient can state a basic understanding of the disease and plan of surgery resulting in an ostomy. Ostomy type: possible ileostomy, possible colostomy A description and explanation of the following was provided to the patient: Stoma apperance and function Purpose of the pouching system Postoperative ostomy care per ET/WOC Nurse Postoperative self ostomy care instruction The following post operative concerns were addressed: Clothing Adjustment Printed Literature specific to ostomy type was provided to the patient: yes The patient or accompanying person can verbalize understanding of the information given in the preoperative instructions: yes Stoma Marking The stoma marking purpose and procedure was explained: yes. The patient verbalized understanding and agrees to the marking: yes. Rectus Muscle borders are located: yes. Abdominal contour evaluation was performed in the sitting position and standing position. The stoma marking was made in the RUQ and the LUQ avoiding creases, scars, and midline. Patient is able to see site in the following positions: sitting position and standing position Felix was made with surgical marker and covered with tegaderm. Patient given extra tegaderm to reinforce as needed. Comments: Only able to felix patient right and left upper quadrants, she has a short waist and if marked lower quadrants would not be able to see stoma/appliance and appliance would not hang well on the abdomen. Thank you for including me in the care of this patient. Ostomy care to follow after surgery when consulted. SIGNATURE: ENE Bermeo,RN,CWON PATIENT NAME: Celi Farmer DATE: October 01, 2024 TIME: 11:20 AM CONTACT#: [id number] [facility] 10-01-2024 History of Present illness Narrative GENERAL SURGERY/ERAS VIDEO GAME SCRIPT WRITER PREOPERATIVE EDUCATION Date: 10/01/2024 Time: 10:15 AM Education provide to: Patient Lives with: Spouse Mobility: Independent ERAS protocol instructions given with good understanding. Written instructions given to patient. Encouraged to call with any questions. SIGNATURE: Lisbet Carrizales RN PATIENT NAME: Celi Farmer DATE: October 01, 2024 TIME: 1:13 PM PAGER/CONTACT #: [phone] documented in this encounter [facility] 10-01-2024 Note HNO ID: [id number] Author: LISBET CARRIZALES RN Service: ? Author Type: Registered Nurse Type: Progress Notes Filed: 10/01/2024 13:14 Note Text: GENERAL SURGERY/ERAS VIDEO GAME SCRIPT WRITER PREOPERATIVE EDUCATION Date: 10/01/2024 Time: 10:15 AM Education provide to: Patient Lives with: Spouse Mobility: Independent ERAS protocol instructions given with good understanding. Written instructions given to patient. Encouraged to call with any questions. SIGNATURE: Lisbet Carrizales RN PATIENT NAME: Celi Farmer DATE: October 01, 2024 TIME: 1:13 PM PAGER/CONTACT #: [phone] [facility] 10-01-2024 Note Education (AGGENS3) CELI FARMER ([id number]) 1960 F Date Time Provider Department 10/01/24 LISBET CARRIZALES3 Reason for Visit: Patient Education [91] During your visit today, we recorded the following information about you: Allergies As of Date: 10/01/2024 Noted Allergy Reaction CODEINE 07/10/2024 8 - GI Upset Date Reviewed: 10/01/2024 Reviewed by: Maykel Gordon APRN.STABLE ATTENDANT - Fully Assessed Prescriptions as of 10/01/2024 - promethazine (PHENERGAN) 25 mg tablet Take 1 tab by mouth every 4 hours as needed for nausea. - Methylsulfonylmethane (MSM) 1,000 mg tab Take by mouth. - MAGNESIUM GLYCINATE PO Take by mouth. - metroNIDAZOLE (FLAGYL) 500 mg tablet Take two tabs by mouth at 1pm, 3pm, and 11pm the day prior to surgery. - neomycin 500 mg tablet Take two tabs by mouth at 1pm, 3pm, and 11pm the day prior to the surgery. - promethazine (PHENERGAN) 25 mg tablet Take 1 tab by mouth every 4 hours as needed for nausea. - atorvastatin (LIPITOR) 20 mg tablet 1 tab(s) orally once a day (at bedtime) for 90 days - sertraline (ZOLOFT) 100 mg tablet 1 tab(s) orally once a day for 90 days - cholecalciferol, vitamin D3, (VITAMIN D3 ORAL) Take by mouth. 5000 IU - estradiol 0.01% estriol 0.01% cream (CPD) For vaginal, surrounding external vaginal tissue, and topical use only. Encounter Status:Closed by LISBET CARRIZALES on 10/01/24 [facility] 09-30-2024 Instructions Maykel Gordon APRN.STABLE ATTENDANT - 09/30/2024 8:17 AM EDT PATIENT PREOPERATIVE INSTRUCTIONS Your surgeon has scheduled for your procedure at this surgery center: [facility]: [phone], [address] [id number] Please read below carefully for your personalized instructions. Surgery Date:10/08/2024 Your surgeon's office will provide you with your ARRIVAL TIME for surgery. - If you have not received an arrival time by the afternoon before your surgery date, please follow up with your surgeon's office. - If you are scheduled for Sunday surgery, please make sure you have your arrival time by Sunday afternoon. - Please be aware that emergency situations arise, which may delay or change your surgical time. If this happens, your surgeon's office will notify you as soon as possible and regret any inconvenience. Dietary Restrictions: - No solid food after midnight. - You may have 12 ounces of clear liquids (water, clear juices such as apple juice or gatorade, carbonated beverages, clear tea, black coffee, jello) until 2 hours before scheduled arrival at facility. This is important because otherwise your surgery may have to be cancelled. Blood Thinning Medications: - Stop NSAIDS (Ibuprofen, Advil, Aleve, Motrin, Celebrex, Mobic, etc.) 7 days before surgery, or as directed by your surgeon. You may take Tylenol (Acetaminophen) or any of your pain medications that do not contain aspirin or NSAIDS as needed. IF YOU TAKE ANY OF THE FOLLOWING BLOOD THINNERS, PLEASE CONTACT YOUR SURGEON AND THE PHYSICIAN WHO PRESCRIBES IT FOR YOU IN ORDER TO GET PERIOPERATIVE INSTRUCTIONS SOON POSSIBLE. BLOOD THINNERS: Aspirin , Coumadin, Plavix, Eliquis, Pradaxa, Xarelto, Lovenox, Brilinta, Effient, Savaysa, Arixtra, etc - Stop Vitamin E, fish oil, multivitamins, Marijuana, CBD oil and other over the counter herbals and dietary supplements 7 days before surgery. - This would not apply to cancer patients who are prescribed Marinol or any other prescription form on marijuana or CBD. Medications: Pre Surgery Med Instructions Medication instructions atorvastatin (LIPITOR) 20 mg tablet Continue as prescribed. cholecalciferol, vitamin D3, (VITAMIN D3 ORAL) DO NOT TAKE THE MORNING OF SURGERY. estradiol 0.01% estriol 0.01% cream (CPD) DO NOT TAKE THE MORNING OF SURGERY. MAGNESIUM GLYCINATE PO DO NOT TAKE THE MORNING OF SURGERY. Methylsulfonylmethane (MSM) 1,000 mg tab Stop 7 days before surgery. metroNIDAZOLE (FLAGYL) 500 mg tablet Follow surgeon's instructions. neomycin 500 mg tablet Follow surgeon's instructions. promethazine (PHENERGAN) 25 mg tablet Follow surgeon's instructions. sertraline (ZOLOFT) 100 mg tablet Continue as prescribed. Approved medications to take the morning of surgery with a sip of water: BP, Heart, seizure, thyroid, psych and pain medications. Use inhalers as prescribed. Please bring inhalers. HOLD - MARY inhibitors (Angiotensin-converting enzyme inhibitors) and ARBs (Angiotensin II receptor blockers) Day of surgery. Use inhalers as prescribed. Please bring inhalers. Refer to surgeon and prescribing provider regarding Vivitrol/Naltrexone management prior to surgery. Vivitrol: Must be discontinued 30 days prior to elective surgery. Naltrexone: If bridging from Vivitrol, it should be stopped 3 days prior to surgery if opioids are expected post-operatively. Weight loss medications: - Sympathomimetics such as Adipex-P (Phentermine): Stop 4 days before surgery. - Contrave (Naltrexone/Bupropion) Hold 2-3 days. - Qsymia (Phentermine/Topiramate - Please contact your prescribing provider for Pre op directions. (Depending on the patients dose this medication may need tapered off. They should get pre-op directions from their prescribing provider.) - GLP-1 Agonists (oral and injectables) Hold 7 days - Adlyxin (lixisenatide), Bydureon BCise (exenatide suspension), Byetta (exenatide), Mounjaro (tirzepatide), Ozempic (semaglutide injection), Rybelsus (semaglutide tablets), Tanzeum (albiglutide), Trulicity (dulaglutide), Victoza (liraglutide), Wegovy (semaglutide), Saxenda (liraglutide), Xultophy (degludec/liraglutide) If you start any new medications after today's visit, please contact the surgeon's office. Important Reminders: - If you have a stimulator, implant or pump that requires a remote, please bring the remote with you day of surgery. - If you use CPAP/BIPAP, bring the machine with you to the surgery center. - If you are prescribed inhalers for breathing, continue using them AND bring them to the surgery center. - Candy, mints, gum and tobacco products are NOT permitted the morning of surgery. - Hearing aids, dentures and glasses may be worn the morning of surgery. - NO jewelry, body piercings, makeup, hairpins or contacts are to be worn the day of surgery. - Oral hygiene and a shower or bath is required the evening before or the morning of surgery. - NO lotion, creams, powders or deodorants on the skin the day of surgery. - Wear loose, comfortable clothing that will accommodate bandages. - Your length of stay will be determined by your surgeon. - You will need to have someone else (Family or friend) to drive you home once discharged from the hospital. You cannot drive yourself home after surgery. - YOU MUST HAVE A RESPONSIBLE OD GRINDER OPERATOR TAKE YOU HOME. A ROVING CAN TENDER, CAB OR UBER OD GRINDER OPERATOR CANNOT BE MADE A RESPONSIBLE OD GRINDER OPERATOR. - If you are undergoing an outpatient procedure you must have someone drive you home and stay with you for the first 24 hours. Your ride home must be at least 18 years old or older. Your surgery may be cancelled if you do not have someone to drive you home or take care of you. - You cannot stay in a hotel alone after an outpatient surgery. - It is recommended patients have a 72-hour period between getting their vaccine and the date of surgery. Visitation: Visitors to any [facility] facility: Any individual who is sick should not visit. Visitors to patients with COVID-19 must follow these guidelines, which include wearing a mask, eye protection, gown and gloves. [facility] in [place] Visitation hours: 7 AM to 9 PM. Pre-Surgery Unit - Patients may have up to 2 visitors at a time. PACU recovery Unit - Patients may have up to 1-2 visitors at a time. If you develop symptoms such as a fever, cold, or flu, or have other changes to your health within TWO DAYS of scheduled surgery or the morning of surgery, please contact the surgeon's office. Personal Belongings: - Leave ALL valuables and money at home or with family members. - You will need a form of ID and insurance card to check in the morning of surgery. - If you already have an Advance Directive, please fax a copy to [phone] or Tuan LINCOLN at [phone] or email to for it to be added to your chart. If you do not have an Advance Directive, you can find the appropriate form and more information at [email or web address]. We recommend that you complete the Advance Directive form found on the website and bring it with you the day of your surgery. It can be witnessed and scanned into your chart that day. Hibiclens provided by [facility] nurse The anti-bacterial soap (Hibiclens) should be used TWICE prior to surgery: The night before surgery and the morning of surgery: - If you plan to wash your hair, do so with your regular shampoo. Then rinse hair and body thoroughly to remove any shampoo residue - Wash your face with water or your regular soap - Thoroughly rinse your body with water from the neck down - Apply Hibiclens directly on your skin or on a wet washcloth and wash gently. Move away from the shower stream when applying Hibiclens to ensure the CHG binds to the skin. - Pay special attention to the area where your surgery will be performed - Rinse thoroughly - Apply clean bedding and clean clothing after shower Do not use your regular soap after applying and rinsing Hibiclens. Do not apply any lotions, deodorants, powders, or perfumes to the body areas that have been cleaned with Hibiclens. Do not use Hibiclens: - If you are allergic to Chlorhexidine gluconate or any other ingredient in this preparation - In contact with the meninges - In the genital area - On wounds that involve more than the superficial layers of the skin Please review Hibiclens pamphlet prior to use. Maykel Gordon APRN.CNP 10/01/24 documented in this encounter [facility] 08-14-2024 Note HNO ID: [id number] Author: JOSEFA GARZA MD Service: ? Author Type: Physician Type: Progress Notes Filed: 08/14/2024 11:33 Note Text: Josefa Garza M.D. Colon AND Rectal Surgery [address] [facility], [address] [place] [address] CC: complicated diverticulitis HPI: Celi Farmer is a 64 year old White female who was initially admitted to an outside hospital in [place] from June 08 to June 11, 2024, for abdominal pain. A CT scan during this admission demonstrated sigmoid diverticulitis with a contained abscess. She was started on IV antibiotics and underwent percutaneous drainage, which produced purulent output. She reports that the drain was removed on July 04, 2024 when an abscessogram reportedly showed no evidence of a fistula. Patient states that she was having passage of air into her drain at the time. Since the removal of the drain, patient reports feeling well and denies any significant discomfort. She notes normal bowel movements, occurring a couple of times a day, with formed stools and no diarrhea. She does report an increase in gas and occasional sharp pains that are brief and not associated with bowel movements. She denies any pain during defecation. Patient has been following a low-residue diet with minimal fiber intake since her hospitalization and has unintentionally lost approximately 10 pounds due to reduced food intake. Colonoscopy on 08/01/24 with diverticulosis, acute angulation in rectosigmoid but was able to complete scope. No polyps seen. She also has a significant surgical history, including a bladder sling, hysterectomy in 2019, and open ventral hernia repair. Review of Systems: For pertinent positives and negatives, please see HPI History reviewed. No pertinent past medical history. PAST SURGICAL HISTORY Procedure Laterality Date COLONOSCOPY SCREENING 2018 SLING OPER STRES INCONTINENCE 12/2019 VAGINAL HYSTERECTOMY 2019 Social History Tobacco Use Smoking status: Former Types: Cigarettes Start date: 1988 Quit date: 1978 Years since quittin.4 Passive exposure: Past Smokeless tobacco: Never Substance Use Topics Alcohol use: Yes Comment: occ Drug use: Never History reviewed. No pertinent family history. The ROS, medical, surgical, family, and social history were reviewed by Josefa Garza MD ALLERGIES Allergen Reactions Codeine GI Upset Current Outpatient Medications Medication Sig atorvastatin (LIPITOR) 20 mg tablet 1 tab(s) orally once a day (at bedtime) for 90 days sertraline (ZOLOFT) 100 mg tablet 1 tab(s) orally once a day for 90 days cholecalciferol, vitamin D3, (VITAMIN D3 ORAL) Take by mouth. 5000 IU estradiol 0.01% estriol 0.01% cream (CPD) For vaginal, surrounding external vaginal tissue, and topical use only. No current facility-administered medications for this visit. Vitals: BP 125/74 (BP Site: Right Arm, BP Position: Sitting, BP Cuff Size: Regular Adult) Pulse 62 Wt 59.4 kg (131 lb) BMI 24.75 kg/m? BMI 24.75 kg/(m2) Physical Exam Constitutional: General: She is not in acute distress. Appearance: Normal appearance. She is not ill-appearing. Cardiovascular: Rate and Rhythm: Normal rate and regular rhythm. Heart sounds: Normal heart sounds. No murmur heard. No friction rub. No gallop. Pulmonary: Effort: Pulmonary effort is normal. No respiratory distress. Breath sounds: Normal breath sounds. No wheezing or rales. Abdominal: General: There is no distension. Palpations: Abdomen is soft. There is no mass. Tenderness: There is no abdominal tenderness. There is no guarding or rebound. Musculoskeletal: General: No deformity. Normal range of motion. Cervical back: Normal range of motion and neck supple. Lymphadenopathy: Cervical: No cervical adenopathy. Skin: General: Skin is warm and dry. Findings: No rash. Neurological: Mental Status: She is alert and oriented to person, place, and time. Gait: Gait is intact. Psychiatric: Mood and Affect: Mood and affect normal. Judgment: Judgment normal. Labs: No results found for: HB, HCT, WBC, PLT No results found for: CREAT No results found for: AST No results found for: ALT No results found for: BLSP, BLCUL, TBILI, CBILI, ABORHD, ABSCREEN, WBC, RBC, BILIT%DIG,%DBS Imaging: Personally reviewed imaging from outside hospital from 06/08/2024 and 06/26/2024. Multiloculated large pelvic abscess associated with rectosigmoid on initial imaging. Patient underwent percutaneous drainage and on most recent CT, abscess was resolved. The abscess appeared to be abutting the anterior peritoneal reflection. Assessment/Plan: 1. Diverticulitis of large intestine with perforation and abscess without bleeding (Primary) I had a lengthy discussion with the patient about risks of complicated diverticulitis and indications for surgery. We discussed that while a (more content not included)... [facility] 08-14-2024 History of Present illness Narrative Images from the original note were not included. Josefa Garza M.D. Colon & Rectal Surgery [address] [facility], [address] [place] [id number] CC: complicated diverticulitis HPI: Celi Farmer is a 64 year old White female who was initially admitted to an outside hospital in [place] from June 08 to June 11, 2024, for abdominal pain. A CT scan during this admission demonstrated sigmoid diverticulitis with a contained abscess. She was started on IV antibiotics and underwent percutaneous drainage, which produced purulent output. She reports that the drain was removed on July 04, 2024 when an abscessogram reportedly showed no evidence of a fistula. Patient states that she was having passage of air into her drain at the time. Since the removal of the drain, patient reports feeling well and denies any significant discomfort. She notes normal bowel movements, occurring a couple of times a day, with formed stools and no diarrhea. She does report an increase in gas and occasional sharp pains that are brief and not associated with bowel movements. She denies any pain during defecation. Patient has been following a low-residue diet with minimal fiber intake since her hospitalization and has unintentionally lost approximately 10 pounds due to reduced food intake. Colonoscopy on 08/01/24 with diverticulosis, acute angulation in rectosigmoid but was able to complete scope. No polyps seen. She also has a significant surgical history, including a bladder sling, hysterectomy in 2019, and open ventral hernia repair. Review of Systems: For pertinent positives and negatives, please see HPI History reviewed. No pertinent past medical history. PAST SURGICAL HISTORY Procedure Laterality Date COLONOSCOPY SCREENING 2018 SLING OPER STRES INCONTINENCE 12/2019 VAGINAL HYSTERECTOMY 2019 Social History Tobacco Use Smoking status: Former Types: Cigarettes Start date: 1988 Quit date: 1978 Years since quittin.4 Passive exposure: Past Smokeless tobacco: Never Substance Use Topics Alcohol use: Yes Comment: occ Drug use: Never History reviewed. No pertinent family history. The ROS, medical, surgical, family, and social history were reviewed by Josefa Garza MD ALLERGIES Allergen Reactions Codeine GI Upset Current Outpatient Medications Medication Sig atorvastatin (LIPITOR) 20 mg tablet 1 tab(s) orally once a day (at bedtime) for 90 days sertraline (ZOLOFT) 100 mg tablet 1 tab(s) orally once a day for 90 days cholecalciferol, vitamin D3, (VITAMIN D3 ORAL) Take by mouth. 5000 IU estradiol 0.01% estriol 0.01% cream (CPD) For vaginal, surrounding external vaginal tissue, and topical use only. No current facility-administered medications for this visit. Vitals: BP 125/74 (BP Site: Right Arm, BP Position: Sitting, BP Cuff Size: Regular Adult) Pulse 62 Wt 59.4 kg (131 lb) BMI 24.75 kg/m BMI 24.75 kg/(m^2) Physical Exam Constitutional: General: She is not in acute distress. Appearance: Normal appearance. She is not ill-appearing. Cardiovascular: Rate and Rhythm: Normal rate and regular rhythm. Heart sounds: Normal heart sounds. No murmur heard. No friction rub. No gallop. Pulmonary: Effort: Pulmonary effort is normal. No respiratory distress. Breath sounds: Normal breath sounds. No wheezing or rales. Abdominal: General: There is no distension. Palpations: Abdomen is soft. There is no mass. Tenderness: There is no abdominal tenderness. There is no guarding or rebound. Musculoskeletal: General: No deformity. Normal range of motion. Cervical back: Normal range of motion and neck supple. Lymphadenopathy: Cervical: No cervical adenopathy. Skin: General: Skin is warm and dry. Findings: No rash. Neurological: Mental Status: She is alert and oriented to person, place, and time. Gait: Gait is intact. Psychiatric: Mood and Affect: Mood and affect normal. Judgment: Judgment normal. Labs: No results found for: HB, HCT, WBC, PLT No results found for: CREAT No results found for: AST No results found for: ALT No results found for: BLSP, BLCUL, TBILI, CBILI, ABORHD, ABSCREEN, WBC, RBC, BILIT%DIG,%DBS Imaging: Personally reviewed imaging from outside hospital from 06/08/2024 and 06/26/2024. Multiloculated large pelvic abscess associated with rectosigmoid on initial imaging. Patient underwent percutaneous drainage and on most recent CT, abscess was resolved. The abscess appeared to be abutting the anterior peritoneal reflection. Assessment/Plan: 1. Diverticulitis of large intestine with perforation and abscess without bleeding (Primary) I had a lengthy discussion with the patient about risks of complicated diverticulitis and indications for surgery. We discussed that while an episode of complicated diverticulitis does not necessarily mean that further episodes will be more severe, she may be at risk for [place] perforation or recurrent abscess. Patient continues to have occasional twinges of pain across her lower abdomen. Will plan for robot-assisted sigmoid resection/low anterior resection on 10/08. Discussed that there is a possibility for conversion to open as well as the possibility of a stoma. Risks of surgery including bleeding, infection, anastomotic leak were discussed. Will also ask urology to place preoperative stents given location of her abscess. Antibiotic prep sent into pharmacy. Josefa Garza M.D. Please Note: This office note has been created using [employer], a speech recognition software program, and may contain errors including punctuation, grammar, spelling, gender, and inappropriate words or phrases that pertain to the sytem. documented in this encounter [facility] 08-01-2024 Note HNO ID: [id number] Author: JERRICA BARTH, MATT Service: ? Author Type: Registered Nurse Type: Nursing Progress Note Filed: 08/01/2024 14:19 Note Text: Dr garza at bedside [facility] 08-01-2024 Note HNO ID: [id number] Author: KYLAH PHILLIPS APRN.CNP Service: Anesthesiology Author Type: Nurse Practitioner Type: Nursing Progress Note Filed: 08/01/2024 12:27 Note Text: HANDP completed 07/10/24 by Josefa Garza MD. [facility] 07-14-2024 Telephone encounter Note Patient called in says she didn't want to wait 3 months for surgery and wanted to discuss moving thing up Brionna Vyas MA [facility] 07-14-2024 Miscellaneous Notes Patient called in says she didn't want to wait 3 months for surgery and wanted to discuss moving thing up Brionna Vyas MA documented in this encounter [facility] 07-10-2024 Note HNO ID: [id number] Author: JOSEFA GARZA MD Service: ? Author Type: Physician Type: Progress Notes Filed: 07/10/2024 10:52 Note Text: Josefa Garza M.D. Colon AND Rectal Surgery [address] [facility], [address] [place] [phone] Recording using [employer] software for draft documentation of the visit was discussed with the patient/authorized pharmaceutical sales representative; all questions welcomed and answered. Patient/authorized pharmaceutical sales representative agreed to proceed CC: complicated diverticulitis HPI: Celi Farmer is a 64 year old White female presenting for follow-up after a recent hospitalization for sigmoid diverticulitis with a contained abscess. Patient was initially admitted to an outside hospital in [place] from June 08 to June 11, 2024, for abdominal pain. A CT scan during this admission demonstrated sigmoid diverticulitis with a contained abscess. She was started on IV antibiotics and underwent percutaneous drainage, which produced purulent output. She reports that the drain was removed on July 04, 2024 when an abscessogram reportedly showed no evidence of a fistula. Patient states that she was having passage of air into her drain at the time. Since the removal of the drain, patient reports feeling well and denies any significant discomfort. She notes normal bowel movements, occurring a couple of times a day, with formed stools and no diarrhea. She does report an increase in gas and occasional sharp pains that are brief and not associated with bowel movements. She denies any pain during defecation. Patient has been following a low-residue diet with minimal fiber intake since her hospitalization and has unintentionally lost approximately 10 pounds due to reduced food intake. Patient has a history of two colonoscopies, the most recent being in 2019, which revealed a few diverticula but no polyps. She also has a significant surgical history, including a bladder sling, hysterectomy in 2019, and ventral hernia repair. Review of Systems: For pertinent positives and negatives, please see HPI History reviewed. No pertinent past medical history. PAST SURGICAL HISTORY Procedure Laterality Date COLONOSCOPY SCREENING 2018 SLING OPER STRES INCONTINENCE 12/2019 VAGINAL HYSTERECTOMY 2019 Social History Tobacco Use Smoking status: Former Types: Cigarettes Start date: 1988 Quit date: 1979 Years since quittin.3 Passive exposure: Past Smokeless tobacco: Never Substance Use Topics Alcohol use: Yes Comment: occ Drug use: Never History reviewed. No pertinent family history. The ROS, medical, surgical, family, and social history were reviewed by Josefa Garza MD ALLERGIES Allergen Reactions Codeine GI Upset Current Outpatient Medications Medication Sig atorvastatin (LIPITOR) 20 mg tablet 1 tab(s) orally once a day (at bedtime) for 90 days sertraline (ZOLOFT) 100 mg tablet 1 tab(s) orally once a day for 90 days cholecalciferol, vitamin D3, (VITAMIN D3 ORAL) Take by mouth. 5000 IU estradiol 0.01% estriol 0.01% cream (CPD) For vaginal, surrounding external vaginal tissue, and topical use only. No current facility-administered medications for this visit. Vitals: BP 124/66 (BP Site: Right Arm, BP Position: Sitting, BP Cuff Size: Regular Adult) Pulse 71 Ht 154.9 cm (5' 1) Wt 60.8 kg (134 lb) BMI 25.32 kg/m? BMI 25.32 kg/(m2) Physical Exam Constitutional: General: She is not in acute distress. Appearance: Normal appearance. She is not ill-appearing. Cardiovascular: Rate and Rhythm: Normal rate and regular rhythm. Heart sounds: Normal heart sounds. No murmur heard. No friction rub. No gallop. Pulmonary: Effort: Pulmonary effort is normal. No respiratory distress. Breath sounds: Normal breath sounds. No wheezing or rales. Abdominal: General: There is no distension. Palpations: Abdomen is soft. There is no mass. Tenderness: There is no abdominal tenderness. There is no guarding or rebound. Musculoskeletal: General: No deformity. Normal range of motion. Cervical back: Normal range of motion and neck supple. Lymphadenopathy: Cervical: No cervical adenopathy. Skin: General: Skin is warm and dry. Findings: No rash. Neurological: Mental Status: She is alert and oriented to person, place, and time. Gait: Gait is intact. Psychiatric: Mood and Affect: Mood and affect normal. Judgment: Judgment normal. Assessment/Plan: 1. Diverticulitis of large intestine with perforation and abscess without bleeding - Reviewed CT scans and medical records from hospitalization, will upload discs to our system - Recommended continuation of a low-residue diet for total of 6-8 weeks - Advised scheduling a colonoscopy in 6-8 weeks to assess for any underlying pathology such as tumors or polyps - patient would like to return to her previous crotch piece baster at , Dr. Welch. - Discussed potential for el (more content not included)... [facility] 07-10-2024 History of Present illness Narrative Images from the original note were not included. Josefa Garza M.D. Colon & Rectal Surgery [address] [facility], [address] [place] [phone] Recording using [employer] software for draft documentation of the visit was discussed with the patient/authorized pharmaceutical sales representative; all questions welcomed and answered. Patient/authorized pharmaceutical sales representative agreed to proceed CC: complicated diverticulitis HPI: Celi Farmer is a 64 year old White female presenting for follow-up after a recent hospitalization for sigmoid diverticulitis with a contained abscess. Patient was initially admitted to an outside hospital in [place] from June 08 to June 11, 2024, for abdominal pain. A CT scan during this admission demonstrated sigmoid diverticulitis with a contained abscess. She was started on IV antibiotics and underwent percutaneous drainage, which produced purulent output. She reports that the drain was removed on July 04, 2024 when an abscessogram reportedly showed no evidence of a fistula. Patient states that she was having passage of air into her drain at the time. Since the removal of the drain, patient reports feeling well and denies any significant discomfort. She notes normal bowel movements, occurring a couple of times a day, with formed stools and no diarrhea. She does report an increase in gas and occasional sharp pains that are brief and not associated with bowel movements. She denies any pain during defecation. Patient has been following a low-residue diet with minimal fiber intake since her hospitalization and has unintentionally lost approximately 10 pounds due to reduced food intake. Patient has a history of two colonoscopies, the most recent being in 2019, which revealed a few diverticula but no polyps. She also has a significant surgical history, including a bladder sling, hysterectomy in 2020, and ventral hernia repair. Review of Systems: For pertinent positives and negatives, please see HPI History reviewed. No pertinent past medical history. PAST SURGICAL HISTORY Procedure Laterality Date COLONOSCOPY SCREENING 2018 SLING OPER STRES INCONTINENCE 12/2019 VAGINAL HYSTERECTOMY 2019 Social History Tobacco Use Smoking status: Former Types: Cigarettes Start date: 1988 Quit date: 1979 Years since quittin.3 Passive exposure: Past Smokeless tobacco: Never Substance Use Topics Alcohol use: Yes Comment: occ Drug use: Never History reviewed. No pertinent family history. The ROS, medical, surgical, family, and social history were reviewed by Josefa Garza MD ALLERGIES Allergen Reactions Codeine GI Upset Current Outpatient Medications Medication Sig atorvastatin (LIPITOR) 20 mg tablet 1 tab(s) orally once a day (at bedtime) for 90 days sertraline (ZOLOFT) 100 mg tablet 1 tab(s) orally once a day for 90 days cholecalciferol, vitamin D3, (VITAMIN D3 ORAL) Take by mouth. 5000 IU estradiol 0.01% estriol 0.01% cream (CPD) For vaginal, surrounding external vaginal tissue, and topical use only. No current facility-administered medications for this visit. Vitals: BP 124/66 (BP Site: Right Arm, BP Position: Sitting, BP Cuff Size: Regular Adult) Pulse 71 Ht 154.9 cm (5' 1) Wt 60.8 kg (134 lb) BMI 25.32 kg/m BMI 25.32 kg/(m^2) Physical Exam Constitutional: General: She is not in acute distress. Appearance: Normal appearance. She is not ill-appearing. Cardiovascular: Rate and Rhythm: Normal rate and regular rhythm. Heart sounds: Normal heart sounds. No murmur heard. No friction rub. No gallop. Pulmonary: Effort: Pulmonary effort is normal. No respiratory distress. Breath sounds: Normal breath sounds. No wheezing or rales. Abdominal: General: There is no distension. Palpations: Abdomen is soft. There is no mass. Tenderness: There is no abdominal tenderness. There is no guarding or rebound. Musculoskeletal: General: No deformity. Normal range of motion. Cervical back: Normal range of motion and neck supple. Lymphadenopathy: Cervical: No cervical adenopathy. Skin: General: Skin is warm and dry. Findings: No rash. Neurological: Mental Status: She is alert and oriented to person, place, and time. Gait: Gait is intact. Psychiatric: Mood and Affect: Mood and affect normal. Judgment: Judgment normal. Assessment/Plan: 1. Diverticulitis of large intestine with perforation and abscess without bleeding - Reviewed CT scans and medical records from hospitalization, will upload discs to our system - Recommended continuation of a low-residue diet for total of 6-8 weeks - Advised scheduling a colonoscopy in 6-8 weeks to assess for any underlying pathology such as tumors or polyps - patient would like to return to her previous crotch piece baster at , Dr. Welch. - Discussed potential for elective surgical resection given complicated nature of diverticulitis. - Scheduled follow-up appointment in 3 months to review colonoscopy results and discuss further management. - Patient advised to monitor for any signs of recurrence and to contact the office if symptoms worsen. Follow up: 3 months Josefa Garza M.D. Please Note: This office note has been created using [employer], a speech recognition software program, and may contain errors including punctuation, grammar, spelling, gender, and inappropriate words or phrases that pertain to the sytem. documented in this encounter [facility] 07-03-2024 Telephone encounter Note [place] and is scheduled for fistula gram scheduled for 07/04. Patient would like to know if she should proceed with this testing. Patient is scheduled for 07/[address] Garza. Please advise. Stella Cunningham MA [facility] 07-03-2024 Miscellaneous Notes Patient [place] and is scheduled for fistula gram scheduled for 07/04. Patient would like to know if she should proceed with this testing. Patient is scheduled for 07/[address] Garza. Please advise. Stella Cunningham MA documented in this encounter [facility] 06-16-2024 Telephone encounter Note Called the patient and left a voice message asking the patient to call the office back.The patient has been referred for Diverticulitis. Katlyn Junior [facility] 06-16-2024 Miscellaneous Notes Called the patient and left a voice message asking the patient to call the office back.The patient has been referred for Diverticulitis. Katlyn Junior documented in this encounter [facility] Evaluation note No assessment information [facility] Work Phone: Evaluation note Diagnosis Acute bronchitis due to other specified organisms [facility] Diagnosis Acute bronchitis due to other specified organisms- Primary Acute bronchitis due to other specified organisms [facility] Diagnosis Diverticulitis of large intestine with perforation and abscess without bleeding documented in this encounter [facility] note* Diagnosis Diverticulitis of large intestine with perforation and abscess without bleeding- Primary Diverticulitis Diverticulitis of colon (without mention of hemorrhage) documented in this encounter [facility] note* Diagnosis Diverticulitis of large intestine with perforation and abscess without bleeding- Primary documented in this encounter [facility] note* Diagnosis Diverticulitis- Primary Diverticulitis of colon (without mention of hemorrhage) documented in this encounter [facility] note* Diagnosis Pre-op examination- Primary Preoperative examination, unspecified Diverticulitis Diverticulitis of colon (without mention of hemorrhage) Hyperlipidemia, unspecified hyperlipidemia type Other specified counseling- Primary Diverticulitis Diverticulitis of colon (without mention of hemorrhage) documented in this encounter [facility] note* Diagnosis Pre-op examination- Primary Preoperative examination, unspecified Diverticulitis Diverticulitis of colon (without mention of hemorrhage) Hyperlipidemia, unspecified hyperlipidemia type Diverticulitis Diverticulitis of colon (without mention of hemorrhage) * Assessment & Plan Note - Maykel Gordon APRN.CNP - 09/30/2024 8:20 AM EDT Associated Problem(s): HLD (hyperlipidemia) Stable on statin - take asprescribed * Assessment & Plan Note - Maykel Gordon APRN.CNP - 09/30/2024 8:19 AM EDT Associated Problem(s): Diverticulitis Surgery scheduled 10/08/24 * Assessment & Plan Note - Maykel Gordon APRN.CNP - 09/30/2024 8:19 AM EDT Associated Problem(s): Pre-op examination Medical conditions which may affect the perioperative course were address in today's visit. [facility] Pre-op examination- Primary Preoperative examination, unspecified Diverticulitis Diverticulitis of colon (without mention of hemorrhage) Hyperlipidemia, unspecified hyperlipidemia type Diverticulitis of large intestine with perforation and abscess without bleeding- Primary [facility] Medication Prior Authorization - Pending Review Specialty Diagnoses / Procedures Referred By Contac t Referred To Contact Josefa Garza MD [address] [place] [address] Phone: tel: fax:[phone] Referral ID Status Reason Start Date Expiration Date V isits Requested Visits Authorized [id number] Pending Review 1 1 [facility] Chief Complaint and Reason for Visit Chief Complaint SCREENING Chief Complaint E78.5 Chief Complaint E78.5 RT KN PAIN/PT HAS RX SCREENING Family History No Family History Records Found Relationship Condition Age at Onset Recorded Date/T gauri mother Cardiac disease Unknown Hypertension Unknown Kidney disorder Unknown Disorder of thyroid Unknown Dementia Unknown Advance Directives No Advanced Directives Records Found Advance Directive Response Recorded Date/ Time Living Will Yes December 29 12:09pm Power of Improvement Rn Yes December 30, 2019 12:09pm Advance Directive Response Recorded Date/ Time Living Will Yes December 29 11:09am Power of Improvement Rn Yes December 30, 2019 11:09am Summary Purpose Additional Source Comments Goals (unrecognized section and content) Goals may be documented in a n alternate sectionGoals may be documented in an alternate sectionGoals may be documented in an alternate sectionGoals may be documented in an alternate sectionGoals may be documented in an alternate sectionGoals may be documented in an alternate section Care Teams (unrecognized sec tion and content) Team Status: Active Member Role Status Dates TREY BERNAL Family Provider Active Dr. Coleen Bernal , DO Primary Care Provider Active Team Status: Inactive Member Role Status Dates Dr. Coleen Bernal , DO Primary Care P hiren Attending Provider, Referring Provider Active Team Status: Inactive Member Role Status Dates Dr. Coleen Bernal , DO Primary Care Provider Active ALEC VICKERS Attending Provider, Referring Provider Ac tive Team Status: Inactive Member Role Status Dates Dr. Coleen Bernal , DO Primary Care Provider Active EMILE YANG Attending Provider, Referring Provider Ac tive Route Supervisor Relationship Specialty Start Date End Date Trey Bernal DO [address] [place] [address] PCP - General 12/09/14 Route Supervisor Relationship Specialty Start Date End Date Trey Bernal DO [address] [place] [address] PCP - General 12/09/14 Route Supervisor Relationship Specialty Start Date End Date Trey Bernal MD [address] [place] [phone] PCP - General Family Medicine 07/10/24 Josefa Garza MD [address] [place], [place] [id number] General Surgery 07/10/24 Route Supervisor Relationship Specialty Start Date End Date Trey Bernal MD [address] [place] [phone] PCP - General Family Medicine 07/10/24 Josefa Garza MD [address] [place], [place] [id number] General Surgery 07/10/24 Route Supervisor Relationship Specialty Start Date End Date Trey Bernal MD [address] [place] [address] PCP - General Family Medicine 07/10/24 Josefa Garza MD [address] [place], [place] [id number] General Surgery 07/10/24 Route Supervisor Relationship Specialty Start Date End Date Trey Bernal MD [address] [place] [phone] PCP - General Family Medicine 07/10/24 Josefa Garza MD [address] [place], [place] [id number] General Surgery 07/10/24 Route Supervisor Relationship Specialty Start Date End Date Trey Bernal MD [address] [place] [phone] PCP - General Family Medicine 07/10/24 Josefa Garza MD [address] [place], [place] [id number] General Surgery 07/10/24 Route Supervisor Relationship Specialty Start Date End Date Trey Bernal MD [address] [place] [phone] PCP - General Family Medicine 07/10/24 Josefa Garza MD [address] [place], [place] [id number] General Surgery 07/10/24 Route Supervisor Relationship Specialty Start Date End Date Trey Bernal MD [address] [place] [address] PCP - General Family Medicine 07/10/24 Josefa Garza MD [address] [place], [place] [id number] General Surgery 07/10/24 Route Supervisor Relationship Specialty Start Date End Date Trey Bernal MD [address] [place] [address] PCP - General Family Medicine 07/10/24 Josefa Garza MD [address] [place], [place] [id number] General Surgery 07/10/24 Route Supervisor Relationship Specialty Start Date End Date Trey Bernal MD [address] [place] [phone] PCP - General Family Medicine 07/10/24 Josefa Garza MD [address] [place], [place] [id number] General Surgery 07/10/24 Route Supervisor Relationship Specialty Start Date End Date Trey Bernal MD [address] [place] [phone] PCP - General Family Medicine 07/10/24 Josefa Garza MD [address] [place], [place] [id number] General Surgery 07/10/24 Route Supervisor Relationship Specialty Start Date End Date Trey Bernal MD [address] [place] [phone] PCP - General Family Medicine 07/10/24 Josefa Garza MD [address] [place], [place] [id number] General Surgery 07/10/24 Route Supervisor Relationship Specialty Start Date End Date Trey Bernal MD [address] [facility] [place] [address] PCP - General Family Medicine 07/10/24 Josefa Garza MD [address] [place], [place] [id number] General Surgery 07/10/24 Route Supervisor Relationship Specialty Start Date End Date Trey Bernal MD [address] [place] [address] PCP - General Family Medicine 07/10/24 Josefa Garza MD [address] [place], [place] [id number] General Surgery 07/10/24 INFORMATION SOURCE (unrecogn ized section and content) DATE CREATED AUTHOR 09/11/2023 [facility] DATE CREATED AUTHOR AUTHOR'S ORGANIZ ATION 06/17/2024 [facility] [place] DATE CREATED AUTHOR AUTHOR'S ORGANIZ ATION 07/15/2024 [facility] DATE CREATED AUTHOR AUTHOR'S ORGANIZ ATION 11/04/2024 [facility] Source Comments (unrecognize d section and content) In the event this informatio n is protected by the Federal Confidentiality of Alcohol and Drug Abuse Patient Records regulations: The Federal rules restrict any use of the information to criminally investigate or prosecute any alcohol or drug abuse patient.[facility] the event this information is protected by the Federal Confidentiality of Alcohol and Drug Abuse Patient Records regulations: The Federal rules restrict any use of the information to criminally investigate or prosecute any alcohol or drug abuse patient.[facility] the event this information is protected by the Federal Confidentiality of Alcohol and Drug Abuse Patient Records regulations: The Federal rules restrict any use of the information to criminally investigate or prosecute any alcohol or drug abuse patient.[facility] the event this information is protected by the Federal Confidentiality of Alcohol and Drug Abuse Patient Records regulations: The Federal rules restrict any use of the information to criminally investigate or prosecute any alcohol or drug abuse patient.[facility] the event this information is protected by the Federal Confidentiality of Alcohol and Drug Abuse Patient Records regulations: The Federal rules restrict any use of the information to criminally investigate or prosecute any alcohol or drug abuse patient.[facility] the event this information is protected by the Federal Confidentiality of Alcohol and Drug Abuse Patient Records regulations: The Federal rules restrict any use of the information to criminally investigate or prosecute any alcohol or drug abuse patient.[facility] the event this information is protected by the Federal Confidentiality of Alcohol and Drug Abuse Patient Records regulations: The Federal rules restrict any use of the information to criminally investigate or prosecute any alcohol or drug abuse patient.[facility] the event this information is protected by the Federal Confidentiality of Alcohol and Drug Abuse Patient Records regulations: The Federal rules restrict any use of the information to criminally investigate or prosecute any alcohol or drug abuse patient.[facility] the event this information is protected by the Federal Confidentiality of Alcohol and Drug Abuse Patient Records regulations: The Federal rules restrict any use of the information to criminally investigate or prosecute any alcohol or drug abuse patient.[facility] the event this information is protected by the Federal Confidentiality of Alcohol and Drug Abuse Patient Records regulations: The Federal rules restrict any use of the information to criminally investigate or prosecute any alcohol or drug abuse patient.[facility] the event this information is protected by the Federal Confidentiality of Alcohol and Drug Abuse Patient Records regulations: The Federal rules restrict any use of the information to criminally investigate or prosecute any alcohol or drug abuse patient.[facility] the event this information is protected by the Federal Confidentiality of Alcohol and Drug Abuse Patient Records regulations: The Federal rules restrict any use of the information to criminally investigate or prosecute any alcohol or drug abuse patient.[facility] the event this information is protected by the Federal Confidentiality of Alcohol and Drug Abuse Patient Records regulations: The Federal rules restrict any use of the information to criminally investigate or prosecute any alcohol or drug abuse patient.[facility] the event this information is protected by the Federal Confidentiality of Alcohol and Drug Abuse Patient Records regulations: The Federal rules restrict any use of the information to criminally investigate or prosecute any alcohol or drug abuse patient.[facility] the event this information is protected by the Federal Confidentiality of Alcohol and Drug Abuse Patient Records regulations: The Federal rules restrict any use of the information to criminally investigate or prosecute any alcohol or drug abuse patient.[facility] Reason for Visit (unrecogniz ed section and content) Reason Comments Consult Reason Comments New Patient Diverticulitis Reason Comments Patient Question Reason Comments Patient Question Patient Update Reason Comments Established Patient Follow up after scop e Reason Comments Patient Update Patient Question Reason Comments Stoma Markings Reason Comments Patient Education Reason Onset Date Comments Hospital Follow Up 10/13/2024 Reason Comments Post Op LAPAROSCOPIC COLECTO MY OF SIGMOID W/ ANASTOMOSIS Reason Onset Date Comments 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 This clinical summary was aggregated from multiple sources. Caution should be exercised in using it in the provision of clinical care. This summary normalizes information from multiple sources, and as a consequence, information in this document may materially change the coding, format and clinical context of patient data. In addition, data may be omitted in some cases. CLINICAL DECISIONS SHOULD BE BASED ON THE PRIMARY CLINICAL RECORDS. [facility], [facility]. provides no warranty or guarantee of the accuracy or completeness of information in this document.
--- OUTSIDE RECORDS SUMMARY | 2024-12-31 11:06 | XMS RPT_ITS | CCD ---
Author Organization [facility] Care Team Providers Care Nodulizer Name Role Phone Trey Bernal DO Primary Care Provider TREY BERNAL Referring Unavailable TREY BERNAL Attending [...] Coleen Bernal [facility] Unavailable Trey Bernal MD Primary Care Provider Josefa Garza MD Unavailable JOSEFA GARZA Attending Unavailable JOSEFA GARZA Referring Unavailable EMILE, TREY SHEPPARDIAN Primary Care Unavailable JOSEFA GARZA Referring Unavailable EMILE, TREY ELAM Primary Care Unavailable JOSEFA GARZA Referring Unavailable EMILE, TREY ADVENTIST Primary Care Unavailable CHAPARRITA GARZAZABETH Admitting Unavailable JOSEFA GARZA Attending Unavailable JOSEFA GARZA Referring Unavailable EMILE, TREY ADVENTIST Primary Care Unavailable JOSEFA GARZA Attending Unavailable COOK, TREY ADVENTIST Primary Care Unavailable JOSEFA GARZA Attending Unavailable TREY BERNAL ADVENTIST Primary Care Unavailable JOSEFA GARZA Attending Unavailable EMILE, TREY ADVENTIST Primary Care Unavailable Allergies Allergy Classification Reported Allergen(s) Allergy Type Date of Onset Reaction(s) Facility (20 sources) Codeine; Translations: [CODEINE] Drug Allergy 02-03-2020 GI Upset [facility] (1 source) Codeine Drug Allergy 02-03-2020 [facility] Repository Medications Current Medications Medication Drug [...] Test Name Value Interpretation Reference Range Facility [facility] 11-03-2024 CNPN Telephone ([facility]) -------- ECLI FARMER ([id number]) 1960 F Date Time Provider Department 11/03/24 LISBET CARRIZALES During your visit today, we recorded the following information about you: Lisbet Carrizales RN 11/03/2024 2:45 PM Signed [facility] 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 SUPERVISOR ONE MONTH FOLLOW UP PHONE CALL PHONE [...] RN DATE: 11/03/2024 TIME: 2:44 PM CONTACT #:[phone] Allergies As of Date: 11/03/2024 Noted Allergy Reaction CODEINE 07/10/2024 8 - GI Upset Date Reviewed: 10/24/2024 Reviewed by: Stella Cunningham MA - Fully Assessed 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 Colon AND Rectal Surgery 1 [facility], [address] [place] [id number] CC: Postop, status post low anterior resection HPI: Celi Farmer is a 64 year old White female who has a history of complicated diverticulitis. She was previously admitted to a hospital in [place] with a pelvic abscess secondary to diverticulitis. [...] for compli (more content not included)... Normal [facility] [place] [facility] -------- CELI FARMER ([id number]) 1960 F Date Time Provider Department 10/16/24 LISBET CARRIZALES3 During your visit today, we recorded the following information about you: Allergies As of Date: 10/16/2024 Noted Allergy Reaction CODEINE 07/10/2024 8 - GI Upset Date Reviewed: 10/08/2024 Reviewed by: Yazmin Barndt RN - Fully Assessed Reason for Visit: [...] Encounter Status:Closed by LISBET CARRIZALES on 10/16/24 [facility] Jonas 10-13-2024 CNPN Telephone (AGGENS3) -------- CELI FARMER ([id number]) 1960 F Date Time Provider Department 10/13/24 LISBET CARRIZALES AGGENS3 During your visit today, we recorded the following information about you: Lisbet Carrizales RN 10/13/2024 2:07 PM Signed GENERAL SURGERY/ERAS BOATBUILDER SUPERVISOR DISCHARGE FOLLOW UP PHONE CALL Phone Call [...] 13, 2024 TIME: 2:06 PM PAGER/CONTACT #: [phone] Allergies As of Date: 10/13/2024 Noted Allergy [...] Encounter Status:Closed by LISBET CARRIZALES on 10/13/24 [facility] ALLIED HEALTHon 10-10-2024 ALLIED HEALTH HNO ID: [id number] Author: LISBET CARRIZALES RN Service: General Surgery Author Type: Registered Nurse Type: Allied Health Filed: 10/10/2024 08:19 Note Text: GENERAL SURGERY/ERAS BOATBUILDER SUPERVISOR NOTE SERVICE DATE: 10/10/2024 SERVICE TIME: 8:16 [...] 10, 2024 TIME: 8:16 AM PAGER/CONTACT #: [phone] Normal [facility] Basic metabolic 2000 panelon 10-10-2024 Anion gap [Moles/Vol] 9 mmol/L Normal 8-15 [facility] Comment on above: Order Comment: Speci men Type: BLOOD SPECIMENOrdering Facility: [facility] Address: [address] [place] [address] Performed By: #### 2 4321-2 ####[facility]ORYCLIA [id number] [place] [address] [place] Calcium [Mass/Vol] 8.7 mg/dL Normal 8.5-10.2 [facility] Comment on above: Order Comment: Speci men Type: BLOOD SPECIMENOrdering Facility: [facility] Address: [address] [place] [address] Performed By: #### 2 4321-2 ####[facility]ATORYCLIA [id number] [place] [address] [place] Chloride [Moles/Vol] 106 mmol/L Normal 98-107 [facility] Comment on above: Order Comment: Speci men Type: BLOOD SPECIMENOrdering Facility: [facility] Address: [address] [place] [address] Performed By: #### 2 4321-2 ####[facility]ORYCLIA [id number] [place] [address] [place] CO2 [Moles/Vol] 26 mmol/L Normal 22-30 [facility] Comment on above: Order Comment: Speci men Type: BLOOD SPECIMENOrdering Facility: [facility] Address: [address] [place] [address] Performed By: #### 2 4321-2 ####[facility]ORYCLIA [id number] [place] [address] [place] Creatinine [Mass/Vol] 0.81 mg/dL Normal 0.58-0.96 [facility] Comment on above: Order Comment: Speci men Type: BLOOD SPECIMENOrdering Facility: [facility] Address: [address] [place] [address] Performed By: #### 2 4321-2 ####[facility]ORYCLIA [id number] [place] [address] [place] eGFRcr SerPlBld CKD-EPI 2020 80 mL/min/1.73m??? Normal >=60 [facility] Comment on above: Order Comment: Speci men Type: BLOOD SPECIMENOrdering Facility: [facility] Address: [address] [place] [address] Result Comment: Molly mated Glomerular Filtration Rate [...] actual GFR. Performed By: #### 2 4321-2 ####[facility]ORYCLIA [id number] [place] [address] [place] Glucose [Mass/Vol] 93 mg/dL Normal 74-99 [facility] Comment on above: Order Comment: Speci men Type: BLOOD SPECIMENOrdering Facility: [facility] Address: [address] [place] [address] Result Comment: The [place] Diabetes Association (ADA) provides guidance for cutoff [...] Standards of Medical Care in Diabetes 2016, [place] [employer]. Diabetes Care. 2016.39(Suppl 1). Performed By: #### 2 4321-2 ####[facility]ATORYCLIA [id number] [place] [address] [place] Potassium [Moles/Vol] 4.3 mmol/L Normal 3.7-5.1 [facility] Comment on above: Order Comment: Speci men Type: BLOOD SPECIMENOrdering Facility: [facility] Address: [address] [place] [id number] Performed By: #### 2 4321-2 ####[facility]ATORYCLIA [id number] [place] [id number] [place] Sodium [Moles/Vol] 141 mmol/L Normal 136-144 [facility] Comment on above: Order Comment: Speci men Type: BLOOD SPECIMENOrdering Facility: [facility] Address: [address] [place] [address] Performed By: #### 2 4321-2 ####[facility]ORYCLIA [id number] [address] Urea nitrogen [Mass/Vol] 9 mg/dL Normal 7-21 [facility] Comment on above: Order Comment: Speci men Type: BLOOD SPECIMENOrdering Facility: [facility] Address: [address] [place] [address] Performed By: #### 2 4321-2 ####[facility]ORYCLIA [id number] [address] CBC panel Auto (Bld)on 10-10 Erythrocyte distribution width (RBC) [Ratio] 13.9 % Normal 11.5-15.0 [facility] Comment on above: Order Comment: Speci men Type: BLOOD SPECIMENOrdering Facility: [facility] Address: [address] [place] [address] Performed By: #### 5 8410-2 ####[facility]ORYCLIA [id number] [address] Hematocrit (Bld) [Volume fraction] 40.9 % Normal 36.0-46.0 [facility] Comment on above: Order Comment: Speci men Type: BLOOD SPECIMENOrdering Facility: [facility] Address: [address] [place] [address] Performed By: #### 5 8410-2 ####[facility]ATORYCLIA [id number] [address] Hemoglobin (Bld) [Mass/Vol] 12.9 g/dL Normal 11.5-15.5 [facility] Comment on above: Order Comment: Speci men Type: BLOOD SPECIMENOrdering Facility: [facility] Address: [address] [place] [address] Performed By: #### 5 8410-2 ####[facility]ORYCLIA [id number] [address] MCH (RBC) [Entitic mass] 29.5 pg Normal 26.0-34.0 [facility] Comment on above: Order Comment: Speci men Type: BLOOD SPECIMENOrdering Facility: [facility] Address: [address] [place] [address] Performed By: #### 5 8410-2 ####[facility]ORYCLIA [id number] [address] [place] MCHC (RBC) [Mass/Vol] 31.5 g/dL Normal 30.5-36.0 [facility] Comment on above: Order Comment: Speci men Type: BLOOD SPECIMENOrdering Facility: [facility] Address: [address] [place] [address] Performed By: #### 5 8410-2 ####[facility]ATORYCLIA [id number] [address] MCV (RBC) [Entitic vol] 93.6 fL Normal 80.0-100.0 [facility] Comment on above: Order Comment: Speci men Type: BLOOD SPECIMENOrdering Facility: [facility] Address: [address] [place] [address] Performed By: #### 5 8410-2 ####[facility]ORYCLIA [id number] [address] Nucleated RBC (Bld) [#/Vol] 10*3/uL Normal <0.01 [facility] Comment on above: Order Comment: Speci men Type: BLOOD SPECIMENOrdering Facility: [facility] Address: [address] [place] [address] Performed By: #### 5 8410-2 ####[facility]ORYCLIA [id number] [address] Platelet mean volume (Bld) [Entitic vol] 9.5 fL Normal 9.0-12.7 [facility] Comment on above: Order Comment: Speci men Type: BLOOD SPECIMENOrdering Facility: [facility] Address: [address] [place] [address] Performed By: #### 5 8410-2 ####[facility]ORYCLIA [id number] [address] Platelets (Bld) [#/Vol] 221 10*3/uL Normal 150-400 [facility] Comment on above: Order Comment: Speci men Type: BLOOD SPECIMENOrdering Facility: [facility] Address: [address] [place] [address] Performed By: #### 5 8410-2 ####[facility]ORYCLIA [id number] [address] RBC (Bld) [#/Vol] 4.37 10*6/uL Normal 3.90-5.20 [facility] Comment on above: Order Comment: Speci men Type: BLOOD SPECIMENOrdering Facility: [facility] Address: [address] [place] [address] Performed By: #### 5 8410-2 ####[facility]ORYCLIA [id number] [address] WBC (Bld) [#/Vol] 7.17 10*3/uL Normal 3.70-11.00 [facility] Comment on above: Order Comment: Speci men Type: BLOOD SPECIMENOrdering Facility: [facility] Address: [address] [place] [address] Performed By: #### 5 8410-2 ####[facility]ATORYCLIA [id number] [address] CNDSon 10-10-2024 CNDS HNO ID: [id number] Author: JOSEFA GARZA MD Service: General Surgery [...] will arrange outpatient follow up. Signature: Josefa Garza MD Date: 10/10/2024 Time: 1:58 PM -------- [...] Your Medications These medications were sent to [facility] [address] [place] [address] Hours: Sunday-Sunday, 8am-7pm, Sunday 9am-1pm traMADol 50 [...] October 10, 2024 TIME: 7:35 AM Normal [facility] Basic metabolic 2000 panelon 10-09-2024 Anion gap [Moles/Vol] 8 mmol/L Normal 8-15 [facility] Comment on above: Order Comment: Speci men Type: BLOOD SPECIMENOrdering Facility: [facility] Address: [address] [place] [address] Performed By: #### 2 4321-2 ####[facility]ATORYCLIA [id number] [place] [address] [place] Calcium [Mass/Vol] 8.8 mg/dL Normal 8.5-10.2 [facility] Comment on above: Order Comment: Speci men Type: BLOOD SPECIMENOrdering Facility: [facility] Address: [address] [place] [address] Performed By: #### 2 4321-2 ####[facility]ORYCLIA [id number] [place] [address] [place] Chloride [Moles/Vol] 105 mmol/L Normal 98-107 [facility] Comment on above: Order Comment: Speci men Type: BLOOD SPECIMENOrdering Facility: [facility] Address: [address] [place] [address] Performed By: #### 2 4321-2 ####[facility]ATORYCLIA [id number] [place] [address] [place] CO2 [Moles/Vol] 24 mmol/L Normal 22-30 [facility] Comment on above: Order Comment: Speci men Type: BLOOD SPECIMENOrdering Facility: [facility] Address: [address] [place] [address] Performed By: #### 2 4321-2 ####[facility]ORYCLIA [id number] [place] [address] [place] Creatinine [Mass/Vol] 0.78 mg/dL Normal 0.58-0.96 [facility] Comment on above: Order Comment: Speci men Type: BLOOD SPECIMENOrdering Facility: [facility] Address: [address] [place] [address] Performed By: #### 2 4321-2 ####[facility] COUNTYCLIA [id number] [place] [id number] [facility] eGFRcr SerPlBld CKD-EPI 2020 84 mL/min/1.73m??? Normal >=60 [facility] Comment on above: Order Comment: Min jacob Type: BLOOD SPECIMENOrdering Facility: [facility] Address: [address] [place] [address] Result Comment: Molly mated Glomerular Filtration Rate [...] actual GFR. Performed By: #### 2 4321-2 ####[facility]ENTERIA [id number] [address] [place] Glucose [Mass/Vol] 126 mg/dL High 74-99 [facility] Comment on above: Order Comment: Min jacob Type: BLOOD SPECIMENOrdering Facility: [facility] Address: [address] [place] [address] Result Comment: The [place] Diabetes Association (ADA) provides guidance for cutoff [...] Standards of Medical Care in Diabetes 2016, [place] [employer]. Diabetes Care. 2016.39(Suppl 1). Performed By: #### 2 4321-2 ####[facility] CENTERIA [id number] [place] [id number] [place] Potassium [Moles/Vol] 4.6 mmol/L Normal 3.7-5.1 [facility] Comment on above: Order Comment: Speci men Type: BLOOD SPECIMENOrdering Facility: [facility] Address: [address] [place] [address] Performed By: #### 2 4321-2 ####[facility]ORYCLIA [id number] [address] [place] Sodium [Moles/Vol] 137 mmol/L Normal 136-144 [facility] Comment on above: Order Comment: Speci men Type: BLOOD SPECIMENOrdering Facility: [facility] Address: [address] [place] [address] Performed By: #### 2 4321-2 ####[facility]ORYCLIA [id number] [address] STATES [facility] Urea nitrogen [Mass/Vol] 10 mg/dL Normal 7-21 [facility] Comment on above: Order Comment: Speci men Type: BLOOD SPECIMENOrdering Facility: [facility] Address: [address] [place] [address] Performed By: #### 2 4321-2 ####[facility]ORYCLIA [id number] [address] CBC panel Auto (Bld)on 10-09 Erythrocyte distribution width (RBC) [Ratio] 14.2 % Normal 11.5-15.0 [facility] Comment on above: Order Comment: Speci men Type: BLOOD SPECIMENOrdering Facility: [facility] Address: [address] [place] [address] Performed By: #### 5 8410-2 ####[facility]ORYCLIA [id number] [address] Hematocrit (Bld) [Volume fraction] 41.8 % Normal 36.0-46.0 [facility] Comment on above: Order Comment: Speci men Type: BLOOD SPECIMENOrdering Facility: [facility] Address: [address] [place] [address] Performed By: #### 5 8410-2 ####[facility]ORYCLIA [id number] [address] OF [facility] Hemoglobin (Bld) [Mass/Vol] 14.0 g/dL Normal 11.5-15.5 [facility] Comment on above: Order Comment: Speci men Type: BLOOD SPECIMENOrdering Facility: [facility] Address: [address] [place] [address] Performed By: #### 5 8410-2 ####[facility]ORYCLIA [id number] [address] MCH (RBC) [Entitic mass] 30.4 pg Normal 26.0-34.0 [facility] Comment on above: Order Comment: Speci men Type: BLOOD SPECIMENOrdering Facility: [facility] Address: [address] [place] [address] Performed By: #### 5 8410-2 ####[facility]ORYCLIA [id number] [address] MCHC (RBC) [Mass/Vol] 33.5 g/dL Normal 30.5-36.0 [facility] Comment on above: Order Comment: Speci men Type: BLOOD SPECIMENOrdering Facility: [facility] Address: [address] [place] [address] Performed By: #### 5 8410-2 ####[facility]ORYCLIA [id number] [address] MCV (RBC) [Entitic vol] 90.9 fL Normal 80.0-100.0 [facility] Comment on above: Order Comment: Speci men Type: BLOOD SPECIMENOrdering Facility: [facility] Address: [address] [place] [address] Performed By: #### 5 8410-2 ####[facility]ORYCLIA [id number] [address] Nucleated RBC (Bld) [#/Vol] 10*3/uL Normal <0.01 [facility] Comment on above: Order Comment: Speci men Type: BLOOD SPECIMENOrdering Facility: [facility] Address: [address] [place] [address] Performed By: #### 5 8410-2 ####[facility]ORYCLIA [id number] [address] [place] Platelet mean volume (Bld) [Entitic vol] 9.4 fL Normal 9.0-12.7 [facility] Comment on above: Order Comment: Speci men Type: BLOOD SPECIMENOrdering Facility: [facility] Address: [address] [place] [address] Performed By: #### 5 8410-2 ####[facility]ORYCLIA [id number] [address] [place] Platelets (Bld) [#/Vol] 232 10*3/uL Normal 150-400 [facility] Comment on above: Order Comment: Speci men Type: BLOOD SPECIMENOrdering Facility: [facility] Address: [address] [place] [address] Performed By: #### 5 8410-2 ####[facility]ORYCLIA [id number] [place] [address] [place] RBC (Bld) [#/Vol] 4.60 10*6/uL Normal 3.90-5.20 [facility] Comment on above: Order Comment: Speci men Type: BLOOD SPECIMENOrdering Facility: [facility] Address: [address] [place] [address] Performed By: #### 5 8410-2 ####[facility]ORYCLIA [id number] [address] [place] WBC (Bld) [#/Vol] 12.47 10*3/uL High 3.70-11.00 [facility] Comment on above: Order Comment: Speci men Type: BLOOD SPECIMENOrdering Facility: [facility] Address: [address] [place] [address] Performed By: #### 5 8410-2 ####[facility]ATORYCLIA [id number] [place] [address] [place] ANES POSTPROC EVALon 025 ANES POSTPROC EVAL HNO ID: [id number] Author: SILAS HENDERSON DO Service: Anesthesiology Author Type: Anesthesiologist Type: Anesthesia Postprocedure Evaluation Filed: 10/08/2024 20:15 Note Text: POST ANESTHESIA EVALUATION NOTE : 1960 Procedure Summary Date: 10/08/24 Room / Location: MI OR / MI OR Anesthesia Start: 1434 Anesthesia Stop: 183 [...] October 08, 2024 TIME: 8:15 PM CSN: [id number] Normal [facility] ANES PRE-OPon 10-08-2024 ANES PRE-OP HNO ID: [id number] Author: PHILIP HAND MD Service: Anesthesiology Author [...] October 08, 2024 TIME: 12:08 PM CSN: [id number] [facility] BRIEF OP NOTon 10-08-2024 BRIEF OP NOT HNO ID: [id number] Author: JOSEFA GARZA MD Service: General Surgery [...] BRIEF OPERATIVE / PROCEDURE NOTE LOG ID: [id number] SURGERY/PROCEDURE DATE: 10/08/2024 INCISION/PROCEDURE START TIME: 3:19 PM INCISION CLOSE/PROCEDURE END TIME: 6:16 PM SURGEON(S)/PROCEDURALIST (S) AND PACKAGE DESIGNER(S): Surgeons and Role: * Josefa Garza MD - Primary * Roshni Mcrae DO - Resident - Assisting Strategic Planning Specialist: Rm Bah SA Strategic Planning Specialist (Relief): Fransisca Mar SA SURGERY/PROCEDURE(S): laparoscopic robotic [...] DATE: October 09, 2024 TIME: 6:10 AM [facility] OPERATIVE NOon 10-08-2024 OPERATIVE NO HNO ID: [id number] Author: JOSEFA GARZA MD Service: General Surgery Author Type: Physician Type: Operative Report Filed: 10/09/2024 10:14 Note Text: OPERATIVE REPORT Log ID: [id number] Surgery Date: 10/08/2024 Incision/Procedure Start Time: 3:19 PM Incision Close/Procedure End Time: 6:16 PM Surgeon(s) and Associate Professor Of Management(s): Surgeons and Role: * Josefa Garza MD [...] using a (more content not included)... Normal [facility] Pathology biopsy report Maksim (Tiss)on 10-08-2024 AP DISCLAIMER Normal [facility] Comment on above: Order Comment: Speci men Type: TISSUE SPECIMENOrdering Facility: [facility] Address: [address] [place] [address] Result Comment: Carl العراقي Test (LDT) Disclaimer: Performance characteristics of immunohistochemical, immunofluorescent, and chromogenic in-situ hybridization tests have been determined by the performing laboratory within [facility]'s [facility] Pathology and Laboratory Medicine Department ([facility], [facility], [facility], [facility], [facility], [facility], or [facility]) in a manner consistent with CLIA requirements. One or more of these tests may not have been cleared or approved by the FDA. [facility] is regulated under CLIA as qualified to perform high-complexity testing. These tests are used for clinical purposes. These should not be regarded as investigational or for research. Positive and negative controls stain appropriately. Performed By: #### 6 6121-5 ####[facility]ENTER[facility] [id number] [address] CASE REPORT Normal [facility] Comment on above: Order Comment: Specjones jacob Type: TISSUE SPECIMENOrdering Facility: [facility] Address: [address] [place] [address] Result Comment: Surg [facility] Pathology Report Case: [id number] Authorizing Provider: Josefa Garza MD Collected: 10/08/2024 05:38 PM Ordering Location: [facility] Received: 10/09/2024 08:25 AM Pathologist: Sushma Irby MD Specimen: Colon, Sigmoid, Resection, Sigmoid colon Performed By: #### 6 6121-5 ####[facility] LABORATORYCLIA [id number] [address] OF [place] CLINICAL HISTORY Normal [facility] Comment on above: Order Comment: Speci cecil Type: TISSUE SPECIMENOrdering Facility: [facility] Address: [address] [place] [address] Result Comment: Pre- op diagnosis: Diverticulitis [K57.92] Performed By: #### 6 6121-5 ####[facility] LABORATORYCLIA [id number] [address] FINAL DIAGNOSIS Normal [facility] Comment on above: Order Comment: Speci men Type: TISSUE SPECIMENOrdering Facility: [facility] Address: [address] [place] [address] Result Comment: A. S igmoid colon, robotic laparoscopic sigmoid colectomy: -- Diverticular disease with small focus of active serosal inflammation. -- One benign lymph node. -- No evidence of malignancy. at 1533 EDT Performed By: #### 6 6121-5 ####[facility] LABORATORYCLIA [id number] [address] FINAL PERFORMING LAB Normal [facility] Comment on above: Order Comment: Speci men Type: TISSUE SPECIMENOrdering Facility: [facility] Address: [address] [place] [address] Result Comment: Diag nostic interpretation performed at: [facility], [address] [place] [address] CLIA# [id number] Operations Controller: Fazal Olivarez MD Performed By: #### 6 6121-5 ####[facility] LABORATORYCLIA [id number] [address] GROSS DESCRIPTION Normal [facility] Comment on above: Order Comment: Min jacob Type: TISSUE SPECIMENOrdering Facility: [facility] Address: [address] [place] [address] Result Comment: Jason castañeda, Sigmoid, Resection Received [...] in size from 0.6 to 0.8 cm. Education Intern sections are submitted as follows: A1: Both mucosal margins, perpendicular A2-A3: Diverticula A4: 2 possible lymph nodes, intact Gross examination performed at [facility], [address] [place] [address] CLIA#[id number] OLS October 09, 2024 12:23 PM Performed By: #### 6 6121-5 ####[facility] LABORATORYCLIA [id number] [place] [id number] [facility] CNOVon 10-01-2024 CNOV Office Visit (AKWO) -------- CELI FARMER ([id number]) 1960 F Date Time Provider Department 10/01/24 [...] 11:20 AM CONTACT#: [id number] Referring Provider: JOSEFA GARAZ [[id number]] Allergies As of Date: 10/01/2024 Noted Allergy [...] Status:Closed by KRISTYN JACKSON on 10/01/24 Normal [facility] HISTORY PHYSICALon HISTORY PHYSICAL HNO ID: [id number] Author: MAYKEL GORDON APRN.CNP Service: ? Author [...] 64 year old female who presents to [facility] for the above procedure. Patient reports abdominal pain 06/2024 with hospital admission in [place]. A CT scan demonstrated - sigmoid diverticulitis [...] fibrillation, CAD, chest pain, DVT/PE and recent KS. GI: Positive for: diverticulitis Negative for: abdominal pain, dysphagia, hepatitis, nausea, vomiting and ETOH >2 drinks/day. : Negative for: dysuria, hematuria, urinary incontinence and renal failure. DIGITAL PRODUCTION MANAGER: Negative for abnormal vaginal bleeding, abnormal vaginal [...] SURGICAL HISTORY O (more content not included)... [facility] CNPNon 08-19-2024 CNPN Telephone (AGGENS3) -------- CELI FARMER ([id number]) 1960 F Date Time Provider Department 08/19/24 JOSEFA GARZA3 During your visit today, we recorded the following information about you: Allergies As of Date: 08/19/2024 Noted Allergy Reaction CODEINE 07/10/2024 8 - GI Upset Date Reviewed: 08/14/2024 Reviewed by: Stella Cunningham MA - Fully Assessed Reason for Visit: Patient Update [1234] Patient Question [2877] Prescriptions as of 08/19/2024 - metroNIDAZOLE (FLAGYL) [...] Encounter Status:Closed by STELLA CUNNINGHAM on 08/19/24 [facility] CNOVon 08-14-2024 CNOV Office Visit (AGGENS U) -------- CELI FARMER ([id number]) 1960 F Date Time Provider Department 08/14/24 10:30 AM JOSEFA GARZA During your visit today, we recorded the following information about you: Pulse Blood pressure Weight 62/minute 125/74 59.4 kg Josefa Garza MD 08/14/2024 11:33 AM Signed Josefa Garza M.D. Colon AND Rectal Surgery 1 [facility], [address] [place] [address] CC: complicated diverticulitis HPI: Celi Farmer is a 64 year old White female who was initially admitted to an outside hospital in [place] from June 08 to June 11, 2024, [...] reflection. Assess (more content not included)... Normal [facility] ANES POSTPROC EVALon 025 ANES POSTPROC EVAL HNO ID: [id number] Author: PHILIP HAND MD Service: Anesthesiology Author Type: Physician Type: Anesthesia Postprocedure Evaluation Filed: 08/01/2024 14:31 Note Text: POST ANESTHESIA EVALUATION NOTE : 1960 Procedure Summary Date: 08/01/24 Room / Location: [facility] Anesthesia Start: 1343 Anesthesia Stop: 1413 Procedure: [...] August 01, 2024 TIME: 2:30 PM CSN: [id number] Normal [facility] ANES PRE-OPon 08-01-2024 ANES PRE-OP HNO ID: [id number] Author: PHILIP HAND MD Service: Anesthesiology Author Type: Physician Type: Anesthesia Preprocedure Evaluation Filed: 08/01/2024 13:37 Note Text: ANESTHESIOLOGY DAY OF SURGERY NOTE : 1960 Procedure Information Date/Time: 08/01/24 1330 Scheduled providers: Josefa Garza MD Procedure: COLONOSCOPY DIAGNOSTIC Location: [facility] Estimated body mass index is 25.32 kg/m? [...] August 01, 2024 TIME: 1:31 PM CSN: [id number] Normal [facility] Colonoscopyon 08-01-2024 Colonoscopy [facility] Gastrointestinal Endoscopy Patient Name: Celi Farmer Procedure Date: 08/01/2024 1:34 PM Date of : 1960 Admit Type: Outpatient Room: [place] [address] Gender: Female Note Status: Finalized Attending MD: [...] by the physician, the nurse and the head bander and liner operator in the procedure room. Mental Status Examination: [...] antiplatelet agents. Procedure Code(s): --- Professional --- 25794, Colonoscopy, flexible; diagnostic, including collection of specimen(s) by brushing or washing, when performed (separate procedure) --- Technical --- 57997, Colonoscopy, flexible; diagnostic, including collection of specimen(s) by brushing or washing, when performed (separate procedure) CPT copyright 2020 [employer]. All rights reserved. The codes documented in this report are preliminary and upon geology instructor review may be revised to meet current compliance requirements. Attending Participation: I personally performed the entire procedure. Scope In: 1:53:41 PM Scope Out: 2:09:24 PM JOSEFA GARZA M.D. Josefa Garza, 08/01/2024 2:25:58 PM This report has been signed electronically by Josefa Garza Number of Addenda: 0 Note Initiated On: 08/01/2024 1:34 PM [facility] CNPNon 07-14-2024 CNPN Telephone (AVELINO3) -------- DARIANCELI ([id number]) 1960 F Date Time Provider Department 07/14/24 [...] Fully Assessed Reason for Visit: Patient Question [7807] Prescriptions as of 07/16/2024 - atorvastatin (LIPITOR) [...] Encounter Status:Closed by BRIONNA VYAS on 07/16/24 [facility] CNOVon 07-10-2024 CNOV Office Visit (AVELINO U) -------- CELI FARMER ([id number]) 1960 F Date Time Provider Department 07/10/24 10:00 AM JOSEFA GARZA During your visit today, we recorded the following information about you: Pulse Blood pressure Weight Height 71/minute 124/66 60.8 kg 1.549 m Josefa Garza MD 07/10/2024 10:52 AM Signed Josefa Garza M.D. Colon AND Rectal Surgery 1 [facility], [facility] [address] [place] [address] Recording using miDrive software for draft documentation of the visit was discussed with the patient/authorized roofing sales representative; all questions welcomed and answered. Patient/authorized roofing sales representative agreed to proceed CC: complicated diverticulitis HPI: Celi Farmer is a 64 year old White female presenting for follow-up after a recent hospitalization for sigmoid diverticulitis with a contained abscess. Patient was initially admitted to an outside hospital in [place] from June 08 to June 11, 2024, [...] a low- (more content not included)... Normal [facility] Lipid Profileon 07-07-2024 CHOL:HDL 3.05 Normal [facility] Comment on above: Performed By: #### L 506.1001, L500.4100, L500.3400 #### [facility] Laboratory [address] [place], [address] Cholesterol [Mass/Vol] 179 mg/dL Normal <=200 [facility] Comment on above: Result Comment: Chol esterol level, Desirable <200 mg/dL Borderline high cholesterol 200-239 mg/dL High cholesterol >=240 mg/dL Recommendations of the NCEP Adult Treatment Panel for the following risk-cutoff thresholds for the [place] population. Performed By: #### L 506.1001, L500.4100, L500.3400 #### [facility] [address] [place], [address] Cholesterol in HDL [Mass/Vol] 59 mg/dL Normal [facility] Comment on above: Result Comment: Brianne onal Cholesterol Education Program (NCEP) guidelines: <40 mg/dL: Low HDL-cholesterol (major risk factor for CHD) >= 60 mg/dL: High HDL-cholesterol (negative risk factor for CHD) HDL-cholesterol is affected by a number of factors, e.g. smoking, exercise, hormones, sex and age. Performed By: #### L 506.1001, L500.4100, L500.3400 #### [facility] [address] [place], [address] Cholesterol in LDL [Mass/Vol] 103 mg/dL Normal [facility] Comment on above: Result Comment: Bord alfjbw=030-317 mg/dL Higher Gemc=634 mg/dL or greater Performed By: #### L 506.1001, L500.4100, L500.3400 #### [facility] [address] [place], [address] Cholesterol in VLDL [Mass/Vol] 17 mg/dL Normal 5-40 [facility] Comment on above: Performed By: #### L 506.1001, L500.4100, L500.3400 #### [facility] [address] [place], [address] Triglyceride [Mass/Vol] 85 mg/dL Normal [facility] Comment on above: Result Comment: The drugs N-Acetylcysteine and Metamizole may falsely depress this assay. Normal range: <150 mg/dL Borderline High: 150-199 mg/dL High: 200-499 mg/dL Very High: >500 mg/dL Performed By: #### L 506.1001, L500.4100, L500.3400 #### [facility] [address] [place], [address] Liver Profileon 07-07-2024 Albumin [Mass/Vol] 4.1 g/dL Normal 3.4-4.8 [facility] Comment on above: Performed By: #### L 506.1001, L500.4100, L500.3400 #### [facility] [address] [place], [address] ALK PHOS 66 U/L Normal 35-104 [facility] Comment on above: Performed By: #### L 506.1001, L500.4100, L500.3400 #### [facility] [address] [place], [address] ALT [Catalytic activity/Vol] 22 U/L Normal <=34 [facility] Comment on above: Performed By: #### L 506.1001, L500.4100, L500.3400 #### [facility] [address] [place], [address] AST [Catalytic activity/Vol] 28 U/L Normal <=31 [facility] Comment on above: Performed By: #### L 506.1001, L500.4100, L500.3400 #### [facility] [address] [place], [address] Bilirubin [Mass/Vol] 0.36 mg/dL Normal 0.00-1.30 [facility] Comment on above: Performed By: #### L 506.1001, L500.4100, L500.3400 #### [facility] [address] [place], [address] Bilirubin.direct [Mass/Vol] 0.16 mg/dL Normal 0.00-0.30 [facility] Comment on above: Performed By: #### L 506.1001, L500.4100, L500.3400 #### [facility] [address] [place], [address] Globulin (S) [Mass/Vol] 3.2 g/dL Normal 2.2-4.2 [facility] Comment on above: Performed By: #### L 506.1001, L500.4100, L500.3400 #### [facility] [address] [place], [address] T PROT 7.3 g/dL Normal 5.9-8.4 [facility] Comment on above: Performed By: #### L 506.1001, L500.4100, L500.3400 #### [facility] Laboratory [address] [place], [address] Vitamin D,25 Hydroxyon 07-07 Vitamin D 25-OH 51.8 ng/mL Normal 30-100 [facility] Comment on above: Result Comment: Joselyn min D Status Deficiency: <20 ng/mL (50nmol/L) Insufficiency: 20-30 ng/mL (50-75 nmol/L) Sufficiency: 30-100 ng/mL (75-250 nmol/L) Toxicity: >100 ng/mL (>250 nmol/L) Performed By: #### L 500.3400, L501.9520, L506.1000, L400.2011, L500.2500, L100.0100, L500.4100 #### [facility] [address] [place], [address] [facility] 07-03-2024 [facility] Telephone (AGGENS3) -------- CELI FARMER ([id number]) 1960 F Date Time Provider Department 07/03/24 ANDER RODRIGUES3 During your visit today, we recorded the following information about you: Stella Cunningham MA 07/03/2024 10:47 AM Signed [place] and is scheduled for fistula gram scheduled for 07/04. Patient would like to know if she should proceed with this testing. Patient is scheduled for 07/[address] Garza. Please advise. Stella Cunningham MA Allergies As of Date: 07/03/2024 (Not on File) Date Reviewed: Never Reviewed Reason for Visit: Patient Question [1214] Patient Update [6424] Prescriptions as of 07/25/2024 - atorvastatin (LIPITOR) [...] Encounter Status:Closed by STELLA CUNNINGHAM on 07/25/24 [facility]20[facility] ([facility] -------- CELI FARMER ([id number]) 1960 F Date Time Provider Department 06/16/24 [...] Encounter Status:Closed by KATLYN JUNIOR on 06/16/24 [facility] SCRN MAMM (CAD)W/BAILEY BILATo n 03-14-2024 SCRN MAMM (CAD)W/BAILEY BILAT [facility] Imaging Services [address] [place] [id number] SCRN MAMM (CAD)W/BAILEY BILAT MR#: [id number] Acct: [id number] Name: CELI FARMER CONNIE Rep #: [id number] : 1960 F 63 From: Huber Le MD PCP: Dr. Coleen Bernal DO Status: REG CLI Study: SCRN MAMM (CAD)W/BAILEY BILAT Date of Exam: 06/03 Exam# [id number] Ordering Dr: Coleen Bernal DO [id number] MAMMOGRAPHY - BILATERAL SCREENING 3-D TOMOSYNTHESIS REASON [...] 14:53 EST , CC: Dr. Coleen Bernal, Hand Marker: Signed Normal [facility] Basic Metabolic Profile (BMP )on 12-21-2023 BUN/CRE 17.3 RATIO Normal - [facility] Comment on above: Performed By: #### L 500.3400, L501.9520, L506.1000, L400.2010, L500.2500, L100.0100, L500.4100 #### [facility] Laboratory [address] [place], [address] CA,Total 9.7 mg/dL Normal 8.5-10.1 [facility] Comment on above: Performed By: #### L 500.3400, L501.9520, L506.1000, L400.2011, L500.2500, L100.0100, L500.4100 #### [facility] [address] [place], [address] Chloride [Moles/Vol] 108 mmol/L High 98-107 [facility] Comment on above: Performed By: #### L 500.3400, L501.9520, L506.1000, L400.2010, L500.2500, L100.0100, L500.4100 #### [facility] Laboratory [address] [place], [address] CO2 [Moles/Vol] 24.0 mmol/L Normal 21.0-32.0 [facility] Comment on above: Performed By: #### L 500.3400, L501.9520, L506.1000, L400.2010, L500.2500, L100.0100, L500.4100 #### [facility] [address] [place], [address] Creatinine [Mass/Vol] 0.92 mg/dL Normal 0.55-1.02 [facility] Comment on above: Result Comment: The validity of the calculated GFR GFRAA in patients over 70 years has not been determined. Clinical correlation is essential. Performed By: #### L 500.3400, L501.9520, L506.1000, L400.2010, L500.2500, L100.0100, L500.4100 #### [facility] [address] [place], [address] EST GFR - AA 78 mL/min Normal >60 [facility] Comment on above: Result Comment: Afri can Moroccan GFR Calc Performed By: #### L 500.3400, L501.9520, L506.1000, L400.2010, L500.2500, L100.0100, L500.4100 #### [facility] Laboratory [address] [place], [address] GAP 7 Normal 5-15 [facility] Comment on above: Performed By: #### L 500.3400, L501.9520, L506.1000, L400.2010, L500.2500, L100.0100, L500.4100 #### [facility] [address] [place], [address] GFR/1.73 sq M.predicted among non-blacks MDRD (S/P/Bld) [Vol rate/Area] 65 mL/min/{1.73_m2} Normal >60 [facility] Comment on above: Result Comment: Non- GFR Calc Performed By: #### L 500.3400, L501.9520, L506.1000, L400.2010, L500.2500, L100.0100, L500.4100 #### [facility] [address] [place], [address] Glucose [Mass/Vol] 99 mg/dL Normal 74-106 [facility] Comment on above: Performed By: #### L 500.3400, L501.9520, L506.1000, L400.2010, L500.2500, L100.0100, L500.4100 #### [facility] Laboratory [address] [place], [address] Potassium [Moles/Vol] 4.0 mmol/L Normal 3.5-5.1 [facility] Comment on above: Performed By: #### L 500.3400, L501.9520, L506.1000, L400.2010, L500.2500, L100.0100, L500.4100 #### [facility] [address] [place], [address] Sodium [Moles/Vol] 139 mmol/L Normal 136-145 [facility] Comment on above: Performed By: #### L 500.3400, L501.9520, L506.1000, L400.2010, L500.2500, L100.0100, L500.4100 #### [facility] [address] [place], [address] Urea nitrogen [Mass/Vol] 16 mg/dL Normal 7-18 [facility] Comment on above: Performed By: #### L 500.3400, L501.9520, L506.1000, L400.2011, L500.2500, L100.0100, L500.4100 #### [facility] [address] [place], [address] CBC W/Diff, Automatedon 10 Absolute Lymph 0.94 X10 3/uL Normal 0.83-4.51 [facility] Comment on above: Performed By: #### L 500.3400, L501.9520, L506.1000, L400.2011, L500.2500, L100.0100, L500.4100 #### [facility] [address] [place], [address] Absolute Neut 4.3 X10 3/uL Normal 2.0-7.7 [facility] Comment on above: Performed By: #### L 500.3400, L501.9520, L506.1000, L400.2010, L500.2500, L100.0100, L500.4100 #### [facility] [address] [place], [address] Basophils/100 WBC (Bld) 0.7 % Normal 0-1 [facility] Comment on above: Performed By: #### L 500.3400, L501.9520, L506.1000, L400.2010, L500.2500, L100.0100, L500.4100 #### [facility] [address] [place], [address] Eosinophils/100 WBC (Bld) 2.2 % Normal 0-5 [facility] Comment on above: Performed By: #### L 500.3400, L501.9520, L506.1000, L400.2010, L500.2500, L100.0100, L500.4100 #### [facility] [address] [place], [address] Erythrocyte distribution width (RBC) [Ratio] 13.4 % Normal 11.6-14.6 [facility] Comment on above: Performed By: #### L 500.3400, L501.9520, L506.1000, L400.2010, L500.2500, L100.0100, L500.4100 #### [facility] Laboratory [address] [place], [address] Hematocrit (Bld) [Volume fraction] 45.4 % Normal 37-47 [facility] Comment on above: Performed By: #### L 500.3400, L501.9520, L506.1000, L400.2010, L500.2500, L100.0100, L500.4100 #### [facility] [address] [place], [address] Hemoglobin (Bld) [Mass/Vol] 15.2 g/dL High 12.0-15.0 [facility] Comment on above: Performed By: #### L 500.3400, L501.9520, L506.1000, L400.2010, L500.2500, L100.0100, L500.4100 #### [facility] [address] [place], [address] IG% 0.300 Normal 0.0-0.9 [facility] Comment on above: Result Comment: IG% - Immature Granulocytes (promyelocytes, myelocytes and metamyelocytes) > 1% indicates that a LEFT SHIFT is Present. Performed By: #### L 500.3400, L501.9520, L506.1000, L400.2010, L500.2500, L100.0100, L500.4100 #### [facility] [address] [place], [address] Lymphocytes/100 WBC (Bld) 15.7 % Low 19-41 [facility] Comment on above: Performed By: #### L 500.3400, L501.9520, L506.1000, L400.2010, L500.2500, L100.0100, L500.4100 #### [facility] [address] [place], [address] MCH (RBC) [Entitic mass] 30.2 pg Normal 27.0-32.0 [facility] Comment on above: Performed By: #### L 500.3400, L501.9520, L506.1000, L400.2011, L500.2500, L100.0100, L500.4100 #### [facility] [address] [place], [address] MCHC (RBC) [Mass/Vol] 33.5 g/dL Normal 32-36 [facility] Comment on above: Performed By: #### L 500.3400, L501.9520, L506.1000, L400.2010, L500.2500, L100.0100, L500.4100 #### [facility] [address], [address] MCV (RBC) [Entitic vol] 90.1 fL Normal 81-99 [facility] Comment on above: Performed By: #### L 500.3400, L501.9520, L506.1000, L400.2010, L500.2500, L100.0100, L500.4100 #### [facility] [address] [place], [address] Monocytes/100 WBC (Bld) 9.0 % Normal 0-10 [facility] Comment on above: Performed By: #### L 500.3400, L501.9520, L506.1000, L400.2010, L500.2500, L100.0100, L500.4100 #### [facility] [address] [place], [address] Neutrophils/100 WBC (Bld) 72.1 % High 47-70 [facility] Comment on above: Performed By: #### L 500.3400, L501.9520, L506.1000, L400.2010, L500.2500, L100.0100, L500.4100 #### [facility] [address] [place], [address] Nucleated RBC (Bld) [#/Vol] 0 10*3/uL Normal 0-5 [facility] Comment on above: Performed By: #### L 500.3400, L501.9520, L506.1000, L400.2011, L500.2500, L100.0100, L500.4100 #### [facility] [address] [place], [address] Platelet mean volume (Bld) [Entitic vol] 9.5 fL Normal 6.2-12.0 [facility] Comment on above: Performed By: #### L 500.3400, L501.9520, L506.1000, L400.2010, L500.2500, L100.0100, L500.4100 #### [facility] [address] [place], [address] Platelets (Bld) [#/Vol] 306 10*3/uL Normal 150-450 [facility] Comment on above: Performed By: #### L 500.3400, L501.9520, L506.1000, L400.2010, L500.2500, L100.0100, L500.4100 #### [facility] [address] [place], [address] RBC (Bld) [#/Vol] 5.04 10*6/uL Normal 4.2-5.4 [facility] Comment on above: Performed By: #### L 500.3400, L501.9520, L506.1000, L400.2011, L500.2500, L100.0100, L500.4100 #### [facility] [address] [place], [address] RDW SD 44.2 fl High 35.1-43.9 [facility] Comment on above: Performed By: #### L 500.3400, L501.9520, L506.1000, L400.2010, L500.2500, L100.0100, L500.4100 #### [facility] [address] [place], [address] WBC (Bld) [#/Vol] 6.0 10*3/uL Normal 4.4-11.0 [facility] Comment on above: Performed By: #### L 500.3400, L501.9520, L506.1000, L400.2010, L500.2500, L100.0100, L500.4100 #### [facility] [address] [place], [address] Lipid Profileon 12-21-2023 Cholesterol [Mass/Vol] 218 mg/dL High 200 [facility] Comment on above: Result Comment: <200 mg/dL Desirable 200-240 mg/dL Borderline >240 mg/dL High Risk Performed By: #### L 500.3400, L501.9520, L506.1000, L400.2010, L500.2500, L100.0100, L500.4100 #### [facility] [address] [place], [address] Cholesterol in HDL [Mass/Vol] 96 mg/dL Normal [facility] Comment on above: Result Comment: The drugs N-Acetylcysteine and Metamizole may falsely depress this assay. Reference Range HDL <40 mg/dL Low HDL Cholesterol HDL >or= 60 mg/dL High HDL Cholesterol Performed By: #### L 500.3400, L501.9520, L506.1000, L400.2010, L500.2500, L100.0100, L500.4100 #### [facility] [address] [place], [address] Cholesterol in LDL [Mass/Vol] 100 mg/dL Normal 0-130 [facility] Comment on above: Performed By: #### L 500.3400, L501.9520, L506.1000, L400.2010, L500.2500, L100.0100, L500.4100 #### [facility] [address] [place], [address] Cholesterol in VLDL [Mass/Vol] 22 mg/dL Normal 5-40 [facility] Comment on above: Performed By: #### L 500.3400, L501.9520, L506.1000, L400.2010, L500.2500, L100.0100, L500.4100 #### [facility] [address] [place], [address] Triglyceride [Mass/Vol] 110 mg/dL Normal [facility] Comment on above: Result Comment: The drugs N-Acetylcysteine and Metamizole may falsely depress this assay. Serum Triglycerides Reference Interval Normal <150 mg/dL Borderline high 150 - 199 mg/dL High 200 - 499 mg/dL Very High > or = 500 mg/dL Performed By: #### L 500.3400, L501.9520, L506.1000, L400.2010, L500.2500, L100.0100, L500.4100 #### [facility] [address] [place], [address] Liver Profileon 12-21-2023 Albumin [Mass/Vol] 3.9 g/dL Normal 3.2-5.0 [facility] Comment on above: Performed By: #### L 500.3400, L501.9520, L506.1000, L400.2010, L500.2500, L100.0100, L500.4100 #### [facility] [address] [place], [address] ALK P 61 U/L Normal 45-117 [facility] Comment on above: Performed By: #### L 500.3400, L501.9520, L506.1000, L400.2010, L500.2500, L100.0100, L500.4100 #### [facility] [address] [place], [address] ALT [Catalytic activity/Vol] 32 U/L Normal 13-56 [facility] Comment on above: Performed By: #### L 500.3400, L501.9520, L506.1000, L400.2010, L500.2500, L100.0100, L500.4100 #### [facility] [address] [place], [address] AST [Catalytic activity/Vol] 20 U/L Normal 15-37 [facility] Comment on above: Performed By: #### L 500.3400, L501.9520, L506.1000, L400.2010, L500.2500, L100.0100, L500.4100 #### [facility] [address] [place], [address] Bilirubin [Mass/Vol] 0.60 mg/dL Normal 0.20-1.00 [facility] Comment on above: Result Comment: For patients on eltrombopag therapy, use of Dimension Martin TBIL is not recommended. Performed By: #### L 500.3400, L501.9520, L506.1000, L400.2010, L500.2500, L100.0100, L500.4100 #### [facility] [address] [place], [address] Bilirubin.direct [Mass/Vol] 0.14 mg/dL Normal 0.00-0.30 [facility] Comment on above: Performed By: #### L 500.3400, L501.9520, L506.1000, L400.2010, L500.2500, L100.0100, L500.4100 #### [facility] [address] [place], [address] Globulin (S) [Mass/Vol] 3.8 g/dL Normal 2.2-4.2 [facility] Comment on above: Performed By: #### L 500.3400, L501.9520, L506.1000, L400.2010, L500.2500, L100.0100, L500.4100 #### [facility] [address] [place], [address] T PROT 7.7 g/dL Normal 6.4-8.2 [facility] Comment on above: Performed By: #### L 500.3400, L501.9520, L506.1000, L400.2011, L500.2500, L100.0100, L500.4100 #### [facility] [address] [place], [address] Thyroid Stim Hormone (TSH)on 12-21-2023 TSH 1.150 uIU/mL Normal 0.358-3.740 [facility] Comment on above: Performed By: #### L 500.3400, L501.9520, L506.1000, L400.2011, L500.2500, L100.0100, L500.4100 #### [facility] [address] [place], [address] Urinalysis, Routine (Dipstic k)on 12-21-2023 BILIRUBIN URINE Negative Normal Negative [facility] Comment on above: Order Comment: Urine , Random Performed By: #### L 500.3400, L501.9520, L506.1000, L400.2011, L500.2500, L100.0100, L500.4100 #### [facility] [address] [place], [address] Clarity (U) Sl. Cloudy Normal Clear [facility] Comment on above: Order Comment: Urine , Random Performed By: #### L 500.3400, L501.9520, L506.1000, L400.2011, L500.2500, L100.0100, L500.4100 #### [facility] [address] [place], [address] Color (U) Yellow Normal Yellow [facility] Comment on above: Order Comment: Urine , Random Performed By: #### L 500.3400, L501.9520, L506.1000, L400.2011, L500.2500, L100.0100, L500.4100 #### [facility] [address] [place], [address] GLUCOSE, UR Normal Normal Normal [facility] Comment on above: Order Comment: Urine , Random Performed By: #### L 500.3400, L501.9520, L506.1000, L400.2011, L500.2500, L100.0100, L500.4100 #### [facility] [address] [place], [address] KETONE UR Negative Normal Negative [facility] Comment on above: Order Comment: Urine , Random Performed By: #### L 500.3400, L501.9520, L506.1000, L400.2011, L500.2500, L100.0100, L500.4100 #### [facility] [address] [place], [address] LEUK ESTERASE Negative Normal Negative [facility] Comment on above: Order Comment: Urine , Random Performed By: #### L 500.3400, L501.9520, L506.1000, L400.2011, L500.2500, L100.0100, L500.4100 #### [facility] [address] [place], [address] Nitrite Ql (U) Negative Normal Negative [facility] Comment on above: Order Comment: Urine , Random Performed By: #### L 500.3400, L501.9520, L506.1000, L400.2011, L500.2500, L100.0100, L500.4100 #### [facility] [address] [place], [address] OCCULT BLOOD-UR Negative Normal Negative [facility] Comment on above: Order Comment: Urine , Random Performed By: #### L 500.3400, L501.9520, L506.1000, L400.2011, L500.2500, L100.0100, L500.4100 #### [facility] [address] [place], [address] pH UR 5.0 Normal 5.0 - 8.0 [facility] Comment on above: Order Comment: Urine , Random Performed By: #### L 500.3400, L501.9520, L506.1000, L400.2010, L500.2500, L100.0100, L500.4100 #### [facility] [address] [place], [address] PROT DIPSTX Negative Normal Negative [facility] Comment on above: Order Comment: Urine , Random Performed By: #### L 500.3400, L501.9520, L506.1000, L400.2010, L500.2500, L100.0100, L500.4100 #### [facility] [address] [place], [address] SP.GR. DIPSTX 1.020 Normal 1.002-1.030 [facility] Comment on above: Order Comment: Urine , Random Performed By: #### L 500.3400, L501.9520, L506.1000, L400.2010, L500.2500, L100.0100, L500.4100 #### [facility] [address] [place], [address] UROBILI Normal Normal Normal [facility] Comment on above: Order Comment: Urine , Random Performed By: #### L 500.3400, L501.9520, L506.1000, L400.2010, L500.2500, L100.0100, L500.4100 #### [facility] [address] [place], [address] Vitamin D,25 Hydroxyon 12-20 Vitamin D 25-OH 77.4 ng/mL Normal [facility] Comment on above: Result Comment: Joselyn min D 25(OH) Status Range Deficiency <20 ng/mL (50nmol/L) Insufficiency 20 - 30 ng/mL (50 - 75 nmol/L) Sufficiency 30 - 100 ng/mL (75 - 250 nmol/L) Toxicity >100 ng/mL (>250 nmol/L) Performed By: #### L 500.3400, L501.9520, L506.1000, L400.2011, L500.2500, L100.0100, L500.4100 #### [facility] [address] [place], [address] XR Chest 2 Viewson 4 No acute cardiopulmonary process. Report Dictated on Electronically Signed By: Fran Parada MD Electronically Signed Date/Time: 09/11/2023 9:19 AM EDT [facility] [employer] [facility] Patient Name: CELI MACKENZIE : 1960 [...] the thoracic spine are present including dextroscoliosis. [facility] Fran Parada MD - 09/11/2023 Patient [...] Electronically Signed Date/Time: 09/11/2023 9:19 AM EDT [facility] XR Chest 2 ViewsOrdered By: Fran Parada on 09-11-2023 [facility] Work Phone: XR Chest 2 View[facility] Radiology Study observation (narrative) [facility] Basophil percentageOrdered B y: Coleen Bernal on 07-09-2023 Bilirubin [Mass/Vol] 0.80 mg/dL 0.20-1.00 [facility] Comment on above: For patients on eltr ombopag therapy, use of Dimension Martin TBIL is not recommended. Cholesterol [Mass/Vol] 199 mg/dL <200 [facility] Comment on above: <200 mg/dL Desirable 200-240 mg/dL Borderline >240 mg/dL High Risk Protein [Mass/Vol] 7.5 g/dL 6.4-8.2 [facility] Triglyceride [Mass/Vol] 90 mg/dL <199 [facility] Comment on above: The drugs N-Acetylcy steine and Metamizole may falsely depress this assay.Serum Triglycerides Reference Interval Normal <150 mg/dL Borderline high 150 - 199 mg/dL High 200 - 499 mg/dL Very High > or = 500 mg/dL Direct bilirubinOrdered By: Coleen Bernal on 07-09-2023 Bilirubin.direct [Mass/Vol] 0.19 mg/dL 0.00-0.30 [facility] - Chemistry and C hemistry - challengeOrdered By: Coleen Bernal on 07-09-2023 ALP [Catalytic activity/Vol] 60 U/L 45-117 [facility] ALT [Catalytic activity/Vol] 34 U/L 13-56 [facility] Cholesterol in HDL [Mass/Vol] 77 mg/dL >40 [facility] Comment on above: The drugs N-Acetylcy steine and Metamizole may falsely depress this assay. Reference Range HDL <40 mg/dL Low HDL Cholesterol HDL >or= 60 mg/dL High HDL Cholesterol Cholesterol in LDL [Mass/Vol] 104 mg/dL 0-130 [facility] Globulin (S) [Mass/Vol] 3.5 g/dL 2.2-4.2 [facility] No Panel InformationOrdered By: Coleen Bernal on 07-09-2023 VLDL Cholesterol 18 mg/dL 5-40 [facility] Thin prep Papanicolaou smear with manual screeningOrdered By: Coleen Bernal on 07-09-2023 Thin prep Papanicolaou smear with manual screening 4.0 g/dL 3.2-5.0 [facility] Thin prep Papanicolaou smear with manual screening 25 U/L 15-37 [facility] Absolute lymphocyte countOrd ered By: Coleen Bernal on 12-21-2022 Lymphocytes Auto (Unsp spec) [#/Vol] 0.83 10*3/uL 0.83-4.51 [facility] Basophil percentageOrdered B y: Coleen Bernal on 12-21-2022 Basophil percentage 0 SEEN /hpf 0-5 [facility] Basophils/100 WBC (Bld) 0.6 % 0-1 [facility] Bilirubin [Mass/Vol] 0.50 mg/dL 0.20-1.00 [facility] Comment on above: For patients on eltr ombopag therapy, use of Dimension Martin TBIL is not recommended. Chloride [Moles/Vol] 107 mmol/L 98-107 [facility] Cholesterol [Mass/Vol] 210 mg/dL <200 [facility] Comment on above: <200 mg/dL Desirable 200-240 mg/dL Borderline >240 mg/dL High Risk Eosinophils/100 WBC (Bld) 2.3 % 0-5 [facility] Glucose [Mass/Vol] 99 mg/dL 74-106 [facility] Neutrophils (Bld) [#/Vol] 3.7 10*3/uL 2.0-7.7 [facility] Neutrophils/100 WBC (Bld) 70.1 % 47-70 [facility] Potassium [Moles/Vol] 4.2 mmol/L 3.5-5.1 [facility] Protein [Mass/Vol] 7.5 g/dL 6.4-8.2 [facility] Sodium [Moles/Vol] 139 mmol/L 136-145 [facility] Triglyceride [Mass/Vol] 154 mg/dL <199 [facility] Comment on above: The drugs N-Acetylcy steine and Metamizole may falsely depress this assay.Serum Triglycerides Reference Interval Normal <150 mg/dL Borderline high 150 - 199 mg/dL High 200 - 499 mg/dL Very High > or = 500 mg/dL WBC (Bld) [#/Vol] 5.2 10*3/uL 4.4-11.0 [facility] Bilirubin Test strip Ql (U)O rdered By: Coleen Bernal on 12-21-2022 Bilirubin Ql (U) Negative Negative [facility] Blood erythrocytes count (nu mber/volume)Ordered By: Coleen Bernal on 12-21-2022 RBC (Bld) [#/Vol] 4.85 10*6/uL 4.2-5.4 [facility] Blood hemoglobin measurement (mass/volume)Ordered By: Coleen Bernal on 12-21-2022 Hemoglobin (Bld) [Mass/Vol] 15.0 g/dL 12.0-15.0 [facility] Blood lymphocytes/100 leukoc ytesOrdered By: Coleen Bernal on 12-21-2022 Lymphocytes/100 WBC (Bld) 15.9 % 19-41 [facility] Blood monocytes/100 leukocyt esOrdered By: Coleen Bernal on 12-21-2022 Monocytes/100 WBC (Bld) 10.5 % 0-10 [facility] Blood platelet mean volumeOr dered By: Coleen Bernal on 12-21-2022 Platelet mean volume (Bld) [Entitic vol] 9.4 fL 6.2-12.0 [facility] Determination of erythrocyte mean corpuscular volume (MCV)Ordered By: Coleen Bernal on 12-21-2022 MCV (RBC) [Entitic vol] 92.4 fL 81-99 [facility] Direct bilirubinOrdered By: Coleen Bernal on 12-21-2022 Bilirubin.direct [Mass/Vol] 0.16 mg/dL 0.00-0.30 [facility] Hematocrit Auto (Bld) [Volum e fraction]Ordered By: Coleen Bernal on 12-21-2022 Hematocrit (Bld) [Volume fraction] 44.8 % 37-47 [facility] Ketones Test strip Ql (U)Ord ered By: Coleen Bernal on 12-21-2022 Ketones Ql (U) Negative Negative [facility] - Chemistry and C hemistry - challengeOrdered By: Coleen Bernal on 12-21-2022 ALP [Catalytic activity/Vol] 52 U/L 45-117 [facility] ALT [Catalytic activity/Vol] 33 U/L 13-56 [facility] CO2 [Moles/Vol] 28.0 mmol/L 21.0-32.0 [facility] Globulin (S) [Mass/Vol] 3.8 g/dL 2.2-4.2 [facility] Urea nitrogen/Creatinine [Mass ratio] 20.4 mg/mg 10-20 [facility] - Hematology and Cell countsOrdered By: Coleen Bernal on 12-21-2022 Erythrocyte distribution width (RBC) [Entitic vol] 46.2 fL 35.1-43.9 [facility] Erythrocyte distribution width (RBC) [Ratio] 13.5 % 11.6-14.6 [facility] Immature granulocytes/100 WBC (Bld) 0.600 % 0.0-0.9 [facility] Comment on above: IG% - Immature Granu locytes (promyelocytes, myelocytes and metamyelocytes) > 1% indicates that a LEFT SHIFT is Present. MCH (RBC) [Entitic mass] 30.9 pg 27.0-32.0 [facility] Nucleated RBC/100 WBC (Bld) [Ratio] 0 % 0-5 [facility] MCHC Auto (RBC) [Mass/Vol]Or dered By: Coleen Bernal on 12-21-2022 MCHC (RBC) [Mass/Vol] 33.5 g/dL 32-36 [facility] Mucus LM Ql (Urine sed)Order ed By: Coleen Bernal on 12-21-2022 Mucus Ql (Urine sed) 0 SEEN /hpf [facility] Nitrite Test strip Ql (U)Ord ered By: Coleen Bernal on 12-21-2022 Nitrite Ql (U) Negative Negative [facility] No Panel InformationOrdered By: Coleen Bernal on 12-21-2022 Estimated GFR (MDRD) Amer 83 mL/min >60 [facility] Comment on above: GFR Calc Estimated GFR (MDRD) Non-Af Amer 68 mL/min >60 [facility] Comment on above: Non- GFR Calc Thyroid Stimulating Hormone (TSH) 1.02 uIU/mL 0.358-3.74 [facility] Vitamin D 25-Hydroxy 59.4 ng/mL [facility] Comment on above: Vitamin D 25(OH) Sta tus Range Deficiency <20 ng/mL (50nmol/L) Insufficiency 20 - 30 ng/mL (50 - 75 nmol/L) Sufficiency 30 - 100 ng/mL (75 - 250 nmol/L) Toxicity >100 ng/mL (>250 nmol/L) Platelets bldOrdered By: Coleen morrissey on 12-21-2022 Platelets (Bld) [#/Vol] 282 10*3/uL 150-450 [facility] Protein Test strip Ql (U)Ord ered By: Coleen Bernal on 12-21-2022 Protein Ql (U) Negative Negative [facility] Serum or plasma albumin negro urement (mass/volume)Ordered By: Coleen Bernal on 12-21-2022 Albumin [Mass/Vol] 3.7 g/dL 3.2-5.0 [facility] Serum or plasma calcium negro urement (mass/volume)Ordered By: Coleen Bernal on 12-21-2022 Calcium [Mass/Vol] 9.2 mg/dL 8.5-10.1 [facility] Serum or plasma cholesterol in HDL measurement (mass/volume)Ordered By: Coleen Bernal on 12-21-2022 Cholesterol in HDL [Mass/Vol] 78 mg/dL >40 [facility] Comment on above: The drugs N-Acetylcy steine and Metamizole may falsely depress this assay. Reference Range HDL <40 mg/dL Low HDL Cholesterol HDL >or= 60 mg/dL High HDL Cholesterol Serum or plasma cholesterol in VLDL measurement (mass/volume)Ordered By: Coleen Bernal on 12-21-2022 Cholesterol in VLDL [Mass/Vol] 31 mg/dL 5-40 [facility] Serum or plasma creatinine m easurement (mass/volume)Ordered By: Coleen Bernal on 12-21-2022 Creatinine [Mass/Vol] 0.88 mg/dL 0.55-1.02 [facility] Comment on above: The validity of the calculated GFR & GFRAA in patients over 70 years has not been determined. Clinical correlation is essential. Serum or plasma low density lipoprotein (LDL) cholesterol measurement (mass/volume)Ordered By: Coleen Bernal on 12-21-2022 Cholesterol in LDL [Mass/Vol] 101 mg/dL 0-130 [facility] Serum or plasma urea nitroge n measurement (mass/volume)Ordered By: Coleen Bernal on 12-21-2022 Urea nitrogen [Mass/Vol] 18 mg/dL 7-18 [facility] Squamous epithelial cells de tection in urine sediment by light microscopyOrdered By: Coleen Bernal on 12-21-2022 Epithelial cells.squamous LM Ql (Urine sed) 10-25 SEEN /hpf 5-10 [facility] Thin prep Papanicolaou smear with manual screeningOrdered By: Coleen Bernal on 12-21-2022 Thin prep Papanicolaou smear with manual screening 19 U/L 15-37 [facility] Thin prep Papanicolaou smear with manual screening 4 5-15 [facility] Urine blood detectionOrdered By: Coleen Bernal on 12-21-2022 RBC Ql (U) Negative Negative [facility] RBC Ql (U) 0 SEEN /hpf 0-5 [facility] Urine clarityOrdered By: Coleen morrissey on 12-21-2022 Clarity (U) Clear Clear [facility] Urine color determinationOrd ered By: Coleen Bernal on 12-21-2022 Color (U) Yellow Yellow [facility] Urine glucose detectionOrder ed By: Coleen Bernal on 12-21-2022 Glucose Ql (U) Normal mg/dl Normal [facility] Urine leukocyte esterase det ection by dipstickOrdered By: Coleen Bernal on 12-21-2022 Leukocyte esterase Test strip Ql (U) Negative Negative [facility] Urine pHOrdered By: Coleen Bernal o n 12-21-2022 pH (U) 6.0 [pH] 5.0 - 8.0 [facility] Urine sediment bacteria coun t by microscopy (number/high power field)Ordered By: Coleen Bernal on 12-21-2022 Bacteria LM.HPF (Urine sed) [#/Area] 1 /[HPF] None Seen [facility] Urine specific gravity measu rementOrdered By: Coleen Bernal on 12-21-2022 Specific gravity (U) [Rel density] 1.020 1.002-1.030 [facility] Urobilinogen Auto test strip Ql (U)Ordered By: Coleen Bernal on 12-21-2022 Urobilinogen Ql (U) Normal mg/dl Normal [facility] Absolute lymphocyte counton 12-20-2021 Lymphocytes Auto (Unsp spec) [#/Vol] 1.25 10*3/uL 0.83-4.51 [facility] Work Phone: Basophil percentageon 2021 Basophils/100 WBC (Bld) 0.7 % 0-1 [facility] Work Phone: Bilirubin [Mass/Vol] 0.40 mg/dL 0.20-1.00 [facility] Work Phone: Comment on above: For patients on eltr ombopag therapy, use of Dimension Martin TBIL is not recommended. Chloride [Moles/Vol] 108 mmol/L 98-107 [facility] Work Phone: Cholesterol [Mass/Vol] 218 mg/dL <200 [facility] Work Phone: Comment on above: <200 mg/dL Desirable 200-240 mg/dL Borderline >240 mg/dL High Risk Eosinophils/100 WBC (Bld) 2.3 % 0-5 [facility] Work Phone: Glucose [Mass/Vol] 93 mg/dL 74-106 [facility] Work Phone: Neutrophils (Bld) [#/Vol] 3.9 10*3/uL 2.0-7.7 [facility] Work Phone: Neutrophils/100 WBC (Bld) 64.7 % 47-70 [facility] Work Phone: Potassium [Moles/Vol] 4.1 mmol/L 3.5-5.1 [facility] Work Phone: Protein [Mass/Vol] 7.1 g/dL 6.4-8.2 [facility] Work Phone: Sodium [Moles/Vol] 141 mmol/L 136-145 [facility] Work Phone: Triglyceride [Mass/Vol] 96 mg/dL <199 [facility] Work Phone: Comment on above: The drugs N-Acetylcy steine and Metamizole may falsely depress this assay.Serum Triglycerides Reference Interval Normal <150 mg/dL Borderline high 150 - 199 mg/dL High 200 - 499 mg/dL Very High > or = 500 mg/dL WBC (Bld) [#/Vol] 6.0 10*3/uL 4.4-11.0 [facility] Work Phone: [phone] Bilirubin Test strip Ql (U)o n 12-20-2021 Bilirubin Ql (U) Negative Negative [facility] Work Phone: Blood erythrocytes count (nu mber/volume)on 12-20-2021 RBC (Bld) [#/Vol] 4.70 10*6/uL 4.2-5.4 [facility] Work Phone: [phone] Blood hemoglobin measurement (mass/volume)on 12-20-2021 Hemoglobin (Bld) [Mass/Vol] 14.8 g/dL 12.0-15.0 [facility] Work Phone: Blood lymphocytes/100 leukoc yteson 12-20-2021 Lymphocytes/100 WBC (Bld) 20.7 % 19-41 [facility] Work Phone: [phone] Blood monocytes/100 leukocyt eson 12-20-2021 Monocytes/100 WBC (Bld) 11.1 % 0-10 [facility] Work Phone: [phone] Blood platelet mean volumeon 12-20-2021 Platelet mean volume (Bld) [Entitic vol] 9.6 fL 6.2-12.0 [facility] Work Phone: Determination of erythrocyte mean corpuscular volume (MCV)on 12-20-2021 MCV (RBC) [Entitic vol] 92.6 fL 81-99 [facility] Work Phone: Direct bilirubinon Bilirubin.direct [Mass/Vol] 0.12 mg/dL 0.00-0.30 [facility] Work Phone: [phone] Hematocrit Auto (Bld) [Volum e fraction]on 12-20-2021 Hematocrit (Bld) [Volume fraction] 43.5 % 37-47 [facility] Work Phone: [phone] Ketones Test strip Ql (U)on 12-20-2021 Ketones Ql (U) Negative Negative [facility] Work Phone: [phone] Laboratory - Chemistry and C hemistry - challengeon 12-20-2021 ALP [Catalytic activity/Vol] 48 U/L 45-117 [facility] Work Phone: [phone] ALT [Catalytic activity/Vol] 32 U/L 13-56 [facility] Work Phone: [phone] CO2 [Moles/Vol] 27.0 mmol/L 21.0-32.0 [facility] Work Phone: [phone] Globulin (S) [Mass/Vol] 3.5 g/dL 2.2-4.2 [facility] Work Phone: [phone] Urea nitrogen/Creatinine [Mass ratio] 27.3 mg/mg 10-20 [facility] Work Phone: [phone] Laboratory - Hematology and Cell countson 12-20-2021 Erythrocyte distribution width (RBC) [Entitic vol] 44.9 fL 35.1-43.9 [facility] Work Phone: [phone] Erythrocyte distribution width (RBC) [Ratio] 13.1 % 11.6-14.6 [facility] Work Phone: [phone] Immature granulocytes/100 WBC (Bld) 0.500 % 0.0-0.9 [facility] Work Phone: [phone] Comment on above: IG% - Immature Granu locytes (promyelocytes, myelocytes and metamyelocytes) > 1% indicates that a LEFT SHIFT is Present. MCH (RBC) [Entitic mass] 31.5 pg 27.0-32.0 [facility] Work Phone: Nucleated RBC/100 WBC (Bld) [Ratio] 0 % 0-5 [facility] Work Phone: [phone] MCHC Auto (RBC) [Mass/Vol]on 12-20-2021 MCHC (RBC) [Mass/Vol] 34.0 g/dL 32-36 [facility] Work Phone: Nitrite Test strip Ql (U)on 12-20-2021 Nitrite Ql (U) Negative Negative [facility] Work Phone: No Panel Informationon 12-20 Estimated GFR (MDRD) Amer 97 mL/min >60 [facility] Work Phone: Comment on above: GFR Calc Estimated GFR (MDRD) Non-Af Amer 81 mL/min >60 [facility] Work Phone: Comment on above: Non- GFR Calc Thyroid Stimulating Hormone (TSH) 1.23 uIU/mL 0.358-3.74 [facility] Work Phone: Platelets bldon 12-20-2021 Platelets (Bld) [#/Vol] 271 10*3/uL 150-450 [facility] Work Phone: Protein Test strip Ql (U)on 12-20-2021 Protein Ql (U) Negative Negative [facility] Work Phone: Serum or plasma albumin negro urement (mass/volume)on 12-20-2021 Albumin [Mass/Vol] 3.6 g/dL 3.2-5.0 [facility] Work Phone: Serum or plasma calcitriol m easurement (mass/volume)on 12-20-2021 1,25-dihydroxyvitamin D3 [Mass/Vol] 59.3 pg/mL 24.8-81.5 [facility] Work Phone: Comment on above: Please note refere nce interval changePerformed at: - Lab[address] [id number] Director: Guera Galvan MD, Phone: [phone] Serum or plasma calcium negro urement (mass/volume)on 12-20-2021 Calcium [Mass/Vol] 9.1 mg/dL 8.5-10.1 [facility] Work Phone: Serum or plasma cholesterol in HDL measurement (mass/volume)on 12-20-2021 Cholesterol in HDL [Mass/Vol] 79 mg/dL >40 [facility] Work Phone: Comment on above: The drugs N-Acetylcy steine and Metamizole may falsely depress this assay. Reference Range HDL <40 mg/dL Low HDL Cholesterol HDL >or= 60 mg/dL High HDL Cholesterol Serum or plasma cholesterol in VLDL measurement (mass/volume)on 12-20-2021 Cholesterol in VLDL [Mass/Vol] 19 mg/dL 5-40 [facility] Work Phone: Serum or plasma creatinine m easurement (mass/volume)on 12-20-2021 Creatinine [Mass/Vol] 0.77 mg/dL 0.55-1.02 [facility] Work Phone: Comment on above: The validity of the calculated GFR & GFRAA in patients over 70 years has not been determined. Clinical correlation is essential. Serum or plasma low density lipoprotein (LDL) cholesterol measurement (mass/volume)on 12-20-2021 Cholesterol in LDL [Mass/Vol] 120 mg/dL 0-130 [facility] Work Phone: Serum or plasma urea nitroge n measurement (mass/volume)on 12-20-2021 Urea nitrogen [Mass/Vol] 21 mg/dL 7-18 [facility] Work Phone: Thin prep Papanicolaou smear with manual screeningon 12-20-2021 Thin prep Papanicolaou smear with manual screening 18 U/L 15-37 [facility] Work Phone: Thin prep Papanicolaou smear with manual screening 6 5-15 [facility] Work Phone: [phone] Urine blood detectionon 12-10 RBC Ql (U) 10 /ul Negative [facility] Work Phone: [phone] Urine clarityon 12-20-2021 Clarity (U) Clear Clear [facility] Work Phone: Urine color determinationon 12-20-2021 Color (U) Yellow Yellow [facility] Work Phone: Urine glucose detectionon Glucose Ql (U) Normal mg/dl Normal [facility] Work Phone: [phone] Urine leukocyte esterase det ection by dipstickon 12-20-2021 Leukocyte esterase Test strip Ql (U) 25 /ul Negative [facility] Work Phone: [phone] Urine pHon 12-20-2021 pH (U) 5.0 [pH] 5.0 - 8.0 [facility] Work Phone: [phone] Urine specific gravity measu rementon 12-20-2021 Specific gravity (U) [Rel density] 1.020 1.002-1.030 [facility] Work Phone: [phone] Urobilinogen Auto test strip Ql (U)on 12-20-2021 Urobilinogen Ql (U) Normal mg/dl Normal [facility] Work Phone: Basophil percentageon 2021 Bilirubin [Mass/Vol] 0.50 mg/dL 0.20-1.00 [facility] Work Phone: [phone] Comment on above: For patients on eltr ombopag therapy, use of Dimension Martin TBIL is not recommended. Cholesterol [Mass/Vol] 204 mg/dL <200 [facility] Work Phone: [phone] Comment on above: <200 mg/dL Desirable 200-240 mg/dL Borderline >240 mg/dL High Risk Protein [Mass/Vol] 7.6 g/dL 6.4-8.2 [facility] Work Phone: [phone] Triglyceride [Mass/Vol] 83 mg/dL [facility] Work Phone: [phone] Comment on above: The drugs N-Acetylcy steine and Metamizole may falsely depress this assay.Serum Triglycerides Reference Interval Normal <150 mg/dL Borderline high 150 - 199 mg/dL High 200 - 499 mg/dL Very High > or = 500 mg/dL Direct bilirubinon Bilirubin.direct [Mass/Vol] 0.14 mg/dL 0.00-0.30 [facility] Work Phone: Laboratory - Chemistry and C hemistry - challengeon 06-09-2021 ALP [Catalytic activity/Vol] 54 U/L 45-117 [facility] Work Phone: [phone] ALT [Catalytic activity/Vol] 34 U/L 13-56 [facility] Work Phone: Globulin (S) [Mass/Vol] 3.8 g/dL 2.2-4.2 [facility] Work Phone: [phone] No Panel Informationon 06-09 Thyroid Stimulating Hormone (TSH) 0.96 uIU/mL 0.358-3.74 [facility] Work Phone: Serum or plasma albumin negro urement (mass/volume)on 06-09-2021 Albumin [Mass/Vol] 3.8 g/dL 3.2-5.0 [facility] Work Phone: [phone] Serum or plasma cholesterol in HDL measurement (mass/volume)on 06-09-2021 Cholesterol in HDL [Mass/Vol] 83 mg/dL [facility] Work Phone: Comment on above: The drugs N-Acetylcy steine and Metamizole may falsely depress this assay. Reference Range HDL <40 mg/dL Low HDL Cholesterol HDL >or= 60 mg/dL High HDL Cholesterol Serum or plasma cholesterol in VLDL measurement (mass/volume)on 06-09-2021 Cholesterol in VLDL [Mass/Vol] 17 mg/dL 5-40 [facility] Work Phone: [phone] Serum or plasma low density lipoprotein (LDL) cholesterol measurement (mass/volume)on 06-09-2021 Cholesterol in LDL [Mass/Vol] 104 mg/dL 0-130 [facility] Work Phone: [phone] Thin prep Papanicolaou smear with manual screeningon 06-09-2021 Thin prep Papanicolaou smear with manual screening 21 U/L 15-37 [facility] Work Phone: Vital Signs Date Time Vital Sign Value Performing Clinician Odell rodrigues 10-24-2024 10:57-0400 Diastolic blood pressure 75 mm[Hg] Josefa Garza MD Work Phone: [facility] 10-24-2024 10:57-0400 Heart rate 60 /min Josefa Garza MD Work Phone: [facility] 10-24-2024 10:57-0400 Systolic blood pressure 137 mm[Hg] Josefa Garza MD Work Phone: [facility] 10-01-2024 11:47-0400 Body height 154.9 cm Pst 1 [facility] 10-01-2024 11:47-0400 Body mass index (BMI) [Ratio] 25.32 kg/m2 Pst 1 [facility] 10-01-2024 11:47-0400 Body temperature 97.5 [degF] Pst 1 [facility] 10-01-2024 11:47-0400 Body weight 60.78 kg Pst 1 [facility] 10-01-2024 11:47-0400 Diastolic blood pressure 75 mm[Hg] Pst 1 [facility] 10-01-2024 11:47-0400 Heart rate 58 /min Pst 1 [facility] 10-01-2024 11:47-0400 Respiratory rate 14 /min Pst 1 [facility] 10-01-2024 11:47-0400 SaO2% (BldA) [Mass fraction] 99 % Pst 1 [facility] 10-01-2024 11:47-0400 Systolic blood pressure 130 mm[Hg] Pst 1 [facility] 08-14-2024 10:32-0400 Body mass index (BMI) [Ratio] 24.75 kg/m2 Josefa Garza MD Work Phone: [facility] 08-14-2024 10:32-0400 Body weight 59.42 kg Josefa Garza MD Work Phone: [facility] 08-14-2024 10:32-0400 Diastolic blood pressure 74 mm[Hg] Josefa Garza MD Work Phone: [facility] 08-14-2024 10:32-0400 Heart rate 62 /min Josefa Garza MD Work Phone: [facility] 08-14-2024 10:32-0400 Systolic blood pressure 125 mm[Hg] Josefa Garza MD Work Phone: [facility] 07-10-2024 10:01-0400 Body height 154.9 cm Josefa Garza MD Work Phone: [facility] 07-10-2024 10:01-0400 Body mass index (BMI) [Ratio] 25.32 kg/m2 Josefa Garza MD Work Phone: [facility] 07-10-2024 10:01-0400 Body weight 60.78 kg Josefa Garza MD Work Phone: [facility] 07-10-2024 10:01-0400 Diastolic blood pressure 66 mm[Hg] Josefa Garza MD Work Phone: [facility] 07-10-2024 10:01-0400 Heart rate 71 /min Josefa Garza MD Work Phone: [facility] 07-10-2024 10:01-0400 Systolic blood pressure 124 mm[Hg] Josefa Garza MD Work Phone: [facility] Encounters Encounter Date Encounter Type Care Provider Facility Start: 11-03-2024 End: 11-03-2024 Telephone encounter Lisbet Carrizales RN [facility] Comment on above: [facility] - H ospital Follow Up Start: 10-24-2024 End: 10-24-2024 Postop follow up visit related to original px Josefa Garza MD Work Phone: [facility] Comment on above: Diverticulitis of la rge intestine with perforation and abscess without bleeding (Primary Dx) Start: 10-24-2024 End: 10-24-2024 ambulatory JOSEFA GILBERT Facility:[facility] Start: 10-13-2024 End: 10-13-2024 Telephone encounter Lisbet Carrizales RN [facility] Comment on above: Hospital Follow Up Start: 10-08-2024 End: 10-10-2024 Evaluation and management of inpatient JOSEFA GILBERT Facility:[facility] Start: 10-01-2024 End: 10-01-2024 Preprocedural examination done Pst 1 [facility] Work Phone: Start: 10-01-2024 End: 10-01-2024 Orders Only Lisbet Carrizales RN [facility] Comment on above: Other specified coun seling (Primary Dx) Pre-op examination ( Primary Dx); Diverticulitis; Hyperlipidemia, unspecified hyperlipidemia type Patient Education Start: 09-30-2024 Preprocedural examin ation done Lisbet Carrizales RN [facility] Work Phone: Start: 09-30-2024 Encounter for other preprocedural examination JOSEFA GARZA [facility] Start: 08-19-2024 End: 08-19-2024 Orders Only Josefa Garza MD Work Phone: [facility] Comment on above: Diverticulitis (Prim kristin Dx) Patient Update; Yenny ent Question Start: 08-14-2024 End: 08-14-2024 Office outpatient new 45 minutes Josefa Garza MD Work Phone: [facility] Comment on above: Diverticulitis of la rge intestine with perforation and abscess without bleeding (Primary Dx) Start: 08-14-2024 End: 08-14-2024 ambulatory JOSEFA GARZA Facility:[facility] Start: 08-01-2024 ambulatory JOSEFA GILBERT Facility :[facility] Start: 07-25-2024 End: 07-25-2024 Orders Only Josefa Garza MD Work Phone: [facility] Comment on above: Diverticulitis of la rge intestine with perforation and abscess without bleeding (Primary Dx); Diverticulitis Start: 07-14-2024 End: 07-16-2024 Telephone encounter Josefa Garza MD Work Phone: [facility] Comment on above: Patient Question Start: 07-10-2024 End: 07-10-2024 Office outpatient new 45 minutes Josefa Garza MD Work Phone: [facility] Comment on above: Diverticulitis of la rge intestine with perforation and abscess without bleeding Start: 07-10-2024 End: 07-10-2024 ambulatory JOSEFA GILBERT Facility:[facility] Start: 07-07-2024 End: 07-07-2024 ambulatory Coleen Elam Bromide Facility:[facility] Start: 07-03-2024 End: 07-25-2024 Telephone encounter Ander Rodrigues MD Work Phone: [facility] Comment on above: Patient Question; Pa tient Update Start: 06-16-2024 End: 06-16-2024 Telephone encounter Ander Rodrigues MD Work Phone: [facility] Comment on above: Consult Start: 03-14-2024 End: 03-14-2024 ambulatory Moravian Bromide Facility:[facility] Start: 12-21-2023 End: 12-21-2023 ambulatory Colene Elam Bromide Facility:[facility] Start: 09-10-2023 End: 09-10-2023 ambulatory [facility] Start: 09-10-2023 End: 12-10-2023 Subsequent hospital visit by physician Trey Bernal DO Work Phone: [facility] Comment on above: Acute bronchitis due to other specified organisms Acute bronchitis due to other specified organisms (Primary Dx) Start: 07-09-2023 End: 07-09-2023 ambulatory [facility] Work Phone: Start: 07-09-2023 End: 07-09-2023 Patient encounter procedure [facility]Laboratory Work Phone: Start: 03-13-2023 End: 03-13-2023 ambulatory [facility] Work Phone: Start: 03-13-2023 End: 03-13-2023 Patient encounter procedure [facility]Outpatient Breast Imaging Work Phone: Start: 02-12-2023 End: 02-12-2023 Discharged Recurring [facility]Physical Therapy Work Phone: Start: 12-21-2022 End: 12-21-2022 ambulatory [facility] Work Phone: Start: 12-21-2022 End: 12-21-2022 Patient encounter procedure [facility] Work Phone: Start: 03-09-2022 End: 03-09-2022 ambulatory [facility] Work Phone: Start: 03-09-2022 End: 03-09-2022 Patient encounter procedure [facility]Outpatient Breast Imaging Start: 12-20-2021 End: 12-20-2021 ambulatory [facility] Work Phone: Start: 12-20-2021 End: 12-20-2021 Patient encounter procedure [facility] Start: 06-09-2021 End: 06-09-2021 Patient encounter procedure [facility] Start: 03-08-2021 Patient encounter procedure [facility]Out[facility] Breast Imaging Procedures Date Procedure Procedure Detail Performing Clinician Start: 08-01-2024 Colonoscopy Josefa Garza MD Work Phone: Start: 09-10-2023 Radiologic exam ches t 2 views Trey Bernal DO Work Phone: Start: 03-13-2023 End: 03-13-2023 Screening mammography Start: 03-09-2022 Screening mammography Start: 03-08-2021 Screening mammography Start: 01-17-2019 Colonoscopy Josefa Garza MD Work Phone: Plan of Treatment Date Care Activity Detail Author Start: 2033 RSV Vaccine (1 - 1-d ose 75+ series) RSV Vaccine (1 - 1-dose 75+ series) [facility] Start: 10-11-2027 Diabetes Screening Diabetes Screenin g [facility] Start: 08-01-2025 DTaP/Tdap/Td Vaccine s (2 - Td or Tdap) DTaP/Tdap/Td Vaccines (2 - Td or Tdap) [facility] Start: 08-01-2025 Screening for malign ant neoplasm of colon [facility] Start: 11-10-2024 Influenza vaccination Influenza Vacc ine (#1) [facility] Start: 10-24-2024 End: 10-24-2024 Patient encounter procedure 10/24/2024 11:00 AM EDT Office Visit [facility] 1 [facility] 3rd Floor [place], [place] [id number] Josefa Garza MD [address] [place], [place] [phone] (Fax) post op [facility] Comment on above: post op Start: 10-10-2024 End: 10-10-2024 Patient encounter procedure 10/10/2024 10:00 AM EDT Office Visit [facility] 1 [facility] 3rd Floor [place], [place] [phone] Josefa Garza MD [address] [place], [place] [phone] (Fax) 3 month follow up [facility] Comment on above: 3 month follow up Start: 10-08-2024 End: 10-08-2024 Admission to same day surgery center 10/08/2024 12:45 PM EDT - 10/08/2024 6:00 PM EDT Surgery [address] [address] Josefa Garza MD 1 [place], [place] [phone] (Fax) ROBOTIC LAPAROSCOPIC SIGMOID COLECTOMY WITH COLOSTOMY/ BLOCK/ ERAS / PREP/ ANTIBIOTICS/ STOMA [facility] Comment on above: ROBOTIC LAPAROSCOPIC SIGMOID COLECTOMY WITH COLOSTOMY/ BLOCK/ ERAS / PREP/ ANTIBIOTICS/ STOMA Start: 10-08-2024 End: 10-08-2024 Laps proctectomy abdominoperineal w/colostomy ROBOTIC LAPAROSCOPIC SIGMOID COLECTOMY WITH COLOSTOMY Diverticulitis 10/08/2024 12:45 PM EDT [place] Start: 10-08-2024 Subsequent hospital visit by physician [facility] Comment on above: Diverticulitis [K57. 92] Start: 08-01-2024 End: 08-01-2024 Patient encounter procedure 08/01/2024 1:30 PM EDT Appointment [place] [facility] [address] [place] [address] Josefa Garza MD [address] [place], [place] [phone] [place] [facility] Start: 07-30-2024 End: 07-30-2024 Patient encounter procedure 07/30/2024 1:30 PM EDT [facility] [address] [facility] [address] [place] [phone] Ander Rodrigues MD [address] [facility] [place] [place], [place] [phone] Diverticulitis [facility] Comment on above: Diverticulitis Start: 06-24-2024 Covid-19 Vaccine ( season) Covid-19 Vaccine ( season) [facility] Start: 03-13-2024 Screening for malign ant neoplasm of breast Mammogram [facility] Start: 03-12-2024 Advance Directive Discussion Advance Directive Discussion [facility] Start: 11-11-2023 Covid-19 Vaccine ( season) Covid-19 Vaccine ( season) [facility] Start: 11-11-2023 COVID-19 Vaccine ( season) COVID-19 Vaccine ( season) [facility] Start: 11-11-2023 Influenza vaccination Influenza Vacc ine (#1) [facility] Start: 2023 Pneumococcal Vaccine : 65+ Years (1 of 1 - PCV) Pneumococcal Vaccine: 65+ Years (1 of 1 - PCV) [facility] Start: 2023 Screening for osteoporosis Bone Dens ity Screening [facility] Start: 11-10-2022 COVID-19 Vaccine ( season) COVID-19 Vaccine ( season) [facility] Start: 06-10-2022 Medicare Annual Well ness Visit Medicare Annual Wellness Visit [facility] Start: 01-18-2020 Screening for malign ant neoplasm of colon [facility] Start: 2018 RSV Immunization age d 60 or older (1 - 1-dose 60+ series) RSV Immunization aged 60 or older (1 - 1-dose 60+ series) [facility] Start: 2018 RSV Vaccine (1 - Ris k 60-74 years 1-dose series) RSV Vaccine (1 - Risk 60-74 years 1-dose series) [facility] Start: 12-10-2015 Screening for malign ant neoplasm of breast Mammogram Screening [facility] Start: 02-10-2009 MMR Vaccines (1 of 1 - Standard series) MMR Vaccines (1 of 1 - Standard series) [facility] Start: 2008 Pneumococcal Vaccine : 50+ (1 of 1 - PCV) Pneumococcal Vaccine: 50+ (1 of 1 - PCV) [facility] Start: 2008 Shingrix Vaccine (1 of 2) Stoner grix Vaccine (1 of 2) [facility] Start: 2008 Zoster Vaccines (1 of 2) Zoste r Vaccines (1 of 2) [facility] Start: 2003 Diabetes Screening Diabetes Screenin g [facility] Start: 2003 Lipid panel Lipid Screening [facility] Start: 2003 Screening for malign ant neoplasm of colon [facility] Start: 1998 Screening for malign ant neoplasm of breast Mammogram Screening [facility] Start: 1988 Screening for malign ant neoplasm of cervix [facility] Start: 1979 Screening for malign ant neoplasm of cervix Pap Smear [facility] Start: 1977 Urine microalbumin profile DTa P,Tdap,Td Vaccine (1 - Tdap) [facility] Start: 1976 Anxiety Screening Anxiety Screening [facility] Start: 1976 Depression Screening Depression Scre ening [facility] Start: 1976 Hepatitis C screening Hepatitis C Sc reening [facility] Start: 1970 Depression Screening Depression Scre ening [facility] Start: 1958 Annual wellness visit Medicare Initial Physical (IPPE) [facility] Start: 1960 Medicare Annual Well ness (AWV) Medicare Annual Wellness (AWV) [facility] Start: 1958 Screening for malign ant neoplasm of colon [facility] Start: 1958 Screening for osteoporosis Bone Dens ity Scan [facility] End: 07-25-2025 Flexible sigmoidoscopy study COLONOSCOPY DIAGNOSTIC Endoscopy Routine Diverticulitis of large intestine with perforation and abscess without bleeding 1 Occurrences starting 07/25/2024 until 07/25/2025 [facility] Comment on above: 1 Occurrences starti ng 07/25/2024 until 07/25/2025 H&P for surgery H&P FOR SURGERY Procedures Routine Diverticulitis Diverticulitis of large intestine with perforation and abscess without bleeding Ordered: 07/25/2024 [facility] Work Phone: Comment on above: Ordered: 07/25/2024 H&P for surgery H&P FOR SURGERY Procedures Routine Diverticulitis Ordered: 08/19/2024 [facility] Work Phone: Comment on above: Ordered: 08/19/2024 Laps proctectomy abdominoperineal w/colostomy ROBOTIC LAPAROSCOPIC SIGMOID COLECTOMY WITH COLOSTOMY Diverticulitis AK OR OUTSIDE PROCEDURE SCAN OUTSIDE P ROCEDURE SCAN Procedures Ordered: 09/10/2023 [facility] Comment on above: Ordered: 09/10/2023 Immunizations Immunization Date Immunization Notes Care Provider Lashawn trujillo 12-25-2023 influenza virus vaccine, unspecified formulation Lisbet Carrizales RN [facility] 12-25-2021 influenza virus vaccine, unspecified formulation Trey Bernal DO Work Phone: [facility] 04-12-2020 Covid (Moderna) [facility] 03-15-2020 Covid (Moderna) [facility] 12-07-2019 influenza, injectabl e, quadrivalent, preservative free [facility] 12-07-2019 influenza, seasonal, injectable [facility] Work Phone: 12-29-2018 influenza, injectabl e, quadrivalent, preservative free [facility] 12-29-2018 influenza, seasonal, injectable [facility] Work Phone: 12-24-2017 influenza, injectabl e, quadrivalent, preservative free [facility] 12-24-2017 influenza, seasonal, injectable [facility] Work Phone: 12-07-2016 influenza, injectabl e, quadrivalent, preservative free [facility] 12-07-2016 influenza, seasonal, injectable [facility] Work Phone: 12-27-2015 influenza, injectabl e, quadrivalent, preservative free [facility] 12-27-2015 influenza, seasonal, injectable [facility] Work Phone: 08-02-2015 tetanus toxoid, redu josi diphtheria toxoid, and acellular pertussis vaccine, adsorbed [facility] Payers Date Payer Category Payer Self-pay [id number] 2023 Private Health Insurance [id number] 2023 Private Health Insurance CLI [id number] 2022 Medicare [id number] 2022 Medicare [id number] Unknown [id number] Unknown [id number] Unknown [id number] Social History Date Type Detail Facility Start: 04-02-2020 End: 04-02-2020 Tobacco smoking status NHIS Unknown if ever smoked [facility] Start: 12-22-2019 Non-smoker [facility] Start: 1960 Sex Assigned At Female W [facility] Start: 1960 Sex assigned at Not on file [facility] Start: 07-10-2024 End: 08-14-2024 Gender identity Not on file [facility] Work Phone: Start: 07-10-2024 Tobacco smoking stat us NHIS Ex-smoker [facility] Start: 03-12-1988 End: 03-12-1978 History of tobacco use Current smoker [facility] Start: 03-12-1988 End: 03-12-1978 History of tobacco use Cigarette Smoker [facility] History of tobacco use Passive smoker [facility] Start: 07-10-2024 Tobacco use and exposure Smokeless tobacco non-user [facility] Start: 07-10-2024 End: 10-08-2024 Alcoholic beverage intake Current drinker of alcohol (finding) [facility] Start: 07-10-2024 End: 08-14-2024 History of Social function [facility] Work Phone: Start: 02-11-2012 National Score (1-10 0), lower number is lower risk 56 [facility] Start: 07-10-2024 Alcohol Comment occ [facility] Has the [employer], [employer], or [employer] company threatened to shut off services in your home in past 12Mo No [facility] Work Phone: (I/We) worried logan er (my/our) food would run out before (I/we) got money to buy more. Never true [facility] Medical Equipment Procedure Code Equipment Code [...] 10/10/2024 12:06 PM Lisbet Victoria RN No [facility] 10-10-2024 Are you blind, or do you have serious difficulty seeing, even when wearing glasses No 10/10/2024 12:06 PM Lisbet Victoria RN No [facility] 10-10-2024 Do you have serious difficulty walking or climbing stairs No 10/10/2024 12:06 PM Lisbet Victoria RN No [facility] 10-10-2024 Do you have difficul ty dressing or bathing No 10/10/2024 12:06 PM Lisbet Victoria RN [facility] 10-10-2024 Because of a physica l, mental, or emotional condition, do you have difficulty doing errands alone such as visiting a physician's office or shopping No 10/10/2024 12:06 PM Lisbet Victoria RN No [facility] Mental Status Date Assessment Result Facility 10-10-2024 Because of a physica l, mental, or emotional condition, do you have serious difficulty concentrating, remembering, or making decisions No 10/10/2024 12:06 PM Lisbet Victoria RN No [facility] Clinical Notes 06-16-2024 to 11-03-2024 Telephone Encounter - Lisbet Carrizales RN - 11/03/2024 2:44 PM EDTTelephone Encounter - Lisbet Carrizales RN - 11/03/2024 2:44 PM Josefa Ortiz MD - 10/24/2024 10:57 AM EDTPatient Instructions Note Date & Type Note Facility 11-03-2024 Telephone encounter Note 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 Author Type: Physician Type: Progress Notes Filed: 10/24/2024 11:10 Note Text: Josefa Garza M.D. Colon AND Rectal Surgery 1 [facility], [address] [place] [id number] CC: Postop, status post low anterior resection HPI: Celi Farmer is a 64 year old White female who has a history of complicated diverticulitis. She was previously admitted to a hospital in [place] with a pelvic abscess secondary to diverticulitis. [...] healed, okay to (more content not included)... [facility] 10-24-2024 History of Present illness Narrative Images from the original note were not included. Josefa Garza M.D. Colon & Rectal Surgery [address] [facility], [address] [place] [address] CC: Postop, status post low anterior resection HPI: Celi Farmer is a 64 year old White female who has a history of complicated diverticulitis. She was previously admitted to a hospital in [place] with a pelvic abscess secondary to diverticulitis. 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 BOATBUILDER SUPERVISOR DISCHARGE FOLLOW UP PHONE CALL Phone Call [...] 13, 2024 TIME: 2:06 PM PAGER/CONTACT #: [phone] [facility] 10-13-2024 Miscellaneous Notes GENERAL SURGERY/ERAS BOATBUILDER SUPERVISOR DISCHARGE FOLLOW UP PHONE CALL Phone Call [...] 13, 2024 TIME: 2:06 PM PAGER/CONTACT #: [phone] documented in this encounter [facility] 10-10-2024 Note HNO ID: [id number] Author: SARITA FARNSWORTH CPhT Service: Pharmacy Author Type: Acid Adjuster Type: Plan of Care Filed: 10/10/2024 12:09 Note Text: PHARMACY BEDSIDE DELIVERY SERVICE Patient Name: Celi Farmer The marked outpatient medications were Filled at: [facility] and delivered to the patient's bedside to [...] FlagyL neomycin 500 mg tablet Sarita Farnsworth [facility] PAGER: Sarita Farnsworth ([facility]) [phone] October 10, 2024 12:07 PM [facility] 10-10-2024 Note HNO ID: [id number] Author: JUDY VILLANUEVA RN Service: Care Management [...] DATE: October 10, 2024 TIME: 8:01 AM [facility] 10-10-2024 Note HNO ID: [id number] Author: JOSEFA GARZA MD Service: General Surgery [...] questions or concerns Mon-Fri 6a-5p please page [phone]. After 5pm and on Weekends and Holidays, please page [phone] if in ICU or [phone] if on RNF. SUBJECTIVE: Pt is doing [...] 0659 10/10/24 07 - 10/11/24 0659 Shift 5330-1461 7418-3121 4935-0962 24 Hour Total 4165-0782 0663-6527 1023-2883 24 Hour Total INTAKE PO 480 120 600 PO 480 120 600 Shift Total 480 120 600 OUTPUT Urine 1150 905 379 2952 Void (ml) 850 129 407 5226 Urine Not Saved. 1 x 1 x Output ([REMOVED] Indwelling Urinary Catheter 10/08/24 [facility] 16 Fr 10/09/24 0814) 300 300 # of BMs Number of BMs 2 x 3 x 5 x Shift Total 1150 195 072 2442 Weight (kg) 67 67 67 67 67 [...] and on Weekends and Holidays, please page [phone]. [facility] 10-09-2024 Note HNO ID: [id number] Author: JUDY VILLANUEVA RN Service: Care Management Author Type: Registered Nurse Type: Care Mgt Initial Assessment Filed: 10/09/2024 11:49 Note Text: CARE MANAGEMENT: ASSESSMENT AND DISCHARGE PLAN SERVICE DATE: October 09, 2024 SERVICE TIME: 11:48 AM PCP: Trey Bernal DO, MD Primary Contact: Extended Emergency Contact Information Primary Emergency Contact: Dionte Farmer Address: [address] [place] [address] [place] [address] [facility] Mobile Relation: Spouse Secondary Emergency Contact: Silas Farmer Mobile Relation: Son Admission Status: Inpatient Insurance Provider: MEDICARE A AND B Discharge Planning requested by: Per Department Practice Potential Transition Plans Home Advance Directives Current Advance Directive: Health Care Power of It Help Desk Analyst In Chart: Yes Up To Date and [...] General wellness, Be able to go home [place] of Choice Explained: [place] of [place] Given: No Reason Not Given: [...] and her can transport her home at [place]. CM will continue to follow. SIGNATURE: Judy Villanueva RN PATIENT NAME: Celi Farmer DATE: October 09, 2024 TIME: 11:48 AM [facility] 10-09-2024 Note HNO ID: [id number] Author: JOSEFA GARZA MD Service: General Surgery [...] questions or concerns Mon-Fri 6a-5p please page [phone]. After 5pm and on Weekends and Holidays, please page [phone] if in ICU or [phone] if on RNF. SUBJECTIVE: Pt is a [...] 0659 10/09/24 07 - 10/10/24 0659 Shift 8222-1205 9939-4645 9919-2579 24 Hour Total 6610-5132 0443-5521 9156-5344 24 Hour Total INTAKE PO 120 120 [...] 225 Output ( Indwelling Urinary Catheter 10/08/24 [facility] 16 Fr) 200 1050 1250 [...] Hospital Problems Diagnosis (more content not included)... [facility] 10-08-2024 Note HNO ID: [id number] Author: PHILIP HAND MD Service: Anesthesiology Author Type: Physician Type: Anesthesia Procedure Notes Filed: 10/08/2024 15:15 Note Text: ANESTHESIOLOGY PROCEDURE NOTE Peripheral Nerve Block General Information Procedure Start Time/Medication Administration: 10/08/2024 2:49 PM Procedure End time: 10/08/2024 3:01 PM Patient location during procedure: OR Timeout Performed Pre-procedure: timeout performed Consent Obtained: Yes Patient identity confirmed: arm band, care manufacturing team member and patient sedated or unresponsive Reason for [...] October 08, 2024 TIME: 3:13 PM CSN: [id number] [facility] 10-08-2024 Note HNO ID: [id number] Author: SEAN WOOTEN APRN.CRNA Service: Anesthesiology Author Type: Nurse Base Manager Type: Anesthesia Procedure Notes Filed: 10/08/2024 15:38 Note Text: ANESTHESIOLOGY PROCEDURE NOTE Airway General Information Procedure Start Time/Medication Administration: 10/08/2024 2:44 PM Procedure End Time: 10/08/2024 2:44 PM Patient location during procedure: OR Timeout Performed Pre-procedure: timeout performed Consent Obtained: Yes Patient identity confirmed: arm band Staffing PERSONAL SERVICE WORKERS: Sean Wooten APRN.PERSONAL SERVICE WORKERS Performed by: CLARITZA Indications and Patient [...] intact post intubation. Performed by Avril Sandoval PERSONAL SERVICE WORKERS /entirety of case performed and managed by Anisha Sandoval. She is unable to sign into [facility] at this point and I am signed in as a resource and [facility] support person. SIGNATURE: Sean Wooten APRN.CRNA PATIENT NAME: Celi Farmer DATE: October 08, 2024 TIME: 2:59 PM CSN: [id number] [facility] 10-01-2024 History and physical note Images [...] 64 year old female who presents to [facility] for the above procedure. Patient reports abdominal pain 06/2024 with hospital admission in [place]. A CT scan demonstrated - sigmoid diverticulitis [...] fibrillation, CAD, chest pain, DVT/PE and recent KS. GI: Positive for: diverticulitis Negative for: abdominal pain, dysphagia, hepatitis, nausea, vomiting and ETOH >2 drinks/day. : Negative for: dysuria, hematuria, urinary incontinence and renal failure. DIGITAL PRODUCTION MANAGER: Negative for abnormal vaginal bleeding, abnormal vaginal [...] or any previous visit (from the past 82985 hours). Patient denies Blood thinners The Following Tests/Procedures Have Been Initiated: No orders per surgeon in [facility] Assessment/Plan Diagnosis: Diverticulitis [K57.92] PLAN Planned [...] which included preparing to see the patient, [id number] patient care, completing clinical documentation, obtaining and/or reviewing separately obtained history, performing a medically appropriate examination, and counseling and educating the patient/family/caregiver. SIGNATURE: Maykel Gordon APRN.CNP PATIENT NAME: Celi Farmer DATE: October 01, 2024 TIME: 11:20 AM PAGER/CONTACT #: T [facility] 10-01-2024 History and physical note Images [...] 64 year old female who presents to [facility] for the above procedure. Patient reports abdominal pain 06/2024 with hospital admission in [place]. A CT scan demonstrated - sigmoid diverticulitis [...] fibrillation, CAD, chest pain, DVT/PE and recent KS. GI: Positive for: diverticulitis Negative for: abdominal pain, dysphagia, hepatitis, nausea, vomiting and ETOH >2 drinks/day. : Negative for: dysuria, hematuria, urinary incontinence and renal failure. DIGITAL PRODUCTION MANAGER: Negative for abnormal vaginal bleeding, abnormal vaginal [...] or any previous visit (from the past 11131 hours). Patient denies Blood thinners The Following Tests/Procedures Have Been Initiated: No orders per surgeon in [facility] Assessment/Plan Diagnosis: Diverticulitis [K57.92] PLAN Planned [...] which included preparing to see the patient, [id number] patient care, completing clinical documentation, obtaining and/or reviewing separately obtained history, performing a medically appropriate examination, and counseling and educating the patient/family/caregiver. SIGNATURE: Maykel Gordon APRN.CNP PATIENT NAME: Celi Farmer DATE: October 01, 2024 TIME: 11:20 AM PAGER/CONTACT #: documented in this encounter [facility] 10-01-2024 History of Present illness Narrative [...] AM CONTACT#: [id number] documented in this encounter [facility] 10-01-2024 Note HNO ID: [id number] Author: KRISTYN JACKSON RN Service: ? Author [...] 01, 2024 TIME: 11:20 AM CONTACT#: [id number] [facility] 10-01-2024 History of Present illness Narrative GENERAL SURGERY/ERAS BOATBUILDER SUPERVISOR PREOPERATIVE EDUCATION Date: 10/01/2024 Time: 10:15 AM Education provide to: Patient Lives with: Spouse Mobility: Independent ERAS protocol instructions given with good understanding. Written instructions given to patient. Encouraged to call with any questions. SIGNATURE: Lisbet Carrizales RN PATIENT NAME: Celi Farmer DATE: October 01, 2024 TIME: 1:13 PM PAGER/CONTACT #: [phone] documented in this encounter [facility] 10-01-2024 Note HNO ID: [id number] Author: LISBET CARRIZALES RN Service: ? Author Type: Registered Nurse Type: Progress Notes Filed: 10/01/2024 13:14 Note Text: GENERAL SURGERY/ERAS BOATBUILDER SUPERVISOR PREOPERATIVE EDUCATION Date: 10/01/2024 Time: 10:15 AM Education provide to: Patient Lives with: Spouse Mobility: Independent ERAS protocol instructions given with good understanding. Written instructions given to patient. Encouraged to call with any questions. SIGNATURE: Lisbet Carrizales RN PATIENT NAME: Celi Farmer DATE: October 01, 2024 TIME: 1:13 PM PAGER/CONTACT #: [phone] [facility] 10-01-2024 Note Education (AGGENS3) CELI FARMER ([id number]) 1960 F Date Time Provider Department 10/01/24 LISBET CARRIZALES3 Reason for Visit: Patient Education [91] During your visit today, we recorded the following information about you: Allergies As of Date: 10/01/2024 Noted Allergy Reaction CODEINE 07/10/2024 8 - GI Upset Date Reviewed: 10/01/2024 Reviewed by: Maykel Gordon APRN.CHILD CARE DIRECTOR - Fully Assessed Prescriptions as of 10/01/2024 [...] Encounter Status:Closed by LISBET CARRIZALES on 10/01/24 [facility] 09-30-2024 Instructions Maykel Gordon APRN.CHILD CARE DIRECTOR - 09/30/2024 8:17 AM EDT PATIENT PREOPERATIVE INSTRUCTIONS Your surgeon has scheduled for your procedure at this surgery center: [facility]: [phone], [address] [place] [id number] Please read below carefully for your personalized [...] surgery. - YOU MUST HAVE A RESPONSIBLE LIFT TRUCK MECHANIC TAKE YOU HOME. A MOLD RUNNER, CAB OR UBER LIFT TRUCK MECHANIC CANNOT BE MADE A RESPONSIBLE LIFT TRUCK MECHANIC. - If you are undergoing an outpatient [...] date of surgery. Visitation: Visitors to any [facility] facility: Any individual who is sick should not visit. Visitors to patients with COVID-19 must follow these guidelines, which include wearing a mask, eye protection, gown and gloves. [facility] in [facility] Visitation hours: 7 AM to 9 PM. [...] Advance Directive, please fax a copy to [phone] or Tuan LINCOLN at [phone] or email to for it to be [...] your chart that day. Hibiclens provided by [facility] nurse The anti-bacterial soap (Hibiclens) should be [...] Gordon APRN.CNP 10/01/24 documented in this encounter [facility] 08-14-2024 Note HNO ID: [id number] Author: JOSEFA GARZA MD Service: ? Author Type: Physician Type: Progress Notes Filed: 08/14/2024 11:33 Note Text: Josefa Garza M.D. Colon AND Rectal Surgery [address] [facility], [address] [place] [address] CC: complicated diverticulitis HPI: Celi Farmer is a 64 year old White female who was initially admitted to an outside hospital in [place] from June 08 to June 11, 2024, [...] that while a (more content not included)... [facility] 08-14-2024 History of Present illness Narrative Images from the original note were not included. Josefa Garza M.D. Colon & Rectal Surgery [address] [facility], [address] [place] [id number] CC: complicated diverticulitis HPI: Celi Farmer is a 64 year old White female who was initially admitted to an outside hospital in [place] from June 08 to June 11, 2024, [...] This office note has been created using TapClicks, a speech recognition software program, and may contain errors including punctuation, grammar, spelling, gender, and inappropriate words or phrases that pertain to the sytem. documented in this encounter [facility] 08-01-2024 Note HNO ID: [id number] Author: JERRIAC BARTH, MATT Service: ? Author Type: Registered Nurse Type: Nursing Progress Note Filed: 08/01/2024 14:19 Note Text: Dr garza at bedside [facility] 08-01-2024 Note HNO ID: [id number] Author: KYLAH PHILLIPS APRN.CNP Service: Anesthesiology Author Type: Nurse Practitioner Type: Nursing Progress Note Filed: 08/01/2024 12:27 Note Text: HANDP completed 07/10/24 by Josefa Garza MD. [facility] 07-14-2024 Telephone encounter Note Patient called in says she didn't want to wait 3 months for surgery and wanted to discuss moving thing up Brionna Vyas MA [facility] 07-14-2024 Miscellaneous Notes Patient called in says she didn't want to wait 3 months for surgery and wanted to discuss moving thing up Brionna Vyas MA documented in this encounter [facility] 07-10-2024 Note HNO ID: [id number] Author: JOSEFA GARZA MD Service: ? Author Type: Physician Type: Progress Notes Filed: 07/10/2024 10:52 Note Text: Josefa Garza M.D. Colon AND Rectal Surgery 1 [facility], [address] [place] [id number] Recording using miDrive software for draft documentation of the visit was discussed with the patient/authorized roofing sales representative; all questions welcomed and answered. Patient/authorized roofing sales representative agreed to proceed CC: complicated diverticulitis HPI: Celi Farmer is a 64 year old White female presenting for follow-up after a recent hospitalization for sigmoid diverticulitis with a contained abscess. 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 - Discussed potential for el (more content not included)... [facility] 07-10-2024 History of Present illness Narrative Images from the original note were not included. Josefa Garza M.D. Colon & Rectal Surgery 1 [facility], [address] [place] [id number] Recording using miDrive software for draft documentation of the visit was discussed with the patient/authorized roofing sales representative; all questions welcomed and answered. Patient/authorized roofing sales representative agreed to proceed CC: complicated diverticulitis HPI: Celi Farmer is a 64 year old White female presenting for follow-up after a recent hospitalization for sigmoid diverticulitis with a contained abscess. 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 - Discussed potential [...] This office note has been created using TapClicks, a speech recognition software program, and may contain errors including punctuation, grammar, spelling, gender, and inappropriate words or phrases that pertain to the sytem. documented in this encounter [facility] 07-03-2024 Telephone encounter Note Patient [place] of state and is scheduled for fistula gram scheduled for 07/04. Patient would like to know if she should proceed with this testing. Patient is scheduled for 07/[address] Garza. Please advise. Stella Cunningham MA [facility] 07-03-2024 Miscellaneous Notes Patient called from [place] of state and is scheduled for fistula gram scheduled for 07/04. Patient would like to know if she should proceed with this testing. Patient is scheduled for 07/[address] Garza. Please advise. Stella Cunningham MA documented in this encounter [facility] 06-16-2024 Telephone encounter Note Called the patient and left a voice message asking the patient to call the office back.The patient has been referred for Diverticulitis. Katlyn Junior [facility] 06-16-2024 Miscellaneous Notes Called the patient and left a voice message asking the patient to call the office back.The patient has been referred for Diverticulitis. Katlyn Junior documented in this encounter [facility] Evaluation note No assessment information [facility] Work Phone: Evaluation note Diagnosis Acute bronchitis due to other specified organisms [facility] Diagnosis Acute bronchitis due to other specified organisms- Primary Acute bronchitis due to other specified organisms [facility] Diagnosis Diverticulitis of large intestine with perforation and abscess without bleeding documented in this encounter [facility] note* Diagnosis Diverticulitis of large intestine with perforation and abscess without bleeding- Primary Diverticulitis Diverticulitis of colon (without mention of hemorrhage) documented in this encounter [facility] note* Diagnosis Diverticulitis of large intestine with perforation and abscess without bleeding- Primary documented in this encounter [facility] note* Diagnosis Diverticulitis- Primary Diverticulitis of colon (without mention of hemorrhage) documented in this encounter [facility] note* Diagnosis Pre-op examination- Primary Preoperative examination, unspecified Diverticulitis Diverticulitis of colon (without mention of hemorrhage) Hyperlipidemia, unspecified hyperlipidemia type Other specified counseling- Primary Diverticulitis Diverticulitis of colon (without mention of hemorrhage) documented in this encounter [facility] note* Diagnosis Pre-op examination- Primary Preoperative [...] Primary [facility] Medication Prior Authorization - Pending Review Specialty Diagnoses / Procedures Referred By Contac t Referred To Contact Josefa Garza MD [address] [place] [address] Phone: tel: fax:[phone] Referral ID Status Reason Start Date Expiration Date V isits Requested Visits Authorized [id number] Pending Review 1 1 [facility] Chief Complaint and Reason for Visit [...] Will Yes December 29 12:09pm Power of It Help Desk Analyst Yes December 30, 2019 12:09pm Advance Directive Response Recorded Date/ Time Living Will Yes December 29 11:09am Power of It Help Desk Analyst Yes December 30, 2019 11:09am Summary Purpose [...] YANG Attending Provider, Referring Provider Ac tive Nodulizer Relationship Specialty Start Date End Date Trey Bernal DO [address] [place] [address] PCP - General 12/09/14 Nodulizer Relationship Specialty Start Date End Date Trey Bernal DO [address] [place] [address] PCP - General 12/09/14 Nodulizer Relationship Specialty Start Date End Date Trey Bernal MD [address] [place] [id number] PCP - General Family Medicine 07/10/24 Josefa Garza MD [address] [place], [place] [id number] General Surgery 07/10/24 Nodulizer Relationship Specialty Start Date End Date Trey Bernal MD [address] [place] [phone] PCP - General Family Medicine 07/10/24 Josefa Garza MD [address] [place], [place] [id number] General Surgery 07/10/24 Nodulizer Relationship Specialty Start Date End Date Trey Bernal MD [address] [place] [address] PCP - General Family Medicine 07/10/24 Josefa Garza MD [address] [place], [place] [id number] General Surgery 07/10/24 Nodulizer Relationship Specialty Start Date End Date Trey Bernal MD [address] [place] [phone] PCP - General Family Medicine 07/10/24 Josefa Garza MD [address] [place], [place] [id number] General Surgery 07/10/24 Nodulizer Relationship Specialty Start Date End Date Trey Bernal MD [address] [place] [phone] PCP - General Family Medicine 07/10/24 Josefa Garza MD [address] [place], [place] [id number] General Surgery 07/10/24 Nodulizer Relationship Specialty Start Date End Date Trey Bernal MD [address] [place] [phone] PCP - General Family Medicine 07/10/24 Josefa Garza MD [address] [place], [place] [id number] General Surgery 07/10/24 Nodulizer Relationship Specialty Start Date End Date Trey Bernal MD [address] [place] [address] PCP - General Family Medicine 07/10/24 Josefa Garza MD [address] [place], [place] [id number] General Surgery 07/10/24 Nodulizer Relationship Specialty Start Date End Date Trey Bernal MD [address] [place] [address] PCP - General Family Medicine 07/10/24 Josefa Garza MD [address] [place], [place] [id number] General Surgery 07/10/24 Nodulizer Relationship Specialty Start Date End Date Trey Bernal MD [address] [place] [phone] PCP - General Family Medicine 07/10/24 Josefa Garza MD [address] [place], [place] [id number] General Surgery 07/10/24 Nodulizer Relationship Specialty Start Date End Date Trey Bernal MD [address] [place] [phone] PCP - General Family Medicine 07/10/24 Josefa Garza MD [address] [place], [place] [id number] General Surgery 07/10/24 Nodulizer Relationship Specialty Start Date End Date Trey Bernal MD [address] [place] [phone] PCP - General Family Medicine 07/10/24 Josefa Garza MD [address] [place], [place] [id number] General Surgery 07/10/24 Nodulizer Relationship Specialty Start Date End Date Trey Bernal MD [address] [facility] [place] [address] PCP - General Family Medicine 07/10/24 Josefa Garza MD [address] [place], [place] [id number] General Surgery 07/10/24 Nodulizer Relationship Specialty Start Date End Date Trey Bernal MD [address] [place] [address] PCP - General Family Medicine 07/10/24 Josefa Garza MD [address] [place], [place] [id number] General Surgery 07/10/24 INFORMATION SOURCE (unrecogn ized section and content) DATE CREATED AUTHOR 09/11/2023 [facility] DATE CREATED AUTHOR AUTHOR'S ORGANIZ ATION 06/17/2024 [facility] [place] DATE CREATED AUTHOR AUTHOR'S ORGANIZ ATION 07/15/2024 [facility] DATE CREATED AUTHOR AUTHOR'S ORGANIZ ATION 11/04/2024 [facility] Source Comments (unrecognize d section and content) In the event this informatio n is protected by the Federal Confidentiality of Alcohol and Drug Abuse Patient Records regulations: The Federal rules restrict any use of the information to criminally investigate or prosecute any alcohol or drug abuse patient.[facility] the event this information is protected by the Federal Confidentiality of Alcohol and Drug Abuse Patient Records regulations: The Federal rules restrict any use of the information to criminally investigate or prosecute any alcohol or drug abuse patient.[facility] the event this information is protected by the Federal Confidentiality of Alcohol and Drug Abuse Patient Records regulations: The Federal rules restrict any use of the information to criminally investigate or prosecute any alcohol or drug abuse patient.[facility] the event this information is protected by the Federal Confidentiality of Alcohol and Drug Abuse Patient Records regulations: The Federal rules restrict any use of the information to criminally investigate or prosecute any alcohol or drug abuse patient.[facility] the event this information is protected by the Federal Confidentiality of Alcohol and Drug Abuse Patient Records regulations: The Federal rules restrict any use of the information to criminally investigate or prosecute any alcohol or drug abuse patient.[facility] the event this information is protected by the Federal Confidentiality of Alcohol and Drug Abuse Patient Records regulations: The Federal rules restrict any use of the information to criminally investigate or prosecute any alcohol or drug abuse patient.[facility] the event this information is protected by the Federal Confidentiality of Alcohol and Drug Abuse Patient Records regulations: The Federal rules restrict any use of the information to criminally investigate or prosecute any alcohol or drug abuse patient.[facility] the event this information is protected by the Federal Confidentiality of Alcohol and Drug Abuse Patient Records regulations: The Federal rules restrict any use of the information to criminally investigate or prosecute any alcohol or drug abuse patient.[facility] the event this information is protected by the Federal Confidentiality of Alcohol and Drug Abuse Patient Records regulations: The Federal rules restrict any use of the information to criminally investigate or prosecute any alcohol or drug abuse patient.[facility] the event this information is protected by the Federal Confidentiality of Alcohol and Drug Abuse Patient Records regulations: The Federal rules restrict any use of the information to criminally investigate or prosecute any alcohol or drug abuse patient.[facility] the event this information is protected by the Federal Confidentiality of Alcohol and Drug Abuse Patient Records regulations: The Federal rules restrict any use of the information to criminally investigate or prosecute any alcohol or drug abuse patient.[facility] the event this information is protected by the Federal Confidentiality of Alcohol and Drug Abuse Patient Records regulations: The Federal rules restrict any use of the information to criminally investigate or prosecute any alcohol or drug abuse patient.[facility] the event this information is protected by the Federal Confidentiality of Alcohol and Drug Abuse Patient Records regulations: The Federal rules restrict any use of the information to criminally investigate or prosecute any alcohol or drug abuse patient.[facility] the event this information is protected by the Federal Confidentiality of Alcohol and Drug Abuse Patient Records regulations: The Federal rules restrict any use of the information to criminally investigate or prosecute any alcohol or drug abuse patient.[facility] the event this information is protected by the Federal Confidentiality of Alcohol and Drug Abuse Patient Records regulations: The Federal rules restrict any use of the information to criminally investigate or prosecute any alcohol or drug abuse patient.[facility] Reason for Visit (unrecogniz ed section [...] SIGMOID W/ ANASTOMOSIS Reason Onset Date Comments [facility] - Hospital Follow Up 11/03/2024 FOR RECORDS [...] BE BASED ON THE PRIMARY CLINICAL RECORDS. [facility], [facility]. provides no warranty or guarantee of the accuracy or completeness of information in this document.
[2024-12-31 12:07] LABS: Hematocrit 42.5 % (37-47); Hemoglobin 14.6 g/dL (12.0-15.0); Immature Granulocytes Count 0.020 X10^3/uL (0.0-0.0); Mean Corp Hgb Conc 34.4 g/dL (32-36); Mean Corpuscular Volume 90.0 fL (81-99); Mean Platelet Vol. 9.4 fl (6.2-12.0); NRBC Flagged by Analyzer 0 % (0-5); POSITIVE DIFFERENTIAL YES; Platelet Count 281 K/mm3 (150-450); RBC Distribution Width CV 13.6 % (11.6-14.6); RBC Distribution Width SD 44.7 fl (35.1-43.9); Red Blood Count 4.72 M/mm3 (4.2-5.4); White Blood Count 6.0 K/mm3 (4.4-11.0)
[2024-12-31 12:15] LABS: Color, Urine Yellow (Yellow); Glucose, Dipstick Normal (Normal); Ketone-Dipstick Negative (Negative); Leukocyte Esterase-Dipstick Negative /ul (Negative); Nitrite-Dipstick Negative (Negative); Occult Blood-Urine Negative /ul (Negative); Protein-Dipstick Negative (Negative); Specific Gravity, Urine 1.015 (1.002-1.030); Urine Bilirubin Dipstick Negative (Negative)
[2024-12-31 13:14] LABS: AST(SGOT) 22 U/L (<=31); Alanine Aminotransfer ALT/SGPT 19 U/L (<=34); Albumin, Serum 4.4 g/dL (3.4-4.8); Alkaline Phosphatase 60 U/L (35-104); Anion Gap 10 (5-15); BUN 15 mg/dL (4-19); BUN/Creat Ratio 17.8 RATIO (10-20); Bilirubin, Direct 0.24 mg/dL (0.00-0.30); Calcium,Total 10.0 mg/dL (7.6-11.0); Carbon Dioxide 26.5 mmol/L (21.0-32.0); Chloride 103 mmol/L (98-108); Cholesterol 225 mg/dL (<=200); Globulin 3.1 g/dL (2.2-4.2); Glucose 89 mg/dL (70-99); Low Density Lipoprotein Calc. 109 mg/dL; Potassium 5.2 mmol/L (3.3-5.1); Triglycerides 128 mg/dL; Very Low Density Lipoprotein 26 mg/dL (5-40); Vitamin D,25 Hydroxy 51.4 ng/mL (30-100); cholesterol:hdl ratio screen 2.39
== END | disposition home or self-care (01) ==
LOC: LAB 10:45
PROVIDERS: PCP Family Medicine; Referring Provider Family Medicine; Visit Provider Family Medicine
DX: E55.9 Vitamin D deficiency, unspecified (principal); E78.5 Hyperlipidemia, unspecified
CPT/HCPCS: 36415; 80048; 80061; 80076; 81002; 82306; 84443; 85025